=== PATIENT | male | born 1955 | race Caucasian/White ===

== ENCOUNTER 2017-06-03 18:29 | Emergency (ER) | payer OTHER ==
[2017-06-03] MEDS: DOXYCYCLINE HYCLATE 100 MG TAB PO (21:48)
== END 2017-06-03 21:48 | disposition home or self-care (01) ==
LOC: M ED 18:29
DX: L03.811 Cellulitis of head [any part, except face] (principal); S00.01XA Abrasion of scalp, initial encounter; X58.XXXA Exposure to other specified factors, initial encounter; Y92.89 Other specified places as the place of occurrence of the external cause; E11.9 Type 2 diabetes mellitus without complications; J44.9 Chronic obstructive pulmonary disease, unspecified; Z79.51 Long term (current) use of inhaled steroids; Z79.899 Other long term (current) drug therapy; F17.210 Nicotine dependence, cigarettes, uncomplicated
CPT/HCPCS: 99283

== ENCOUNTER 2018-01-07 00:37 | Emergency (ER) | payer OTHER ==
[2018-01-07 01:52] LABS: KETONE, URINE AUTO RFX NEGATIVE (NEGATIVE); LEUKOCYTE ESTERASE UR AUTO RFX NEGATIVE (NEGATIVE); MUCUS, URINE RFX SMALL (NEGATIVE); NITRITE, URINE AUTO RFX NEGATIVE (NEGATIVE); RBC, URINE AUTO RFX 1 /HPF (0-3); SPECIFIC GRAVITY UR AUTO RFX 1.017 (1.002-1.035); SQUAM EPITHELIAL CELL UR AURFX 0 /HPF (0-6); WBC, URINE AUTO RFX 0 /HPF (0-3)
[2018-01-07] MEDS: NORCO, ANEXSIA 5/325MG TABLET (HYDROcodone/ACETAMINOPHEN) PO (02:08)
[2018-01-07] MEDS: NORCO 5/325MG TABLET (BULK FOR ED) PO (02:15)
== END 2018-01-07 02:19 | disposition home or self-care (01) ==
LOC: M ED 00:37
DX: K40.90 Unilateral inguinal hernia, without obstruction or gangrene, not specified as recurrent (principal); E11.9 Type 2 diabetes mellitus without complications; I10 Essential (primary) hypertension
CPT/HCPCS: 81001

== ENCOUNTER 2018-01-13 23:19 | Emergency (ER) | payer OTHER ==
[2018-01-14] MEDS: ONDANSETRON 4MG/2ML VIAL (J2405) IV (01:04)
[2018-01-14] MEDS: MORPHINE 4 MG/ML 1ML VIAL/SYRINGE (J2270) IV (01:04)
[2018-01-14 01:05] LABS: BASO # 0.1 10^3/uL (0.0-0.2); BASO % 0.8 % (0.0-1.0); EOS # 0.3 10^3/uL (0.0-0.50); EOS % 2.7 % (0.0-3.0); HEMATOCRIT 42.7 % (42.0-52.0); HEMOGLOBIN 14.2 g/dl (13.5-17.5); IMMATURE GRANULOCYTE % 0.4 % (0-3.0); LYMPH # 3.2 10^3/uL (1.5-4.5); LYMPH % 29.6 % (24.0-44.0); MEAN CORPUSCULAR HEMOGLOBIN 29.6 pg (27.0-33.0); MEAN CORPUSCULAR HGB CONC 33.3 g/dl (32.0-36.5); MONO # 0.7 10^3/uL (0.0-0.8); MONO % 6.9 % (0.0-5.0); NEUTROPHILS # 6.4 10^3/uL (1.8-7.7); NEUTROPHILS % 59.6 % (36.0-66.0); PLATELET COUNT, AUTOMATED 327 10^3/uL (150-450); WHITE BLOOD COUNT 10.7 10^3/uL (4.0-10.0)
[2018-01-14 01:27] LABS: ANION GAP 9 MEQ/L (8-16); BLOOD UREA NITROGEN 14 MG/DL (7-18); CALCIUM LEVEL 8.6 MG/DL (8.8-10.2); CARBON DIOXIDE LEVEL 28 MEQ/L (21-32); CHLORIDE LEVEL 105 MEQ/L (98-107); CREATININE FOR GFR 0.77 MG/DL (0.70-1.30); GLOMERULAR FILTRATION RATE > 60.0 (>49); GLUCOSE, FASTING 184 MG/DL (70-100); POTASSIUM SERUM 4.1 MEQ/L (3.5-5.1); SODIUM LEVEL 142 MEQ/L (136-145)
[2018-01-14 01:30] LABS: LACTIC ACID SEPSIS PROTOCOL 0.9 MMOL/L (0.4-2.0)
== END 2018-01-14 02:05 | disposition home or self-care (01) ==
LOC: M ED 23:19
DX: K40.90 Unilateral inguinal hernia, without obstruction or gangrene, not specified as recurrent (principal); R11.0 Nausea; I10 Essential (primary) hypertension; E11.9 Type 2 diabetes mellitus without complications; J44.9 Chronic obstructive pulmonary disease, unspecified; F17.210 Nicotine dependence, cigarettes, uncomplicated
CPT/HCPCS: J2270

== ENCOUNTER 2018-01-15 22:30 | Emergency (ER) | payer OTHER ==
[2018-01-15] MEDS: NORCO 5/325MG TABLET (BULK FOR ED) PO (23:45)
== END 2018-01-16 00:05 | disposition home or self-care (01) ==
LOC: M ED 01-16 00:05
DX: K40.90 Unilateral inguinal hernia, without obstruction or gangrene, not specified as recurrent (principal); I10 Essential (primary) hypertension; J44.9 Chronic obstructive pulmonary disease, unspecified; E11.9 Type 2 diabetes mellitus without complications; Z79.899 Other long term (current) drug therapy; Z79.4 Long term (current) use of insulin; F17.210 Nicotine dependence, cigarettes, uncomplicated
CPT/HCPCS: 99283

== ENCOUNTER 2018-02-14 23:32 | Emergency (ER) | payer OTHER ==
[2018-02-15 01:16] LABS: BASO # 0.1 10^3/uL (0.0-0.2); BASO % 1.1 % (0.0-1.0); EOS # 0.4 10^3/uL (0.0-0.50); EOS % 3.4 % (0.0-3.0); HEMATOCRIT 42.6 % (42.0-52.0); HEMOGLOBIN 14.4 g/dl (13.5-17.5); IMMATURE GRANULOCYTE % 0.3 % (0-3.0); LYMPH # 3.5 10^3/uL (1.5-4.5); LYMPH % 31.9 % (24.0-44.0); MEAN CORPUSCULAR HEMOGLOBIN 29.4 pg (27.0-33.0); MEAN CORPUSCULAR HGB CONC 33.8 g/dl (32.0-36.5); MEAN CORPUSCULAR VOLUME 87.1 fl (80.0-96.0); MONO # 0.8 10^3/uL (0.0-0.8); NEUTROPHILS # 6.2 10^3/uL (1.8-7.7); NEUTROPHILS % 56.3 % (36.0-66.0); PLATELET COUNT, AUTOMATED 321 10^3/uL (150-450); RED BLOOD COUNT 4.89 10^6/uL (4.30-6.10); RED CELL DISTRIBUTION WIDTH 12.6 % (11.5-14.5)
[2018-02-15 01:33] LABS: ANION GAP 5 MEQ/L (8-16); BLOOD UREA NITROGEN 9 MG/DL (7-18); CARBON DIOXIDE LEVEL 30 MEQ/L (21-32); CHLORIDE LEVEL 104 MEQ/L (98-107); CREATININE FOR GFR 0.73 MG/DL (0.70-1.30); GLOMERULAR FILTRATION RATE > 60.0 (>49); GLUCOSE, FASTING 258 MG/DL (70-100); POTASSIUM SERUM 4.2 MEQ/L (3.5-5.1); SODIUM LEVEL 139 MEQ/L (136-145)
[2018-02-15 02:00] LABS: CALCIUM OXALATE CRYSTALS RFX SMALL; KETONE, URINE AUTO RFX TRACE mg/dL (NEGATIVE); LEUKOCYTE ESTERASE UR AUTO RFX NEGATIVE (NEGATIVE); MUCUS, URINE RFX SMALL (NEGATIVE); NITRITE, URINE AUTO RFX NEGATIVE (NEGATIVE); RBC, URINE AUTO RFX 1 /HPF (0-3); SQUAM EPITHELIAL CELL UR AURFX 0 /HPF (0-6); WBC, URINE AUTO RFX 0 /HPF (0-3)
[2018-02-15] MEDS ORDERED: OXYCODONE/APAP 5MG/325MG(BULK FOR ED) 1 TABLET PO (02:15)
== END 2018-02-15 02:14 | disposition home or self-care (01) ==
LOC: M ED 23:32
DX: K40.90 Unilateral inguinal hernia, without obstruction or gangrene, not specified as recurrent (principal); N43.41 Spermatocele of epididymis, single; R30.0 Dysuria; E11.9 Type 2 diabetes mellitus without complications; I10 Essential (primary) hypertension; J44.9 Chronic obstructive pulmonary disease, unspecified; F17.200 Nicotine dependence, unspecified, uncomplicated
CPT/HCPCS: 76870

== ENCOUNTER 2018-03-13 13:42 | Day surgery (SDC) | payer OTHER ==
[~2018-03-13 13:42] MED LIST: LIDOCAINE 2% INJ 100 MG/5 ML SDV (FOR ANES.) As Ordered; MIDAZOLAM INJ 2 MG/2 ML VIAL (J2250) As Ordered; PROPOFOL 200 MG/20 ML VIAL As Ordered; ROCURONIUM BROMIDE 50 MG/5 ML VIAL As Ordered; fentaNYL 100 MCG/2 ML INJECTION (J3010) As Ordered
[2018-03-13 14:21] LABS: BEDSIDE GLUCOSE 217 MG/DL (80-115)
[2018-03-13] MEDS: LR 1,000 ML IV (14:36)
[2018-03-13] MEDS ORDERED: HumaLOG INSULIN (NovoLOG) PER UNIT As Ordered (14:40)
[2018-03-13] MEDS: HumaLOG INSULIN (NovoLOG) PER UNIT SC (14:54)
[2018-03-13] MEDS ORDERED: fentaNYL 100 MCG/2 ML INJECTION (J3010) As Ordered (15:33)
[2018-03-13] MEDS ORDERED: SUGAMMADEX SODIUM 500 MG/5 ML VIAL (BRIDION) As Ordered (16:44)
[2018-03-13] MEDS ORDERED: ONDANSETRON 4MG/2ML VIAL (J2405) As Ordered (16:44)
[2018-03-13] MEDS: BUPIVACAINE HCL 0.25% 30 ML VIAL As Ordered (16:50)
[2018-03-13] MEDS ORDERED: HYDROmorphone HCL 2 MG/ML 1ML VIAL (J1170) As Ordered (16:50)
[2018-03-13] MEDS: LIDOCAINE 1% SDV INJ 30 ML VIAL As Ordered (16:50)
[2018-03-13] MEDS ORDERED: KETOROLAC 30 MG/ML VIAL (J1885) As Ordered (17:09)
[2018-03-13 17:11] LABS: BEDSIDE GLUCOSE 141 MG/DL (80-115)
[2018-03-13] MEDS ORDERED: NORCO, ANEXSIA 5/325MG TABLET (HYDROcodone/ACETAMINOPHEN) PO ×2 (17:15)
[2018-03-13] MEDS ORDERED: ONDANSETRON 4MG/2ML VIAL (J2405) IV (17:15)
[2018-03-13] MEDS: KETOROLAC 30 MG/ML VIAL (J1885) IV (17:25)
[2018-03-13] MEDS ORDERED: MORPHINE 10 MG/ML 1ML VIAL (J2270) IV (17:45)
[2018-03-13] MEDS ORDERED: LR 1,000 ML IV (17:45)
[2018-03-13] MEDS ORDERED: fentaNYL 100 MCG/2 ML INJECTION (J3010) IV (17:45)
[2018-03-13] MEDS: ONDANSETRON 4MG/2ML VIAL (J2405) IV (18:01)
== END 2018-03-13 18:59 | disposition home or self-care (01) ==
LOC: M SDC 13:42
DX: K40.90 Unilateral inguinal hernia, without obstruction or gangrene, not specified as recurrent (principal); E11.9 Type 2 diabetes mellitus without complications; E78.49 Other hyperlipidemia; J44.9 Chronic obstructive pulmonary disease, unspecified; I73.9 Peripheral vascular disease, unspecified; I25.2 Old myocardial infarction; M75.51 Bursitis of right shoulder; R51 Headache; Z79.899 Other long term (current) drug therapy; Z79.4 Long term (current) use of insulin; Z79.82 Long term (current) use of aspirin; Z72.0 Tobacco use
CPT/HCPCS: 49650

== ENCOUNTER 2018-03-13 23:24 | Emergency (ER) | payer OTHER ==
[2018-03-14 00:06] LABS: AMORPHOUS SEDIMENT RFX SMALL (NEGATIVE); KETONE, URINE AUTO RFX TRACE mg/dL (NEGATIVE); MUCUS, URINE RFX LARGE (NEGATIVE); NITRITE, URINE AUTO RFX NEGATIVE (NEGATIVE); RBC, URINE AUTO RFX TNTC /HPF (0-3); SPECIFIC GRAVITY UR AUTO RFX 1.034 (1.002-1.035); SQUAM EPITHELIAL CELL UR AURFX 1 /HPF (0-6)
[2018-03-14 00:16] LABS: LEUKOCYTE ESTERASE UR AUTO RFX TRACE (NEGATIVE); WBC, URINE AUTO RFX 56 /HPF (0-3)
[2018-03-14] MEDS: NORCO 5/325MG TABLET (BULK FOR ED) PO (00:41)
[2018-03-14] MEDS: NORCO, ANEXSIA 5/325MG TABLET (HYDROcodone/ACETAMINOPHEN) PO (00:41)
[2018-03-14 11:55] LABS: BEDSIDE GLUCOSE 203 MG/DL (80-115)
== END 2018-03-14 00:43 | disposition home or self-care (01) ==
LOC: M ED 23:24
DX: G89.18 Other acute postprocedural pain (principal); R31.9 Hematuria, unspecified; E11.9 Type 2 diabetes mellitus without complications; J44.9 Chronic obstructive pulmonary disease, unspecified; I25.2 Old myocardial infarction; Z79.899 Other long term (current) drug therapy; Z79.4 Long term (current) use of insulin; Z79.82 Long term (current) use of aspirin; F17.210 Nicotine dependence, cigarettes, uncomplicated
CPT/HCPCS: 81001

== ENCOUNTER 2018-06-13 20:14 | Emergency (ER) | payer OTHER ==
[~2018-06-13] VITALS: Ht 175.3 cm; Wt 69.0 kg
[~2018-06-13 20:14] MED LIST changes: +BASA100I; +BASA100I SQ; +DOXY100C37 PO; +INCR1INH; +INCR1INH INH; -LIDOCAINE 2% INJ 100 MG/5 ML SDV (FOR ANES.) As Ordered; +LISI10TA4 PO; +METF10004 PO; -MIDAZOLAM INJ 2 MG/2 ML VIAL (J2250) As Ordered; +NORCOTAB PO; +NOVO1INJ4; +NOVO1INJ4 SQ; +PERC5TAB12 PO; +PRED10TA2; -PROPOFOL 200 MG/20 ML VIAL As Ordered; -ROCURONIUM BROMIDE 50 MG/5 ML VIAL As Ordered; +SM A1TAB PO; -fentaNYL 100 MCG/2 ML INJECTION (J3010) As Ordered
[2018-06-13] MEDS ORDERED: IPRATROPIUM 0.5MG/ALBUTEROL 2.5MG INH SOL UD 3ML (DUONEB)(J7620) NEB ONE (22:00)
[2018-06-13 22:35] LABS: INFLUENZA A AMPLIFICATION NEGATIVE (NEGATIVE); INFLUENZA B AMPLIFICATION NEGATIVE (NEGATIVE)
--- NOTE | 2018-06-13 23:47 | REPVR ---
EXAM: CT Cervical Spine Without Contrast EXAM DATE/TIME: 06/13/2018 10:45 PM CLINICAL HISTORY: 63 years old, male; Pain; Neck pain; Additional info: Fell in march, still has pain TECHNIQUE: Imaging protocol: Axial computed tomography images of the cervical spine without intravenous contrast. Coronal and sagittal reformatted images were created and reviewed. Radiation optimization: All CT scans at this facility use at least one of these dose optimization techniques: automated exposure control; mA and/or kV adjustment per patient size (includes targeted exams where dose is matched to clinical indication); or iterative reconstruction. COMPARISON: No relevant prior studies available. FINDINGS: Vertebrae: The cervical vertebra appear in alignment. The facet joints also appear in alignment. There is no evidence of fracture. Discs/Spinal canal/Neural foramina: There is mild posterior osteophyte formation. Soft tissues: There is no evidence of soft tissue swelling. IMPRESSION: Mild posterior osteophyte formation. Electronically signed by: Nakul Do On 06/13/2018 23:46:53 PM
[2018-06-13] MEDS ORDERED: VENTAER INH (23:52)
[2018-06-13] MEDS ORDERED: NAPR-50 PO (23:52)
[2018-06-13 23:58] VITALS: BP 143/80
--- NOTE | 2018-06-14 02:25 | REP ---
Clinical: Shortness of breath . Comparison: None . Technique: PA and lateral. Findings: The mediastinum and cardiac silhouette are normal. The lung castro demonstrate chronic interstitial changes. Lateral view cannot exclude a 1 cm nodular density overlying the mid-thoracic spine. The skeletal structures are intact and normal. Impression: 1. Chronic-appearing interstitial changes. 2. Cannot exclude nodular density in the posterior lung zone identified on the lateral radiograph. Consider chest CT follow-up. Electronically Signed by Jarett Middleton MD 06/14/2018 02:17 A
--- NOTE | 2018-06-14 10:51 | ED PDOC ---
Post-Departure Follow-Up davion caruso faxed formal report of cxr for fu mykeg Anthony Singh MD Jun 14, 2018 10:50
--- NOTE | 2018-06-14 21:20 | ECGEPIP ---
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
== END 2018-06-13 23:59 | disposition home or self-care (01) ==
LOC: M ED 20:14
DX: J44.9 Chronic obstructive pulmonary disease, unspecified (principal); M54.2 Cervicalgia; Z91.81 History of falling; R91.8 Other nonspecific abnormal finding of lung field; M25.78 Osteophyte, vertebrae; E11.9 Type 2 diabetes mellitus without complications; I25.2 Old myocardial infarction; I10 Essential (primary) hypertension; R51 Headache; F17.210 Nicotine dependence, cigarettes, uncomplicated; Z79.82 Long term (current) use of aspirin; Z79.899 Other long term (current) drug therapy; Z79.4 Long term (current) use of insulin

== ENCOUNTER 2019-01-04 18:07 | Emergency (ER) | payer OTHER ==
[~2019-01-04] VITALS: Ht 175.3 cm; Wt 66.4 kg
[~2019-01-04 18:07] MED LIST changes: +ASPI-164 PO; +HYDR-3715 PO; +NAPR-837 PO; -NORCOTAB PO; -SM A1TAB PO; +VENTAER INH
[2019-01-04 19:35] LABS: HEMATOCRIT 45.6 % (42.0-52.0); HEMOGLOBIN 14.9 g/dl (13.5-17.5); MEAN CORPUSCULAR HEMOGLOBIN 29.6 pg (27.0-33.0); MEAN CORPUSCULAR HGB CONC 32.7 g/dl (32.0-36.5); MEAN CORPUSCULAR VOLUME 90.5 fl (80.0-96.0); PLATELET COUNT, AUTOMATED 334 10^3/uL (150-450); RED BLOOD COUNT 5.04 10^6/uL (4.30-6.10); WHITE BLOOD COUNT 8.2 10^3/uL (4.0-10.0)
[2019-01-04 19:40] LABS: AMPHETAMINES LEVEL URINE NEGATIVE (NEGATIVE); BARBITURATES URINE NEGATIVE (NEGATIVE); BENZODIAZEPINES URINE NEGATIVE (NEGATIVE); CANNABINOIDS URINE POSITIVE (NEGATIVE); COCAINE METABOLITE URINE NEGATIVE (NEGATIVE); METHADONE URINE NEGATIVE (NEGATIVE); OPIATES URINE NEGATIVE (NEGATIVE); PHENCYCLIDINE URINE NEGATIVE (NEGATIVE)
[2019-01-04 20:20] LABS: ACETAMINOPHEN LEVEL < 2.0 UG/ML (10.0-30.0); ALT/SGPT 21 U/L (12-78); BILIRUBIN,DIRECT 0.1 MG/DL (0.0-0.2); BILIRUBIN,TOTAL 0.6 MG/DL (0.2-1.0); BLOOD UREA NITROGEN 6 MG/DL (7-18); CARBON DIOXIDE LEVEL 28 MEQ/L (21-32); CHLORIDE LEVEL 105 MEQ/L (98-107); CREATININE FOR GFR 0.76 MG/DL (0.70-1.30); ETHYL ALCOHOL (ETHANOL) 0.003 % (0.000-0.010); GLOMERULAR FILTRATION RATE > 60.0 (>49); GLUCOSE, FASTING 238 MG/DL (70-100); POTASSIUM SERUM 4.5 MEQ/L (3.5-5.1); SALICYLATE LEVEL 2.8 MG/DL (5.0-30.0); SODIUM LEVEL 138 MEQ/L (136-145)
[2019-01-04 21:31] VITALS: BP 139/72
== END 2019-01-04 21:43 | disposition home or self-care (01) ==
LOC: M ED 18:07
DX: F32.9 Major depressive disorder, single episode, unspecified (principal); I25.2 Old myocardial infarction; E11.9 Type 2 diabetes mellitus without complications; I10 Essential (primary) hypertension; J44.9 Chronic obstructive pulmonary disease, unspecified; Z79.82 Long term (current) use of aspirin; Z79.4 Long term (current) use of insulin; Z79.899 Other long term (current) drug therapy
CPT/HCPCS: 80048; 80076; 80307; 84443; 85027; 99284; G0480

== ENCOUNTER 2019-01-11 20:45 | Emergency (ER) | payer OTHER ==
[~2019-01-11] VITALS: Ht 175.3 cm; Wt 66.4 kg
[2019-01-11 21:24] LABS: BASO # 0.1 10^3/uL (0.0-0.2); BASO % 1.1 % (0.0-1.0); EOS # 0.2 10^3/uL (0.0-0.5); EOS % 2.6 % (0.0-3.0); HEMATOCRIT 42.4 % (42.0-52.0); HEMOGLOBIN 13.8 g/dl (13.5-17.5); LYMPH # 2.5 10^3/uL (1.5-5.0); LYMPH % 29.9 % (24.0-44.0); MEAN CORPUSCULAR HEMOGLOBIN 29.4 pg (27.0-33.0); MEAN CORPUSCULAR HGB CONC 32.5 g/dl (32.0-36.5); MEAN CORPUSCULAR VOLUME 90.4 fl (80.0-96.0); MONO # 0.7 10^3/uL (0.0-0.8); MONO % 8.1 % (0.0-5.0); NEUTROPHILS # 4.9 10^3/uL (1.5-8.5); NEUTROPHILS % 58.1 % (36.0-66.0); PLATELET COUNT, AUTOMATED 278 10^3/uL (150-450); RED BLOOD COUNT 4.69 10^6/uL (4.30-6.10); WHITE BLOOD COUNT 8.4 10^3/uL (4.0-10.0)
[2019-01-11 22:00] LABS: ALBUMIN 3.6 GM/DL (3.2-5.2); ALT/SGPT 18 U/L (12-78); BILIRUBIN,DIRECT < 0.1 MG/DL (0.0-0.2); BILIRUBIN,TOTAL 0.4 MG/DL (0.2-1.0); BLOOD UREA NITROGEN 8 MG/DL (7-18); CALCIUM LEVEL 9.1 MG/DL (8.8-10.2); CARBON DIOXIDE LEVEL 30 MEQ/L (21-32); CHLORIDE LEVEL 106 MEQ/L (98-107); CK-MB VALUE MASS < 1.0 NG/ML (<3.6); CPK CREATINE PHOSPHOKINASE 84 U/L (39-308); CREATININE FOR GFR 0.79 MG/DL (0.70-1.30); GLOMERULAR FILTRATION RATE > 60.0 (>49); GLUCOSE, FASTING 179 MG/DL (70-100); LIPASE 112 U/L (73-393); MB/CK RELATIVE INDEX 1.19 (< OR =4); POTASSIUM SERUM 4.4 MEQ/L (3.5-5.1); SODIUM LEVEL 140 MEQ/L (136-145); TOTAL PROTEIN 6.6 GM/DL (6.4-8.2); TROPONIN I < 0.02 NG/ML (< 0.10)
[2019-01-11] MEDS ORDERED: BISACODYL 5 MG TAB PO ONE (23:45)
[2019-01-11] MEDS ORDERED: MIRA3350 PO (23:48)
[2019-01-12 00:04] VITALS: BP 143/72
--- NOTE | 2019-01-12 03:03 | REP ---
Clinical: Acute abdominal pain. Technique: Upright view of the chest with supine and upright views of the abdomen and pelvis. Findings: Frontal upright view of the chest demonstrates no acute cardiopulmonary process or free air below the diaphragm to suspect pneumoperitoneum. Supine and upright views of the abdomen and pelvis demonstrate nonspecific bowel gas pattern without obstruction or perforation. No organomegaly. No abnormal calcifications. Skeletal structures normal for age. Impression: Nonspecific bowel gas pattern. Electronically Signed by Jarett Middleton MD 01/12/2019 02:54 A
--- NOTE | 2019-01-12 19:48 | ECGEPIP ---
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
== END 2019-01-12 00:05 | disposition home or self-care (01) ==
LOC: M ED 20:45
DX: K59.00 Constipation, unspecified (principal); R07.9 Chest pain, unspecified; F17.200 Nicotine dependence, unspecified, uncomplicated; E11.9 Type 2 diabetes mellitus without complications; Z79.4 Long term (current) use of insulin; Z79.82 Long term (current) use of aspirin; Z79.899 Other long term (current) drug therapy; I25.2 Old myocardial infarction; J44.9 Chronic obstructive pulmonary disease, unspecified; I10 Essential (primary) hypertension

== ENCOUNTER 2019-01-16 18:05 | Emergency (ER) | payer OTHER ==
[~2019-01-16] VITALS: Ht 175.3 cm; Wt 66.3 kg
[~2019-01-16 18:05] MED LIST changes: +MIRA3350 PO
[2019-01-16] MEDS ORDERED: NS 1,000 ML IV ONE (19:00)
[2019-01-16] MEDS ORDERED: ISOVUE-370 76% 100ML VIAL (Q9967) As Ordered ONE (19:04)
[2019-01-16 19:29] LABS: BASO # 0.1 10^3/uL (0.0-0.2); BASO % 1.2 % (0.0-1.0); EOS # 0.2 10^3/uL (0.0-0.5); EOS % 2.7 % (0.0-3.0); HEMATOCRIT 42.5 % (42.0-52.0); HEMOGLOBIN 13.8 g/dl (13.5-17.5); LYMPH # 2.6 10^3/uL (1.5-5.0); LYMPH % 29.7 % (24.0-44.0); MEAN CORPUSCULAR HEMOGLOBIN 28.9 pg (27.0-33.0); MEAN CORPUSCULAR HGB CONC 32.5 g/dl (32.0-36.5); MEAN CORPUSCULAR VOLUME 88.9 fl (80.0-96.0); MONO # 0.7 10^3/uL (0.0-0.8); MONO % 8.1 % (0.0-5.0); NEUTROPHILS % 58.1 % (36.0-66.0); PLATELET COUNT, AUTOMATED 306 10^3/uL (150-450); RED BLOOD COUNT 4.78 10^6/uL (4.30-6.10); WHITE BLOOD COUNT 8.7 10^3/uL (4.0-10.0)
[2019-01-16 19:51] LABS: ALBUMIN 3.8 GM/DL (3.2-5.2); ALT/SGPT 26 U/L (12-78); BILIRUBIN,DIRECT < 0.1 MG/DL (0.0-0.2); BILIRUBIN,TOTAL 0.4 MG/DL (0.2-1.0); CK-MB VALUE MASS < 1.0 NG/ML (<3.6); CPK CREATINE PHOSPHOKINASE 119 U/L (39-308); LIPASE 65 U/L (73-393); MB/CK RELATIVE INDEX 0.84 (< OR =4); TOTAL PROTEIN 6.7 GM/DL (6.4-8.2); TROPONIN I < 0.02 NG/ML (< 0.10)
[2019-01-16] MEDS ORDERED: ONDANSETRON 4MG/2ML VIAL (J2405) IV ONE (20:15)
[2019-01-16] MEDS ORDERED: MORPHINE 2 MG/ML 1ML VIAL (J2270) IV ONE (20:15)
--- NOTE | 2019-01-16 20:41 | REPVR ---
PROCEDURE INFORMATION: Exam: CT Angiography Abdomen and Pelvis With Contrast Exam date and time: 01/16/2019 7:14 PM Clinical history: 63 years old, male; Abdominal pain; Flank; Lower; Additional info: Severe pain into back TECHNIQUE: Imaging protocol: Computed tomographic angiography of the abdomen and pelvis with intravenous contrast material. 3D rendering: MIP reconstructed images were created and reviewed. Radiation optimization: All CT scans at this facility use at least one of these dose optimization techniques: automated exposure control; mA and/or kV adjustment per patient size (includes targeted exams where dose is matched to clinical indication); or iterative reconstruction. Contrast material: ISOVUE 370; Contrast volume: 100 ml; Contrast route: IV; COMPARISON: Pelvis, limited US 02/15/2018 12:24 AM FINDINGS: Lungs: Within the right lower lobe, there is a 3 mm hyperdense calcified nodule. An additional 2 mm hyperdense nodule is visualized in the right lung base. VASCULATURE: Aorta: There is atherosclerotic calcification of the abdominal aorta. There is no aneurysm or dissection of the aorta. Celiac trunk and mesenteric arteries: There is a small linear focus of hypointensity within the superior mesenteric artery proximally, and a dissection flap is considered. Mild luminal narrowing/stenosis of the celiac artery proximally. Renal arteries: There is bifurcation of the right renal artery. No significant stenosis or occlusion of the renal arteries bilaterally. Right iliac arteries: Atherosclerosis of the right common iliac artery. No significant stenosis or occlusion of the right iliac arteries. Left iliac arteries: Atherosclerosis of the left common and internal iliac arteries. No significant stenosis or occlusion of the left iliac arteries. ABDOMEN and PELVIS: Liver: There is hypodense fatty infiltration of the liver. The liver measures 18.3 cm in the craniocaudad dimension, borderline for hepatomegaly. No hepatic mass visualized. Gallbladder and bile ducts: The gallbladder is contracted, without discrete gallstones. Pancreas: No mass. No ductal dilation. Spleen: There is heterogeneous density of the spleen. This is likely contributed by the phase of injection. Small splenic lesions cannot be excluded. Adrenals: No mass. Kidneys and ureters: No solid mass. No hydronephrosis. Stomach and bowel: Wall thickening of jejunal loops, suggestive of incomplete distention or enteritis. Evaluation of bowel is limited by the absence of oral contrast. Moderate fecal material is identified within the colon. No visualized bowel obstruction. Appendix: The appendix is not visualized. Intraperitoneal space: No free air. No significant fluid collection. Lymph nodes: The small retroperitoneal lymph nodes, without significant lymphadenopathy. Bladder: See Reproductive Finding. Reproductive: The prostate is enlarged. This causes elevation of the bladder floor. The calcifications are visualized within the prostate. The Bones/joints: Bilateral sacroiliac arthropathy. Hypertrophic degenerative changes are noted within the spine. Soft tissues: No significant soft tissue swelling visualized. IMPRESSION: 1. There is no aneurysm or dissection of the aorta. 2. There is a small linear focus of hypointensity within the superior mesenteric artery proximally, and a dissection flap is considered. 3. Mild luminal narrowing/stenosis of the celiac artery proximally. 4. Wall thickening of jejunal loops, suggestive of incomplete distention or enteritis. 5. There is hypodense fatty infiltration of the liver. Borderline hepatomegaly. 6. The prostate is enlarged. This causes elevation of the bladder floor. 7. Additional findings described above. Electronically signed by: Antony Panda On 01/16/2019 20:40:37 PM
--- NOTE | 2019-01-16 20:51 | REPVR ---
PROCEDURE INFORMATION: Exam: CT Angiography Chest With Contrast Exam date and time: 01/16/2019 7:14 PM Clinical history: 63 years old, male; Pain; Other: Back; Additional info: Tearing pain into back, RO dissection TECHNIQUE: Imaging protocol: Computed tomographic angiography of the chest with intravenous contrast. 3D rendering: MIP reconstructed images were created and reviewed. Radiation optimization: All CT scans at this facility use at least one of these dose optimization techniques: automated exposure control; mA and/or kV adjustment per patient size (includes targeted exams where dose is matched to clinical indication); or iterative reconstruction. Contrast material: ISOVUE 370; Contrast volume: 100 ml; Contrast route: IV; COMPARISON: CR Abdomen,Flat Upright,PA CHEST 01/11/2019 9:55 PM FINDINGS: Pulmonary arteries: The main pulmonary trunk, right/left main pulmonary arteries, and the proximal lobar branches demonstrate no definite intraluminal filling defect to suggest pulmonary embolism. Aorta: The descending thoracic aorta is mildly ectatic measuring 2.7 cm in diameter. There is mild mural thrombus and atherosclerosis involving the thoracic aorta. Artifact limits evaluation of the ascending aorta. Lungs: Several small hyperdense calcified lung nodules are identified within the right lung. Within the right lower lobe, a 3 mm hyperdense calcified nodule is visualized. Mild centrilobular emphysematous changes identified bilaterally. No lung mass or consolidation. Pleural space: No pneumothorax. No pleural effusion. Heart: No cardiomegaly. No pericardial effusion. Lymph nodes: A mildly enlarged periaortic lymph node is identified within the mediastinum measuring 1.8 x 0.5 cm. A precarinal mediastinal lymph node measures 1.8 x 0.8 cm. Nonspecific small axillary lymph nodes are identified bilaterally. Bones/joints: Hypertrophic degenerative changes are noted within the spine. Soft tissues: Unremarkable. IMPRESSION: 1. The descending thoracic aorta is mildly ectatic measuring 2.7 cm in diameter. There is mild mural thrombus and atherosclerosis involving the thoracic aorta. 2. Mild centrilobular emphysematous changes identified bilaterally. 3. No acute pulmonary embolism. 4. A mildly enlarged periaortic lymph node is identified within the mediastinum measuring 1.8 x 0.5 cm. 5. Additional findings described above. Electronically signed by: Antony Panda On 01/16/2019 20:51:30 PM
--- NOTE | 2019-01-16 21:16 | REPVR ---
PROCEDURE INFORMATION: Exam: US Scrotum Exam date and time: 01/16/2019 8:54 PM Clinical history: 63 years old, male; Scrotum pain; Additional info: Norm testicular pain TECHNIQUE: Imaging protocol: Real-time ultrasound of the scrotum and contents with color Doppler and image documentation. COMPARISON: Scrotal, US 02/15/2018 12:08 AM FINDINGS: Right Testicle: The right testis measures 4.9 x 2.5 x 3.3 cm. There is preservation of blood flow within the right testis. No intratesticular mass. Left Testicle: The left testis measures 4.7 x 2.7 x 3.2 cm. Within the left testis, there is a small hypoechoic lesion measuring 0.4 x 0.3 x 0.4 cm. This is stable compared to the prior study. A smaller hypoechoic lesion is noted within the left testis measuring 0.2 cm not visualized on the prior images. These findings may represent complex intratesticular cyst or epidermoid cyst, although additional etiologies cannot be excluded. There is preservation of blood flow within the left testis. Epididymides: Multiple extratesticular cysts are identified on the right side in the region of the epididymis. The largest measures 2.2 x 1.8 x 2.4 cm. The left epididymal head measures 7-8 mm in diameter, without a well-defined cyst or mass. Scrotum: Unremarkable. No significant hydroceles visualized. IMPRESSION: 1. Multiple extratesticular cysts are identified on the right side in the region of the epididymis. The largest measures 2.2 x 1.8 x 2.4 cm, which has increased in size. 2. Within the left testis, there is a small hypoechoic lesion measuring 0.4 x 0.3 x 0.4 cm. This is stable compared to the prior study. A smaller hypoechoic lesion is noted within the left testis measuring 0.2 cm, not visualized on the prior images. These findings are suggestive of complex intratesticular cysts or epidermoid cysts, although additional etiologies cannot be excluded. Continued follow-up with ultrasound recommended. Electronically signed by: Antony Panda On 01/16/2019 21:16:15 PM
[2019-01-16 22:32] VITALS: BP 133/70
--- NOTE | 2019-01-17 00:58 | ECGEPIP ---
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
--- NOTE | 2019-01-17 13:43 | ED PDOC ---
Post-Departure Follow-Up dr pride and davion stahl faxed formal report of scrotal us for fu Anthony Clancy MD Jan 17, 2019 13:43
--- NOTE | 2019-01-17 13:44 | ED PDOC ---
Post-Departure Follow-Up dr porter and davion stahl faxed formal report of cta abd for fu Anthony Clancy MD Jan 17, 2019 13:44
== END 2019-01-16 22:42 | disposition home or self-care (01) ==
LOC: M ED 18:05
DX: K59.00 Constipation, unspecified (principal); I77.4 Celiac artery compression syndrome; N44.2 Benign cyst of testis; R91.1 Solitary pulmonary nodule; E11.9 Type 2 diabetes mellitus without complications; I10 Essential (primary) hypertension; J44.9 Chronic obstructive pulmonary disease, unspecified; K50.90 Crohn's disease, unspecified, without complications; I25.2 Old myocardial infarction; Z79.899 Other long term (current) drug therapy; Z79.82 Long term (current) use of aspirin; Z79.4 Long term (current) use of insulin; F17.210 Nicotine dependence, cigarettes, uncomplicated
CPT/HCPCS: 71275; 74174; 76870; 80047; 80076; 81001; 82550; 82553; 83605; 83690; 85025; 93005; 93976; 96361; 96374; 96375; 99284; J2270; J2405; Q9967

== ENCOUNTER → 2019-01-22 | Outpatient (REF) | payer OTHER ==
[2019-01-22 17:49] LABS: APPEARANCE, URINE CLEAR (CLEAR); BACTERIA, URINE AUTO NEGATIVE (NEGATIVE); BILIRUBIN, URINE AUTO NEGATIVE (NEGATIVE); BLOOD, URINE BLOOD NEGATIVE (NEGATIVE); CALCIUM OXALATE CRYSTALS MODERATE; COLOR, URINE YELLOW (YELLOW); GLUCOSE, URINE (UA) AUTO 1+ mg/dL (NEGATIVE); KETONE, URINE AUTO TRACE mg/dL (NEGATIVE); LEUKOCYTE ESTERASE, URINE AUTO NEGATIVE (NEGATIVE); MUCUS, URINE SMALL (NEGATIVE); NITRITE, URINE AUTO NEGATIVE (NEGATIVE); PROTEIN, URINE AUTO NEGATIVE (NEGATIVE); RBC, URINE AUTO 2 /HPF (0-3); SPECIFIC GRAVITY URINE AUTO 1.025 (1.002-1.035); SQUAMOUS EPITHELIAL CELL UR AU 0 /HPF (0-6); UROBILINOGEN, URINE AUTO 0.2 mg/dL (0.0-2.0); WBC, URINE AUTO 3 /HPF (0-3)
[2019-01-22 19:13] LABS: CHLAMYDIA DNA AMPLIFICATION NEGATIVE (NEGATIVE); GC DNA AMPLIFICATION NEGATIVE (NEGATIVE)
== END ==
LOC: M SMT 16:56
PROVIDERS: ATTEND Nurse Practitioner Family
DX: N50.819 Testicular pain, unspecified (principal)

== ENCOUNTER 2019-03-17 17:56 | Emergency (ER) | payer OTHER ==
[~2019-03-17] VITALS: Ht 170.2 cm; Wt 66.3 kg
[2019-03-17 17:56] VITALS: BP 142/69
[2019-03-17] MEDS ORDERED: ULTR50TA8 PO (18:31)
== END 2019-03-17 18:51 | disposition home or self-care (01) ==
LOC: M ED 17:56
DX: G89.29 Other chronic pain (principal); M54.9 Dorsalgia, unspecified; J44.9 Chronic obstructive pulmonary disease, unspecified; Z87.891 Personal history of nicotine dependence; Z79.82 Long term (current) use of aspirin; Z79.4 Long term (current) use of insulin; Z79.899 Other long term (current) drug therapy

== ENCOUNTER 2019-04-06 16:22 | Emergency (ER) | payer OTHER ==
[~2019-04-06] VITALS: Ht 175.3 cm; Wt 67.5 kg
[~2019-04-06 16:22] MED LIST changes: +ULTR50TA8 PO
[2019-04-06] MEDS ORDERED: PRED20TA PO (18:17)
[2019-04-06] MEDS ORDERED: ROBA750T4 PO (18:17)
[2019-04-06 18:30] VITALS: BP 124/77
== END 2019-04-06 18:31 | disposition home or self-care (01) ==
LOC: M ED 16:22
DX: G89.29 Other chronic pain (principal); M54.2 Cervicalgia; I50.9 Heart failure, unspecified; I25.2 Old myocardial infarction; I10 Essential (primary) hypertension; E11.9 Type 2 diabetes mellitus without complications; R51 Headache; J44.9 Chronic obstructive pulmonary disease, unspecified; K52.9 Noninfective gastroenteritis and colitis, unspecified; Z79.82 Long term (current) use of aspirin; Z79.4 Long term (current) use of insulin; Z79.899 Other long term (current) drug therapy

== ENCOUNTER 2019-04-18 22:36 | Emergency (ER) | payer OTHER ==
[~2019-04-18] VITALS: Ht 172.7 cm; Wt 66.4 kg
[~2019-04-18 22:36] MED LIST changes: +PRED20TA PO; +ROBA750T4 PO
[2019-04-18 22:38] VITALS: BP 129/64
[2019-04-18] MEDS ORDERED: BREO1INH3 (22:49)
[2019-04-18] MEDS ORDERED: LISI10TA4 (22:49)
[2019-04-18] MEDS ORDERED: SERT50TA29 (22:49)
[2019-04-18] MEDS ORDERED: NICO1DIS10 (22:49)
[2019-04-18] MEDS ORDERED: VITA2000 (22:49)
== END 2019-04-19 00:59 | disposition left against medical advice (07) ==
LOC: M ED 22:36
DX: Z53.21 Procedure and treatment not carried out due to patient leaving prior to being seen by health care provider (principal)

== ENCOUNTER 2019-05-02 19:12 | Emergency (ER) | payer OTHER ==
[~2019-05-02] VITALS: Ht 175.3 cm; Wt 67.1 kg
[~2019-05-02 19:12] MED LIST changes: +BREO1INH3 INH; +NICO1DIS10 TD; +SERT50TA29 PO; +VITA2000
[2019-05-02 21:56] LABS: INFLUENZA A AMPLIFICATION POSITIVE (NEGATIVE); INFLUENZA B AMPLIFICATION NEGATIVE (NEGATIVE)
[2019-05-02] MEDS ORDERED: OSEL75CA PO (22:22)
[2019-05-02] MEDS ORDERED: ONDA4TAB6 PO (22:22)
[2019-05-02] MEDS ORDERED: ONDANSETRON 4 MG ORAL DISINTEGRATING TAB (Q0162 PER 1MG) PO ONE (22:30)
[2019-05-02] MEDS ORDERED: IPRATROPIUM 0.5MG/ALBUTEROL 2.5MG INH SOL UD 3ML (DUONEB)(J7620) NEB ONE (22:30)
[2019-05-02 22:39] VITALS: BP 134/76
--- NOTE | 2019-05-03 12:13 | REP ---
Clinical: Shortness of breath and cough . Comparison: 06/13/2018 . Technique: PA and lateral. Findings: The mediastinum and cardiac silhouette are normal. The lung castro the straight diffuse chronic interstitial changes. No consolidation. No effusion. No pneumothorax. The skeletal structures are intact and normal. Impression: 1. No acute cardiopulmonary process. Electronically Signed by Jarett Middleton MD 05/03/2019 12:05 P
[2019-05-03] MEDS ORDERED: PATIENT COMMENT (15:25)
[2019-05-03] MEDS ORDERED: OSEL75CA PO (15:25)
[2019-05-03] MEDS ORDERED: ALBU83IN INH (15:25)
[2019-05-03] MEDS ORDERED: BISA1TAB PO (15:25)
[2019-05-03] MEDS ORDERED: PANT-23 PO (15:25)
[2019-05-03] MEDS ORDERED: ATOR40TA75 PO (15:25)
[2019-05-03] MEDS ORDERED: D-20TAB PO (15:25)
[2019-05-03] MEDS ORDERED: ACET-683 PO (15:25)
[2019-05-03] MEDS ORDERED: VENTAER INH (15:25)
[2019-05-03] MEDS ORDERED: ONDA4TAB6 PO (15:25)
[2019-05-03] MEDS ORDERED: TRAM50TA2 PO (15:25)
[2019-05-03] MEDS ORDERED: METH1TAB40 PO (15:25)
== END 2019-05-02 22:41 | disposition home or self-care (01) ==
LOC: M ED 19:12
DX: J09.X2 Influenza due to identified novel influenza A virus with other respiratory manifestations (principal); I50.9 Heart failure, unspecified; E11.9 Type 2 diabetes mellitus without complications; Z79.82 Long term (current) use of aspirin; Z79.4 Long term (current) use of insulin; Z79.899 Other long term (current) drug therapy
CPT/HCPCS: 71046; 87502; 99283; Q0162

== ENCOUNTER 2019-05-03 11:14 | Inpatient (IN) | payer OTHER ==
[~2019-05-03 11:14] MED LIST changes: +ONDA4TAB6 PO; +OSEL75CA PO
[2019-05-03 11:49] LABS: VENOUS BASE EXCESS -3.5 (-2.0-2.0); VENOUS HCO3 25.2 MEQ/L (23.0-27.0); VENOUS O2 SATURATION 76.1 % (60.0-80.0); VENOUS PARTIAL PRESSURE CO2 60.5 mmHg (38.0-50.0); VENOUS PARTIAL PRESSURE O2 45.3 mmHg (30.0-50.0); VENOUS PH 7.237 UNITS (7.330-7.430); VENOUS STANDARD HCO3 21.1 MEQ/L
[2019-05-03 11:54] LABS: BASO % 0.4 % (0.0-1.0); HEMATOCRIT 46.1 % (42.0-52.0); HEMOGLOBIN 14.6 g/dl (13.5-17.5); LYMPH # 0.4 10^3/uL (1.5-5.0); MEAN CORPUSCULAR HEMOGLOBIN 28.6 pg (27.0-33.0); MEAN CORPUSCULAR HGB CONC 31.7 g/dl (32.0-36.5); MEAN CORPUSCULAR VOLUME 90.4 fl (80.0-96.0); MONO # 0.8 10^3/uL (0.0-0.8); MONO % 8.1 % (0.0-5.0); NEUTROPHILS # 8.9 10^3/uL (1.5-8.5); NEUTROPHILS % 87.2 % (36.0-66.0); PLATELET COUNT, AUTOMATED 264 10^3/uL (150-450); WHITE BLOOD COUNT 10.2 10^3/uL (4.0-10.0)
[2019-05-03 12:03] LABS: INR 1.13; PROTHROMBIN TIME 14.2 SECONDS (11.8-14.0)
--- NOTE | 2019-05-03 12:11 | REP ---
Portable chest, two AP views with the patient upright, 11:43 a.m.: Comparisons are 06/13/2018 and 09:33 p.m., 05/02/2019. The lung castro are hyperinflated, as previously. There are no focal infiltrates or pleural effusions. The interstitium is mildly coarsened, unchanged from 06/13/2018, compatible with chronic lung disease. Cardiac size is normal. The sophia, mediastinum, skeletal structures are unchanged. Impression: Chronic interstitial coarsening compatible with chronic lung disease. Hyperinflation. No focal infiltrate or effusion. No masses or nodules. Electronically Signed by Lázaro Sparks MD 05/03/2019 12:03 P
[2019-05-03 12:30] LABS: BLOOD UREA NITROGEN 15 MG/DL (7-18); CALCIUM LEVEL 8.9 MG/DL (8.8-10.2); CARBON DIOXIDE LEVEL 30 MEQ/L (21-32); CHLORIDE LEVEL 102 MEQ/L (98-107); CREATININE FOR GFR 1.04 MG/DL (0.70-1.30); GLOMERULAR FILTRATION RATE > 60.0 (>49); GLUCOSE, FASTING 295 MG/DL (70-100); POTASSIUM SERUM 4.1 MEQ/L (3.5-5.1); SODIUM LEVEL 138 MEQ/L (136-145)
[2019-05-03] MEDS: NS 1,000 ML IV SCH ×4 (12:30→16:58)
[2019-05-03] MEDS: IPRATROPIUM 0.5MG/ALBUTEROL 2.5MG INH SOL UD 3ML (DUONEB)(J7620) NEB SCH ×3 (12:36→13:39)
[2019-05-03] MEDS ORDERED: methylPREDNISolone INJ 125 MG/2 ML VIAL (J2930) IV ONE (13:15)
[2019-05-03 13:20] LABS: ALBUMIN 4.4 GM/DL (3.2-5.2); ALT/SGPT 22 U/L (12-78); BILIRUBIN,DIRECT 0.3 MG/DL (0.0-0.2); BILIRUBIN,TOTAL 1.2 MG/DL (0.2-1.0); CK-MB VALUE MASS < 1.0 NG/ML (<3.6); CPK CREATINE PHOSPHOKINASE 126 U/L (39-308); MB/CK RELATIVE INDEX 0.79 (< OR =4); NT-PRO BNP 411 PG/ML (<125); THYROID STIMULATING HORMONE 0.504 uIU/ML (0.358-3.740); TOTAL PROTEIN 7.4 GM/DL (6.4-8.2); TROPONIN I 0.04 NG/ML (< 0.10)
[2019-05-03] MEDS ORDERED: ALBU83IN INH (15:25)
[2019-05-03] MEDS ORDERED: METH1TAB40 PO (15:25)
[2019-05-03] MEDS ORDERED: ATOR40TA75 PO (15:25)
[2019-05-03] MEDS ORDERED: ACET-683 PO (15:25)
[2019-05-03] MEDS ORDERED: BISA1TAB PO (15:25)
[2019-05-03] MEDS ORDERED: PANT-23 PO (15:25)
[2019-05-03] MEDS ORDERED: ONDA4TAB6 PO (15:25)
[2019-05-03] MEDS ORDERED: PATIENT COMMENT (15:25)
[2019-05-03] MEDS ORDERED: D-20TAB PO (15:25)
[2019-05-03] MEDS ORDERED: TRAM50TA2 PO (15:25)
[2019-05-03] MEDS ORDERED: OSEL75CA PO (15:25)
[2019-05-03] MEDS ORDERED: VENTAER INH (15:25)
--- NOTE | 2019-05-03 15:26 | ECGEPIP ---
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
[2019-05-03] MEDS ORDERED: IPRATROPIUM 0.5MG/ALBUTEROL 2.5MG INH SOL UD 3ML (DUONEB)(J7620) NEB PRN (15:30)
--- NOTE | 2019-05-03 15:34 | HPEPDOC ---
[facility] Medical History & Physical Date of Admission May 03, 2019 Date of Service: May 03, 2019 Attending Physician: KISHORE DUBOIS MD History and Physical CHIEF COMPLAINT: Worsening shortness of breath and cough HISTORY OF PRESENT ILLNESS: 64-year-old male with past medical history of CHF, COPD, diabetes mellitus and hypertension, presents to the emergency department with worsening shortness of breath and cough. Patient was here yesterday with similar symptoms, was diagnosed with influenza and sent home on Tamiflu. Patient reports continued worsening of symptoms, now requiring supplemental oxygen to maintain adequate saturation, also reports generalized arthralgia. He denies any fever, chills or other associated symptoms at this time. In the ED, patient is significantly tachycardic and dyspneic, no other complaints at this time. He denies any nausea, vomiting, abdominal pain or diarrhea. ABG in the ED is consistent with acute hypercapnic and hypoxemic respiratory failure 10 point review of system is negative except for above PAST MEDICAL HISTORY: 1. COPD. 2. CHF. 3. Diabetes mellitus. 4. Hypertension PAST SURGICAL HISTORY: 1. None. SOCIAL HISTORY: Previous heavy smoker. Denies alcohol use. Denies drug use FAMILY HISTORY: Positive for heart disease ALLERGIES: Please see below. HOME MEDICATIONS: Please see below. PHYSICAL EXAMINATION: VITAL SIGNS: Please see below. GENERAL: Mild distress HEENT: Normocephalic, atraumatic, moist mucous membranes NECK: Supple CARDIOVASCULAR EXAMINATION: S1, S2, tachycardic RESPIRATORY EXAMINATION: Diminished, scattered rhonchi, no wheezing ABDOMINAL EXAMINATION: Soft, nontender, nondistended, positive bowel sounds EXTREMITIES: Range of motion intact SKIN: No rash NEUROLOGICAL EXAMINATION: Alert and oriented 3, no focal deficits PSYCHIATRIC EXAMINATION: Calm and cooperative LABORATORY DATA: See below. IMAGING: Chest x-ray without acute pathology MICROBIOLOGY: Please see below. ASSESSMENT: 64-year-old male with past medical history of CHF, COPD, diabetes mellitus, hypertension, recently diagnosed with influenza, now being admitted for acute hypercapnic and hypoxemic respiratory failure. PLAN: 1. Acute hypercapnic and hypoxemic respiratory failure. Secondary to influenza, will repeat ABG as patient has reportedly improved after treatments in the ED, if ABG continues to show acute respiratory acidosis, will place patient on BiPAP. Solu-Medrol 40 mg IV every 8 hours, DuoNeb as needed, supplemental oxygen as needed to maintain O2 sats between 88-92%. 2. Influenza Continue Tamiflu and supportive care 3. COPD exacerbation. Secondary to above, treatment as above. 4. Diabetes mellitus. Continue Levemir 25 units at bedtime, sliding scale insulin before meals and at bedtime. 5. Coronary artery disease/CHF. Continue optimal medical management with aspirin, statin and lisinopril. 6. GERD. Continue Protonix DVT prophylaxis: Heparin subcutaneous GI prophylaxis: Protonix Vital Signs Vital Signs Date Time Temp Pulse Resp B/P (MAP) Pulse Ox O2 Delivery O2 Flow Rate FiO2 05/03/19 14:15 132 134/63 (86) 96 Nasal Cannula 2.0 05/03/19 13:00 28 05/03/19 11:15 99.0 Laboratory Data Labs 24H Laboratory Tests 2 05/03/19 11:38: Immature Granulocyte % (Auto) 0.3, Neutrophils (%) (Auto) 87.2H, Lymphocytes (%) (Auto) 4.0L, Monocytes (%) (Auto) 8.1H, Eosinophils (%) (Auto) 0.0, Basophils (%) (Auto) 0.4, Neutrophils # (Auto) 8.9H, Lymphocytes # (Auto) 0.4L, Monocytes # (Auto) 0.8, Eosinophils # (Auto) 0.0, Basophils # (Auto) 0.0, Nucleated Red Blood Cells % (auto) 0.0, Prothrombin Time 14.2H, Prothromb Time International Ratio 1.13, Blood Gas Bicarbonate Standard 21.1, Venous Blood pH 7.237L, Venous Blood Partial Pressure CO2 60.5H, Venous Blood Partial Pressure O2 45.3, Venous Blood Total Carbon Dioxide 27.0, Venous Blood HCO3 25.2, Venous Blood Oxygen Saturation 76.1, Venous Blood Base Excess -3.5L, Anion Gap 6L, Glomerular Filtration Rate > 60.0, Lactic Acid Level 2.6*H, Calcium Level 8.9, Total Bilirubin 1.2H, Direct Bilirubin 0.3H, Aspartate Amino Transf (AST/SGOT) 13, Alanine Aminotransferase (ALT/SGPT) 22, Alkaline Phosphatase 135H, Total Creatine Kinase 126, Creatine Kinase MB < 1.0, Creatine Kinase MB Relative Index 0.79, Troponin I 0.04, ZQ-Gwv-L-Type Natriuretic Peptide 411H, Total Protein 7.4, Albumin 4.4, Albumin/Globulin Ratio 1.47, Thyroid Stimulating Hormone (TSH) 0.504 05/03/19 12:45: POC pH (Misc Panel) 7.314L, POC Base Excess (Misc Panel) 2.0, POC Saturated Percent O2 (Misc) 94L, POC pO2 (Misc Panel) 81.0, POC pCO2 (Misc Panel) 55.8H, POC HCO3 (Misc Panel) 28.3H, POC Total CO2 (Misc Panel) 30.0H CBC/BMP Laboratory Tests 05/03/19 11:38 Microbiology Microbiology 05/03/19 Blood Culture, Received Pending 05/03/19 Respiratory Virus Panel (PCR) (ARLENE) - Final, Complete Influenza A H1-2009 05/03/19 Blood Culture, Received Pending Home Medications Scheduled Aspirin (Aspirin EC) 81 Mg Tab, 81 MG PO DAILY Insulin Glargine,Hum.rec.anlog (Basaglar Kwikpen U-100) 100 Unit/Ml Inj, Unknown Dose SQ DAILY SLIDING SCALE Metformin HCl (Metformin HCl) 1,000 Mg Tab, 1,000 MG PO BID Methocarbamol (Robaxin-750) 750 Mg Tablet, 750 MG PO TID Oseltamivir Phosphate (Tamiflu) 75 Mg Capsule, 1 CAP PO BID Scheduled PRN Albuterol Sulfate (Ventolin Hfa) 108 Mcg/Act Aer, 2 PUFF INH Q4-6HP PRN for whee zing Insulin NPH Hum/Reg Insulin Hm (Novolin 70-30 100 Unit/ml Vial) 1 Inj Inj, Unknown Dose SQ QID PRN for ELEVATED BLOOD SUGAR SLIDING SCALE Ondansetron (Ondansetron Odt) 4 Mg Tab.rapdis, 4 MG PO Q6-8HP PRN for nausea/vomiting Polyethylene Glycol 3350 (Miralax) 119 Gm Powder, 17 GM PO DAILY PRN for CONSTIPATION dilute in 8 ounces of water or juice Tramadol HCl (Ultram) 50 Mg Tablet, 50 MG PO Q6H PRN for PAIN Umeclidinium [place] (Incruse Ellipta) 62.5 Mcg/Inh Inh, 1 PUFF INH DAILY PRN for SOB/WHEEZING Miscellaneous Medications Cholecalciferol (Vitamin D3) (Vitamin D3) 50 Mcg Capsule Fluticasone/Vilanterol (Breo Ellipta 200-25 Mcg INH) 1 Each Blst.w.dev Lisinopril (Lisinopril) 10 Mg Tablet Nicotine (Nicotine Patch) 14 Mg/24 Hr Patch.td24 Sertraline HCl (Sertraline HCl) 50 Mg Tablet Allergies Coded Allergies: No Known Allergies (Unverified , 01/11/19) A-FIB/CHADSVASC A-FIB History Current/History of A-Fib/PAF?: No KISHORE DUBOIS MD May 03, 2019 15:34
[2019-05-03] MEDS ORDERED: traMADol 50 MG TAB PO PRN (15:45)
[2019-05-03] MEDS ORDERED: BISACODYL 5 MG TAB PO PRN (15:45)
[2019-05-03] MEDS ORDERED: ONDANSETRON 4 MG ORAL DISINTEGRATING TAB (Q0162 PER 1MG) PO PRN (15:45)
[2019-05-03 16:16] LABS: ABG BASE EXCESS 0.6 (-2.0-2.0); ABG HCO3 26.4 MEQ/L (22.0-26.0); ABG O2 SATURATION 95.7 % (95.0-99.0); ABG PARTIAL PRESSURE CO2 47.1 mmHg (35.0-45.0); ABG PARTIAL PRESSURE O2 78.4 mmHg (75.0-100.0); ABG TOTAL CO2 27.9 MEQ/L (23.0-31.0); ABG pH (ARTERIAL) 7.367 UNITS (7.350-7.450)
[2019-05-03 16:52] VITALS: BP 140/75
[2019-05-03] MEDS ORDERED: DEXTROSE 50% 50 ML SYRINGE IV PRN (17:15)
[2019-05-03] MEDS ORDERED: GLUCAGON FOR INJ 1 MG VIAL (J1610) SC PRN (17:15)
[2019-05-03] MEDS ORDERED: GLUCOSE 4 GM CHEW TABLET PO PRN (17:15)
[2019-05-03] MEDS: HumaLOG INSULIN (NovoLOG) PER UNIT SC SCH ×2 (17:39→20:44)
[2019-05-03] MEDS: metFORMIN (GLUCOPHAGE) 1000 MG TABLET PO SCH (17:39)
[2019-05-03 20:00] VITALS: BP 121/52
[2019-05-03] MEDS: OSELTAMIVIR PHOSPHATE 75 MG CAP (TAMIFLU) PO SCH (20:42)
[2019-05-03] MEDS: methylPREDNISolone INJ 40 MG/1 ML VIAL (J2920) IV SCH (20:43)
[2019-05-03] MEDS: HEPARIN SOD (PORCINE) 5000 UNITS/ML VIAL (J1644 PER 1000UNITS) SC SCH (20:43)
[2019-05-03] MEDS: ACETAMINOPHEN 500 MG TAB PO PRN (20:49)
[2019-05-03] MEDS ORDERED: LEVEMIR (INSULIN DETEMIR) 1 UNITS/0.01ML SC SCH (21:00)
[2019-05-04] VITALS (8 sets, daily range): BP systolic 102–151; BP diastolic 51–84
[2019-05-04] MEDS: NS 1,000 ML IV SCH ×2 (00:17→08:13)
[2019-05-04] MEDS: methylPREDNISolone INJ 40 MG/1 ML VIAL (J2920) IV SCH ×4 (01:57→21:00)
[2019-05-04] MEDS: HEPARIN SOD (PORCINE) 5000 UNITS/ML VIAL (J1644 PER 1000UNITS) SC SCH ×3 (05:26→20:56)
[2019-05-04 06:04] LABS: HEMATOCRIT 41.9 % (42.0-52.0); HEMOGLOBIN 13.1 g/dl (13.5-17.5); MEAN CORPUSCULAR HEMOGLOBIN 28.5 pg (27.0-33.0); MEAN CORPUSCULAR HGB CONC 31.3 g/dl (32.0-36.5); MEAN CORPUSCULAR VOLUME 91.3 fl (80.0-96.0); PLATELET COUNT, AUTOMATED 231 10^3/uL (150-450); RED BLOOD COUNT 4.59 10^6/uL (4.30-6.10); WHITE BLOOD COUNT 9.5 10^3/uL (4.0-10.0)
[2019-05-04 06:31] LABS: ALBUMIN 3.6 GM/DL (3.2-5.2); ALT/SGPT 25 U/L (12-78); BILIRUBIN,TOTAL 0.5 MG/DL (0.2-1.0); BLOOD UREA NITROGEN 16 MG/DL (7-18); CALCIUM LEVEL 8.5 MG/DL (8.8-10.2); CARBON DIOXIDE LEVEL 28 MEQ/L (21-32); CHLORIDE LEVEL 109 MEQ/L (98-107); CREATININE FOR GFR 0.73 MG/DL (0.70-1.30); GLOMERULAR FILTRATION RATE > 60.0 (>49); GLUCOSE, FASTING 216 MG/DL (70-100); MAGNESIUM LEVEL 1.9 MG/DL (1.8-2.4); POTASSIUM SERUM 4.2 MEQ/L (3.5-5.1); SODIUM LEVEL 142 MEQ/L (136-145); TOTAL PROTEIN 7.1 GM/DL (6.4-8.2)
[2019-05-04] MEDS: HumaLOG INSULIN (NovoLOG) PER UNIT SC SCH ×4 (08:13→20:55)
[2019-05-04] MEDS: ASPIRIN 81 MG ENTERIC TAB PO SCH (08:13)
[2019-05-04] MEDS: VITAMIN D 1,000 INTERNATIONAL UNITS TABLET PO SCH (08:14)
[2019-05-04] MEDS: metFORMIN (GLUCOPHAGE) 1000 MG TABLET PO SCH ×2 (08:14→17:06)
[2019-05-04] MEDS: ACETAMINOPHEN 500 MG TAB PO PRN (08:14)
[2019-05-04] MEDS: SERTRALINE HCL 50 MG TAB PO SCH (08:14)
[2019-05-04] MEDS: PANTOPRAZOLE 40MG TAB (PROTONIX) PO SCH (08:14)
[2019-05-04] MEDS: lisinopriL 10 MG TAB PO SCH (08:14)
[2019-05-04] MEDS: OSELTAMIVIR PHOSPHATE 75 MG CAP (TAMIFLU) PO SCH ×2 (08:14→20:54)
[2019-05-04] MEDS: ATORVASTATIN 20 MG TAB PO SCH (08:14)
[2019-05-04] MEDS: NICOTINE 14 MG/24 HR TRANSDERMAL TD SCH (08:15)
[2019-05-04] MEDS: guaiFENesin ER 600 MG TAB PO SCH ×2 (08:50→20:54)
[2019-05-04] MEDS ORDERED: SLF 3 ML SYR IV PRN (15:00)
--- NOTE | 2019-05-04 19:24 | IPNPDOC ---
Date Seen The patient was seen on 05/04/19. Progress Note HISTORY OF PRESENT ILLNESS: 64-year-old male with past medical history of CHF, COPD, diabetes mellitus and hypertension, presents to the emergency department with worsening shortness of breath and cough. Patient was here yesterday with similar symptoms, was diagnosed with influenza and sent home on Tamiflu. Patient reports continued worsening of symptoms, now requiring supplemental oxygen to ma intain adequate saturation, also reports generalized arthralgia. He denies any fever, chills or other associated symptoms at this time. In the ED, patient is significantly tachycardic and dyspneic, no other complaints at this time. He denies any nausea, vomiting, abdominal pain or diarrhea. 05/04/19 Patient seen in the morning, dyspnea and cough improved, continues to have sputum production, requiring supplemental oxygen to maintain adequate oxygenation, no other complaints. 10 point review of system is negative except for above PHYSICAL EXAMINATION: VITAL SIGNS: Please see below. GENERAL: Mild distress HEENT: Normocephalic, atraumatic, moist mucous membranes NECK: Supple CARDIOVASCULAR EXAMINATION: S1, S2 RESPIRATORY EXAMINATION: scattered rhonchi, no wheezing ABDOMINAL EXAMINATION: Soft, nontender, nondistended, positive bowel sounds EXTREMITIES: Range of motion intact SKIN: No rash NEUROLOGICAL EXAMINATION: Alert and oriented 3, no focal deficits PSYCHIATRIC EXAMINATION: Calm and cooperative LABORATORY DATA: See below. IMAGING: Chest x-ray without acute pathology MICROBIOLOGY: Please see below. ASSESSMENT: 64-year-old male with past medical history of CHF, COPD, diabetes mellitus, hypertension, recently diagnosed with influenza, now being admitted for acute hypercapnic and hypoxemic respiratory failure. PLAN: 1. Acute hypoxemic respiratory failure Secondary to influenza, improving, decrease Solu-Medrol to 40 mg every 12 hours, DuoNeb as needed, supplemental oxygen as needed to maintain O2 sats between 88-92%. Physical therapy evaluation ordered 2. Influenza Continue Tamiflu and supportive care 3. COPD exacerbation. Secondary to above, treatment as above. 4. Diabetes mellitus. Increased Levemir to 40 units at bedtime, sliding scale insulin before meals and at bedtime. 5. Coronary artery disease/CHF. Continue optimal medical management with aspirin, statin and lisinopril. 6. GERD. Continue Protonix DVT prophylaxis: Heparin subcutaneous GI prophylaxis: Protonix VS, I&O, 24H, Fishbone Vital Signs/I&O Vital Signs Date Time Temp Pulse Resp B/P (MAP) Pulse Ox O2 Delivery O2 Flow Rate FiO2 05/04/19 16:20 98.2 85 22 110/53 (72) 94 Nasal Cannula 1.0 I&O- Last 24 Hours up to 6 AM 05/04/19 06:00 Intake Total 1985 ml Output Total 775 ml Balance 1210 ml Laboratory Data 24H LABS Laboratory Tests 2 05/03/19 20:24: Bedside Glucose (Misc Panel) 322H 05/04/19 05:26: Nucleated Red Blood Cells % (auto) 0.0, Anion Gap 5L, Glomerular Filtration Rate > 60.0, Calcium Level 8.5L, Magnesium Level 1.9, Total Bilirubin 0.5#, Aspartate Amino Transf (AST/SGOT) 24, Alanine Aminotransferase (ALT/SGPT) 25, Alkaline Phosphatase 107, Total Protein 7.1, Albumin 3.6, Albumin/Globulin Ratio 1.03 05/04/19 11:30: Bedside Glucose (Misc Panel) 327H 05/04/19 16:54: Bedside Glucose (Misc Panel) 304H CBC/BMP Laboratory Tests 05/04/19 05:26 Microbiology Microbiology 05/03/19 Blood Culture - Preliminary, Resulted No growth after 24 hours . All specim... 05/03/19 Respiratory Virus Panel (PCR) ([facility]) - Final, Complete Influenza A H1-2009 05/03/19 Blood Culture - Preliminary, Resulted No growth after 24 hours . All specim... KISHORE DUBOIS MD May 04, 2019 19:23
[2019-05-04] MEDS: LEVEMIR (INSULIN DETEMIR) 1 UNITS/0.01ML SC SCH (20:55)
[2019-05-04] MEDS: SLF 3 ML SYR IV SCH (21:00)
[2019-05-05 04:00] VITALS: BP 113/56
[2019-05-05] MEDS: HEPARIN SOD (PORCINE) 5000 UNITS/ML VIAL (J1644 PER 1000UNITS) SC SCH ×3 (05:05→21:02)
[2019-05-05] MEDS: methylPREDNISolone INJ 40 MG/1 ML VIAL (J2920) IV SCH (05:05)
[2019-05-05] MEDS: SLF 3 ML SYR IV SCH ×3 (05:05→21:03)
[2019-05-05 05:55] LABS: HEMATOCRIT 36.6 % (42.0-52.0); HEMOGLOBIN 12.1 g/dl (13.5-17.5); MEAN CORPUSCULAR HEMOGLOBIN 29.5 pg (27.0-33.0); MEAN CORPUSCULAR HGB CONC 33.1 g/dl (32.0-36.5); MEAN CORPUSCULAR VOLUME 89.3 fl (80.0-96.0); PLATELET COUNT, AUTOMATED 233 10^3/uL (150-450); WHITE BLOOD COUNT 21.4 10^3/uL (4.0-10.0)
[2019-05-05 06:19] LABS: BLOOD UREA NITROGEN 16 MG/DL (7-18); CALCIUM LEVEL 8.4 MG/DL (8.8-10.2); CARBON DIOXIDE LEVEL 32 MEQ/L (21-32); CHLORIDE LEVEL 110 MEQ/L (98-107); CREATININE FOR GFR 0.56 MG/DL (0.70-1.30); GLOMERULAR FILTRATION RATE > 60.0 (>49); GLUCOSE, FASTING 95 MG/DL (70-100); PHOSPHORUS LEVEL 2.3 MG/DL (2.5-4.9); POTASSIUM SERUM 3.8 MEQ/L (3.5-5.1); SODIUM LEVEL 144 MEQ/L (136-145)
[2019-05-05] MEDS: HumaLOG INSULIN (NovoLOG) PER UNIT SC SCH ×4 (07:18→21:00)
[2019-05-05 07:47] VITALS: BP 126/67
[2019-05-05] MEDS: VITAMIN D 1,000 INTERNATIONAL UNITS TABLET PO SCH (08:00)
[2019-05-05] MEDS: lisinopriL 10 MG TAB PO SCH (08:00)
[2019-05-05] MEDS: ASPIRIN 81 MG ENTERIC TAB PO SCH (08:00)
[2019-05-05] MEDS: OSELTAMIVIR PHOSPHATE 75 MG CAP (TAMIFLU) PO SCH ×2 (08:00→21:02)
[2019-05-05] MEDS: SERTRALINE HCL 50 MG TAB PO SCH (08:00)
[2019-05-05] MEDS: guaiFENesin ER 600 MG TAB PO SCH ×2 (08:00→21:02)
[2019-05-05] MEDS: PANTOPRAZOLE 40MG TAB (PROTONIX) PO SCH (08:00)
[2019-05-05] MEDS: metFORMIN (GLUCOPHAGE) 1000 MG TABLET PO SCH ×2 (08:00→17:23)
[2019-05-05] MEDS: ATORVASTATIN 20 MG TAB PO SCH (08:00)
[2019-05-05] MEDS: NICOTINE 14 MG/24 HR TRANSDERMAL TD SCH (08:01)
--- NOTE | 2019-05-05 09:33 | REP ---
Clinical: Flu-like symptoms. Technique: PA and lateral. Comparison: 05/02/2019. Findings: Mediastinum and cardiac silhouette are normal. Lung castro demonstrate chronic stable changes. No focal consolidation, effusion, or pneumothorax. Skeletal structures are intact. Impression: Chronic stable changes. No obvious acute process. Electronically Signed by Jarett Middleton MD 05/05/2019 09:24 A
[2019-05-05] MEDS: K-PHOS NEUTRAL 250MG TABLET (SOD.PHOSPHATE/POT.PHOSPHATE) PO SCH ×2 (09:57→12:10)
--- NOTE | 2019-05-05 11:40 | IPNPDOC ---
Date Seen The patient was seen on 05/05/19. Progress Note HISTORY OF PRESENT ILLNESS: 64-year-old male with past medical history of CHF, COPD, diabetes mellitus and hypertension, presents to the emergency department with worsening shortness of breath and cough. Patient was here yesterday with similar symptoms, was diagnosed with influenza and sent home on Tamiflu. Patient reports continued worsening of symptoms, now requiring supplemental oxygen to ma intain adequate saturation, also reports generalized arthralgia. He denies any fever, chills or other associated symptoms at this time. In the ED, patient is significantly tachycardic and dyspneic, no other complaints at this time. He denies any nausea, vomiting, abdominal pain or diarrhea. 05/04/19 Patient seen in the morning, dyspnea and cough improved, continues to have sputum production, requiring supplemental oxygen to maintain adequate oxygenation, no other complaints. 05/05/19 Patient seen in the morning, doing well, off supplemental oxygen at rest, continues to have dyspnea and fatigue with exertion, evaluated by physical therapy and not safe for discharge at this time. 10 point review of system is negative except for above PHYSICAL EXAMINATION: VITAL SIGNS: Please see below. GENERAL: No distress HEENT: Normocephalic, atraumatic, moist mucous membranes NECK: Supple CARDIOVASCULAR EXAMINATION: S1, S2 RESPIRATORY EXAMINATION: scattered rhonchi, no wheezing ABDOMINAL EXAMINATION: Soft, nontender, nondistended, positive bowel sounds EXTREMITIES: Range of motion intact SKIN: No rash NEUROLOGICAL EXAMINATION: Alert and oriented 3, no focal deficits PSYCHIATRIC EXAMINATION: Calm and cooperative LABORATORY DATA: See below. IMAGING: Chest x-ray without acute pathology MICROBIOLOGY: Please see below. ASSESSMENT: 64-year-old male with past medical history of CHF, COPD, diabetes mellitus, hypertension, recently diagnosed with influenza, now being admitted for acute hypercapnic and hypoxemic respiratory failure. PLAN: 1. Acute hypoxemic respiratory failure Secondary to influenza, resolved, off supplemental oxygen at rest, switched to oral steroids, DuoNeb as needed, tentatively plan for discharge tomorrow if ambulating without difficulty. 2. Influenza Continue Tamiflu and supportive care 3. COPD exacerbation. Secondary to above, treatment as above. 4. Diabetes mellitus. Continue Levemir 40 units at bedtime, sliding scale insulin before meals and at bedtime. 5. Coronary artery disease/CHF. Continue optimal medical management with aspirin, statin and lisinopril. 6. GERD. Continue Protonix DVT prophylaxis: Heparin subcutaneous GI prophylaxis: Protonix VS, I&O, 24H, Fishbone Vital Signs/I&O Vital Signs Date Time Temp Pulse Resp B/P (MAP) Pulse Ox O2 Delivery O2 Flow Rate FiO2 05/05/19 08:00 126/67 05/05/19 07:47 97.9 83 20 94 Room Air 05/05/19 04:00 1.0 I&O- Last 24 Hours up to 6 AM 05/05/19 06:00 Intake Total 1660 ml Output Total 1000 ml Balance 660 ml Laboratory Data 24H LABS Laboratory Tests 2 05/04/19 16:54: Bedside Glucose (Misc Panel) 304H 05/04/19 20:44: Bedside Glucose (Misc Panel) 295H 05/05/19 05:44: Nucleated Red Blood Cells % (auto) 0.0, Anion Gap 2L, Glomerular Filtration Rate > 60.0, Calcium Level 8.4L, Phosphorus Level 2.3L 05/05/19 11:27: Bedside Glucose (Misc Panel) 238H CBC/BMP Laboratory Tests 05/05/19 05:44 Microbiology Microbiology 05/03/19 Blood Culture - Preliminary, Resulted No growth after 24 hours . All specim... 05/03/19 Respiratory Virus Panel (PCR) ([facility]) - Final, Complete Influenza A H1-2009 05/03/19 Blood Culture - Preliminary, Resulted No growth after 24 hours . All specim... KISHORE DUBOIS MD May 05, 2019 11:40
[2019-05-05] MEDS: predniSONE 50 MG TAB PO SCH (13:19)
[2019-05-05 16:00] VITALS: BP 113/57
[2019-05-05 20:00] VITALS: BP 137/72
[2019-05-05] MEDS: LEVEMIR (INSULIN DETEMIR) 1 UNITS/0.01ML SC SCH (21:03)
[2019-05-05 23:59] VITALS: BP 136/77
[2019-05-06 04:00] VITALS: BP 133/61
[2019-05-06] MEDS: HEPARIN SOD (PORCINE) 5000 UNITS/ML VIAL (J1644 PER 1000UNITS) SC SCH ×3 (06:05→21:13)
[2019-05-06] MEDS: SLF 3 ML SYR IV SCH ×3 (06:05→21:15)
[2019-05-06] MEDS: HumaLOG INSULIN (NovoLOG) PER UNIT SC SCH ×4 (07:30→21:00)
[2019-05-06 07:41] VITALS: BP 125/59
[2019-05-06] MEDS: VITAMIN D 1,000 INTERNATIONAL UNITS TABLET PO SCH (08:07)
[2019-05-06] MEDS: ATORVASTATIN 20 MG TAB PO SCH (08:07)
[2019-05-06] MEDS: lisinopriL 10 MG TAB PO SCH (08:07)
[2019-05-06] MEDS: PANTOPRAZOLE 40MG TAB (PROTONIX) PO SCH (08:08)
[2019-05-06] MEDS: guaiFENesin ER 600 MG TAB PO SCH ×2 (08:08→21:12)
[2019-05-06] MEDS: OSELTAMIVIR PHOSPHATE 75 MG CAP (TAMIFLU) PO SCH ×2 (08:08→21:12)
[2019-05-06] MEDS: metFORMIN (GLUCOPHAGE) 1000 MG TABLET PO SCH ×2 (08:08→17:52)
[2019-05-06] MEDS: SERTRALINE HCL 50 MG TAB PO SCH (08:08)
[2019-05-06] MEDS: ASPIRIN 81 MG ENTERIC TAB PO SCH (08:08)
[2019-05-06] MEDS: NICOTINE 14 MG/24 HR TRANSDERMAL TD SCH (08:10)
[2019-05-06] MEDS: predniSONE 50 MG TAB PO SCH (11:39)
[2019-05-06 12:00] VITALS: BP 137/78
[2019-05-06 14:00] VITALS: BP 137/78
--- NOTE | 2019-05-06 20:13 | IPNPDOC ---
Date Seen The patient was seen on 05/06/19. Progress Note HISTORY OF PRESENT ILLNESS: 64-year-old male with past medical history of CHF, COPD, diabetes mellitus and hypertension, presents to the emergency department with worsening shortness of breath and cough. Patient was here yesterday with similar symptoms, was diagnosed with influenza and sent home on Tamiflu. Patient reports continued worsening of symptoms, now requiring supplemental oxygen to maintain adequate saturation, also reports generalized arthralgia. He denies any fever, chills or other associated symptoms at this time. In the ED, patient is significantly tachycardic and dyspneic, no other complaints at this time. He denies any nausea, vomiting, abdominal pain or diarrhea. 05/04/19 Patient seen in the morning, dyspnea and cough improved, continues to have sputum production, requiring supplemental oxygen to maintain adequate oxygenation, no other complaints. 05/05/19 Patient seen in the morning, doing well, off supplemental oxygen at rest, continues to have dyspnea and fatigue with exertion, evaluated by physical therapy and not safe for discharge at this time. 05/06/19 Patient seen in the morning, comfortable in bed, off of supplemental oxygen at this time, minimally symptomatic at rest but becomes significantly dyspneic and fatigued with exertion, feels unsafe to go home today. 10 point review of system is negative except for above PHYSICAL EXAMINATION: VITAL SIGNS: Please see below. GENERAL: No distress HEENT: Normocephalic, atraumatic, moist mucous membranes NECK: Supple CARDIOVASCULAR EXAMINATION: S1, S2 RESPIRATORY EXAMINATION: scattered rhonchi, no wheezing ABDOMINAL EXAMINATION: Soft, nontender, nondistended, positive bowel sounds EXTREMITIES: Range of motion intact SKIN: No rash NEUROLOGICAL EXAMINATION: Alert and oriented 3, no focal deficits PSYCHIATRIC EXAMINATION: Calm and cooperative LABORATORY DATA: See below. IMAGING: Repeat chest x-ray without acute pathology MICROBIOLOGY: Please see below. ASSESSMENT: 64-year-old male with past medical history of CHF, COPD, diabetes mellitus, hypertension, recently diagnosed with influenza, now being admitted for acute hypercapnic and hypoxemic respiratory failure. PLAN: 1. Acute hypoxemic respiratory failure Secondary to influenza, resolved, off supplemental oxygen at rest, continue steroid taper, DuoNeb as needed, tentatively plan for discharge tomorrow if ambulating without difficulty. 2. Influenza Continue Tamiflu and supportive care 3. COPD exacerbation. Secondary to above, treatment as above. 4. Diabetes mellitus. Decrease Levemir to 20 units at bedtime, sliding scale insulin before meals and at bedtime. 5. Coronary artery disease/CHF. Continue optimal medical management with aspirin, statin and lisinopril. 6. GERD. Continue Protonix DVT prophylaxis: Heparin subcutaneous GI prophylaxis: Protonix VS, I&O, 24H, Fishbone Vital Signs/I&O Vital Signs Date Time Temp Pulse Resp B/P (MAP) Pulse Ox O2 Delivery O2 Flow Rate FiO2 05/06/19 14:00 98.2 70 20 137/78 (97) 94 Room Air 05/05/19 04:00 1.0 I&O- Last 24 Hours up to 6 AM 05/06/19 06:00 Intake Total 600 ml Output Total 875 ml Balance -275 ml Laboratory Data 24H LABS Laboratory Tests 2 05/05/19 21:01: Bedside Glucose (Misc Panel) 238H 05/06/19 07:36: Bedside Glucose (Misc Panel) 62L 05/06/19 08:06: Bedside Glucose (Misc Panel) 105 05/06/19 11:54: Bedside Glucose (Misc Panel) 99 05/06/19 16:47: Bedside Glucose (Misc Panel) 187H Microbiology Microbiology 05/03/19 Blood Culture - Preliminary, Resulted No Growth after 72 hours. All specime... 05/03/19 Respiratory Virus Panel (PCR) ([facility]) - Final, Complete Influenza A H1-2009 05/03/19 Blood Culture - Preliminary, Resulted No Growth after 72 hours. All specime... KISHORE DUBOIS MD May 06, 2019 20:13
[2019-05-06] MEDS: LEVEMIR (INSULIN DETEMIR) 1 UNITS/0.01ML SC SCH (21:12)
[2019-05-06] MEDS: ACETAMINOPHEN 500 MG TAB PO PRN (21:13)
[2019-05-06 23:20] VITALS: BP 136/79
[2019-05-07] MEDS: SLF 3 ML SYR IV SCH ×3 (05:34→21:11)
[2019-05-07] MEDS: HEPARIN SOD (PORCINE) 5000 UNITS/ML VIAL (J1644 PER 1000UNITS) SC SCH ×3 (05:34→21:11)
[2019-05-07 06:26] LABS: HEMATOCRIT 40.9 % (42.0-52.0); HEMOGLOBIN 13.6 g/dl (13.5-17.5); MEAN CORPUSCULAR HEMOGLOBIN 29.1 pg (27.0-33.0); MEAN CORPUSCULAR HGB CONC 33.3 g/dl (32.0-36.5); MEAN CORPUSCULAR VOLUME 87.6 fl (80.0-96.0); PLATELET COUNT, AUTOMATED 254 10^3/uL (150-450); RED BLOOD COUNT 4.67 10^6/uL (4.30-6.10); WHITE BLOOD COUNT 9.6 10^3/uL (4.0-10.0)
[2019-05-07 06:46] LABS: BLOOD UREA NITROGEN 11 MG/DL (7-18); CARBON DIOXIDE LEVEL 34 MEQ/L (21-32); CHLORIDE LEVEL 104 MEQ/L (98-107); CREATININE FOR GFR 0.65 MG/DL (0.70-1.30); GLOMERULAR FILTRATION RATE > 60.0 (>49); GLUCOSE, FASTING 66 MG/DL (70-100); POTASSIUM SERUM 3.7 MEQ/L (3.5-5.1); SODIUM LEVEL 143 MEQ/L (136-145)
[2019-05-07 06:56] VITALS: BP 138/82
[2019-05-07] MEDS: HumaLOG INSULIN (NovoLOG) PER UNIT SC SCH ×4 (07:30→21:10)
[2019-05-07] MEDS ORDERED: predniSONE 20 MG TAB PO SCH (09:00)
[2019-05-07] MEDS: NICOTINE 14 MG/24 HR TRANSDERMAL TD SCH (09:00)
[2019-05-07] MEDS: VITAMIN D 1,000 INTERNATIONAL UNITS TABLET PO SCH (09:06)
[2019-05-07] MEDS: guaiFENesin ER 600 MG TAB PO SCH ×2 (09:06→21:11)
[2019-05-07] MEDS: ASPIRIN 81 MG ENTERIC TAB PO SCH (09:06)
[2019-05-07] MEDS: SERTRALINE HCL 50 MG TAB PO SCH (09:07)
[2019-05-07] MEDS: metFORMIN (GLUCOPHAGE) 1000 MG TABLET PO SCH ×2 (09:07→18:37)
[2019-05-07] MEDS: PANTOPRAZOLE 40MG TAB (PROTONIX) PO SCH (09:07)
[2019-05-07] MEDS: lisinopriL 10 MG TAB PO SCH (09:07)
[2019-05-07] MEDS: OSELTAMIVIR PHOSPHATE 75 MG CAP (TAMIFLU) PO SCH ×2 (09:07→21:11)
[2019-05-07] MEDS: ATORVASTATIN 20 MG TAB PO SCH (09:08)
[2019-05-07 14:00] VITALS: BP 127/60
--- NOTE | 2019-05-07 16:56 | DSES ---
DATE OF ADMISSION: 05/03/2019 DATE OF DISCHARGE: 05/07/2019 PRINCIPAL DIAGNOSIS: Acute onset of hypoxemic respiratory failure secondary to influenza. SECONDARY DIAGNOSES: 1. COPD exacerbation. 2. Influenza. 3. Type 2 diabetes, [facility] use of insulin. 4. Coronary artery disease. 5. Congestive heart failure. 6. GERD. HISTORY: Jamshid Paul was admitted with shortness of breath who was found to have influenza A and because of the hypoxemia and hypercapnia on admission he was admitted to the hospital. HOSPITAL COURSE: He was treated with Tamiflu 75 mg twice a day, cefuroxime systemic steroids, nebulized bronchodilators. He was prescribed therapy. On the day of discharge he was resting comfortable and would like to go home. His oxygen saturation is 98% on room air. He passed his physical therapy home safety evaluation. His vital signs are stable. Lungs were clear and no wheezes. Heart regular rhythm. Abdomen soft, nontender and no peripheral edema. LABS: White count 9.6, hemoglobin 13, platelets 254, sodium 143, potassium 3.7, BUN 11, creatinine 0.6, glucose 66. ABG on admission had a PCo2 of 55, followup had a PCo2 down to 47, pH 7.36. DISPOSITION: Discharge to home improved and stable condition. Followup with his primary care provider in a week. Activity as tolerated. No added salt diet. Medications are unchanged from before admission. He will continue his 5 day course of Tamiflu 75 mg twice a day, otherwise he is on Albuterol by nebulizer inhaler four times a day as needed, aspirin 81 mg by mouth, atorvastatin 40 mg daily, vitamin B 2,000 units daily, Breo Ellipta 200-25 1 inhalation daily, glargine insulin 25 units daily 70/30 insulin 25 units twice a day, lisinopril 10 mg daily, metformin 1000 mg twice a day, methocarbamol 1000 mg four times a day as needed for muscle spasms, Nicotine 14 mg per hour patch, Zofran ODT 4 mg every 6 hours as needed for nausea, Protonix 40 mg daily, Sertraline 50 mg daily, tramadol 50 mg every 6 hours as needed, Incruse Ellipta 62.5 mcg 1 inhalation daily. At the time of this dictation no pending labs. He passed his home safety evaluation and he agreed for discharge. He stated to the nurse that he felt unwell and he needed another day in the hospital. Nursing staff thinks that he looks unwell. He will be kept until discharge tomorrow.
[2019-05-07] MEDS: LEVEMIR (INSULIN DETEMIR) 1 UNITS/0.01ML SC SCH (21:11)
[2019-05-07] MEDS: ACETAMINOPHEN 500 MG TAB PO PRN (21:12)
[2019-05-07 22:00] VITALS: BP 146/82
[2019-05-08] MEDS: SLF 3 ML SYR IV SCH (05:10)
[2019-05-08] MEDS: HEPARIN SOD (PORCINE) 5000 UNITS/ML VIAL (J1644 PER 1000UNITS) SC SCH (05:10)
[2019-05-08 06:00] VITALS: BP 144/83
[2019-05-08] MEDS: HumaLOG INSULIN (NovoLOG) PER UNIT SC SCH (07:30)
[2019-05-08] MEDS ORDERED: predniSONE 20 MG TAB PO ONE (08:00)
[2019-05-08 08:42] VITALS: BP 144/83
[2019-05-08] MEDS: VITAMIN D 1,000 INTERNATIONAL UNITS TABLET PO SCH (08:42)
[2019-05-08] MEDS: ATORVASTATIN 20 MG TAB PO SCH (08:42)
[2019-05-08] MEDS: lisinopriL 10 MG TAB PO SCH (08:42)
[2019-05-08] MEDS: SERTRALINE HCL 50 MG TAB PO SCH (08:43)
[2019-05-08] MEDS: metFORMIN (GLUCOPHAGE) 1000 MG TABLET PO SCH (08:43)
[2019-05-08] MEDS: PANTOPRAZOLE 40MG TAB (PROTONIX) PO SCH (08:43)
[2019-05-08] MEDS: guaiFENesin ER 600 MG TAB PO SCH (08:43)
[2019-05-08] MEDS: OSELTAMIVIR PHOSPHATE 75 MG CAP (TAMIFLU) PO SCH (08:43)
[2019-05-08] MEDS: ASPIRIN 81 MG ENTERIC TAB PO SCH (08:43)
[2019-05-08] MEDS: NICOTINE 14 MG/24 HR TRANSDERMAL TD SCH (08:45)
[2019-05-08] MEDS ORDERED: BASA100I SC (09:53)
--- NOTE | 2019-05-08 16:50 | IPNPDOC ---
Text Note Date of Service The patient was seen on 05/08/19. NOTE S: Pt examined at bedside. No acute changes from yesterday. Pt was scheduled for discharge yesterday, but did not feel ready to leave, so discharge was delayed. He feels much better today and ready to go home. Otherwise doing well. PE: Vitals: see below General: NAD, A&Ox3, resting comfortably HEENT: NCAT, EOMI, anicteric sclera, MMM CV: RRR, no murmurs or clicks or rub. No edema RESP: CTAB, no w/r/r/ ABD: soft, NT, ND. Benign EXTREMITIES: 2+ radial pulses b/l, able to move all extremities NEURO: no focal deficits or acute changes A/P: 1. please see discharge note from yesterday, 05/07. No changes since then, except that pt feels better. Will be dc'd home where he lives with his children with good support. VS,Fishbone, I+O VS, Fishbone, I+O Vital Signs Date Time Temp Pulse Resp B/P (MAP) Pulse Ox O2 Delivery O2 Flow Rate FiO2 05/08/19 08:42 144/83 05/08/19 06:00 97.9 75 19 97 Room Air 05/05/19 04:00 1.0 I&O- Last 24 Hours up to 6 AM 05/08/19 05:59 Intake Total 1780 ml Balance 1780 ml GME ATTESTATION GME ATTESTATION My faculty preceptor for this patient encounter was physically present during the encounter and was fully available. All aspects of the patient interview, examination, medical decision making process, and medical care plan development were reviewed and approved by the faculty preceptor. The faculty preceptor is aware and concurs with the plan as stated in the body of this note and will attest to such by his/her cosignature. ATTENDING NOTE I, Elvie Garcia, have independently examined this patient and performed my own physical exam, as well as reviewed the documentation and edited where necessary. I have discussed in detail with the resident / student the findings and plan of treatment as documented by the resident / student and edited their note. I agree with their findings and treatment plan and have edited their documentation. I will continue to follow the patient during this hospital stay. FAUSTO WALTER DO May 08, 2019 16:50 ELVIE GARCIA MD May 08, 2019 16:52
== END 2019-05-08 12:01 | disposition home or self-care (01) | DRG 140 ==
LOC: M ED 11:14 → M ED INP 15:24 → ENRESERV 15:32 → M PCU 16:34 → M MS5PR 05-06 11:40
PROVIDERS: ADMIT Internal Medicine; ATTEND Internal Medicine
DX: J44.1 Chronic obstructive pulmonary disease with (acute) exacerbation (principal); J96.01 Acute respiratory failure with hypoxia; J96.02 Acute respiratory failure with hypercapnia; I11.0 Hypertensive heart disease with heart failure; I50.9 Heart failure, unspecified; E11.65 Type 2 diabetes mellitus with hyperglycemia; M25.50 Pain in unspecified joint; Z87.891 Personal history of nicotine dependence; J10.1 Influenza due to other identified influenza virus with other respiratory manifestations; Z79.4 Long term (current) use of insulin; I25.10 Atherosclerotic heart disease of native coronary artery without angina pectoris; K21.9 Gastro-esophageal reflux disease without esophagitis; Z79.82 Long term (current) use of aspirin; Z79.899 Other long term (current) drug therapy

== ENCOUNTER 2020-01-15 12:42 | Emergency (ER) | payer OTHER ==
[~2020-01-15] VITALS: Ht 175.3 cm; Wt 64.6 kg
[~2020-01-15 12:42] MED LIST changes: +ACET-683 PO; +ALBU83IN INH; +ATOR40TA75 PO; +BASA100I SC; +BISA1TAB PO; +D-20TAB PO; +METH1TAB40 PO; +PANT-23 PO; +PATIENT COMMENT; +TRAM50TA2 PO; -VITA2000; +VITA200031
[2020-01-15] MEDS ORDERED: KETOROLAC 60MG 2ML VIAL IM ONE (16:00)
[2020-01-15] MEDS ORDERED: LIDOCAINE 5% (LIDODERM) PATCH TD ONE (16:00)
[2020-01-15] MEDS ORDERED: CYCL-707 PO (16:07)
[2020-01-15 16:16] VITALS: BP 149/82
[2020-01-15] MEDS ORDERED: **NOTE PATIENT COMMENT** MISC XX SCH (21:00)
== END 2020-01-15 16:27 | disposition home or self-care (01) ==
LOC: M ED 12:42
DX: M54.2 Cervicalgia (principal); I50.9 Heart failure, unspecified; I25.2 Old myocardial infarction; I10 Essential (primary) hypertension; J44.9 Chronic obstructive pulmonary disease, unspecified; K50.919 Crohn's disease, unspecified, with unspecified complications; K52.9 Noninfective gastroenteritis and colitis, unspecified; M51.35 Other intervertebral disc degeneration, thoracolumbar region; F17.200 Nicotine dependence, unspecified, uncomplicated; Z79.82 Long term (current) use of aspirin; Z79.4 Long term (current) use of insulin; Z79.899 Other long term (current) drug therapy
CPT/HCPCS: 96372; 99283; J1885

== ENCOUNTER → 2020-02-04 | Outpatient (REF) | payer OTHER ==
[~2020-02-04] MED LIST changes: +CYCL-707 PO
[2020-02-04 16:27] LABS: HEMATOCRIT 46.4 % (42.0-52.0); HEMOGLOBIN 15.2 g/dl (13.5-17.5); MEAN CORPUSCULAR HEMOGLOBIN 29.1 pg (27.0-33.0); MEAN CORPUSCULAR HGB CONC 32.8 g/dl (32.0-36.5); MEAN CORPUSCULAR VOLUME 88.9 fl (80.0-96.0); PLATELET COUNT, AUTOMATED 321 10^3/uL (150-450); RED BLOOD COUNT 5.22 10^6/uL (4.30-6.10); WHITE BLOOD COUNT 7.6 10^3/uL (4.0-10.0)
[2020-02-04 16:52] LABS: ALBUMIN 3.9 GM/DL (3.2-5.2); ALT/SGPT 18 U/L (12-78); BILIRUBIN,TOTAL 0.8 MG/DL (0.2-1.0); BLOOD UREA NITROGEN 9 MG/DL (7-18); CALCIUM LEVEL 9.5 MG/DL (8.8-10.2); CARBON DIOXIDE LEVEL 28 MEQ/L (21-32); CHLORIDE LEVEL 103 MEQ/L (98-107); CHOLESTEROL LEVEL 154 MG/DL (<200); CREATININE FOR GFR 0.95 MG/DL (0.70-1.30); GLOMERULAR FILTRATION RATE > 60.0 (>49); GLUCOSE, FASTING 371 MG/DL (70-100); HDL CHOLESTEROL 35 MG/DL (>40); LDL CHOLESTEROL 94 MG/DL (<100); NON-HDL-C 119 MG/DL; POTASSIUM SERUM 4.5 MEQ/L (3.5-5.1); SODIUM LEVEL 137 MEQ/L (136-145); TOTAL PROTEIN 6.9 GM/DL (6.4-8.2); TRIGLYCERIDES LEVEL 123 MG/DL (<150)
[2020-02-04 16:54] LABS: CREATININE, URINE 71.1 MG/DL; MALB URINE SIEMENS 10.7 MG/L
[2020-02-04 16:56] LABS: HEMOGLOBIN A1c 11.2 %
== END ==
LOC: M SFHCPLAZ 14:19
PROVIDERS: ATTEND Physician Assistant
DX: J44.9 Chronic obstructive pulmonary disease, unspecified (principal); E11.65 Type 2 diabetes mellitus with hyperglycemia; Z13.29 Encounter for screening for other suspected endocrine disorder; E78.2 Mixed hyperlipidemia; Z12.5 Encounter for screening for malignant neoplasm of prostate

== ENCOUNTER 2020-02-21 17:47 | Emergency (ER) | payer OTHER ==
[~2020-02-21] VITALS: Ht 175.3 cm; Wt 66.0 kg
[2020-02-21] MEDS ORDERED: NS 1,000 ML IV ONE (18:15)
[2020-02-21] MEDS ORDERED: KETOROLAC 30 MG/ML 1ML VIAL IV ONE (19:00)
[2020-02-21 19:06] LABS: BASO # 0.1 10^3/uL (0.0-0.2); EOS # 0.2 10^3/uL (0.0-0.5); EOS % 2.4 % (0.0-3.0); HEMOGLOBIN 13.4 g/dl (13.5-17.5); LYMPH # 2.2 10^3/uL (1.5-5.0); LYMPH % 26.3 % (24.0-44.0); MEAN CORPUSCULAR HEMOGLOBIN 28.3 pg (27.0-33.0); MEAN CORPUSCULAR HGB CONC 31.9 g/dl (32.0-36.5); MEAN CORPUSCULAR VOLUME 88.6 fl (80.0-96.0); MONO # 0.7 10^3/uL (0.0-0.8); MONO % 8.8 % (0.0-5.0); NEUTROPHILS # 5.1 10^3/uL (1.5-8.5); NEUTROPHILS % 61.3 % (36.0-66.0); PLATELET COUNT, AUTOMATED 280 10^3/uL (150-450); RED BLOOD COUNT 4.74 10^6/uL (4.30-6.10); WHITE BLOOD COUNT 8.3 10^3/uL (4.0-10.0)
--- NOTE | 2020-02-21 19:23 | REPVR ---
PROCEDURE INFORMATION: Exam: US Abdomen, Limited; Right Upper Quadrant Exam date and time: 02/21/2020 6:40 PM Age: 64 years old Clinical indication: Abdominal pain; Acute; Additional info: Ruq pain TECHNIQUE: Imaging protocol: US abdomen. Real time ultrasound with image documentation. Limited exam focused on the right upper quadrant. COMPARISON: CT ANGIO ABD/PEL 01/16/2019 7:12 PM FINDINGS: Liver: Liver is homogeneous and echogenic in echotexture, with no focal lesion. Gallbladder: Gallbladder is anechoic. No stone, mural edema or pericholecystic fluid. Common bile duct: Common bile duct measures 4-5 mm in diameter. No intrahepatic bile duct dilatation Pancreas: Pancreas is not visualized secondary to acoustic shadowing from bowel. Right kidney: Right kidney measures 11.3 cm in long axis. Right kidney appears normal. Intraperitoneal space: No free fluid. IMPRESSION: 1. No evidence of gallstones, biliary obstruction or gallbladder wall thickening. 2. Mild hepatic steatosis suspected 3. Subjective tenderness to palpation over the entire abdomen Electronically signed by: Sammy Ramirez On 02/21/2020 19:23:03 PM
[2020-02-21 19:30] LABS: ALBUMIN 3.6 GM/DL (3.2-5.2); ALT/SGPT 23 U/L (12-78); BILIRUBIN,DIRECT < 0.1 MG/DL (0.0-0.2); BILIRUBIN,TOTAL 0.5 MG/DL (0.2-1.0); BLOOD UREA NITROGEN 15 MG/DL (7-18); CALCIUM LEVEL 9.2 MG/DL (8.8-10.2); CARBON DIOXIDE LEVEL 31 MEQ/L (21-32); CHLORIDE LEVEL 104 MEQ/L (98-107); CREATININE FOR GFR 0.81 MG/DL (0.70-1.30); GLOMERULAR FILTRATION RATE > 60.0 (>49); GLUCOSE, FASTING 150 MG/DL (70-100); LIPASE 428 U/L (73-393); POTASSIUM SERUM 3.8 MEQ/L (3.5-5.1); SODIUM LEVEL 139 MEQ/L (136-145); TOTAL PROTEIN 6.7 GM/DL (6.4-8.2)
[2020-02-21] MEDS ORDERED: METH1TAB40 PO (19:55)
[2020-02-21 19:59] VITALS: BP 143/68
== END 2020-02-21 20:06 | disposition home or self-care (01) ==
LOC: M ED 17:47
DX: R74.8 Abnormal levels of other serum enzymes (principal); I25.2 Old myocardial infarction; J44.9 Chronic obstructive pulmonary disease, unspecified; K50.90 Crohn's disease, unspecified, without complications; E11.9 Type 2 diabetes mellitus without complications; F17.200 Nicotine dependence, unspecified, uncomplicated; Z79.4 Long term (current) use of insulin; Z79.899 Other long term (current) drug therapy; Z79.51 Long term (current) use of inhaled steroids
CPT/HCPCS: 76705; 80048; 80076; 81001; 83690; 85025; 96374; 99284; J1885

== ENCOUNTER 2020-02-23 15:19 | Emergency (ER) | payer OTHER ==
[~2020-02-23] VITALS: Ht 175.3 cm; Wt 65.7 kg
[2020-02-23] MEDS ORDERED: KETOROLAC 30 MG/ML 1ML VIAL IV ONE (15:45)
[2020-02-23] MEDS ORDERED: PANTOPRAZOLE 40MG VIAL (C9113 PER 1) IV ONE (15:45)
[2020-02-23] MEDS ORDERED: NS 1,000 ML IV ONE (15:45)
[2020-02-23] MEDS ORDERED: METOCLOPRAMIDE INJ 10MG/2ML VIAL (J2765 PER 1) IV ONE (15:45)
[2020-02-23 15:53] LABS: BASO # 0.1 10^3/uL (0.0-0.2); BASO % 0.7 % (0.0-1.0); EOS # 0.1 10^3/uL (0.0-0.5); EOS % 0.6 % (0.0-3.0); HEMATOCRIT 43.6 % (42.0-52.0); HEMOGLOBIN 13.9 g/dl (13.5-17.5); LYMPH # 1.1 10^3/uL (1.5-5.0); LYMPH % 12.1 % (24.0-44.0); MEAN CORPUSCULAR HGB CONC 31.9 g/dl (32.0-36.5); MEAN CORPUSCULAR VOLUME 87.9 fl (80.0-96.0); MONO # 0.8 10^3/uL (0.0-0.8); MONO % 8.8 % (0.0-5.0); NEUTROPHILS # 6.9 10^3/uL (1.5-8.5); NEUTROPHILS % 77.4 % (36.0-66.0); PLATELET COUNT, AUTOMATED 253 10^3/uL (150-450); RED BLOOD COUNT 4.96 10^6/uL (4.30-6.10); WHITE BLOOD COUNT 8.9 10^3/uL (4.0-10.0)
--- NOTE | 2020-02-23 16:01 | REP ---
INDICATION: right flank p COMPARISON: 01/16/2019 TECHNIQUE: Axial noncontrast images from the lung bases to the pubic symphysis with coronal and sagittal reformations. This CT examination was performed using the following dose reduction techniques: Automated exposure control, adjustment of mA and/or kv according to the patient's size, and use of iterative reconstruction technique. FINDINGS: Lung bases are clear with evidence for mild emphysematous disease. Visualized heart and pericardium normal. Liver, spleen, pancreas, gallbladder, bilateral adrenal glands and kidneys are normal. No perinephric stranding, hydroureteronephrosis, intrarenal or obstructing ureteral calculi. The enteric system is unremarkable and without obstruction or acute inflammatory process. Normal terminal ileum and appendix identified in the right lower quadrant. Few scattered diverticula noted without acute diverticulitis. Pelvis demonstrates normal bladder and mild prostatomegaly. No ascites. No free air. No adenopathy. No focal inflammatory stranding. Abdominal aorta without aneurysm. Musculoskeletal structures are intact and without acute osseous abnormality. IMPRESSION: No acute abdominopelvic pathology appreciated. <Electronically signed by Jarett Middletno > 02/23/20 [id number]
[2020-02-23 16:04] LABS: INR 0.92; PROTHROMBIN TIME 12.6 SECONDS (12.5-14.3)
[2020-02-23 16:35] LABS: ALBUMIN 3.7 GM/DL (3.2-5.2); ALT/SGPT 20 U/L (12-78); AMYLASE 54 U/L (25-115); BILIRUBIN,DIRECT 0.2 MG/DL (0.0-0.2); BLOOD UREA NITROGEN 8 MG/DL (7-18); CALCIUM LEVEL 8.8 MG/DL (8.8-10.2); CARBON DIOXIDE LEVEL 30 MEQ/L (21-32); CHLORIDE LEVEL 102 MEQ/L (98-107); CK-MB VALUE MASS < 1.0 NG/ML (<3.6); CPK CREATINE PHOSPHOKINASE 53 U/L (39-308); GLOMERULAR FILTRATION RATE > 60.0 (>49); GLUCOSE, FASTING 194 MG/DL (70-100); LIPASE 108 U/L (73-393); MB/CK RELATIVE INDEX 1.89 (< OR =4); POTASSIUM SERUM 4.3 MEQ/L (3.5-5.1); SODIUM LEVEL 138 MEQ/L (136-145); TOTAL PROTEIN 6.5 GM/DL (6.4-8.2); TROPONIN I < 0.02 NG/ML (< 0.10)
[2020-02-23] MEDS ORDERED: GABAPENTIN 300 MG CAP PO ONE (16:45)
[2020-02-23] MEDS ORDERED: NEUR300C PO (17:56)
[2020-02-23 18:07] VITALS: BP 122/58
--- NOTE | 2020-02-23 18:35 | ECGEPIP ---
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
== END 2020-02-23 18:12 | disposition home or self-care (01) ==
LOC: M ED 15:19
DX: M79.2 Neuralgia and neuritis, unspecified (principal); R10.9 Unspecified abdominal pain; R00.0 Tachycardia, unspecified; R94.31 Abnormal electrocardiogram [ECG] [EKG]; I51.9 Heart disease, unspecified; E11.9 Type 2 diabetes mellitus without complications; I10 Essential (primary) hypertension; J44.9 Chronic obstructive pulmonary disease, unspecified; F17.200 Nicotine dependence, unspecified, uncomplicated; Z79.82 Long term (current) use of aspirin; Z79.4 Long term (current) use of insulin; Z79.899 Other long term (current) drug therapy
CPT/HCPCS: 74176; 80048; 80076; 81001; 82150; 82550; 82553; 83690; 85025; 85610; 93005; 93041; 96361; 96374; 96375; 99285; C9113; J1885; J2765

== ENCOUNTER 2020-02-25 03:31 | Emergency (ER) | payer OTHER ==
[~2020-02-25] VITALS: Ht 175.3 cm; Wt 65.2 kg
[~2020-02-25 03:31] MED LIST changes: +NEUR300C PO
[2020-02-25 03:32] VITALS: BP 164/78
[2020-02-25] MEDS ORDERED: NS 1,000 ML IV ONE (04:15)
[2020-02-25] MEDS ORDERED: methylPREDNISolone 125MG 2ML VIAL IV ONE (04:15)
[2020-02-25] MEDS ORDERED: KETOROLAC 30 MG/ML 1ML VIAL IV ONE (04:15)
[2020-02-25 04:46] LABS: BASO # 0.1 10^3/uL (0.0-0.2); BASO % 0.7 % (0.0-1.0); EOS # 0.1 10^3/uL (0.0-0.5); EOS % 1.7 % (0.0-3.0); HEMATOCRIT 44.8 % (42.0-52.0); HEMOGLOBIN 14.4 g/dl (13.5-17.5); LYMPH # 1.7 10^3/uL (1.5-5.0); LYMPH % 19.8 % (24.0-44.0); MEAN CORPUSCULAR HGB CONC 32.1 g/dl (32.0-36.5); MONO % 11.6 % (0.0-5.0); NEUTROPHILS # 5.6 10^3/uL (1.5-8.5); NEUTROPHILS % 65.8 % (36.0-66.0); PLATELET COUNT, AUTOMATED 242 10^3/uL (150-450); RED BLOOD COUNT 5.15 10^6/uL (4.30-6.10); WHITE BLOOD COUNT 8.5 10^3/uL (4.0-10.0)
[2020-02-25 05:08] LABS: ERYTHROCYTE SEDIMENTATION RATE 13 mm/hr (0-20)
[2020-02-25 05:28] LABS: INR 0.92; PROTHROMBIN TIME 12.5 SECONDS (12.5-14.3)
[2020-02-25] MEDS ORDERED: CLINDAMYCIN 900 MG in IV 1 EA IV ONE (05:30)
[2020-02-25] MEDS ORDERED: PRED20TA PO (06:35)
[2020-02-25] MEDS ORDERED: IBUP-1022 PO (06:35)
[2020-02-25] MEDS ORDERED: CLIN150C14 PO (06:35)
== END 2020-02-25 07:53 | disposition home or self-care (01) ==
LOC: M ED 03:31
DX: L03.811 Cellulitis of head [any part, except face] (principal); E11.9 Type 2 diabetes mellitus without complications; I10 Essential (primary) hypertension; J45.909 Unspecified asthma, uncomplicated; Z79.4 Long term (current) use of insulin; Z79.899 Other long term (current) drug therapy
CPT/HCPCS: 80307; 83605; 85025; 85610; 85652; 96361; 96365; 96375; 99283; J1885; J2930

== ENCOUNTER → 2020-02-28 | Outpatient (REF) | payer OTHER ==
[~2020-02-28] MED LIST changes: +CLIN150C14 PO; +IBUP-1022 PO
[2020-02-28 17:52] LABS: APPEARANCE, URINE CLEAR (CLEAR); BACTERIA, URINE AUTO NEGATIVE (NEGATIVE); BILIRUBIN, URINE AUTO NEGATIVE (NEGATIVE); BLOOD, URINE BLOOD NEGATIVE (NEGATIVE); COLOR, URINE YELLOW (YELLOW); GLUCOSE, URINE (UA) AUTO 3+ mg/dL (NEGATIVE); KETONE, URINE AUTO TRACE mg/dL (NEGATIVE); LEUKOCYTE ESTERASE, URINE AUTO NEGATIVE (NEGATIVE); MUCUS, URINE SMALL (NEGATIVE); NITRITE, URINE AUTO NEGATIVE (NEGATIVE); PROTEIN, URINE AUTO NEGATIVE (NEGATIVE); RBC, URINE AUTO 0 /HPF (0-3); SQUAMOUS EPITHELIAL CELL UR AU 0 /HPF (0-6); UROBILINOGEN, URINE AUTO 0.2 mg/dL (0.0-2.0); WBC, URINE AUTO 1 /HPF (0-3)
== END ==
LOC: M SFHCPLAZ 16:45
PROVIDERS: ATTEND Physician Assistant Medical
DX: R10.11 Right upper quadrant pain (principal)

== ENCOUNTER 2020-04-20 21:30 | Emergency (ER) | payer OTHER ==
[~2020-04-20] VITALS: Ht 175.3 cm; Wt 64.0 kg
[~2020-04-20 21:30] MED LIST changes: -CLIN150C14 PO; +CLIN150C15 PO; +GLYB5TAB6 PO; +KETO10TAB PO; +LISI10TA22 PO; -LISI10TA4 PO; +METH-1164 PO; -METH1TAB40 PO; +NORT10CA2 PO
[2020-04-20] MEDS ORDERED: KETOROLAC 30 MG/ML 1ML VIAL IM ONE (23:00)
[2020-04-20 23:30] VITALS: BP 156/80
== END 2020-04-20 23:31 | disposition home or self-care (01) ==
LOC: M ED 21:30
DX: S39.012A Strain of muscle, fascia and tendon of lower back, initial encounter (principal); X58.XXXA Exposure to other specified factors, initial encounter; Y92.89 Other specified places as the place of occurrence of the external cause; Y93.89 Activity, other specified; Y99.8 Other external cause status; F17.200 Nicotine dependence, unspecified, uncomplicated; Z79.84 Long term (current) use of oral hypoglycemic drugs; Z79.899 Other long term (current) drug therapy; Z79.82 Long term (current) use of aspirin
CPT/HCPCS: 96372; 99283; J1885

== ENCOUNTER 2020-06-26 22:56 | Emergency (ER) | payer OTHER ==
[~2020-06-26] VITALS: Ht 175.3 cm; Wt 64.5 kg
[2020-06-27] MEDS ORDERED: KETOROLAC 60MG 2ML VIAL IM ONE
[2020-06-27] MEDS ORDERED: NORCO 5/325MG TABLET (BULK FOR ED) PO ONE (00:45)
[2020-06-27 00:57] VITALS: BP 121/69
== END 2020-06-27 00:55 | disposition home or self-care (01) ==
LOC: M ED 22:56
DX: G89.4 Chronic pain syndrome (principal); E11.9 Type 2 diabetes mellitus without complications; J44.9 Chronic obstructive pulmonary disease, unspecified; I10 Essential (primary) hypertension; E78.5 Hyperlipidemia, unspecified; I25.10 Atherosclerotic heart disease of native coronary artery without angina pectoris; I50.9 Heart failure, unspecified; F17.200 Nicotine dependence, unspecified, uncomplicated; Z79.82 Long term (current) use of aspirin; Z79.4 Long term (current) use of insulin; Z79.899 Other long term (current) drug therapy
CPT/HCPCS: 96372; 99283; J1885

== ENCOUNTER 2020-08-11 09:20 | Emergency (ER) | payer OTHER ==
[~2020-08-11] VITALS: Ht 172.7 cm; Wt 63.1 kg
[2020-08-11 09:21] VITALS: BP 141/71
[2020-08-11] MEDS ORDERED: FLUORESCEIN OPHTH 1 MG STRIP OD ONE (10:55)
[2020-08-11] MEDS ORDERED: TETRACAINE 0.5% OPHTH SOLN 4ML OD ONE (10:55)
[2020-08-11] MEDS ORDERED: CIPR0.3S6 OD (12:25)
== END 2020-08-11 12:35 | disposition home or self-care (01) ==
LOC: M ED 09:20
DX: H57.11 Ocular pain, right eye (principal); T15.01XA Foreign body in cornea, right eye, initial encounter; Y92.9 Unspecified place or not applicable; Y93.9 Activity, unspecified; I50.9 Heart failure, unspecified; I52 Other heart disorders in diseases classified elsewhere; E11.9 Type 2 diabetes mellitus without complications; E78.5 Hyperlipidemia, unspecified; I10 Essential (primary) hypertension; J44.9 Chronic obstructive pulmonary disease, unspecified; K21.9 Gastro-esophageal reflux disease without esophagitis; M51.9 Unspecified thoracic, thoracolumbar and lumbosacral intervertebral disc disorder; Z79.4 Long term (current) use of insulin; Z79.82 Long term (current) use of aspirin; Z79.899 Other long term (current) drug therapy

== ENCOUNTER → 2021-04-08 | Outpatient (CLI) | payer OTHER ==
[~2021-04-08] MED LIST changes: +CIPR0.3S6 OD; -CLIN150C15 PO; +CLIN150C17 PO; +DOXY-443 PO; -DOXY100C37 PO
== END ==
LOC: M PLAIMG 14:38
PROVIDERS: ATTEND Nurse Practitioner Family
DX: R06.02 Shortness of breath (principal); J43.9 Emphysema, unspecified

== ENCOUNTER → 2021-04-09 | Outpatient (CLI) | payer OTHER ==
[2021-04-09 13:38] LABS: BASO # 0.1 10^3/uL (0.0-0.2); BASO % 1.1 % (0.0-1.0); EOS # 0.2 10^3/uL (0.0-0.5); EOS % 2.1 % (0.0-3.0); HEMATOCRIT 46.4 % (42.0-52.0); HEMOGLOBIN 14.7 g/dl (13.5-17.5); LYMPH # 2.2 10^3/uL (1.5-5.0); LYMPH % 25.6 % (24.0-44.0); MEAN CORPUSCULAR HEMOGLOBIN 28.6 pg (27.0-33.0); MEAN CORPUSCULAR HGB CONC 31.7 g/dl (32.0-36.5); MEAN CORPUSCULAR VOLUME 90.3 fl (80.0-96.0); MONO # 0.7 10^3/uL (0.0-0.8); NEUTROPHILS # 5.4 10^3/uL (1.5-8.5); PLATELET COUNT, AUTOMATED 283 10^3/uL (150-450); RED BLOOD COUNT 5.14 10^6/uL (4.30-6.10); WHITE BLOOD COUNT 8.6 10^3/uL (4.0-10.0)
[2021-04-09 14:10] LABS: ALT/SGPT 22 U/L (12-78); BILIRUBIN,TOTAL 0.8 MG/DL (0.2-1.0); BLOOD UREA NITROGEN 11 MG/DL (7-18); CALCIUM LEVEL 9.8 MG/DL (8.8-10.2); CARBON DIOXIDE LEVEL 32 MEQ/L (21-32); CHLORIDE LEVEL 104 MEQ/L (98-107); CHOLESTEROL LEVEL 163 MG/DL (<200); CHOLESTEROL RISK RATIO 4.527 (<5); CREATININE FOR GFR 0.81 MG/DL (0.70-1.30); GLOMERULAR FILTRATION RATE > 60.0 (>49); GLUCOSE, FASTING 337 MG/DL (70-100); HDL CHOLESTEROL 36 MG/DL (>40); HEMOGLOBIN A1c 11.7 %; LDL CHOLESTEROL 114 MG/DL (<100); NON-HDL-C 127 MG/DL; POTASSIUM SERUM 4.5 MEQ/L (3.5-5.1); SODIUM LEVEL 141 MEQ/L (136-145); TOTAL PROTEIN 6.9 GM/DL (6.4-8.2); TRIGLYCERIDES LEVEL 65 MG/DL (<150)
== END ==
LOC: M PLALAB 10:14
PROVIDERS: ATTEND Nurse Practitioner Family
DX: R06.02 Shortness of breath (principal); E78.2 Mixed hyperlipidemia; E11.65 Type 2 diabetes mellitus with hyperglycemia; Z12.5 Encounter for screening for malignant neoplasm of prostate; I11.9 Hypertensive heart disease without heart failure

== ENCOUNTER 2021-07-04 01:17 | Inpatient (IN) | payer OTHER ==
[~2021-07-04] VITALS: Ht 175.3 cm; Wt 62.4 kg
[2021-07-04] MEDS ORDERED: methylPREDNISolone 125MG 2ML VIAL IV ONE (01:30)
[2021-07-04 01:51] LABS: BASO # 0.1 10^3/uL (0.0-0.2); BASO % 0.8 % (0.0-1.0); EOS # 0.1 10^3/uL (0.0-0.5); EOS % 0.6 % (0.0-3.0); HEMATOCRIT 44.8 % (42.0-52.0); HEMOGLOBIN 14.7 g/dl (13.5-17.5); LYMPH # 1.1 10^3/uL (1.5-5.0); LYMPH % 12.1 % (24.0-44.0); MEAN CORPUSCULAR HEMOGLOBIN 29.8 pg (27.0-33.0); MEAN CORPUSCULAR HGB CONC 32.8 g/dl (32.0-36.5); MEAN CORPUSCULAR VOLUME 90.7 fl (80.0-96.0); NEUTROPHILS # 6.5 10^3/uL (1.5-8.5); NEUTROPHILS % 75.3 % (36.0-66.0); PLATELET COUNT, AUTOMATED 223 10^3/uL (150-450); RED BLOOD COUNT 4.94 10^6/uL (4.30-6.10); WHITE BLOOD COUNT 8.7 10^3/uL (4.0-10.0)
[2021-07-04 02:00] LABS: ABG O2 SATURATION 95.9 % (95.0-99.0); ABG PARTIAL PRESSURE O2 81.4 mmHg (75.0-100.0); ABG STANDARD HCO3 24.4 MEQ/L (22.0-26.0); ABG TOTAL CO2 27.4 MEQ/L (23.0-31.0)
[2021-07-04 02:18] LABS: ALBUMIN 4.1 GM/DL (3.2-5.2); ALT/SGPT 24 U/L (12-78); BILIRUBIN,DIRECT 0.2 MG/DL (0.0-0.2); BILIRUBIN,TOTAL 0.8 MG/DL (0.2-1.0); BLOOD UREA NITROGEN 10 MG/DL (7-18); CALCIUM LEVEL 9.3 MG/DL (8.8-10.2); CARBON DIOXIDE LEVEL 32 MEQ/L (21-32); CHLORIDE LEVEL 106 MEQ/L (98-107); CREATININE FOR GFR 0.79 MG/DL (0.70-1.30); GLOMERULAR FILTRATION RATE > 60.0 (>49); GLUCOSE, FASTING 257 MG/DL (70-100); NT-PRO BNP 50 PG/ML (<125); POTASSIUM SERUM 4.5 MEQ/L (3.5-5.1); SODIUM LEVEL 141 MEQ/L (136-145); TOTAL PROTEIN 7.3 GM/DL (6.4-8.2)
[2021-07-04] MEDS: COMBIVENT RESPIMAT 100-20MCG INHALER 4GM INH SCH (02:18)
[2021-07-04 02:19] LABS: CK-MB VALUE MASS < 1.0 NG/ML (<3.6); CPK CREATINE PHOSPHOKINASE 80 U/L (39-308); MB/CK RELATIVE INDEX 1.25 (< OR =4)
[2021-07-04 03:26] LABS: CK-MB VALUE MASS 1.3 NG/ML (<3.6); MB/CK RELATIVE INDEX 2.17 (< OR =4)
[2021-07-04] MEDS ORDERED: ADME100I2 SUBQ (04:34)
[2021-07-04] MEDS ORDERED: BUDE10.2 PO (04:34)
[2021-07-04] MEDS ORDERED: D32000CA PO (04:34)
[2021-07-04] MEDS ORDERED: DULO1CAP5 PO (04:34)
[2021-07-04] MEDS ORDERED: AMIT10TA7 PO (04:34)
[2021-07-04] MEDS ORDERED: HOME MED LIST COMPLETE! XX SCH (04:35)
[2021-07-04] MEDS ORDERED: MOM 30ML SUSPENSION UDC PO PRN (05:25)
[2021-07-04] MEDS ORDERED: NS 1,000 ML IV SCH (05:25)
[2021-07-04] MEDS: ENOXAPARIN 40MG/0.4ML SYRINGE (J1650 PER 10MG) SC SCH (08:26)
[2021-07-04] MEDS: ATORVASTATIN 20 MG TAB PO SCH (08:26)
[2021-07-04] MEDS: DULoxetine 30MG CAPSULE (CYMBALTA) PO SCH (08:26)
[2021-07-04] MEDS: ASPIRIN 81MG ENTERIC TABLET PO SCH (08:26)
[2021-07-04] MEDS: SYMBICORT 160/4.5MCG INHALER 6GM INH SCH ×2 (08:40→19:42)
[2021-07-04] MEDS: AMITRIPTYLINE 10MG TABLET PO SCH (09:00)
[2021-07-04] MEDS ORDERED: GLUCAGON INJ 1MG VIAL SC PRN (10:15)
[2021-07-04] MEDS ORDERED: GLUCOSE 4GM CHEW TABLET PO PRN (10:15)
[2021-07-04] MEDS ORDERED: DEXTROSE 50% 50 ML SYRINGE IV PRN (10:15)
[2021-07-04 13:15] VITALS: BP 135/72
[2021-07-04] MEDS: HumaLOG INSULIN (NovoLOG) PER UNIT SC SCH ×3 (14:55→22:58)
[2021-07-04] MEDS: methylPREDNISolone 40MG 1ML VIAL IV SCH (14:55)
[2021-07-04] MEDS: ALBUTEROL 90 MCG/ACT 8GM HFA INHALER INH PRN ×2 (17:37→23:35)
[2021-07-04 19:31] VITALS: BP 94/47
[2021-07-04 20:31] VITALS: BP 138/70
[2021-07-04 22:44] VITALS: BP 136/70
[2021-07-04] MEDS: ACETAMINOPHEN TAB 650MG DOSE (2X325MG) PO PRN (22:59)
[2021-07-05] MEDS: guaiFENesin ER 600 MG TAB PO SCH ×3 (01:05→21:18)
[2021-07-05] MEDS: methylPREDNISolone 40MG 1ML VIAL IV SCH (01:05)
[2021-07-05 06:00] VITALS: BP 123/69
[2021-07-05 06:49] LABS: HEMATOCRIT 40.7 % (42.0-52.0); HEMOGLOBIN 13.5 g/dl (13.5-17.5); MEAN CORPUSCULAR HEMOGLOBIN 29.7 pg (27.0-33.0); MEAN CORPUSCULAR HGB CONC 33.2 g/dl (32.0-36.5); MEAN CORPUSCULAR VOLUME 89.5 fl (80.0-96.0); PLATELET COUNT, AUTOMATED 209 10^3/uL (150-450); RED BLOOD COUNT 4.55 10^6/uL (4.30-6.10); WHITE BLOOD COUNT 9.5 10^3/uL (4.0-10.0)
[2021-07-05 07:23] LABS: BLOOD UREA NITROGEN 19 MG/DL (7-18); CALCIUM LEVEL 9.3 MG/DL (8.8-10.2); CARBON DIOXIDE LEVEL 30 MEQ/L (21-32); CHLORIDE LEVEL 103 MEQ/L (98-107); CREATININE FOR GFR 0.62 MG/DL (0.70-1.30); GLOMERULAR FILTRATION RATE > 60.0 (>49); GLUCOSE, FASTING 293 MG/DL (70-100); POTASSIUM SERUM 4.8 MEQ/L (3.5-5.1); SODIUM LEVEL 139 MEQ/L (136-145)
[2021-07-05] MEDS: SYMBICORT 160/4.5MCG INHALER 6GM INH SCH ×2 (07:51→19:42)
[2021-07-05] MEDS: ASPIRIN 81MG ENTERIC TABLET PO SCH (08:29)
[2021-07-05] MEDS: HumaLOG INSULIN (NovoLOG) PER UNIT SC SCH ×4 (08:29→20:50)
[2021-07-05] MEDS: ATORVASTATIN 20 MG TAB PO SCH (08:29)
[2021-07-05] MEDS: DULoxetine 30MG CAPSULE (CYMBALTA) PO SCH (08:29)
[2021-07-05] MEDS: AMITRIPTYLINE 10MG TABLET PO SCH (08:29)
[2021-07-05] MEDS: ENOXAPARIN 40MG/0.4ML SYRINGE (J1650 PER 10MG) SC SCH (08:30)
[2021-07-05] MEDS: LEVEMIR (INSULIN DETEMIR) 1 UNITS/0.01ML SC SCH ×2 (09:06→21:19)
[2021-07-05 14:00] VITALS: BP 103/52
[2021-07-05] MEDS: ALBUTEROL 90 MCG/ACT 8GM HFA INHALER INH PRN (15:30)
[2021-07-05 17:46] VITALS: BP 118/70
[2021-07-05 18:00] VITALS: BP 123/74
[2021-07-05 21:18] VITALS: BP 125/73
[2021-07-05] MEDS: ACETAMINOPHEN TAB 650MG DOSE (2X325MG) PO PRN (21:19)
[2021-07-06] MEDS: ALBUTEROL 90 MCG/ACT 8GM HFA INHALER INH PRN (01:53)
[2021-07-06 05:58] LABS: HEMATOCRIT 39.3 % (42.0-52.0); HEMOGLOBIN 12.9 g/dl (13.5-17.5); MEAN CORPUSCULAR HEMOGLOBIN 29.1 pg (27.0-33.0); MEAN CORPUSCULAR HGB CONC 32.8 g/dl (32.0-36.5); MEAN CORPUSCULAR VOLUME 88.5 fl (80.0-96.0); PLATELET COUNT, AUTOMATED 188 10^3/uL (150-450); RED BLOOD COUNT 4.44 10^6/uL (4.30-6.10); WHITE BLOOD COUNT 8.1 10^3/uL (4.0-10.0)
[2021-07-06 06:12] VITALS: BP 90/50
[2021-07-06 06:23] LABS: BLOOD UREA NITROGEN 17 MG/DL (7-18); CARBON DIOXIDE LEVEL 34 MEQ/L (21-32); CHLORIDE LEVEL 104 MEQ/L (98-107); CREATININE FOR GFR 0.54 MG/DL (0.70-1.30); GLOMERULAR FILTRATION RATE > 60.0 (>49); GLUCOSE, FASTING 143 MG/DL (70-100); SODIUM LEVEL 140 MEQ/L (136-145)
[2021-07-06 06:24] LABS: CALCIUM LEVEL 9.1 MG/DL (8.8-10.2)
[2021-07-06] MEDS: SYMBICORT 160/4.5MCG INHALER 6GM INH SCH ×2 (07:48→19:18)
[2021-07-06] MEDS: LEVEMIR (INSULIN DETEMIR) 1 UNITS/0.01ML SC SCH ×2 (08:38→20:14)
[2021-07-06] MEDS: ASPIRIN 81MG ENTERIC TABLET PO SCH (08:38)
[2021-07-06] MEDS: HumaLOG INSULIN (NovoLOG) PER UNIT SC SCH ×4 (08:38→19:49)
[2021-07-06] MEDS: ATORVASTATIN 20 MG TAB PO SCH (08:38)
[2021-07-06] MEDS: DULoxetine 30MG CAPSULE (CYMBALTA) PO SCH (08:38)
[2021-07-06] MEDS: ENOXAPARIN 40MG/0.4ML SYRINGE (J1650 PER 10MG) SC SCH (08:38)
[2021-07-06 08:39] VITALS: BP 103/58
[2021-07-06] MEDS: guaiFENesin ER 600 MG TAB PO SCH ×2 (08:39→20:14)
[2021-07-06] MEDS: AMITRIPTYLINE 10MG TABLET PO SCH (08:42)
[2021-07-06] MEDS ORDERED: methylPREDNISolone 40MG 1ML VIAL IV SCH (09:00)
[2021-07-06 09:26] VITALS: BP 103/58
[2021-07-06 14:00] VITALS: BP 147/73
[2021-07-06 18:00] VITALS: BP 115/62
[2021-07-06] MEDS: predniSONE 20 MG TAB PO SCH (20:14)
[2021-07-06 22:00] VITALS: BP 144/84
[2021-07-07] MEDS: ALBUTEROL 90 MCG/ACT 8GM HFA INHALER INH PRN (03:03)
[2021-07-07 06:00] VITALS: BP 143/78
[2021-07-07 06:51] LABS: HEMATOCRIT 45.3 % (42.0-52.0); HEMOGLOBIN 14.7 g/dl (13.5-17.5); MEAN CORPUSCULAR HEMOGLOBIN 29.1 pg (27.0-33.0); MEAN CORPUSCULAR HGB CONC 32.5 g/dl (32.0-36.5); MEAN CORPUSCULAR VOLUME 89.7 fl (80.0-96.0); PLATELET COUNT, AUTOMATED 238 10^3/uL (150-450); RED BLOOD COUNT 5.05 10^6/uL (4.30-6.10)
[2021-07-07 07:07] LABS: BLOOD UREA NITROGEN 13 MG/DL (7-18); CALCIUM LEVEL 9.5 MG/DL (8.8-10.2); CARBON DIOXIDE LEVEL 35 MEQ/L (21-32); CHLORIDE LEVEL 99 MEQ/L (98-107); CREATININE FOR GFR 0.56 MG/DL (0.70-1.30); GLOMERULAR FILTRATION RATE > 60.0 (>49); GLUCOSE, FASTING 199 MG/DL (70-100); POTASSIUM SERUM 4.4 MEQ/L (3.5-5.1); SODIUM LEVEL 139 MEQ/L (136-145)
[2021-07-07] MEDS: SYMBICORT 160/4.5MCG INHALER 6GM INH SCH ×2 (07:54→20:11)
[2021-07-07] MEDS: DULoxetine 30MG CAPSULE (CYMBALTA) PO SCH (08:12)
[2021-07-07] MEDS: predniSONE 20 MG TAB PO SCH (08:12)
[2021-07-07] MEDS: ATORVASTATIN 20 MG TAB PO SCH (08:12)
[2021-07-07] MEDS: AMITRIPTYLINE 10MG TABLET PO SCH (08:12)
[2021-07-07] MEDS: ENOXAPARIN 40MG/0.4ML SYRINGE (J1650 PER 10MG) SC SCH (08:12)
[2021-07-07] MEDS: ASPIRIN 81MG ENTERIC TABLET PO SCH (08:12)
[2021-07-07] MEDS: guaiFENesin ER 600 MG TAB PO SCH ×2 (08:12→20:42)
[2021-07-07] MEDS: HumaLOG INSULIN (NovoLOG) PER UNIT SC SCH ×4 (08:13→20:43)
[2021-07-07] MEDS: LEVEMIR (INSULIN DETEMIR) 1 UNITS/0.01ML SC SCH ×2 (08:13→20:43)
[2021-07-07] MEDS: ACETAMINOPHEN TAB 650MG DOSE (2X325MG) PO PRN (08:14)
[2021-07-07 14:00] VITALS: BP 123/63
[2021-07-07] MEDS: methylPREDNISolone 40MG 1ML VIAL IV SCH ×2 (16:34→23:58)
[2021-07-07] MEDS: IPRATROPIUM 0.5MG/ALBUTEROL 2.5MG INH SOL UD 3ML (DUONEB) NEB SCH ×2 (16:38→20:00)
[2021-07-07 19:02] VITALS: BP 116/61
[2021-07-07] MEDS: AZITHROMYCIN 250MG TABLET PO SCH (23:58)
[2021-07-08] MEDS: IPRATROPIUM 0.5MG/ALBUTEROL 2.5MG INH SOL UD 3ML (DUONEB) NEB SCH ×6 (00:53→19:57)
[2021-07-08 06:00] VITALS: BP 126/64
[2021-07-08 06:41] LABS: HEMATOCRIT 44.3 % (42.0-52.0); HEMOGLOBIN 14.7 g/dl (13.5-17.5); MEAN CORPUSCULAR HEMOGLOBIN 29.6 pg (27.0-33.0); MEAN CORPUSCULAR HGB CONC 33.2 g/dl (32.0-36.5); MEAN CORPUSCULAR VOLUME 89.1 fl (80.0-96.0); PLATELET COUNT, AUTOMATED 234 10^3/uL (150-450); RED BLOOD COUNT 4.97 10^6/uL (4.30-6.10); WHITE BLOOD COUNT 9.9 10^3/uL (4.0-10.0)
[2021-07-08 06:58] LABS: BLOOD UREA NITROGEN 15 MG/DL (7-18); CARBON DIOXIDE LEVEL 35 MEQ/L (21-32); CHLORIDE LEVEL 98 MEQ/L (98-107); CREATININE FOR GFR 0.52 MG/DL (0.70-1.30); GLOMERULAR FILTRATION RATE > 60.0 (>49); GLUCOSE, FASTING 260 MG/DL (70-100); MAGNESIUM LEVEL 2.1 MG/DL (1.8-2.4); PHOSPHORUS LEVEL 4.1 MG/DL (2.5-4.9); POTASSIUM SERUM 4.7 MEQ/L (3.5-5.1); SODIUM LEVEL 137 MEQ/L (136-145)
[2021-07-08] MEDS: methylPREDNISolone 40MG 1ML VIAL IV SCH ×3 (07:00→20:23)
[2021-07-08] MEDS: SYMBICORT 160/4.5MCG INHALER 6GM INH SCH ×2 (07:26→19:57)
[2021-07-08] MEDS: ASPIRIN 81MG ENTERIC TABLET PO SCH (07:55)
[2021-07-08] MEDS: DULoxetine 30MG CAPSULE (CYMBALTA) PO SCH (07:55)
[2021-07-08] MEDS: ATORVASTATIN 20 MG TAB PO SCH (07:55)
[2021-07-08] MEDS: guaiFENesin ER 600 MG TAB PO SCH ×2 (07:55→20:23)
[2021-07-08] MEDS: AMITRIPTYLINE 10MG TABLET PO SCH (07:55)
[2021-07-08] MEDS: LEVEMIR (INSULIN DETEMIR) 1 UNITS/0.01ML SC SCH ×2 (07:56→20:24)
[2021-07-08] MEDS: HumaLOG INSULIN (NovoLOG) PER UNIT SC SCH ×4 (07:56→20:24)
[2021-07-08] MEDS: ENOXAPARIN 40MG/0.4ML SYRINGE (J1650 PER 10MG) SC SCH (07:57)
[2021-07-08 14:00] VITALS: BP 141/77
[2021-07-08 15:02] LABS: APPEARANCE, URINE CLEAR (CLEAR); BACTERIA, URINE AUTO NEGATIVE (NEGATIVE); BILIRUBIN, URINE AUTO NEGATIVE (NEGATIVE); BLOOD, URINE BLOOD NEGATIVE (NEGATIVE); COLOR, URINE YELLOW (YELLOW); GLUCOSE, URINE (UA) AUTO 3+ mg/dL (NEGATIVE); KETONE, URINE AUTO NEGATIVE (NEGATIVE); LEUKOCYTE ESTERASE, URINE AUTO NEGATIVE (NEGATIVE); NITRITE, URINE AUTO NEGATIVE (NEGATIVE); PROTEIN, URINE AUTO NEGATIVE (NEGATIVE); RBC, URINE AUTO 1 /HPF (0-3); SPECIFIC GRAVITY URINE AUTO 1.035 (1.002-1.035); SQUAMOUS EPITHELIAL CELL UR AU 0 /HPF (0-6); UROBILINOGEN, URINE AUTO 0.2 mg/dL (0.0-2.0); WBC, URINE AUTO 0 /HPF (0-3)
[2021-07-08] MEDS: AZITHROMYCIN 250MG TABLET PO SCH (17:44)
[2021-07-08] MEDS ORDERED: LEVEMIR (INSULIN DETEMIR) 1 UNITS/0.01ML SC SCH (21:00)
[2021-07-08 22:00] VITALS: BP 138/76
[2021-07-09] MEDS: IPRATROPIUM 0.5MG/ALBUTEROL 2.5MG INH SOL UD 3ML (DUONEB) NEB SCH ×6 (00:29→19:55)
[2021-07-09] MEDS: methylPREDNISolone 40MG 1ML VIAL IV SCH ×4 (03:17→20:25)
[2021-07-09 05:37] VITALS: BP 104/57
[2021-07-09 06:07] LABS: HEMATOCRIT 41.1 % (42.0-52.0); HEMOGLOBIN 13.6 g/dl (13.5-17.5); MEAN CORPUSCULAR HEMOGLOBIN 29.1 pg (27.0-33.0); MEAN CORPUSCULAR HGB CONC 33.1 g/dl (32.0-36.5); PLATELET COUNT, AUTOMATED 247 10^3/uL (150-450); RED BLOOD COUNT 4.67 10^6/uL (4.30-6.10); WHITE BLOOD COUNT 15.8 10^3/uL (4.0-10.0)
[2021-07-09 06:30] LABS: BLOOD UREA NITROGEN 18 MG/DL (7-18); CALCIUM LEVEL 9.7 MG/DL (8.8-10.2); CARBON DIOXIDE LEVEL 35 MEQ/L (21-32); CHLORIDE LEVEL 98 MEQ/L (98-107); CREATININE FOR GFR 0.66 MG/DL (0.70-1.30); GLOMERULAR FILTRATION RATE > 60.0 (>49); GLUCOSE, FASTING 283 MG/DL (70-100); PHOSPHORUS LEVEL 3.8 MG/DL (2.5-4.9); POTASSIUM SERUM 4.4 MEQ/L (3.5-5.1); SODIUM LEVEL 136 MEQ/L (136-145)
[2021-07-09] MEDS: SYMBICORT 160/4.5MCG INHALER 6GM INH SCH ×2 (07:53→19:55)
[2021-07-09] MEDS: ENOXAPARIN 40MG/0.4ML SYRINGE (J1650 PER 10MG) SC SCH (08:18)
[2021-07-09] MEDS: HumaLOG INSULIN (NovoLOG) PER UNIT SC SCH ×4 (08:19→20:24)
[2021-07-09] MEDS: ASPIRIN 81MG ENTERIC TABLET PO SCH (08:19)
[2021-07-09] MEDS: guaiFENesin ER 600 MG TAB PO SCH ×2 (08:19→20:23)
[2021-07-09] MEDS: AMITRIPTYLINE 10MG TABLET PO SCH (08:19)
[2021-07-09] MEDS: DULoxetine 30MG CAPSULE (CYMBALTA) PO SCH (08:19)
[2021-07-09] MEDS: LEVEMIR (INSULIN DETEMIR) 1 UNITS/0.01ML SC SCH ×2 (08:19→20:25)
[2021-07-09] MEDS: ATORVASTATIN 20 MG TAB PO SCH (08:20)
[2021-07-09 14:00] VITALS: BP 134/70
[2021-07-09 17:00] VITALS: O2SAT 89
[2021-07-09] MEDS: AZITHROMYCIN 250MG TABLET PO SCH (17:21)
[2021-07-09 19:15] VITALS: BP 136/71
[2021-07-09 21:54] VITALS: O2SAT 92
[2021-07-10] MEDS: IPRATROPIUM 0.5MG/ALBUTEROL 2.5MG INH SOL UD 3ML (DUONEB) NEB SCH ×5 (00:28→15:22)
[2021-07-10] MEDS: methylPREDNISolone 40MG 1ML VIAL IV SCH ×2 (02:21→08:01)
[2021-07-10 05:20] VITALS: BP 138/72
[2021-07-10 07:08] LABS: HEMATOCRIT 42.7 % (42.0-52.0); HEMOGLOBIN 13.8 g/dl (13.5-17.5); MEAN CORPUSCULAR HEMOGLOBIN 28.5 pg (27.0-33.0); MEAN CORPUSCULAR HGB CONC 32.3 g/dl (32.0-36.5); MEAN CORPUSCULAR VOLUME 88.2 fl (80.0-96.0); PLATELET COUNT, AUTOMATED 299 10^3/uL (150-450); RED BLOOD COUNT 4.84 10^6/uL (4.30-6.10); WHITE BLOOD COUNT 13.8 10^3/uL (4.0-10.0)
[2021-07-10 07:41] LABS: BLOOD UREA NITROGEN 19 MG/DL (7-18); CALCIUM LEVEL 9.5 MG/DL (8.8-10.2); CARBON DIOXIDE LEVEL 37 MEQ/L (21-32); CHLORIDE LEVEL 97 MEQ/L (98-107); CREATININE FOR GFR 0.63 MG/DL (0.70-1.30); GLOMERULAR FILTRATION RATE > 60.0 (>49); GLUCOSE, FASTING 245 MG/DL (70-100); MAGNESIUM LEVEL 1.9 MG/DL (1.8-2.4); PHOSPHORUS LEVEL 3.6 MG/DL (2.5-4.9); POTASSIUM SERUM 4.3 MEQ/L (3.5-5.1); SODIUM LEVEL 137 MEQ/L (136-145)
[2021-07-10] MEDS: SYMBICORT 160/4.5MCG INHALER 6GM INH SCH (07:48)
[2021-07-10] MEDS: HumaLOG INSULIN (NovoLOG) PER UNIT SC SCH ×2 (07:59→12:03)
[2021-07-10] MEDS: LEVEMIR (INSULIN DETEMIR) 1 UNITS/0.01ML SC SCH (08:00)
[2021-07-10] MEDS: ENOXAPARIN 40MG/0.4ML SYRINGE (J1650 PER 10MG) SC SCH (08:01)
[2021-07-10] MEDS: DULoxetine 30MG CAPSULE (CYMBALTA) PO SCH (08:02)
[2021-07-10] MEDS: guaiFENesin ER 600 MG TAB PO SCH (08:02)
[2021-07-10] MEDS: ASPIRIN 81MG ENTERIC TABLET PO SCH (08:02)
[2021-07-10] MEDS: ATORVASTATIN 20 MG TAB PO SCH (08:03)
[2021-07-10] MEDS: AMITRIPTYLINE 10MG TABLET PO SCH (08:05)
[2021-07-10] MEDS ORDERED: AZIT-12 PO (10:04)
[2021-07-10] MEDS ORDERED: PRED10TA2 PO (10:04)
[2021-07-10] MEDS ORDERED: BLOOKIT21 XX (13:30)
== END 2021-07-10 15:38 | disposition home or self-care (01) | DRG 140 ==
LOC: M ED 01:17 → EDBD 01:17 → M ED INP 05:24 → ENRESERV 11:53 → M MSPAV 13:34
PROVIDERS: ADMIT Family Medicine; ATTEND Internal Medicine
DX: J44.1 Chronic obstructive pulmonary disease with (acute) exacerbation (principal); J96.01 Acute respiratory failure with hypoxia; I11.0 Hypertensive heart disease with heart failure; I50.9 Heart failure, unspecified; B34.8 Other viral infections of unspecified site; E11.9 Type 2 diabetes mellitus without complications; E78.5 Hyperlipidemia, unspecified; I25.10 Atherosclerotic heart disease of native coronary artery without angina pectoris; F17.210 Nicotine dependence, cigarettes, uncomplicated; R91.1 Solitary pulmonary nodule; Z79.82 Long term (current) use of aspirin; Z79.899 Other long term (current) drug therapy; Z79.4 Long term (current) use of insulin; M54.59 Other low back pain

== ENCOUNTER 2021-07-25 12:49 | Inpatient (IN) | payer OTHER ==
[~2021-07-25] VITALS: Ht 165.1 cm; Wt 61.3 kg
[~2021-07-25 12:49] MED LIST changes: +ADME100I2 SUBQ; +AMIT10TA7 PO; +AZIT-12 PO; +BLOOKIT21 XX; +BUDE10.2 PO; +D32000CA PO; +DULO1CAP5 PO; +PRED10TA2 PO
[2021-07-25] MEDS ORDERED: ACETAMINOPHEN TAB 650MG DOSE (2X325MG) PO ONE (13:55)
[2021-07-25 14:23] LABS: BASO # 0.1 10^3/uL (0.0-0.2); BASO % 0.8 % (0.0-1.0); EOS % 0.3 % (0.0-3.0); HEMATOCRIT 41.9 % (42.0-52.0); HEMOGLOBIN 13.5 g/dl (13.5-17.5); LYMPH # 0.4 10^3/uL (1.5-5.0); LYMPH % 6.9 % (24.0-44.0); MEAN CORPUSCULAR HGB CONC 32.2 g/dl (32.0-36.5); MEAN CORPUSCULAR VOLUME 90.1 fl (80.0-96.0); MONO # 1.1 10^3/uL (0.0-0.8); MONO % 17.8 % (2.0-8.0); NEUTROPHILS # 4.7 10^3/uL (1.5-8.5); NEUTROPHILS % 73.7 % (36.0-66.0); PLATELET COUNT, AUTOMATED 295 10^3/uL (150-450); RED BLOOD COUNT 4.65 10^6/uL (4.30-6.10); WHITE BLOOD COUNT 6.3 10^3/uL (4.0-10.0)
[2021-07-25 14:52] LABS: ERYTHROCYTE SEDIMENTATION RATE 14 mm/hr (0-20)
[2021-07-25 14:59] LABS: ALBUMIN 3.5 GM/DL (3.2-5.2); ALT/SGPT 25 U/L (12-78); BILIRUBIN,DIRECT 0.2 MG/DL (0.0-0.2); BILIRUBIN,TOTAL 0.7 MG/DL (0.2-1.0); BLOOD UREA NITROGEN 11 MG/DL (7-18); CALCIUM LEVEL 9.1 MG/DL (8.8-10.2); CARBON DIOXIDE LEVEL 30 MEQ/L (21-32); CHLORIDE LEVEL 100 MEQ/L (98-107); CREATININE FOR GFR 0.82 MG/DL (0.70-1.30); GLOMERULAR FILTRATION RATE > 60.0 (>49); GLUCOSE, FASTING 529 MG/DL (70-100); NT-PRO BNP 228 PG/ML (<125); POTASSIUM SERUM 4.5 MEQ/L (3.5-5.1); SODIUM LEVEL 135 MEQ/L (136-145); TOTAL PROTEIN 6.7 GM/DL (6.4-8.2)
[2021-07-25] MEDS ORDERED: PROHANCE 279.3MG/ML 15ML VIAL As Ordered ONE (18:01)
[2021-07-25] MEDS ORDERED: NS 1,000 ML IV ONE (19:35)
[2021-07-25] MEDS ORDERED: levETIRAcetam 250MG TABLET (KEPPRA) PO ONE (20:40)
[2021-07-25] MEDS ORDERED: HOME MED LIST COMPLETE! XX SCH (20:45)
[2021-07-25] MEDS ORDERED: NS 1,000 ML IV SCH (22:10)
[2021-07-25] MEDS ORDERED: ALBUTEROL SULFATE 2.5 MG/0.5 ML INH NEB SOLN INH PRN (22:15)
[2021-07-25] MEDS ORDERED: DEXTROSE 50% 50 ML SYRINGE IV PRN (22:25)
[2021-07-25] MEDS ORDERED: GLUCAGON INJ 1MG VIAL SC PRN (22:25)
[2021-07-25] MEDS ORDERED: GLUCOSE 4GM CHEW TABLET PO PRN (22:25)
[2021-07-25] MEDS: HumaLOG INSULIN (NovoLOG) PER UNIT SC SCH (23:04)
[2021-07-25] MEDS: LEVEMIR (INSULIN DETEMIR) 1 UNITS/0.01ML SC SCH (23:05)
[2021-07-26] MEDS ORDERED: ALBUTEROL 90 MCG/ACT 8GM HFA INHALER INH PRN (00:45)
[2021-07-26] MEDS ORDERED: BISACODYL 5 MG TAB PO PRN (00:45)
[2021-07-26] MEDS ORDERED: ACETAMINOPHEN 500 MG TAB PO PRN (00:45)
[2021-07-26 06:15] LABS: BASO % 0.2 % (0.0-1.0); EOS % 0.2 % (0.0-3.0); HEMATOCRIT 38.5 % (42.0-52.0); HEMOGLOBIN 12.5 g/dl (13.5-17.5); LYMPH % 20.7 % (24.0-44.0); MEAN CORPUSCULAR HEMOGLOBIN 28.7 pg (27.0-33.0); MEAN CORPUSCULAR HGB CONC 32.5 g/dl (32.0-36.5); MEAN CORPUSCULAR VOLUME 88.3 fl (80.0-96.0); MONO # 0.9 10^3/uL (0.0-0.8); MONO % 18.5 % (2.0-8.0); NEUTROPHILS # 2.9 10^3/uL (1.5-8.5); NEUTROPHILS % 60.2 % (36.0-66.0); PLATELET COUNT, AUTOMATED 255 10^3/uL (150-450); RED BLOOD COUNT 4.36 10^6/uL (4.30-6.10); WHITE BLOOD COUNT 4.9 10^3/uL (4.0-10.0)
[2021-07-26 06:44] LABS: ALBUMIN 2.9 GM/DL (3.2-5.2); ALT/SGPT 25 U/L (12-78); BILIRUBIN,TOTAL 0.4 MG/DL (0.2-1.0); BLOOD UREA NITROGEN 18 MG/DL (7-18); CALCIUM LEVEL 8.7 MG/DL (8.8-10.2); CARBON DIOXIDE LEVEL 30 MEQ/L (21-32); CHLORIDE LEVEL 105 MEQ/L (98-107); GLOMERULAR FILTRATION RATE > 60.0 (>49); GLUCOSE, FASTING 371 MG/DL (70-100); POTASSIUM SERUM 4.7 MEQ/L (3.5-5.1); SODIUM LEVEL 139 MEQ/L (136-145); TOTAL PROTEIN 5.8 GM/DL (6.4-8.2)
[2021-07-26] MEDS ORDERED: SYMBICORT 80/4.5MCG INHALER 6GM INH SCH (08:00)
[2021-07-26] MEDS ORDERED: levETIRAcetam 250MG TABLET (KEPPRA) PO SCH (08:00)
[2021-07-26] MEDS: ATORVASTATIN 20 MG TAB PO SCH (08:27)
[2021-07-26] MEDS: HumaLOG INSULIN (NovoLOG) PER UNIT SC SCH ×4 (08:27→21:44)
[2021-07-26] MEDS: ASPIRIN 81MG ENTERIC TABLET PO SCH (08:27)
[2021-07-26] MEDS: DULoxetine 30MG CAPSULE (CYMBALTA) PO SCH (08:28)
[2021-07-26] MEDS: predniSONE 20 MG TAB PO SCH (08:29)
[2021-07-26] MEDS: TIOTROPIUM INHALER/CAPSULE (SPIRIVA) INH SCH (08:30)
[2021-07-26] MEDS: SYMBICORT 160/4.5MCG INHALER 6GM INH SCH ×2 (08:30→20:00)
[2021-07-26] MEDS: ENOXAPARIN 40MG/0.4ML SYRINGE (J1650 PER 10MG) SC SCH (08:33)
[2021-07-26] MEDS: LEVEMIR (INSULIN DETEMIR) 1 UNITS/0.01ML SC SCH ×2 (08:34→21:44)
[2021-07-26] MEDS ORDERED: REMDESIVIR 200 MG in NS 250 ML IV ONE (10:00)
[2021-07-26] MEDS: AMITRIPTYLINE 10MG TABLET PO SCH (10:00)
[2021-07-26] MEDS ORDERED: SODIUM CHLORIDE 0.9% INJ 10 ML SYR IV ONE (12:00)
[2021-07-26] MEDS: TAMSULOSIN 0.4 MG CAP PO SCH (21:44)
[2021-07-27] MEDS ORDERED: NS 1,000 ML IV ONE (05:35)
[2021-07-27] MEDS ORDERED: NS 500 ML IV ONE (05:35)
[2021-07-27] MEDS: HumaLOG INSULIN (NovoLOG) PER UNIT SC SCH ×4 (07:30→21:07)
[2021-07-27 08:38] LABS: BASO % 0.4 % (0.0-1.0); EOS # 0.1 10^3/uL (0.0-0.5); EOS % 1.1 % (0.0-3.0); HEMATOCRIT 34.8 % (42.0-52.0); LYMPH # 1.7 10^3/uL (1.5-5.0); LYMPH % 30.4 % (24.0-44.0); MEAN CORPUSCULAR HEMOGLOBIN 28.6 pg (27.0-33.0); MEAN CORPUSCULAR HGB CONC 31.6 g/dl (32.0-36.5); MEAN CORPUSCULAR VOLUME 90.6 fl (80.0-96.0); MONO # 0.7 10^3/uL (0.0-0.8); NEUTROPHILS # 3.2 10^3/uL (1.5-8.5); NEUTROPHILS % 55.7 % (36.0-66.0); PLATELET COUNT, AUTOMATED 223 10^3/uL (150-450); RED BLOOD COUNT 3.84 10^6/uL (4.30-6.10); WHITE BLOOD COUNT 5.7 10^3/uL (4.0-10.0)
[2021-07-27] MEDS: LEVEMIR (INSULIN DETEMIR) 1 UNITS/0.01ML SC SCH ×2 (09:00→21:07)
[2021-07-27 09:28] LABS: ALBUMIN 2.6 GM/DL (3.2-5.2); ALT/SGPT 23 U/L (12-78); BILIRUBIN,DIRECT < 0.1 MG/DL (0.0-0.2); BILIRUBIN,TOTAL 0.3 MG/DL (0.2-1.0); BLOOD UREA NITROGEN 12 MG/DL (7-18); CALCIUM LEVEL 8.7 MG/DL (8.8-10.2); CARBON DIOXIDE LEVEL 32 MEQ/L (21-32); CHLORIDE LEVEL 105 MEQ/L (98-107); CREATININE FOR GFR 0.38 MG/DL (0.70-1.30); GLOMERULAR FILTRATION RATE > 60.0 (>49); GLUCOSE, FASTING 55 MG/DL (70-100); POTASSIUM SERUM 3.7 MEQ/L (3.5-5.1); SODIUM LEVEL 141 MEQ/L (136-145); TOTAL PROTEIN 5.3 GM/DL (6.4-8.2)
[2021-07-27] MEDS: DULoxetine 30MG CAPSULE (CYMBALTA) PO SCH (09:57)
[2021-07-27] MEDS: predniSONE 20 MG TAB PO SCH (09:58)
[2021-07-27] MEDS: ENOXAPARIN 40MG/0.4ML SYRINGE (J1650 PER 10MG) SC SCH (09:58)
[2021-07-27] MEDS: ASPIRIN 81MG ENTERIC TABLET PO SCH (09:58)
[2021-07-27] MEDS: ATORVASTATIN 20 MG TAB PO SCH (09:58)
[2021-07-27] MEDS: AMITRIPTYLINE 10MG TABLET PO SCH (10:38)
[2021-07-27] MEDS: REMDESIVIR 100 MG in NS 250 ML IV SCH (10:38)
[2021-07-27] MEDS: SODIUM CHLORIDE 0.9% INJ 10 ML SYR IV SCH (10:38)
[2021-07-27] MEDS ORDERED: SODIUM CHLORIDE 0.9% 1000ML IV ONE (10:45)
[2021-07-27] MEDS: SYMBICORT 160/4.5MCG INHALER 6GM INH SCH ×2 (16:29→20:12)
[2021-07-27] MEDS: TIOTROPIUM INHALER/CAPSULE (SPIRIVA) INH SCH (16:30)
[2021-07-27 17:48] VITALS: BP 125/64
[2021-07-27 20:00] VITALS: BP 158/74
[2021-07-27] MEDS: TAMSULOSIN 0.4 MG CAP PO SCH (21:06)
[2021-07-28] VITALS: BP 139/63
[2021-07-28 05:00] VITALS: BP 130/68
[2021-07-28 06:53] LABS: BASO % 0.3 % (0.0-1.0); EOS # 0.1 10^3/uL (0.0-0.5); EOS % 0.9 % (0.0-3.0); HEMATOCRIT 36.3 % (42.0-52.0); HEMOGLOBIN 11.8 g/dl (13.5-17.5); LYMPH # 1.8 10^3/uL (1.5-5.0); LYMPH % 26.5 % (24.0-44.0); MEAN CORPUSCULAR HEMOGLOBIN 28.6 pg (27.0-33.0); MEAN CORPUSCULAR HGB CONC 32.5 g/dl (32.0-36.5); MEAN CORPUSCULAR VOLUME 87.9 fl (80.0-96.0); MONO # 0.6 10^3/uL (0.0-0.8); MONO % 8.7 % (2.0-8.0); NEUTROPHILS # 4.3 10^3/uL (1.5-8.5); NEUTROPHILS % 63.2 % (36.0-66.0); PLATELET COUNT, AUTOMATED 245 10^3/uL (150-450); RED BLOOD COUNT 4.13 10^6/uL (4.30-6.10); WHITE BLOOD COUNT 6.8 10^3/uL (4.0-10.0)
[2021-07-28 07:16] LABS: ALBUMIN 2.6 GM/DL (3.2-5.2); ALT/SGPT 30 U/L (12-78); BILIRUBIN,TOTAL 0.2 MG/DL (0.2-1.0); BLOOD UREA NITROGEN 9 MG/DL (7-18); CALCIUM LEVEL 8.9 MG/DL (8.8-10.2); CARBON DIOXIDE LEVEL 31 MEQ/L (21-32); CHLORIDE LEVEL 102 MEQ/L (98-107); CREATININE FOR GFR 0.43 MG/DL (0.70-1.30); GLOMERULAR FILTRATION RATE > 60.0 (>49); GLUCOSE, FASTING 238 MG/DL (70-100); POTASSIUM SERUM 3.6 MEQ/L (3.5-5.1); SODIUM LEVEL 139 MEQ/L (136-145); TOTAL PROTEIN 5.6 GM/DL (6.4-8.2)
[2021-07-28] MEDS: SYMBICORT 160/4.5MCG INHALER 6GM INH SCH (07:29)
[2021-07-28] MEDS: TIOTROPIUM INHALER/CAPSULE (SPIRIVA) INH SCH (07:29)
[2021-07-28] MEDS: HumaLOG INSULIN (NovoLOG) PER UNIT SC SCH ×2 (07:58→12:21)
[2021-07-28 08:00] VITALS: BP 106/57
[2021-07-28] MEDS: predniSONE 20 MG TAB PO SCH (08:00)
[2021-07-28] MEDS: DULoxetine 30MG CAPSULE (CYMBALTA) PO SCH (08:00)
[2021-07-28] MEDS: AMITRIPTYLINE 10MG TABLET PO SCH (08:00)
[2021-07-28] MEDS: ASPIRIN 81MG ENTERIC TABLET PO SCH (08:00)
[2021-07-28 08:01] VITALS: BP 130/68
[2021-07-28] MEDS: ATORVASTATIN 20 MG TAB PO SCH (08:01)
[2021-07-28] MEDS: LEVEMIR (INSULIN DETEMIR) 1 UNITS/0.01ML SC SCH (08:02)
[2021-07-28] MEDS: ENOXAPARIN 40MG/0.4ML SYRINGE (J1650 PER 10MG) SC SCH (08:02)
[2021-07-28] MEDS: REMDESIVIR 100 MG in NS 250 ML IV SCH (10:03)
[2021-07-28] MEDS: SODIUM CHLORIDE 0.9% INJ 10 ML SYR IV SCH (11:36)
[2021-07-28] MEDS ORDERED: FLOM0.4C39 PO (11:59)
[2021-07-28] MEDS ORDERED: PRED20TA PO (11:59)
[2021-07-28 12:00] VITALS: BP 120/62
== END 2021-07-28 14:56 | disposition home health service (06) | DRG 137 ==
LOC: M ED 12:49 → EDBD 12:49 → M ED INP 23:03 → ENRESERV 07-27 17:17 → M 4MAIN 07-27 17:40
PROVIDERS: ADMIT Family Medicine; ATTEND Internal Medicine
PROC: XW033E5 Introduction of Remdesivir Anti-infective into Peripheral Vein, Percutaneous Approach, New Technology Group 5 (ICD-10-PCS; principal; 2021-07-26)
PROC: 3E0333Z Introduction of Anti-inflammatory into Peripheral Vein, Percutaneous Approach (ICD-10-PCS; 2021-07-26)
DX: U07.1 COVID-19 (principal); I11.0 Hypertensive heart disease with heart failure; I95.9 Hypotension, unspecified; I50.9 Heart failure, unspecified; J44.1 Chronic obstructive pulmonary disease with (acute) exacerbation; J44.0 Chronic obstructive pulmonary disease with (acute) lower respiratory infection; E11.9 Type 2 diabetes mellitus without complications; F32.A Depression, unspecified; F41.9 Anxiety disorder, unspecified; I25.10 Atherosclerotic heart disease of native coronary artery without angina pectoris; F17.210 Nicotine dependence, cigarettes, uncomplicated; Z79.4 Long term (current) use of insulin; Z79.82 Long term (current) use of aspirin; Z79.899 Other long term (current) drug therapy; N40.1 Benign prostatic hyperplasia with lower urinary tract symptoms

== ENCOUNTER → 2021-08-07 | Outpatient (CLI) | payer MEDICARE, OTHER ==
[~2021-08-07] MED LIST changes: +FLOM0.4C39 PO
== END ==
LOC: M RAD 11:51
PROVIDERS: ATTEND Urology
DX: R33.9 Retention of urine, unspecified (principal)

== ENCOUNTER → 2021-08-12 | Outpatient (CLI) | payer MEDICARE, OTHER ==
[~2021-08-12] MED LIST changes: +SULF1TAB23 PO
== END ==
LOC: M RAD 16:58
PROVIDERS: ATTEND Nurse Practitioner Family
DX: Z12.2 Encounter for screening for malignant neoplasm of respiratory organs (principal); R91.8 Other nonspecific abnormal finding of lung field

== ENCOUNTER 2021-08-14 17:30 | Emergency (ER) | payer MEDICARE, OTHER ==
[~2021-08-14] VITALS: Ht 175.3 cm; Wt 50.0 kg
[~2021-08-14 17:30] MED LIST changes: -SULF1TAB23 PO
[2021-08-14] MEDS ORDERED: methylPREDNISolone 125MG 2ML VIAL IV ONE (21:10)
[2021-08-14 21:20] VITALS: BP 116/62
[2021-08-14 21:21] LABS: BASO # 0.1 10^3/uL (0.0-0.2); BASO % 0.4 % (0.0-1.0); EOS # 0.1 10^3/uL (0.0-0.5); EOS % 0.3 % (0.0-3.0); HEMATOCRIT 36.2 % (42.0-52.0); HEMOGLOBIN 11.9 g/dl (13.5-17.5); LYMPH # 1.5 10^3/uL (1.5-5.0); LYMPH % 8.9 % (24.0-44.0); MEAN CORPUSCULAR HGB CONC 32.9 g/dl (32.0-36.5); MEAN CORPUSCULAR VOLUME 88.3 fl (80.0-96.0); MONO # 1.3 10^3/uL (0.0-0.8); MONO % 7.5 % (2.0-8.0); NEUTROPHILS # 14.1 10^3/uL (1.5-8.5); NEUTROPHILS % 82.4 % (36.0-66.0); PLATELET COUNT, AUTOMATED 291 10^3/uL (150-450); WHITE BLOOD COUNT 17.1 10^3/uL (4.0-10.0)
[2021-08-14 21:25] LABS: ALBUMIN 3.3 GM/DL (3.2-5.2); ALT/SGPT 19 U/L (12-78); BILIRUBIN,DIRECT 0.2 MG/DL (0.0-0.2); BILIRUBIN,TOTAL 0.9 MG/DL (0.2-1.0); BLOOD UREA NITROGEN 7 MG/DL (7-18); CALCIUM LEVEL 9.3 MG/DL (8.8-10.2); CARBON DIOXIDE LEVEL 27 MEQ/L (21-32); CHLORIDE LEVEL 104 MEQ/L (98-107); GLOMERULAR FILTRATION RATE > 60.0 (>49); GLUCOSE, FASTING 346 MG/DL (70-100); NT-PRO BNP 58 PG/ML (<125); POTASSIUM SERUM 4.1 MEQ/L (3.5-5.1); SODIUM LEVEL 139 MEQ/L (136-145); THYROID STIMULATING HORMONE 0.618 uIU/ML (0.358-3.740); THYROXINE (T4) 7.5 UG/DL (4.5-12.0); TOTAL PROTEIN 6.3 GM/DL (6.4-8.2)
[2021-08-14] MEDS ORDERED: BACTRIM 160MG/800MG DS TAB PO ONE (22:30)
[2021-08-14] MEDS ORDERED: PRED10TA2 PO (22:33)
[2021-08-14] MEDS ORDERED: SULF1TAB23 PO (22:33)
== END 2021-08-14 22:45 | disposition home or self-care (01) ==
LOC: EDBD 17:30 → M ED 17:30
DX: J44.1 Chronic obstructive pulmonary disease with (acute) exacerbation (principal); N39.0 Urinary tract infection, site not specified; I50.9 Heart failure, unspecified; I25.2 Old myocardial infarction; I10 Essential (primary) hypertension; K21.9 Gastro-esophageal reflux disease without esophagitis; N40.0 Benign prostatic hyperplasia without lower urinary tract symptoms; F17.200 Nicotine dependence, unspecified, uncomplicated; R30.0 Dysuria; Z79.4 Long term (current) use of insulin; Z79.82 Long term (current) use of aspirin; Z79.899 Other long term (current) drug therapy
CPT/HCPCS: 71045; 80048; 80076; 81001; 83605; 83880; 84436; 84443; 85025; 87040; 87088; 87186; 87486; 87581; 87633; 87798; 93005; 93041; 94760; 96374; 99284; J2930

== ENCOUNTER → 2021-08-14 | Outpatient (REF) | payer MEDICARE, OTHER ==
[2021-08-14 17:50] LABS: APPEARANCE, URINE CLOUDY (CLEAR); BACTERIA, URINE AUTO NEGATIVE (NEGATIVE); BILIRUBIN, URINE AUTO NEGATIVE (NEGATIVE); BLOOD, URINE BLOOD NEGATIVE (NEGATIVE); COLOR, URINE YELLOW (YELLOW); GLUCOSE, URINE (UA) AUTO 3+ mg/dL (NEGATIVE); KETONE, URINE AUTO NEGATIVE (NEGATIVE); LEUKOCYTE ESTERASE, URINE AUTO 3+ (NEGATIVE); MUCUS, URINE SMALL (NEGATIVE); NITRITE, URINE AUTO POSITIVE (NEGATIVE); PROTEIN, URINE AUTO 1+ mg/dL (NEGATIVE); RBC, URINE AUTO 21 /HPF (0-3); SPECIFIC GRAVITY URINE AUTO 1.029 (1.002-1.035); SQUAMOUS EPITHELIAL CELL UR AU 0 /HPF (0-6); UROBILINOGEN, URINE AUTO 0.2 mg/dL (0.0-2.0); WBC, URINE AUTO TNTC /HPF (0-3)
== END ==
LOC: M SMT 17:16
PROVIDERS: ATTEND Urology
DX: R30.0 Dysuria (principal)

== ENCOUNTER → 2021-08-25 | Outpatient (REF) | payer MEDICARE, OTHER ==
[~2021-08-25] MED LIST changes: +ALBU2.5V10 INH; -ALBU83IN INH; +SULF1TAB23 PO
[2021-08-25 14:17] LABS: APPEARANCE, URINE CLEAR (CLEAR); BACTERIA, URINE AUTO NEGATIVE (NEGATIVE); BILIRUBIN, URINE AUTO NEGATIVE (NEGATIVE); BLOOD, URINE BLOOD NEGATIVE (NEGATIVE); COLOR, URINE YELLOW (YELLOW); GLUCOSE, URINE (UA) AUTO 3+ mg/dL (NEGATIVE); KETONE, URINE AUTO NEGATIVE (NEGATIVE); LEUKOCYTE ESTERASE, URINE AUTO NEGATIVE (NEGATIVE); NITRITE, URINE AUTO NEGATIVE (NEGATIVE); PROTEIN, URINE AUTO NEGATIVE (NEGATIVE); RBC, URINE AUTO 0 /HPF (0-3); SPECIFIC GRAVITY URINE AUTO 1.029 (1.002-1.035); SQUAMOUS EPITHELIAL CELL UR AU 0 /HPF (0-6); UROBILINOGEN, URINE AUTO 0.2 mg/dL (0.0-2.0); WBC, URINE AUTO 2 /HPF (0-3)
== END ==
LOC: M SMT 12:48
PROVIDERS: ATTEND Urology
DX: Z87.440 Personal history of urinary (tract) infections (principal); Z79.899 Other long term (current) drug therapy

== ENCOUNTER → 2021-10-12 | Outpatient (CLI) | payer MEDICARE, OTHER ==
[2021-10-12 17:12] LABS: BASO # 0.1 10^3/uL (0.0-0.2); BASO % 0.9 % (0.0-1.0); EOS # 0.2 10^3/uL (0.0-0.5); EOS % 1.9 % (0.0-3.0); HEMOGLOBIN 14.5 g/dl (13.5-17.5); LYMPH # 1.9 10^3/uL (1.5-5.0); LYMPH % 21.1 % (24.0-44.0); MEAN CORPUSCULAR HGB CONC 32.2 g/dl (32.0-36.5); MONO # 0.6 10^3/uL (0.0-0.8); NEUTROPHILS # 6.2 10^3/uL (1.5-8.5); NEUTROPHILS % 68.8 % (36.0-66.0); PLATELET COUNT, AUTOMATED 293 10^3/uL (150-450); WHITE BLOOD COUNT 9.1 10^3/uL (4.0-10.0)
[2021-10-12 17:29] LABS: ALBUMIN 3.9 GM/DL (3.2-5.2); ALT/SGPT 15 U/L (12-78); BILIRUBIN,TOTAL 0.9 MG/DL (0.2-1.0); BLOOD UREA NITROGEN 10 MG/DL (7-18); CALCIUM LEVEL 9.9 MG/DL (8.8-10.2); CARBON DIOXIDE LEVEL 31 MEQ/L (21-32); CHLORIDE LEVEL 103 MEQ/L (98-107); CREATININE FOR GFR 0.78 MG/DL (0.70-1.30); GLOMERULAR FILTRATION RATE > 60.0 (>49); GLUCOSE, FASTING 359 MG/DL (70-100); NT-PRO BNP 25 PG/ML (<125); POTASSIUM SERUM 5.4 MEQ/L (3.5-5.1); SODIUM LEVEL 138 MEQ/L (136-145); TOTAL PROTEIN 7.3 GM/DL (6.4-8.2)
== END ==
LOC: M PLALAB 13:45
PROVIDERS: ATTEND Family Medicine
DX: R06.09 Other forms of dyspnea (principal)

== ENCOUNTER 2021-10-17 00:01 | Emergency (ER) | payer MEDICARE, OTHER ==
[~2021-10-17] VITALS: Ht 175.3 cm; Wt 56.0 kg
[2021-10-17 01:09] LABS: BASO # 0.1 10^3/uL (0.0-0.2); BASO % 0.9 % (0.0-1.0); EOS # 0.3 10^3/uL (0.0-0.5); EOS % 2.6 % (0.0-3.0); HEMATOCRIT 39.1 % (42.0-52.0); HEMOGLOBIN 13.2 g/dl (13.5-17.5); LYMPH # 2.7 10^3/uL (1.5-5.0); LYMPH % 24.8 % (24.0-44.0); MEAN CORPUSCULAR HEMOGLOBIN 29.5 pg (27.0-33.0); MEAN CORPUSCULAR HGB CONC 33.8 g/dl (32.0-36.5); MEAN CORPUSCULAR VOLUME 87.5 fl (80.0-96.0); MONO # 0.8 10^3/uL (0.0-0.8); MONO % 7.2 % (2.0-8.0); NEUTROPHILS # 7.1 10^3/uL (1.5-8.5); NEUTROPHILS % 64.1 % (36.0-66.0); PLATELET COUNT, AUTOMATED 296 10^3/uL (150-450); RED BLOOD COUNT 4.47 10^6/uL (4.30-6.10)
[2021-10-17 01:13] LABS: INR 0.96; PROTHROMBIN TIME 13.2 SECONDS (12.7-14.5)
[2021-10-17 01:23] LABS: CK-MB VALUE MASS 1.3 NG/ML (<3.6); MB/CK RELATIVE INDEX 1.55 (< OR =4)
[2021-10-17 01:34] LABS: ACETONE/KETONE 1.49 MG/DL (<2.81); ALBUMIN 3.7 GM/DL (3.2-5.2); ALT/SGPT 21 U/L (12-78); BILIRUBIN,DIRECT 0.2 MG/DL (0.0-0.2); BILIRUBIN,TOTAL 0.7 MG/DL (0.2-1.0); BLOOD UREA NITROGEN 10 MG/DL (7-18); CALCIUM LEVEL 9.2 MG/DL (8.8-10.2); CARBON DIOXIDE LEVEL 31 MEQ/L (21-32); CHLORIDE LEVEL 98 MEQ/L (98-107); CREATININE FOR GFR 0.87 MG/DL (0.70-1.30); GLOMERULAR FILTRATION RATE > 60.0 (>49); GLUCOSE, FASTING 472 MG/DL (70-100); NT-PRO BNP 33 PG/ML (<125); POTASSIUM SERUM 4.2 MEQ/L (3.5-5.1); SODIUM LEVEL 135 MEQ/L (136-145); TOTAL PROTEIN 6.7 GM/DL (6.4-8.2)
[2021-10-17 01:38] LABS: VENOUS BASE EXCESS 3.1 (-2.0-2.0); VENOUS HCO3 29.8 MEQ/L (23.0-27.0); VENOUS O2 SATURATION 88.3 % (60.0-80.0); VENOUS PARTIAL PRESSURE CO2 54.5 mmHg (38.0-50.0); VENOUS PARTIAL PRESSURE O2 52.2 mmHg (30.0-50.0); VENOUS PH 7.356 UNITS (7.330-7.430); VENOUS TOTAL CO2 31.5 MEQ/L (24.0-28.0)
[2021-10-17] MEDS ORDERED: HumuLIN R (REGULAR) INSULIN (NovoLIN R) **100U/ML** PER UNIT IV ONE (03:25)
[2021-10-17] MEDS ORDERED: diazePAM 10MG/2ML SYRINGE (J3360 PER 5MG) IV ONE (04:30)
[2021-10-17] MEDS ORDERED: NS 1,000 ML IV ONE (04:30)
[2021-10-17] MEDS ORDERED: AZIT500T5 PO (06:32)
[2021-10-17] MEDS ORDERED: PRED20TA PO (06:32)
[2021-10-17] MEDS ORDERED: AZITHROMYCIN 250MG TABLET PO ONE (06:35)
[2021-10-17] MEDS ORDERED: predniSONE 20 MG TAB PO ONE (06:35)
[2021-10-17 06:46] VITALS: BP 143/72
[2021-10-19 13:56] LABS: HIV 1&2 SCREEN CENTAUR NEGATIVE (NEGATIVE)
== END 2021-10-17 06:50 | disposition home or self-care (01) ==
LOC: M ED 00:01 → EDSEX 00:01 → EDBD 00:01 → EDUNIT# 00:01 → M ED 06:50
DX: J44.1 Chronic obstructive pulmonary disease with (acute) exacerbation (principal); E11.65 Type 2 diabetes mellitus with hyperglycemia; I10 Essential (primary) hypertension; N40.0 Benign prostatic hyperplasia without lower urinary tract symptoms; F17.200 Nicotine dependence, unspecified, uncomplicated; Z79.82 Long term (current) use of aspirin; Z79.4 Long term (current) use of insulin; Z79.899 Other long term (current) drug therapy
CPT/HCPCS: 71046; 80048; 80076; 82010; 82550; 82553; 82803; 83605; 83880; 84443; 84484; 85025; 85610; 87040; 87389; 87486; 87581; 87633; 87798; 93005; 93041; 94760; 96374; 96375; 99285; J1815; J3360; J7512

== ENCOUNTER → 2021-11-09 | Outpatient (CLI) | payer MEDICARE, MEDICAID ==
[~2021-11-09] MED LIST changes: +AZIT500T5 PO
== END ==
LOC: M PLARAD 08:26
PROVIDERS: ATTEND Family Medicine
DX: R91.8 Other nonspecific abnormal finding of lung field (principal)
CPT/HCPCS: 78815; A9552

== ENCOUNTER 2021-11-11 01:25 | Emergency (ER) | payer MEDICARE, MEDICAID ==
[2021-11-10 23:59] VITALS: BP 142/68
[~2021-11-11] VITALS: Ht 175.3 cm; Wt 54.5 kg
[2021-11-11 00:41] LABS: BASO # 0.1 10^3/uL (0.0-0.2); EOS # 0.3 10^3/uL (0.0-0.5); EOS % 3.1 % (0.0-3.0); HEMOGLOBIN 12.8 g/dl (13.5-17.5); LYMPH # 2.3 10^3/uL (1.5-5.0); LYMPH % 26.8 % (24.0-44.0); MEAN CORPUSCULAR HEMOGLOBIN 28.9 pg (27.0-33.0); MEAN CORPUSCULAR VOLUME 90.3 fl (80.0-96.0); MONO # 0.6 10^3/uL (0.0-0.8); MONO % 7.4 % (2.0-8.0); NEUTROPHILS # 5.3 10^3/uL (1.5-8.5); NEUTROPHILS % 61.5 % (36.0-66.0); PLATELET COUNT, AUTOMATED 288 10^3/uL (150-450); RED BLOOD COUNT 4.43 10^6/uL (4.30-6.10); WHITE BLOOD COUNT 8.7 10^3/uL (4.0-10.0)
[2021-11-11 01:07] LABS: CK-MB VALUE MASS 1.5 NG/ML (<3.6); MB/CK RELATIVE INDEX 1.81 (< OR =4)
[2021-11-11 01:09] LABS: ALBUMIN 3.5 GM/DL (3.2-5.2); ALT/SGPT 19 U/L (12-78); BILIRUBIN,DIRECT 0.2 MG/DL (0.0-0.2); BILIRUBIN,TOTAL 0.5 MG/DL (0.2-1.0); BLOOD UREA NITROGEN 15 MG/DL (7-18); CALCIUM LEVEL 9.4 MG/DL (8.8-10.2); CARBON DIOXIDE LEVEL 33 MEQ/L (21-32); CHLORIDE LEVEL 104 MEQ/L (98-107); CREATININE FOR GFR 0.72 MG/DL (0.70-1.30); GLOMERULAR FILTRATION RATE > 60.0 (>49); GLUCOSE, FASTING 382 MG/DL (70-100); LIPASE 330 U/L (73-393); NT-PRO BNP 41 PG/ML (<125); POTASSIUM SERUM 4.3 MEQ/L (3.5-5.1); SODIUM LEVEL 140 MEQ/L (136-145); TOTAL PROTEIN 6.5 GM/DL (6.4-8.2)
== END 2021-11-11 01:32 | disposition home or self-care (01) ==
LOC: M ED 01:25
DX: J44.9 Chronic obstructive pulmonary disease, unspecified (principal); R64 Cachexia; R07.89 Other chest pain; I25.10 Atherosclerotic heart disease of native coronary artery without angina pectoris; E11.9 Type 2 diabetes mellitus without complications; I10 Essential (primary) hypertension; N40.0 Benign prostatic hyperplasia without lower urinary tract symptoms; Z87.442 Personal history of urinary calculi; F17.200 Nicotine dependence, unspecified, uncomplicated; Z79.82 Long term (current) use of aspirin; Z79.4 Long term (current) use of insulin; Z79.899 Other long term (current) drug therapy

== ENCOUNTER 2022-02-01 21:14 | Emergency (ER) | payer MEDICARE, MEDICAID ==
[~2022-02-01] VITALS: Ht 175.3 cm; Wt 54.5 kg
[2022-02-01] MEDS ORDERED: NITROGLYCERIN 0.4 MG SUBL TABLET SL PRN (21:30)
[2022-02-01 21:35] VITALS: BP 147/82
[2022-02-01 21:57] LABS: BASO # 0.1 10^3/uL (0.0-0.2); BASO % 0.9 % (0.0-1.0); EOS # 0.3 10^3/uL (0.0-0.5); EOS % 3.1 % (0.0-3.0); HEMATOCRIT 40.3 % (42.0-52.0); HEMOGLOBIN 13.1 g/dl (13.5-17.5); LYMPH # 2.2 10^3/uL (1.5-5.0); MEAN CORPUSCULAR HEMOGLOBIN 29.1 pg (27.0-33.0); MEAN CORPUSCULAR HGB CONC 32.5 g/dl (32.0-36.5); MEAN CORPUSCULAR VOLUME 89.6 fl (80.0-96.0); MONO # 0.6 10^3/uL (0.0-0.8); MONO % 7.4 % (2.0-8.0); NEUTROPHILS # 5.2 10^3/uL (1.5-8.5); NEUTROPHILS % 62.1 % (36.0-66.0); PLATELET COUNT, AUTOMATED 287 10^3/uL (150-450); WHITE BLOOD COUNT 8.4 10^3/uL (4.0-10.0)
[2022-02-01 22:40] LABS: CK-MB VALUE MASS 1.3 NG/ML (<3.6); MB/CK RELATIVE INDEX 2.36 (< OR =4)
[2022-02-01] MEDS ORDERED: HumuLIN R (REGULAR) INSULIN (NovoLIN R) **100U/ML** PER UNIT IV ONE (22:50)
[2022-02-01 22:52] LABS: ALBUMIN 3.6 GM/DL (3.2-5.2); ALT/SGPT 19 U/L (12-78); BILIRUBIN,DIRECT 0.1 MG/DL (0.0-0.2); BILIRUBIN,TOTAL 0.5 MG/DL (0.2-1.0); BLOOD UREA NITROGEN 8 MG/DL (7-18); CALCIUM LEVEL 8.7 MG/DL (8.8-10.2); CARBON DIOXIDE LEVEL 31 MEQ/L (21-32); CHLORIDE LEVEL 103 MEQ/L (98-107); CREATININE FOR GFR 0.76 MG/DL (0.70-1.30); FREE T4 1.03 NG/DL (0.76-1.46); GLOMERULAR FILTRATION RATE > 60.0 (>49); GLUCOSE, FASTING 431 MG/DL (70-100); LIPASE 96 U/L (73-393); SODIUM LEVEL 138 MEQ/L (136-145); TOTAL PROTEIN 6.5 GM/DL (6.4-8.2)
[2022-02-01 23:36] LABS: CK-MB VALUE MASS < 1.0 NG/ML (<3.6); CPK CREATINE PHOSPHOKINASE 35 U/L (39-308); MB/CK RELATIVE INDEX 2.86 (< OR =4)
[2022-02-02 00:15] VITALS: BP 118/66
== END 2022-02-02 00:31 | disposition home or self-care (01) ==
LOC: M ED 21:14 → EDBD 21:14 → M ED 02-02 00:31
DX: R07.9 Chest pain, unspecified (principal); R06.02 Shortness of breath; E11.65 Type 2 diabetes mellitus with hyperglycemia; I25.10 Atherosclerotic heart disease of native coronary artery without angina pectoris; I11.0 Hypertensive heart disease with heart failure; I50.9 Heart failure, unspecified; I25.2 Old myocardial infarction; J44.9 Chronic obstructive pulmonary disease, unspecified; F17.200 Nicotine dependence, unspecified, uncomplicated; Z79.51 Long term (current) use of inhaled steroids; Z79.4 Long term (current) use of insulin; Z79.899 Other long term (current) drug therapy; Z79.82 Long term (current) use of aspirin
CPT/HCPCS: 36415; 71046; 80048; 80076; 82550; 82553; 83690; 84439; 84443; 84484; 85025; 85379; 93005; 93041; 94760; 99285; J1815

== ENCOUNTER → 2022-02-02 | Outpatient (REF) | payer MEDICARE ==
[2022-02-02 15:07] LABS: BASO # 0.1 10^3/uL (0.0-0.2); BASO % 0.8 % (0.0-1.0); EOS # 0.3 10^3/uL (0.0-0.5); EOS % 2.4 % (0.0-3.0); HEMATOCRIT 44.6 % (42.0-52.0); HEMOGLOBIN 13.7 g/dl (13.5-17.5); LYMPH # 1.9 10^3/uL (1.5-5.0); LYMPH % 18.1 % (24.0-44.0); MEAN CORPUSCULAR HEMOGLOBIN 28.5 pg (27.0-33.0); MEAN CORPUSCULAR HGB CONC 30.7 g/dl (32.0-36.5); MEAN CORPUSCULAR VOLUME 92.7 fl (80.0-96.0); MONO # 0.8 10^3/uL (0.0-0.8); MONO % 7.9 % (2.0-8.0); NEUTROPHILS # 7.3 10^3/uL (1.5-8.5); NEUTROPHILS % 70.4 % (36.0-66.0); PLATELET COUNT, AUTOMATED 290 10^3/uL (150-450); RED BLOOD COUNT 4.81 10^6/uL (4.30-6.10); WHITE BLOOD COUNT 10.4 10^3/uL (4.0-10.0)
[2022-02-02 16:27] LABS: ALBUMIN 3.7 GM/DL (3.2-5.2); ALT/SGPT 19 U/L (12-78); BILIRUBIN,TOTAL 0.4 MG/DL (0.2-1.0); BLOOD UREA NITROGEN 9 MG/DL (7-18); CALCIUM LEVEL 9.9 MG/DL (8.8-10.2); CARBON DIOXIDE LEVEL 29 MEQ/L (21-32); CHLORIDE LEVEL 101 MEQ/L (98-107); CHOLESTEROL LEVEL 162 MG/DL (<200); CHOLESTEROL RISK RATIO 3.951 (<5); FREE T4 0.97 NG/DL (0.76-1.46); GLOMERULAR FILTRATION RATE > 60.0 (>49); GLUCOSE, FASTING 491 MG/DL (70-100); HDL CHOLESTEROL 41 MG/DL (>40); LDL CHOLESTEROL 95 MG/DL (<100); NON-HDL-C 121 MG/DL; POTASSIUM SERUM 4.6 MEQ/L (3.5-5.1); SODIUM LEVEL 135 MEQ/L (136-145); TOTAL PROTEIN 6.7 GM/DL (6.4-8.2); TRIGLYCERIDES LEVEL 132 MG/DL (<150)
[2022-02-02 17:12] LABS: FOLATE 6.8 NG/ML (>5.4); VITAMIN B12 LEVEL 393 PG/ML (247-911)
[2022-02-02 20:27] LABS: HEMOGLOBIN A1c 13.2 %
== END ==
LOC: M PLALAB 14:27
PROVIDERS: ATTEND Nurse Practitioner Family
DX: R26.81 Unsteadiness on feet (principal); R42 Dizziness and giddiness; E11.65 Type 2 diabetes mellitus with hyperglycemia; E78.2 Mixed hyperlipidemia

== ENCOUNTER → 2022-03-02 | Outpatient (CLI) | payer MEDICARE | LOC: M PLAIMG 11:38 | PROVIDERS: ATTEND Internal Medicine Pulmonary Disease | DX: R91.1 Solitary pulmonary nodule (principal); J84.10 Pulmonary fibrosis, unspecified ==

== ENCOUNTER → 2022-05-04 | Outpatient (CLI) | payer MEDICARE | LOC: M CARPUL 02-02 13:09 | PROVIDERS: ATTEND Internal Medicine Pulmonary Disease | DX: J44.9 Chronic obstructive pulmonary disease, unspecified (principal) ==

== ENCOUNTER → 2022-09-17 | Outpatient (REF) | payer MEDICARE, MEDICAID ==
[~2022-09-17] MED LIST changes: +CIPR0.3S37 OD; -CIPR0.3S6 OD
== END ==
LOC: M SFHCDERM 12:40
PROVIDERS: ATTEND Nurse Practitioner Family
DX: D49.2 Neoplasm of unspecified behavior of bone, soft tissue, and skin (principal)

== ENCOUNTER → 2022-10-11 | Outpatient (CLI) | payer MEDICARE, MEDICAID | LOC: M RAD 15:11 | PROVIDERS: ATTEND Internal Medicine Pulmonary Disease | DX: R91.8 Other nonspecific abnormal finding of lung field (principal); I70.0 Atherosclerosis of aorta; I25.10 Atherosclerotic heart disease of native coronary artery without angina pectoris; J43.9 Emphysema, unspecified ==

== ENCOUNTER 2022-11-19 23:35 | Emergency (ER) | payer MEDICARE, MEDICAID ==
[~2022-11-19] VITALS: Ht 176.5 cm; Wt 57.0 kg
[2022-11-20 00:35] LABS: BASO # 0.1 10^3/uL (0.0-0.2); BASO % 0.6 % (0.0-1.0); EOS # 0.1 10^3/uL (0.0-0.5); HEMATOCRIT 37.9 % (42.0-52.0); HEMOGLOBIN 12.4 g/dl (13.5-17.5); LYMPH # 1.3 10^3/uL (1.5-5.0); LYMPH % 15.9 % (24.0-44.0); MEAN CORPUSCULAR HEMOGLOBIN 29.1 pg (27.0-33.0); MEAN CORPUSCULAR HGB CONC 32.7 g/dl (32.0-36.5); MONO # 0.8 10^3/uL (0.0-0.8); MONO % 10.7 % (2.0-8.0); NEUTROPHILS # 5.7 10^3/uL (1.5-8.5); NEUTROPHILS % 71.7 % (36.0-66.0); PLATELET COUNT, AUTOMATED 254 10^3/uL (150-450); RED BLOOD COUNT 4.26 10^6/uL (4.30-6.10); WHITE BLOOD COUNT 7.9 10^3/uL (4.0-10.0)
[2022-11-20 00:39] LABS: CK-MB VALUE MASS < 1.0 NG/ML (<3.6)
[2022-11-20 00:41] LABS: ALBUMIN 3.3 G/DL (3.2-5.2); ALKALINE PHOSPHATASE 155 U/L (46-116); ALT/SGPT 11 U/L (7.0-40); AST/SGOT < 8 U/L (<34); BILIRUBIN,DIRECT 0.3 MG/DL (<0.4); BILIRUBIN,TOTAL 0.9 MG/DL (0.3-1.2); BLOOD UREA NITROGEN 13 MG/DL (9-23); CALCIUM LEVEL 9.1 MG/DL (8.3-10.6); CARBON DIOXIDE LEVEL 28 MMOL/L (20-31); CHLORIDE LEVEL 104 MMOL/L (98-107); CREATININE FOR GFR 0.55 MG/DL (0.70-1.30); GLOMERULAR FILTRATION RATE > 60.0 (>49); GLUCOSE, FASTING 308 MG/DL (74-106); SODIUM LEVEL 141 MMOL/L (136-145); TOTAL PROTEIN 5.9 G/DL (5.7-8.2)
[2022-11-20 00:43] LABS: THYROID STIMULATING HORMONE 1.044 uIU/ML (0.55-4.78); THYROXINE (T4) 8.2 UG/DL (4.5-10.9)
[2022-11-20 00:44] LABS: CPK CREATINE PHOSPHOKINASE 60 U/L (46-171); MB/CK RELATIVE INDEX 1.66 (< OR =4)
[2022-11-20] MEDS ORDERED: ACETAMINOPHEN TAB 650MG DOSE (2X325MG) PO ONE (01:00)
[2022-11-20 01:01] LABS: RSV AMPLIFICATION NEGATIVE (NEGATIVE)
[2022-11-20] MEDS ORDERED: diazePAM 10MG/2ML SYRINGE IV ONE (02:00)
[2022-11-20] MEDS ORDERED: NS 1,000 ML IV ONE (02:00)
[2022-11-20 03:00] VITALS: TEMP 98
[2022-11-20] MEDS ORDERED: KETOROLAC 30 MG/ML 1ML VIAL IV ONE (03:00)
[2022-11-20 06:00] VITALS: BP 127/60
[2022-11-20 06:15] VITALS: O2SAT 97
== END 2022-11-20 06:27 | disposition home or self-care (01) ==
LOC: M ED 23:35
DX: B34.9 Viral infection, unspecified (principal); I25.10 Atherosclerotic heart disease of native coronary artery without angina pectoris; I25.2 Old myocardial infarction; E11.9 Type 2 diabetes mellitus without complications; I10 Essential (primary) hypertension; E78.5 Hyperlipidemia, unspecified; F32.A Depression, unspecified; N40.0 Benign prostatic hyperplasia without lower urinary tract symptoms; K50.90 Crohn's disease, unspecified, without complications; M50.30 Other cervical disc degeneration, unspecified cervical region; Z79.4 Long term (current) use of insulin; Z79.82 Long term (current) use of aspirin; Z79.899 Other long term (current) drug therapy
CPT/HCPCS: 71045; 80048; 80076; 81001; 82550; 82553; 83605; 84436; 84443; 84484; 85025; 87040; 87486; 87581; 87631; 87633; 87798; 93005; 94760; 96361; 96374; 99285; J1885; J3360

== ENCOUNTER 2022-11-22 17:25 | Inpatient (IN) | payer MEDICARE, MEDICAID ==
[~2022-11-22] VITALS: Ht 175.3 cm; Wt 56.9 kg
[2022-11-22] MEDS ORDERED: ACETAMINOPHEN *IV* 1,000 MG in IV 1 EA IV ONE (19:20)
[2022-11-22] MEDS ORDERED: NS 1,000 ML IV ONE (19:20)
[2022-11-22 19:57] LABS: BASO # 0.1 10^3/uL (0.0-0.2); BASO % 0.6 % (0.0-1.0); HEMATOCRIT 41.9 % (42.0-52.0); HEMOGLOBIN 14.1 g/dl (13.5-17.5); LYMPH # 0.8 10^3/uL (1.5-5.0); LYMPH % 10.5 % (24.0-44.0); MEAN CORPUSCULAR HGB CONC 33.7 g/dl (32.0-36.5); MONO # 0.9 10^3/uL (0.0-0.8); MONO % 11.9 % (2.0-8.0); NEUTROPHILS # 6.1 10^3/uL (1.5-8.5); NEUTROPHILS % 76.7 % (36.0-66.0); PLATELET COUNT, AUTOMATED 244 10^3/uL (150-450); RED BLOOD COUNT 4.87 10^6/uL (4.30-6.10); WHITE BLOOD COUNT 7.9 10^3/uL (4.0-10.0)
[2022-11-22 20:25] LABS: LIPASE 19 U/L (12-53)
[2022-11-22 20:26] LABS: CK-MB VALUE MASS < 1.0 NG/ML (<3.6)
[2022-11-22] MEDS ORDERED: ISOVUE-370 76% 100ML VIAL As Ordered ONE (20:37)
[2022-11-22 20:50] LABS: ERYTHROCYTE SEDIMENTATION RATE 62 mm/hr (0-20)
[2022-11-22] MEDS: INSULIN LISPRO (NovoLOG) PER UNIT SC SCH (21:00)
[2022-11-22 21:58] LABS: ALBUMIN 3.2 G/DL (3.2-5.2); ALKALINE PHOSPHATASE 117 U/L (46-116); ALT/SGPT 10 U/L (7.0-40); AST/SGOT 9 U/L (<34); BILIRUBIN,DIRECT 0.2 MG/DL (<0.4); BILIRUBIN,TOTAL 0.8 MG/DL (0.3-1.2); CPK CREATINE PHOSPHOKINASE 66 U/L (46-171); MB/CK RELATIVE INDEX 1.51 (< OR =4); TOTAL PROTEIN 6.4 G/DL (5.7-8.2)
[2022-11-22] MEDS ORDERED: cefTRIAXone SOD 1 GM in D5W MINI-BAG PLUS 50 ML IV ONE (22:25)
[2022-11-22] MEDS ORDERED: AZITHROMYCIN 250MG TABLET PO ONE (22:25)
[2022-11-22] MEDS ORDERED: NORCO, ANEXSIA 5/325MG TABLET (HYDROcodone/ACETAMINOPHEN) PO ONE (22:35)
[2022-11-22] MEDS ORDERED: LR 1,000 ML IV SCH (22:40)
[2022-11-22] MEDS ORDERED: GLUCOSE 4GM CHEW TABLET PO PRN (23:10)
[2022-11-22] MEDS ORDERED: IPRATROPIUM 0.5MG/ALBUTEROL 2.5MG INH SOL UD 3ML (DUONEB) NEB PRN (23:10)
[2022-11-22] MEDS ORDERED: GLUCAGON INJ 1MG VIAL SC PRN (23:10)
[2022-11-22] MEDS ORDERED: NORCO, ANEXSIA 5/325MG TABLET (HYDROcodone/ACETAMINOPHEN) PO PRN (23:10)
[2022-11-22] MEDS ORDERED: DEXTROSE 50% 50ML SYRINGE IV PRN (23:10)
[2022-11-22 23:47] LABS: PROCALCITONIN 0.12 ng/ml
[2022-11-22] MEDS ORDERED: NOVO1INJ4 SC (23:48)
[2022-11-22] MEDS ORDERED: VITA100093 PO (23:48)
[2022-11-22] MEDS ORDERED: HOME MED LIST COMPLETE! XX SCH (23:50)
[2022-11-23] MEDS ORDERED: IPRATROPIUM 0.5MG/ALBUTEROL 2.5MG INH SOL UD 3ML (DUONEB) NEB SCH (02:00)
[2022-11-23 05:40] LABS: HEMATOCRIT 37.3 % (42.0-52.0); HEMOGLOBIN 12.3 g/dl (13.5-17.5); MEAN CORPUSCULAR HEMOGLOBIN 28.7 pg (27.0-33.0); MEAN CORPUSCULAR VOLUME 87.1 fl (80.0-96.0); PLATELET COUNT, AUTOMATED 212 10^3/uL (150-450); RED BLOOD COUNT 4.28 10^6/uL (4.30-6.10); WHITE BLOOD COUNT 8.1 10^3/uL (4.0-10.0)
[2022-11-23] MEDS ORDERED: ONDANSETRON 4MG 2ML VIAL IV PRN (07:05)
[2022-11-23] MEDS ORDERED: NORCO, ANEXSIA 5/325MG TABLET (HYDROcodone/ACETAMINOPHEN) PO PRN (07:05)
[2022-11-23] MEDS ORDERED: ACETAMINOPHEN TAB 650MG DOSE (2X325MG) PO PRN (07:20)
[2022-11-23] MEDS: NS 1,000 ML IV SCH ×3 (07:35→21:32)
[2022-11-23] MEDS: TIOTROPIUM INHALER/CAPSULE (SPIRIVA) INH SCH (08:46)
[2022-11-23] MEDS: ALBUTEROL SULFATE 2.5MG/0.5ML INH NEB SOLN NEB SCH ×5 (08:46→23:03)
[2022-11-23] MEDS: SYMBICORT 160/4.5MCG INHALER 6GM INH SCH ×2 (08:47→19:26)
[2022-11-23] MEDS ORDERED: LEVEMIR (INSULIN DETEMIR) 1 UNITS/0.01ML SC SCH (09:00)
[2022-11-23] MEDS ORDERED: ADVAIR HFA 230/21MCG INHALER INH SCH (09:00)
[2022-11-23] MEDS: ASPIRIN 81MG ENTERIC TABLET PO SCH (09:27)
[2022-11-23] MEDS: ATORVASTATIN 20 MG TAB PO SCH (09:28)
[2022-11-23] MEDS: INSULIN LISPRO (NovoLOG) PER UNIT SC SCH ×4 (09:28→21:32)
[2022-11-23] MEDS: cefTRIAXone SOD 1 GM in D5W MINI-BAG PLUS 50 ML IV SCH (09:28)
[2022-11-23] MEDS: ENOXAPARIN 40MG/0.4ML SYRINGE (J1650 PER 10MG) SC SCH (09:28)
[2022-11-23 10:29] LABS: BLOOD UREA NITROGEN 12 MG/DL (9-23); CALCIUM LEVEL 8.3 MG/DL (8.3-10.6); CARBON DIOXIDE LEVEL 29 MMOL/L (20-31); CHLORIDE LEVEL 100 MMOL/L (98-107); CREATININE FOR GFR 0.59 MG/DL (0.70-1.30); GLOMERULAR FILTRATION RATE > 60.0 (>49); GLUCOSE, FASTING 239 MG/DL (74-106); MAGNESIUM LEVEL 1.5 MG/DL (1.8-2.4); SODIUM LEVEL 134 MMOL/L (136-145)
[2022-11-23] MEDS: metroNIDAZOLE 500 MG in IV 1 EA IV SCH ×2 (10:29→19:30)
[2022-11-23] MEDS: MAG SULF 1GM/100ML (MAG RUN) 1 GM in IV 1 EA IV SCH ×2 (13:16→14:24)
[2022-11-23 17:45] VITALS: BP 116/53; TEMP 98.2; O2SAT 95
[2022-11-23 19:49] VITALS: BP 121/54; TEMP 98.1; O2SAT 89
[2022-11-24] MEDS: metroNIDAZOLE 500 MG in IV 1 EA IV SCH ×2 (02:50→10:48)
[2022-11-24] MEDS: ALBUTEROL SULFATE 2.5MG/0.5ML INH NEB SOLN NEB SCH ×2 (04:00→07:39)
[2022-11-24 05:55] VITALS: BP 103/44; TEMP 98.8; O2SAT 91
[2022-11-24] MEDS: TIOTROPIUM INHALER/CAPSULE (SPIRIVA) INH SCH (07:37)
[2022-11-24] MEDS: SYMBICORT 160/4.5MCG INHALER 6GM INH SCH (07:39)
[2022-11-24] MEDS: ASPIRIN 81MG ENTERIC TABLET PO SCH (08:44)
[2022-11-24] MEDS: cefTRIAXone SOD 1 GM in D5W MINI-BAG PLUS 50 ML IV SCH (08:44)
[2022-11-24] MEDS: ENOXAPARIN 40MG/0.4ML SYRINGE (J1650 PER 10MG) SC SCH (08:45)
[2022-11-24] MEDS: ATORVASTATIN 20 MG TAB PO SCH (08:45)
[2022-11-24] MEDS ORDERED: MAG SULF 1GM/100ML (MAG RUN) 1 GM in IV 1 EA IV ONE ×2 (08:45→11:25)
[2022-11-24] MEDS: INSULIN LISPRO (NovoLOG) PER UNIT SC SCH ×2 (08:46→12:39)
[2022-11-24] MEDS ORDERED: MAGNESIUM OXIDE 400MG TAB (MAG-OX) PO SCH (09:00)
[2022-11-24] MEDS ORDERED: LEVEMIR (INSULIN DETEMIR) 1 UNITS/0.01ML SC SCH (09:00)
[2022-11-24 09:41] LABS: BASO % 0.6 % (0.0-1.0); EOS # 0.2 10^3/uL (0.0-0.5); HEMATOCRIT 33.6 % (42.0-52.0); HEMOGLOBIN 11.1 g/dl (13.5-17.5); LYMPH % 19.6 % (24.0-44.0); MEAN CORPUSCULAR HEMOGLOBIN 29.1 pg (27.0-33.0); MEAN CORPUSCULAR VOLUME 88.2 fl (80.0-96.0); MONO # 0.7 10^3/uL (0.0-0.8); NEUTROPHILS # 3.1 10^3/uL (1.5-8.5); NEUTROPHILS % 62.6 % (36.0-66.0); PLATELET COUNT, AUTOMATED 215 10^3/uL (150-450); RED BLOOD COUNT 3.81 10^6/uL (4.30-6.10)
[2022-11-24 11:20] LABS: BLOOD UREA NITROGEN 8 MG/DL (9-23); CALCIUM LEVEL 8.2 MG/DL (8.3-10.6); CARBON DIOXIDE LEVEL 29 MMOL/L (20-31); CHLORIDE LEVEL 101 MMOL/L (98-107); CREATININE FOR GFR 0.55 MG/DL (0.70-1.30); GLOMERULAR FILTRATION RATE > 60.0 (>49); GLUCOSE, FASTING 221 MG/DL (74-106); MAGNESIUM LEVEL 1.6 MG/DL (1.8-2.4); POTASSIUM SERUM 3.5 MMOL/L (3.5-5.1); SODIUM LEVEL 137 MMOL/L (136-145)
[2022-11-24] MEDS ORDERED: PROBCAP14 PO (11:31)
[2022-11-24] MEDS ORDERED: AMOX875T2 PO (11:31)
[2022-11-24] MEDS ORDERED: MAGN400T2 PO (11:31)
[2022-11-24] MEDS ORDERED: MAGN250T9 PO (11:31)
[2022-11-24 14:00] VITALS: TEMP 97.2; O2SAT 95
[2022-11-25 16:08] LABS: BODY FLUID CULTURE Not indicated. (.); LEGIONELLA ANTIGEN URINE Negative (Negative); ORGANISM ID Not indicated. (.); SPECIMEN SOURCE Urine (.); URINE STREP PNEUMONIAE ANTIGEN Negative (Negative)
== END 2022-11-24 14:40 | disposition home or self-care (01) | DRG 391 ==
LOC: EDUNIT# 17:25 → M ED 17:25 → EDBD 17:25 → M ED INP 22:36 → M MS5PR 11-23 18:01
PROVIDERS: ADMIT Internal Medicine; ATTEND Internal Medicine Nephrology
DX: K52.9 Noninfective gastroenteritis and colitis, unspecified (principal); J15.6 Pneumonia due to other Gram-negative bacteria; E87.1 Hypo-osmolality and hyponatremia; K56.7 Ileus, unspecified; J96.11 Chronic respiratory failure with hypoxia; J43.9 Emphysema, unspecified; F41.9 Anxiety disorder, unspecified; F32.A Depression, unspecified; I11.0 Hypertensive heart disease with heart failure; R33.9 Retention of urine, unspecified; E78.5 Hyperlipidemia, unspecified; G89.29 Other chronic pain; R41.89 Other symptoms and signs involving cognitive functions and awareness; M54.6 Pain in thoracic spine; N40.1 Benign prostatic hyperplasia with lower urinary tract symptoms; I25.10 Atherosclerotic heart disease of native coronary artery without angina pectoris; K76.0 Fatty (change of) liver, not elsewhere classified; I50.9 Heart failure, unspecified; R45.4 Irritability and anger; F17.210 Nicotine dependence, cigarettes, uncomplicated; E11.9 Type 2 diabetes mellitus without complications; Z79.82 Long term (current) use of aspirin; Z79.4 Long term (current) use of insulin; Z91.148 Patient's other noncompliance with medication regimen for other reason; Z79.899 Other long term (current) drug therapy; Z99.81 Dependence on supplemental oxygen

== ENCOUNTER → 2023-03-14 | Outpatient (CLI) | payer MEDICARE, MEDICAID ==
[~2023-03-14] MED LIST changes: +AMOX875T2 PO; +MAGN250T9 PO; +MAGN400T2 PO; +NOVO1INJ4 SC; +PROBCAP14 PO; +VITA100093 PO
== END ==
LOC: M PLAIMG 13:32
PROVIDERS: ATTEND Internal Medicine Pulmonary Disease
DX: J98.4 Other disorders of lung (principal); J43.9 Emphysema, unspecified; I25.10 Atherosclerotic heart disease of native coronary artery without angina pectoris; I70.0 Atherosclerosis of aorta

== ENCOUNTER 2023-03-16 10:18 | Inpatient (IN) | payer MEDICARE, MEDICAID ==
[~2023-03-16] VITALS: Ht 175.3 cm; Wt 60.9 kg
[2023-03-16] MEDS ORDERED: IPRATROPIUM 0.5MG/ALBUTEROL 2.5MG INH SOL UD 3ML (DUONEB) NEB ONE (11:10)
[2023-03-16] MEDS ORDERED: methylPREDNISolone 125MG 2ML VIAL IV ONE (11:10)
[2023-03-16] MEDS ORDERED: NS 500 ML IV ONE (11:10)
[2023-03-16] MEDS ORDERED: ALBUTEROL SULFATE 2.5MG/0.5ML INH NEB SOLN INH ONE (11:10)
[2023-03-16 11:28] LABS: BASO # 0.1 10^3/uL (0.0-0.2); BASO % 0.4 % (0.0-1.0); EOS # 0.1 10^3/uL (0.0-0.5); EOS % 0.5 % (0.0-3.0); HEMATOCRIT 43.7 % (42.0-52.0); HEMOGLOBIN 14.2 g/dl (13.5-17.5); LYMPH # 1.3 10^3/uL (1.5-5.0); LYMPH % 8.5 % (24.0-44.0); MEAN CORPUSCULAR HEMOGLOBIN 29.2 pg (27.0-33.0); MEAN CORPUSCULAR HGB CONC 32.5 g/dl (32.0-36.5); MEAN CORPUSCULAR VOLUME 89.7 fl (80.0-96.0); MONO # 1.4 10^3/uL (0.0-0.8); MONO % 8.7 % (2.0-8.0); NEUTROPHILS # 12.8 10^3/uL (1.5-8.5); NEUTROPHILS % 81.5 % (36.0-66.0); PLATELET COUNT, AUTOMATED 248 10^3/uL (150-450); RED BLOOD COUNT 4.87 10^6/uL (4.30-6.10); WHITE BLOOD COUNT 15.7 10^3/uL (4.0-10.0)
[2023-03-16] MEDS ORDERED: ISOVUE-370 76% 100ML VIAL As Ordered ONE (11:39)
[2023-03-16 11:44] LABS: ERYTHROCYTE SEDIMENTATION RATE 51 mm/hr (0-20)
[2023-03-16 11:46] LABS: INR 1.08; PROTHROMBIN TIME 13.6 SECONDS (12.5-14.5)
[2023-03-16 11:47] LABS: PARTIAL THROMBOPLASTIN TIME 32.4 SECONDS (24.8-34.2)
[2023-03-16 11:50] LABS: LIPASE 18 U/L (12-53)
[2023-03-16 11:52] LABS: ALBUMIN 3.8 G/DL (3.2-5.2); ALKALINE PHOSPHATASE 141 U/L (46-116); ALT/SGPT 12 U/L (7.0-40); AST/SGOT 9 U/L (<34); BILIRUBIN,DIRECT 0.5 MG/DL (<0.4); BILIRUBIN,TOTAL 1.8 MG/DL (0.3-1.2); BLOOD UREA NITROGEN 13 MG/DL (9-23); CALCIUM LEVEL 9.3 MG/DL (8.3-10.6); CARBON DIOXIDE LEVEL 33 MMOL/L (20-31); CHLORIDE LEVEL 98 MMOL/L (98-107); CK-MB VALUE MASS < 1.0 NG/ML (<3.6); CREATININE FOR GFR 0.62 MG/DL (0.70-1.30); GLOMERULAR FILTRATION RATE > 60.0 (>49); GLUCOSE, FASTING 344 MG/DL (74-106); POTASSIUM SERUM 4.3 MMOL/L (3.5-5.1); SODIUM LEVEL 134 MMOL/L (136-145); TOTAL PROTEIN 6.8 G/DL (5.7-8.2)
[2023-03-16 11:54] LABS: THYROID STIMULATING HORMONE 1.631 uIU/ML (0.55-4.78)
[2023-03-16 11:55] LABS: FREE T4 1.06 NG/DL (0.89-1.76)
[2023-03-16 12:05] LABS: PROCALCITONIN <0.04 ng/ml
[2023-03-16 12:06] LABS: CPK CREATINE PHOSPHOKINASE 54 U/L (46-171); MB/CK RELATIVE INDEX 1.85 (< OR =4)
[2023-03-16 13:00] LABS: CK-MB VALUE MASS < 1.0 NG/ML (<3.6)
[2023-03-16 13:02] LABS: CPK CREATINE PHOSPHOKINASE 47 U/L (46-171); MB/CK RELATIVE INDEX 2.12 (< OR =4)
[2023-03-16] MEDS ORDERED: cefTRIAXone SOD 2 GM in D5W MINI-BAG PLUS 50 ML IV ONE (13:10)
[2023-03-16] MEDS ORDERED: AZITHROMYCIN INJ 500 MG, VIAL MATE ADAPTER 1 EACH in D5W 250 ML IV ONE (13:10)
[2023-03-16] MEDS ORDERED: NICOTINE 21MG/24HR 1 EA TRANSDERMAL TD ONE (13:10)
[2023-03-16 14:06] LABS: RSV AMPLIFICATION NEGATIVE (NEGATIVE)
[2023-03-16] MEDS ORDERED: PROBCAP14 PO (14:23)
[2023-03-16] MEDS ORDERED: HOME MED LIST COMPLETE! XX SCH (14:25)
[2023-03-16 15:10] VITALS: BP 123/69; TEMP 98.4; O2SAT 97
[2023-03-16] MEDS: ENOXAPARIN 40MG/0.4ML SYRINGE (J1650 PER 10MG) SC SCH (15:38)
[2023-03-16] MEDS ORDERED: GABAPENTIN 100 MG CAP PO ONE (16:00)
[2023-03-16 16:02] LABS: PROCALCITONIN <0.04 ng/ml
[2023-03-16] MEDS ORDERED: HumuLIN (NovoLIN)70/30 INSULIN INJ PER UNIT SC SCH (17:30)
[2023-03-16] MEDS ORDERED: INSULIN LISPRO (NovoLOG) PER UNIT SC SCH ×2 (17:30→21:00)
[2023-03-16] MEDS ORDERED: GLUCAGON INJ 1MG VIAL SC PRN (18:15)
[2023-03-16] MEDS ORDERED: DEXTROSE 50% 50ML SYRINGE IV PRN (18:15)
[2023-03-16] MEDS ORDERED: GLUCOSE 4GM CHEW TABLET PO PRN (18:15)
[2023-03-16] MEDS ORDERED: NS 1,000 ML IV SCH (18:30)
[2023-03-16] MEDS: INSULIN LISPRO (NovoLOG) PER UNIT SC SCH (18:32)
[2023-03-16] MEDS: SYMBICORT 160/4.5MCG INHALER 6GM INH SCH (19:27)
[2023-03-16] MEDS: ALBUTEROL SULFATE 2.5MG/0.5ML INH NEB SOLN NEB SCH ×3 (19:28→23:42)
[2023-03-16 20:30] VITALS: BP 125/67; TEMP 97.9; O2SAT 94
[2023-03-16] MEDS ORDERED: AMITRIPTYLINE 25MG TABLET PO SCH (21:00)
[2023-03-16] MEDS: DOCUSATE SODIUM 100MG CAPSULE PO SCH (21:56)
[2023-03-16] MEDS: GABAPENTIN 100 MG CAP PO SCH (21:56)
[2023-03-16] MEDS: LEVEMIR (INSULIN DETEMIR) 1 UNITS/0.01ML SC SCH (21:57)
[2023-03-16] MEDS: dexAMETHasone 20MG/5ML VIAL IV SCH (22:07)
[2023-03-17] MEDS: ALBUTEROL SULFATE 2.5MG/0.5ML INH NEB SOLN NEB SCH ×2 (03:36→07:26)
[2023-03-17 06:20] VITALS: BP 121/67; TEMP 97.9; O2SAT 96
[2023-03-17 06:30] LABS: BASO % 0.1 % (0.0-1.0); HEMATOCRIT 39.1 % (42.0-52.0); LYMPH # 0.6 10^3/uL (1.5-5.0); LYMPH % 5.2 % (24.0-44.0); MEAN CORPUSCULAR HEMOGLOBIN 29.9 pg (27.0-33.0); MEAN CORPUSCULAR HGB CONC 33.2 g/dl (32.0-36.5); MEAN CORPUSCULAR VOLUME 89.9 fl (80.0-96.0); MONO # 0.4 10^3/uL (0.0-0.8); MONO % 3.4 % (2.0-8.0); NEUTROPHILS # 10.9 10^3/uL (1.5-8.5); NEUTROPHILS % 90.7 % (36.0-66.0); PLATELET COUNT, AUTOMATED 231 10^3/uL (150-450); RED BLOOD COUNT 4.35 10^6/uL (4.30-6.10); WHITE BLOOD COUNT 12.1 10^3/uL (4.0-10.0)
[2023-03-17 07:04] LABS: BLOOD UREA NITROGEN 16 MG/DL (9-23); CALCIUM LEVEL 9.9 MG/DL (8.3-10.6); CARBON DIOXIDE LEVEL 29 MMOL/L (20-31); CHLORIDE LEVEL 105 MMOL/L (98-107); CREATININE FOR GFR 0.47 MG/DL (0.70-1.30); GLOMERULAR FILTRATION RATE > 60.0 (>49); GLUCOSE, FASTING 343 MG/DL (74-106); POTASSIUM SERUM 4.2 MMOL/L (3.5-5.1); SODIUM LEVEL 142 MMOL/L (136-145)
[2023-03-17 07:07] LABS: HEMOGLOBIN A1c 10.8 % (4.0-6.0)
[2023-03-17] MEDS: SYMBICORT 160/4.5MCG INHALER 6GM INH SCH (07:26)
[2023-03-17] MEDS ORDERED: INSULIN LISPRO (NovoLOG) PER UNIT SC SCH (07:30)
[2023-03-17] MEDS ORDERED: TIOTROPIUM INHALER/CAPSULE (SPIRIVA) INH SCH (08:00)
[2023-03-17] MEDS: LEVEMIR (INSULIN DETEMIR) 1 UNITS/0.01ML SC SCH (08:40)
[2023-03-17] MEDS: GABAPENTIN 100 MG CAP PO SCH (08:40)
[2023-03-17] MEDS: ENOXAPARIN 40MG/0.4ML SYRINGE (J1650 PER 10MG) SC SCH (08:40)
[2023-03-17] MEDS: dexAMETHasone 20MG/5ML VIAL IV SCH (08:41)
[2023-03-17] MEDS: DOCUSATE SODIUM 100MG CAPSULE PO SCH (08:41)
[2023-03-17] MEDS: INSULIN LISPRO (NovoLOG) PER UNIT SC SCH (08:43)
[2023-03-17 08:50] LABS: ERYTHROCYTE SEDIMENTATION RATE 32 mm/hr (0-20)
[2023-03-17] MEDS ORDERED: AZITHROMYCIN 250MG TABLET PO SCH (09:00)
[2023-03-17] MEDS ORDERED: ASPIRIN 81MG ENTERIC TABLET PO SCH (09:00)
[2023-03-17] MEDS ORDERED: cefTRIAXone SOD 2 GM in D5W MINI-BAG PLUS 50 ML IV SCH (09:00)
[2023-03-17] MEDS ORDERED: GABA-1171 PO (09:42)
[2023-03-17] MEDS ORDERED: NOVO1INJ4 SC ×2 (09:42→09:52)
[2023-03-17] MEDS ORDERED: PRED20TA PO (09:42)
[2023-03-17] MEDS ORDERED: AMIT25TA19 PO (09:42)
[2023-03-17] MEDS ORDERED: AMOX875T2 PO (09:43)
== END 2023-03-17 11:36 | disposition home or self-care (01) | DRG 190 ==
LOC: M ED 10:18 → M ED INP 14:03 → ENRESERV 14:19 → M MSPAV 15:17
PROVIDERS: ADMIT Internal Medicine Nephrology; ATTEND Internal Medicine Nephrology
DX: J44.0 Chronic obstructive pulmonary disease with (acute) lower respiratory infection (principal); J18.9 Pneumonia, unspecified organism; E43 Unspecified severe protein-calorie malnutrition; J96.11 Chronic respiratory failure with hypoxia; Z68.1 Body mass index [BMI] 19.9 or less, adult; J44.1 Chronic obstructive pulmonary disease with (acute) exacerbation; K76.0 Fatty (change of) liver, not elsewhere classified; I11.0 Hypertensive heart disease with heart failure; E78.5 Hyperlipidemia, unspecified; E11.65 Type 2 diabetes mellitus with hyperglycemia; I25.10 Atherosclerotic heart disease of native coronary artery without angina pectoris; I50.9 Heart failure, unspecified; R41.89 Other symptoms and signs involving cognitive functions and awareness; G89.29 Other chronic pain; M54.9 Dorsalgia, unspecified; E11.40 Type 2 diabetes mellitus with diabetic neuropathy, unspecified; K52.9 Noninfective gastroenteritis and colitis, unspecified; F41.9 Anxiety disorder, unspecified; R33.9 Retention of urine, unspecified; F32.A Depression, unspecified; N40.1 Benign prostatic hyperplasia with lower urinary tract symptoms; Z99.81 Dependence on supplemental oxygen; Z79.82 Long term (current) use of aspirin; Z79.4 Long term (current) use of insulin; Z79.899 Other long term (current) drug therapy; Z87.891 Personal history of nicotine dependence

== ENCOUNTER 2023-06-11 09:21 | Emergency (ER) | payer MEDICARE, MEDICAID ==
[~2023-06-11 09:21] MED LIST changes: +AMIT25TA19 PO; +GABA-1171 PO
[2023-06-11 09:59] LABS: BASO # 0.1 10^3/uL (0.0-0.2); BASO % 1.2 % (0.0-1.0); EOS # 0.3 10^3/uL (0.0-0.5); EOS % 3.4 % (0.0-3.0); HEMATOCRIT 42.8 % (42.0-52.0); HEMOGLOBIN 13.4 g/dl (13.5-17.5); LYMPH # 1.7 10^3/uL (1.5-5.0); LYMPH % 19.9 % (24.0-44.0); MEAN CORPUSCULAR HGB CONC 31.3 g/dl (32.0-36.5); MEAN CORPUSCULAR VOLUME 92.6 fl (80.0-96.0); MONO # 0.6 10^3/uL (0.0-0.8); MONO % 7.2 % (2.0-8.0); NEUTROPHILS # 5.7 10^3/uL (1.5-8.5); NEUTROPHILS % 68.1 % (36.0-66.0); PLATELET COUNT, AUTOMATED 266 10^3/uL (150-450); RED BLOOD COUNT 4.62 10^6/uL (4.30-6.10); WHITE BLOOD COUNT 8.3 10^3/uL (4.0-10.0)
[2023-06-11 10:08] LABS: INR 1.02; PROTHROMBIN TIME 13.1 SECONDS (12.5-14.5)
[2023-06-11 10:22] LABS: CPK CREATINE PHOSPHOKINASE 73 U/L (46-171)
[2023-06-11 10:23] LABS: ALBUMIN 3.4 G/DL (3.2-5.2); ALKALINE PHOSPHATASE 136 U/L (46-116); ALT/SGPT 16 U/L (7.0-40); AST/SGOT < 8 U/L (<34); BILIRUBIN,DIRECT 0.3 MG/DL (<0.4); BILIRUBIN,TOTAL 0.8 MG/DL (0.3-1.2); BLOOD UREA NITROGEN 11 MG/DL (9-23); CALCIUM LEVEL 8.4 MG/DL (8.3-10.6); CARBON DIOXIDE LEVEL 36 MMOL/L (20-31); CHLORIDE LEVEL 103 MMOL/L (98-107); CREATININE FOR GFR 0.52 MG/DL (0.70-1.30); GLOMERULAR FILTRATION RATE > 60.0 (>49); GLUCOSE, FASTING 355 MG/DL (74-106); MB/CK RELATIVE INDEX 2.73 (< OR =4); POTASSIUM SERUM 4.5 MMOL/L (3.5-5.1); SODIUM LEVEL 140 MMOL/L (136-145); TOTAL PROTEIN 5.7 G/DL (5.7-8.2)
[2023-06-11 10:28] LABS: THYROID STIMULATING HORMONE 1.414 uIU/ML (0.55-4.78)
[2023-06-11 11:49] LABS: CK-MB VALUE MASS 1.8 NG/ML (<3.6)
[2023-06-11] MEDS ORDERED: ISOVUE-370 76% 100ML VIAL As Ordered ONE (11:49)
[2023-06-11 11:50] LABS: MB/CK RELATIVE INDEX 2.76 (< OR =4)
[2023-06-11] MEDS: IPRATROPIUM 0.5MG/ALBUTEROL 2.5MG INH SOL UD 3ML (DUONEB) NEB ONE (12:01)
[2023-06-11] MEDS ORDERED: AMIT25TA19 PO (13:07)
[2023-06-11] MEDS ORDERED: GABA-1171 PO (13:07)
[2023-06-11] MEDS ORDERED: NOVO1INJ4 SC (13:07)
[2023-06-11] MEDS ORDERED: HOME MED LIST COMPLETE! XX SCH (13:15)
[2023-06-11 13:31] LABS: MB/CK RELATIVE INDEX 3.7 (< OR =4)
[2023-06-11] MEDS: HumuLIN R (REGULAR) INSULIN (NovoLIN R) **100U/ML** PER UNIT IV ONE ×2 (14:00→14:55)
[2023-06-11 14:07] VITALS: O2SAT 92
[2023-06-11] MEDS ORDERED: PRED20TA PO (15:59)
[2023-06-11 16:07] VITALS: BP 113/63; TEMP 98.2; O2SAT 95
== END 2023-06-11 16:08 | disposition left against medical advice (07) ==
LOC: M ED 09:21
DX: J44.1 Chronic obstructive pulmonary disease with (acute) exacerbation (principal); E11.65 Type 2 diabetes mellitus with hyperglycemia; Z53.9 Procedure and treatment not carried out, unspecified reason; I50.9 Heart failure, unspecified; I25.2 Old myocardial infarction; I10 Essential (primary) hypertension; N40.0 Benign prostatic hyperplasia without lower urinary tract symptoms; R45.4 Irritability and anger; R41.841 Cognitive communication deficit; Z87.891 Personal history of nicotine dependence
CPT/HCPCS: 71046; 71275; 80048; 80076; 82550; 82553; 83880; 84443; 84484; 85025; 85610; 87486; 87581; 87633; 87798; 93005; 93041; 94640; 94760; 99285; J1815; Q9967

== ENCOUNTER 2023-07-09 18:55 | Emergency (ER) | payer MEDICARE, MEDICAID ==
[~2023-07-09] VITALS: Ht 175.3 cm; Wt 56.8 kg
[2023-07-09 20:45] VITALS: BP 167/72; TEMP 98; O2SAT 98
== END 2023-07-09 20:50 | disposition home or self-care (01) ==
LOC: M ED 18:55
DX: N50.3 Cyst of epididymis (principal); N44.2 Benign cyst of testis; Z99.81 Dependence on supplemental oxygen; E11.9 Type 2 diabetes mellitus without complications; I10 Essential (primary) hypertension; J44.9 Chronic obstructive pulmonary disease, unspecified; K21.9 Gastro-esophageal reflux disease without esophagitis; K50.90 Crohn's disease, unspecified, without complications; Z87.01 Personal history of pneumonia (recurrent); Z79.4 Long term (current) use of insulin; Z79.82 Long term (current) use of aspirin; Z79.899 Other long term (current) drug therapy

== ENCOUNTER 2023-07-17 18:09 | Inpatient (IN) | payer MEDICARE, MEDICAID ==
[~2023-07-17] VITALS: Ht 175.3 cm; Wt 57.9 kg
[2023-07-17 18:46] LABS: BASO # 0.1 10^3/uL (0.0-0.2); BASO % 1.3 % (0.0-1.0); EOS # 0.1 10^3/uL (0.0-0.5); EOS % 1.7 % (0.0-3.0); HEMATOCRIT 42.8 % (42.0-52.0); HEMOGLOBIN 13.2 g/dl (13.5-17.5); LYMPH # 0.8 10^3/uL (1.5-5.0); LYMPH % 11.1 % (24.0-44.0); MEAN CORPUSCULAR HEMOGLOBIN 28.6 pg (27.0-33.0); MEAN CORPUSCULAR HGB CONC 30.8 g/dl (32.0-36.5); MEAN CORPUSCULAR VOLUME 92.8 fl (80.0-96.0); MONO # 0.9 10^3/uL (0.0-0.8); MONO % 12.5 % (2.0-8.0); NEUTROPHILS # 5.2 10^3/uL (1.5-8.5); NEUTROPHILS % 73.1 % (36.0-66.0); PLATELET COUNT, AUTOMATED 237 10^3/uL (150-450); RED BLOOD COUNT 4.61 10^6/uL (4.30-6.10); WHITE BLOOD COUNT 7.1 10^3/uL (4.0-10.0)
[2023-07-17] MEDS: IPRATROPIUM 0.5MG/ALBUTEROL 2.5MG INH SOL UD 3ML (DUONEB) NEB PRN (18:56)
[2023-07-17 18:59] LABS: INR 1.13; PROTHROMBIN TIME 14.2 SECONDS (12.5-14.5)
[2023-07-17 19:05] LABS: ABG BASE EXCESS 6.4 (-2.0-2.0); ABG HCO3 35.2 MMOL/L (22.0-26.0); ABG O2 SATURATION 89.4 % (95.0-99.0); ABG PARTIAL PRESSURE O2 59.2 mmHg (75.0-100.0); ABG STANDARD HCO3 30.1 MMOL/L. (22.0-26.0); ABG TOTAL CO2 37.4 MMOL/L (23.0-31.0); ABG pH (ARTERIAL) 7.311 UNITS (7.350-7.450)
[2023-07-17 19:08] LABS: ABG PARTIAL PRESSURE CO2 71.4 mmHg (35.0-45.0)
[2023-07-17 19:16] LABS: CPK CREATINE PHOSPHOKINASE 68 U/L (46-171)
[2023-07-17 19:17] LABS: ALBUMIN 3.4 G/DL (3.2-5.2); ALKALINE PHOSPHATASE 165 U/L (46-116); ALT/SGPT 22 U/L (7.0-40); AST/SGOT 15 U/L (<34); BILIRUBIN,DIRECT 0.3 MG/DL (<0.4); BILIRUBIN,TOTAL 0.9 MG/DL (0.3-1.2); BLOOD UREA NITROGEN 19 MG/DL (9-23); CARBON DIOXIDE LEVEL > 40.0 MMOL/L (20-31); CHLORIDE LEVEL 97 MMOL/L (98-107); CK-MB VALUE MASS 1.7 NG/ML (<3.6); GLOMERULAR FILTRATION RATE > 60.0 (>49); GLUCOSE, FASTING 298 MG/DL (74-106); POTASSIUM SERUM 4.4 MMOL/L (3.5-5.1); SODIUM LEVEL 139 MMOL/L (136-145); TOTAL PROTEIN 6.5 G/DL (5.7-8.2)
[2023-07-17 20:29] LABS: CK-MB VALUE MASS 1.3 NG/ML (<3.6)
[2023-07-17 20:31] LABS: MB/CK RELATIVE INDEX 1.51 (< OR =4)
[2023-07-17 21:16] LABS: ABG BASE EXCESS 3.5 (-2.0-2.0); ABG HCO3 32.4 MMOL/L (22.0-26.0); ABG O2 SATURATION 93.5 % (95.0-99.0); ABG PARTIAL PRESSURE O2 71.8 mmHg (75.0-100.0); ABG STANDARD HCO3 27.4 MMOL/L. (22.0-26.0); ABG TOTAL CO2 34.5 MMOL/L (23.0-31.0); ABG pH (ARTERIAL) 7.281 UNITS (7.350-7.450)
[2023-07-17 21:17] LABS: ABG PARTIAL PRESSURE CO2 70.3 mmHg (35.0-45.0)
[2023-07-17] MEDS ORDERED: NITROGLYCERIN 0.4MG SUBL TABLET SL PRN (22:40)
[2023-07-17] MEDS ORDERED: GLUCOSE 4GM CHEW TABLET PO PRN (22:40)
[2023-07-17] MEDS ORDERED: DEXTROSE 50% 50ML SYRINGE IV PRN (22:40)
[2023-07-17] MEDS ORDERED: ALBUTEROL SULFATE 2.5MG/0.5ML INH NEB SOLN NEB PRN (22:40)
[2023-07-17] MEDS ORDERED: GLUCAGON INJ 1MG VIAL SC PRN (22:40)
[2023-07-17 23:56] LABS: ABG BASE EXCESS 5.2 (-2.0-2.0); ABG HCO3 33.7 MMOL/L (22.0-26.0); ABG O2 SATURATION 95.5 % (95.0-99.0); ABG PARTIAL PRESSURE O2 83.2 mmHg (75.0-100.0); ABG STANDARD HCO3 29.1 MMOL/L. (22.0-26.0); ABG TOTAL CO2 35.8 MMOL/L (23.0-31.0)
[2023-07-17] MEDS: ATORVASTATIN 20 MG TAB PO SCH (23:56)
[2023-07-17 23:57] LABS: ABG PARTIAL PRESSURE CO2 68.5 mmHg (35.0-45.0)
[2023-07-17] MEDS: methylPREDNISolone 125MG 2ML VIAL IV SCH (23:57)
[2023-07-17] MEDS: LEVEMIR (INSULIN DETEMIR) 1 UNITS/0.01ML SC SCH (23:58)
[2023-07-18] VITALS (11 sets, daily range): BP systolic 110–160; BP diastolic 57–75; TEMP 97.9–99.2; O2SAT 92–99
[2023-07-18] MEDS: ASPIRIN 81MG CHEW TABLET PO SCH (00:33)
[2023-07-18] MEDS: NS 1,000 ML IV SCH (00:38)
[2023-07-18] MEDS: INSULIN LISPRO (NovoLOG) PER UNIT SC SCH ×3 (00:42→20:53)
[2023-07-18] MEDS: METOPROLOL TART 25 MG TABLET PO SCH (00:42)
[2023-07-18] MEDS: DOXYCYCLINE HYCLATE 100 MG in D5W MINI-BAG PLUS 100 ML IV ONE (00:43)
[2023-07-18] MEDS: IPRATROPIUM 0.5MG/ALBUTEROL 2.5MG INH SOL UD 3ML (DUONEB) NEB SCH (01:16)
[2023-07-18] MEDS ORDERED: LISI5TAB11 PO (01:58)
[2023-07-18] MEDS ORDERED: PRED20TA PO (01:58)
[2023-07-18] MEDS ORDERED: HOME MED LIST COMPLETE! XX SCH (02:00)
[2023-07-18 05:34] LABS: BLOOD UREA NITROGEN 20 MG/DL (9-23); CARBON DIOXIDE LEVEL 39 MMOL/L (20-31); CHLORIDE LEVEL 99 MMOL/L (98-107); CHOLESTEROL LEVEL 111 MG/DL (<200); CHOLESTEROL RISK RATIO 3.73 (<5); CREATININE FOR GFR 0.69 MG/DL (0.70-1.30); GLOMERULAR FILTRATION RATE > 60.0 (>49); GLUCOSE, FASTING 283 MG/DL (74-106); HDL CHOLESTEROL 29.7 MG/DL (>40); LDL CHOLESTEROL 70.9 MG/DL (<100); NON-HDL-C 81.3 MG/DL; POTASSIUM SERUM 4.3 MMOL/L (3.5-5.1); SODIUM LEVEL 141 MMOL/L (136-145); TRIGLYCERIDES LEVEL 52 MG/DL (<150)
[2023-07-18] MEDS: HEPARIN SOD (PORCINE) 5000UNITS/ML 1ML VIAL/SYRINGE SC SCH (05:49)
[2023-07-18] MEDS: TIOTROPIUM INHALER/CAPSULE (SPIRIVA) INH SCH (08:00)
[2023-07-18] MEDS: SYMBICORT 160/4.5MCG INHALER 6GM INH SCH (08:00)
[2023-07-18] MEDS: VITAMIN D 1,000 INTERNATIONAL UNITS TABLET PO SCH (09:53)
[2023-07-18] MEDS: GABAPENTIN 100 MG CAP PO SCH (09:54)
[2023-07-18] MEDS: DOXYCYCLINE HYCLATE 100MG TABLET PO SCH (09:54)
[2023-07-18] MEDS: lisinopriL 5 MG TAB PO SCH (09:54)
[2023-07-18] MEDS: PANTOPRAZOLE 40MG TAB (PROTONIX) PO SCH (09:54)
[2023-07-18] MEDS: CIPROFLOXACIN 500MG TABLET PO SCH (11:58)
[2023-07-18] MEDS: methylPREDNISolone 40MG 1ML VIAL IV SCH (14:29)
[2023-07-18] MEDS: AMITRIPTYLINE 25MG TABLET PO SCH (20:53)
[2023-07-19] VITALS (13 sets, daily range): BP systolic 120–172; BP diastolic 54–79; TEMP 97.6–98.5; O2SAT 85–96
[2023-07-19 06:18] LABS: BASO % 0.1 % (0.0-1.0); HEMATOCRIT 42.4 % (42.0-52.0); HEMOGLOBIN 13.1 g/dl (13.5-17.5); LYMPH # 0.8 10^3/uL (1.5-5.0); LYMPH % 6.6 % (24.0-44.0); MEAN CORPUSCULAR HGB CONC 30.9 g/dl (32.0-36.5); MEAN CORPUSCULAR VOLUME 93.8 fl (80.0-96.0); MONO % 8.4 % (2.0-8.0); NEUTROPHILS % 84.6 % (36.0-66.0); PLATELET COUNT, AUTOMATED 218 10^3/uL (150-450); RED BLOOD COUNT 4.52 10^6/uL (4.30-6.10); WHITE BLOOD COUNT 11.8 10^3/uL (4.0-10.0)
[2023-07-19 06:37] LABS: BLOOD UREA NITROGEN 19 MG/DL (9-23); CALCIUM LEVEL 9.5 MG/DL (8.3-10.6); CARBON DIOXIDE LEVEL 38 MMOL/L (20-31); CHLORIDE LEVEL 98 MMOL/L (98-107); CREATININE FOR GFR 0.64 MG/DL (0.70-1.30); GLOMERULAR FILTRATION RATE > 60.0 (>49); GLUCOSE, FASTING 375 MG/DL (74-106); MAGNESIUM LEVEL 1.8 MG/DL (1.8-2.4); POTASSIUM SERUM 4.6 MMOL/L (3.5-5.1); SODIUM LEVEL 140 MMOL/L (136-145)
[2023-07-19] MEDS ORDERED: PRED10TA2 PO (08:30)
[2023-07-19] MEDS ORDERED: ATOR40TA75 PO (08:30)
[2023-07-19] MEDS ORDERED: PANT40TA29 PO (08:30)
[2023-07-19] MEDS: LEVEMIR (INSULIN DETEMIR) 1 UNITS/0.01ML SC SCH ×2 (08:56→21:04)
[2023-07-19] MEDS: lisinopriL 5 MG TAB PO SCH (08:57)
[2023-07-19 09:30] LABS: ABG BASE EXCESS 9.3 (-2.0-2.0); ABG HCO3 37.7 MMOL/L (22.0-26.0); ABG O2 SATURATION 93.8 % (95.0-99.0); ABG PARTIAL PRESSURE CO2 70.4 mmHg (35.0-45.0); ABG PARTIAL PRESSURE O2 68.4 mmHg (75.0-100.0); ABG TOTAL CO2 39.9 MMOL/L (23.0-31.0); ABG pH (ARTERIAL) 7.347 UNITS (7.350-7.450)
[2023-07-19] MEDS: methylPREDNISolone 125MG 2ML VIAL IV SCH (13:35)
[2023-07-19] MEDS ORDERED: predniSONE 20 MG TAB PO SCH (14:00)
[2023-07-20] VITALS (7 sets, daily range): BP systolic 126–152; BP diastolic 58–81; TEMP 97.9–98.7; O2SAT 94–97
[2023-07-20 05:15] LABS: BASO % 0.2 % (0.0-1.0); HEMATOCRIT 41.7 % (42.0-52.0); HEMOGLOBIN 12.9 g/dl (13.5-17.5); LYMPH # 1.2 10^3/uL (1.5-5.0); LYMPH % 9.6 % (24.0-44.0); MEAN CORPUSCULAR HEMOGLOBIN 28.7 pg (27.0-33.0); MEAN CORPUSCULAR HGB CONC 30.9 g/dl (32.0-36.5); MEAN CORPUSCULAR VOLUME 92.7 fl (80.0-96.0); MONO # 1.1 10^3/uL (0.0-0.8); MONO % 8.3 % (2.0-8.0); NEUTROPHILS # 10.4 10^3/uL (1.5-8.5); NEUTROPHILS % 81.5 % (36.0-66.0); PLATELET COUNT, AUTOMATED 216 10^3/uL (150-450); WHITE BLOOD COUNT 12.8 10^3/uL (4.0-10.0)
[2023-07-20 05:40] LABS: BLOOD UREA NITROGEN 22 MG/DL (9-23); CALCIUM LEVEL 9.7 MG/DL (8.3-10.6); CARBON DIOXIDE LEVEL 39 MMOL/L (20-31); CHLORIDE LEVEL 100 MMOL/L (98-107); CREATININE FOR GFR 0.66 MG/DL (0.70-1.30); GLOMERULAR FILTRATION RATE > 60.0 (>49); GLUCOSE, FASTING 304 MG/DL (74-106); MAGNESIUM LEVEL 1.8 MG/DL (1.8-2.4); POTASSIUM SERUM 4.1 MMOL/L (3.5-5.1); SODIUM LEVEL 142 MMOL/L (136-145)
[2023-07-20 10:41] LABS: CK-MB VALUE MASS 1.6 NG/ML (<3.6)
[2023-07-20 11:00] LABS: MB/CK RELATIVE INDEX 2.1 (< OR =4)
[2023-07-20 12:24] LABS: CK-MB VALUE MASS 1.6 NG/ML (<3.6); MB/CK RELATIVE INDEX 2.8 (< OR =4)
[2023-07-20] MEDS: ACETAMINOPHEN TAB 650MG DOSE (2X325MG) PO PRN (14:27)
[2023-07-20] MEDS: CEPACOL LOZENGE PO PRN (14:28)
[2023-07-20] MEDS: LEVEMIR (INSULIN DETEMIR) 1 UNITS/0.01ML SC SCH (20:12)
[2023-07-21] VITALS (12 sets, daily range): BP systolic 124–148; BP diastolic 60–69; TEMP 98–98.7; O2SAT 84–93
[2023-07-21 05:11] LABS: BASO % 0.1 % (0.0-1.0); HEMATOCRIT 42.6 % (42.0-52.0); HEMOGLOBIN 13.2 g/dl (13.5-17.5); LYMPH # 0.4 10^3/uL (1.5-5.0); LYMPH % 3.9 % (24.0-44.0); MEAN CORPUSCULAR VOLUME 93.6 fl (80.0-96.0); MONO # 0.2 10^3/uL (0.0-0.8); MONO % 1.5 % (2.0-8.0); NEUTROPHILS # 9.5 10^3/uL (1.5-8.5); NEUTROPHILS % 94.2 % (36.0-66.0); PLATELET COUNT, AUTOMATED 217 10^3/uL (150-450); RED BLOOD COUNT 4.55 10^6/uL (4.30-6.10); WHITE BLOOD COUNT 10.1 10^3/uL (4.0-10.0)
[2023-07-21 05:26] LABS: BLOOD UREA NITROGEN 19 MG/DL (9-23); CALCIUM LEVEL 9.3 MG/DL (8.3-10.6); CARBON DIOXIDE LEVEL > 40.0 MMOL/L (20-31); CHLORIDE LEVEL 96 MMOL/L (98-107); CREATININE FOR GFR 0.67 MG/DL (0.70-1.30); GLOMERULAR FILTRATION RATE > 60.0 (>49); GLUCOSE, FASTING 392 MG/DL (74-106); MAGNESIUM LEVEL 1.7 MG/DL (1.8-2.4); POTASSIUM SERUM 4.3 MMOL/L (3.5-5.1); SODIUM LEVEL 140 MMOL/L (136-145)
[2023-07-21] MEDS: MAGNESIUM OXIDE 400MG TAB (MAG-OX) PO ONE (05:54)
[2023-07-21] MEDS: predniSONE 20 MG TAB PO SCH (12:23)
== END 2023-07-21 13:52 | disposition home or self-care (01) | DRG 189 ==
LOC: M ED 18:09 → EDBD 18:09 → M ED INP 22:38 → ENRESERV 23:25 → M ICU 23:38
PROVIDERS: ADMIT Internal Medicine; ATTEND Internal Medicine
DX: J96.22 Acute and chronic respiratory failure with hypercapnia (principal); I21.A1 Myocardial infarction type 2; J44.1 Chronic obstructive pulmonary disease with (acute) exacerbation; J96.11 Chronic respiratory failure with hypoxia; E11.40 Type 2 diabetes mellitus with diabetic neuropathy, unspecified; I10 Essential (primary) hypertension; Z99.81 Dependence on supplemental oxygen; B97.4 Respiratory syncytial virus as the cause of diseases classified elsewhere; N45.3 Epididymo-orchitis; E55.9 Vitamin D deficiency, unspecified; F32.A Depression, unspecified; E11.65 Type 2 diabetes mellitus with hyperglycemia; Z79.899 Other long term (current) drug therapy; Z79.82 Long term (current) use of aspirin

== ENCOUNTER 2023-07-23 18:23 | Inpatient (IN) | payer MEDICARE, MEDICAID ==
[~2023-07-23] VITALS: Ht 175.3 cm; Wt 61.1 kg
[~2023-07-23 18:23] MED LIST changes: +LISI5TAB11 PO; +PANT40TA29 PO
[2023-07-23 19:03] LABS: BASO % 0.1 % (0.0-1.0); EOS # 0.2 10^3/uL (0.0-0.5); EOS % 1.8 % (0.0-3.0); HEMATOCRIT 43.7 % (42.0-52.0); HEMOGLOBIN 13.7 g/dl (13.5-17.5); LYMPH # 1.2 10^3/uL (1.5-5.0); LYMPH % 9.8 % (24.0-44.0); MEAN CORPUSCULAR HEMOGLOBIN 28.7 pg (27.0-33.0); MEAN CORPUSCULAR HGB CONC 31.4 g/dl (32.0-36.5); MEAN CORPUSCULAR VOLUME 91.6 fl (80.0-96.0); MONO # 1.3 10^3/uL (0.0-0.8); MONO % 10.7 % (2.0-8.0); NEUTROPHILS # 9.5 10^3/uL (1.5-8.5); NEUTROPHILS % 77.1 % (36.0-66.0); PLATELET COUNT, AUTOMATED 210 10^3/uL (150-450); RED BLOOD COUNT 4.77 10^6/uL (4.30-6.10); WHITE BLOOD COUNT 12.3 10^3/uL (4.0-10.0)
[2023-07-23] MEDS: methylPREDNISolone 125MG 2ML VIAL IV ONE (19:05)
[2023-07-23 19:12] LABS: VENOUS BASE EXCESS 11.3 (-2.0-2.0); VENOUS HCO3 40.5 MMOL/L (23.0-27.0); VENOUS O2 SATURATION 74.8 % (60.0-80.0); VENOUS PARTIAL PRESSURE O2 41.3 mmHg (30.0-50.0); VENOUS PH 7.345 UNITS (7.330-7.430); VENOUS STANDARD HCO3 34.4 MMOL/L; VENOUS TOTAL CO2 42.9 MMOL/L (24.0-28.0)
[2023-07-23 19:17] LABS: INR 1.01
[2023-07-23] MEDS: ALBUTEROL SULFATE 2.5MG/0.5ML INH NEB SOLN INH ONE (19:17)
[2023-07-23] MEDS: IPRATROPIUM 0.5MG/ALBUTEROL 2.5MG INH SOL UD 3ML (DUONEB) NEB ONE (19:17)
[2023-07-23 19:32] LABS: CPK CREATINE PHOSPHOKINASE 56 U/L (46-171)
[2023-07-23 19:44] LABS: PROCALCITONIN 0.08 ng/ml
[2023-07-23 19:45] LABS: ALBUMIN 3.1 G/DL (3.2-5.2); ALKALINE PHOSPHATASE 123 U/L (46-116); ALT/SGPT 18 U/L (7.0-40); AST/SGOT 9 U/L (<34); BILIRUBIN,DIRECT 0.5 MG/DL (<0.4); BILIRUBIN,TOTAL 1.3 MG/DL (0.3-1.2); BLOOD UREA NITROGEN 15 MG/DL (9-23); CALCIUM LEVEL 9.4 MG/DL (8.3-10.6); CARBON DIOXIDE LEVEL > 40.0 MMOL/L (20-31); CHLORIDE LEVEL 93 MMOL/L (98-107); CK-MB VALUE MASS 1.2 NG/ML (<3.6); CREATININE FOR GFR 0.73 MG/DL (0.70-1.30); GLOMERULAR FILTRATION RATE > 60.0 (>49); GLUCOSE, FASTING 425 MG/DL (74-106); MB/CK RELATIVE INDEX 2.14 (< OR =4); POTASSIUM SERUM 4.1 MMOL/L (3.5-5.1); SODIUM LEVEL 138 MMOL/L (136-145); THYROID STIMULATING HORMONE 1.404 uIU/ML (0.55-4.78)
[2023-07-23 20:41] LABS: CK-MB VALUE MASS 1.1 NG/ML (<3.6)
[2023-07-23 20:42] LABS: MB/CK RELATIVE INDEX 2.75 (< OR =4)
[2023-07-23] MEDS ORDERED: ISOVUE-370 76% 100ML VIAL As Ordered ONE (20:43)
[2023-07-23] MEDS: PIPERACILLIN/TAZOBACTAM SOD 4.5 GM in D5W MINI-BAG PLUS 50 ML IV ONE (21:44)
[2023-07-23] MEDS ORDERED: HEPARIN SOD (PORCINE) 5000UNITS/ML 1ML VIAL/SYRINGE IV PRN (21:55)
[2023-07-23] MEDS ORDERED: HOME MED LIST COMPLETE! XX SCH (22:15)
[2023-07-23 22:20] LABS: ABG BASE EXCESS 11.9 (-2.0-2.0); ABG HCO3 39.7 MMOL/L (22.0-26.0); ABG O2 SATURATION 97.8 % (95.0-99.0); ABG PARTIAL PRESSURE O2 102.9 mmHg (75.0-100.0); ABG STANDARD HCO3 35.7 MMOL/L. (22.0-26.0); ABG TOTAL CO2 41.8 MMOL/L (23.0-31.0); ABG pH (ARTERIAL) 7.393 UNITS (7.350-7.450)
[2023-07-23 22:21] LABS: ABG PARTIAL PRESSURE CO2 66.7 mmHg (35.0-45.0)
[2023-07-23] MEDS: HEPARIN SOD (PORCINE) 5000UNITS/ML 1ML VIAL/SYRINGE IV ONE (22:26)
[2023-07-23] MEDS: HEPARIN DRIP 25,000 UNITS in IV 1 EA IV SCH (22:30)
[2023-07-23] MEDS ORDERED: GLUCAGON INJ 1MG VIAL SC PRN (23:50)
[2023-07-23] MEDS ORDERED: ACETAMINOPHEN TAB 650MG DOSE (2X325MG) PO PRN (23:50)
[2023-07-23] MEDS ORDERED: ALBUTEROL SULFATE 2.5MG/0.5ML INH NEB SOLN NEB PRN (23:50)
[2023-07-23] MEDS ORDERED: GLUCOSE 4 GM CHEW PO PRN (23:50)
[2023-07-23] MEDS ORDERED: DEXTROSE 50% 50ML SYRINGE IV PRN (23:50)
[2023-07-23] MEDS ORDERED: HYDROMORPHONE HCL 0.5 MG/ 0.5 ML SYRINGE IV PRN (23:50)
[2023-07-24] VITALS (8 sets, daily range): BP systolic 98–162; BP diastolic 57–71; TEMP 97.6–99.5; O2SAT 92–98
[2023-07-24] MEDS: HumuLIN R (REGULAR) INSULIN (NovoLIN R) **100U/ML** PER UNIT IV STA (00:10)
[2023-07-24] MEDS: INSULIN LISPRO (NovoLOG) PER UNIT SC SCH ×3 (00:51→12:07)
[2023-07-24] MEDS: LEVEMIR (INSULIN DETEMIR) 1 UNITS/0.01ML SC SCH ×2 (00:52→08:50)
[2023-07-24] MEDS: SODIUM CHLORIDE 0.9% 1000ML IV STA (01:23)
[2023-07-24] MEDS: cefTRIAXone SOD 1 GM in D5W MINI-BAG PLUS 50 ML IV SCH (01:23)
[2023-07-24] MEDS: methylPREDNISolone 40MG 1ML VIAL IV SCH (01:24)
[2023-07-24] MEDS: APIXABAN 5 MG TAB (ELIQUIS) PO ONE (01:24)
[2023-07-24] MEDS: AZITHROMYCIN INJ 500 MG, VIAL MATE ADAPTER 1 EACH in D5W 250 ML IV SCH (02:11)
[2023-07-24] MEDS: IPRATROPIUM 0.5MG/ALBUTEROL 2.5MG INH SOL UD 3ML (DUONEB) NEB SCH (02:29)
[2023-07-24 07:26] LABS: BLOOD UREA NITROGEN 18 MG/DL (9-23); CALCIUM LEVEL 8.4 MG/DL (8.3-10.6); CARBON DIOXIDE LEVEL 36 MMOL/L (20-31); CHLORIDE LEVEL 98 MMOL/L (98-107); CREATININE FOR GFR 0.63 MG/DL (0.70-1.30); GLOMERULAR FILTRATION RATE > 60.0 (>49); GLUCOSE, FASTING 411 MG/DL (74-106); POTASSIUM SERUM 4.6 MMOL/L (3.5-5.1); SODIUM LEVEL 142 MMOL/L (136-145)
[2023-07-24] MEDS: APIXABAN 5 MG TAB (ELIQUIS) PO SCH (08:51)
[2023-07-24] MEDS ORDERED: methylPREDNISolone 40MG 1ML VIAL IV SCH (21:00)
[2023-07-25 03:28] VITALS: BP 139/67; TEMP 97.2; O2SAT 97
[2023-07-25 06:04] LABS: BASO % 0.1 % (0.0-1.0); EOS # 0.1 10^3/uL (0.0-0.5); EOS % 0.3 % (0.0-3.0); HEMATOCRIT 40.7 % (42.0-52.0); HEMOGLOBIN 12.8 g/dl (13.5-17.5); LYMPH # 1.6 10^3/uL (1.5-5.0); LYMPH % 7.3 % (24.0-44.0); MEAN CORPUSCULAR HEMOGLOBIN 28.4 pg (27.0-33.0); MEAN CORPUSCULAR HGB CONC 31.4 g/dl (32.0-36.5); MEAN CORPUSCULAR VOLUME 90.4 fl (80.0-96.0); MONO # 1.7 10^3/uL (0.0-0.8); MONO % 7.6 % (2.0-8.0); NEUTROPHILS # 18.4 10^3/uL (1.5-8.5); NEUTROPHILS % 83.8 % (36.0-66.0); PLATELET COUNT, AUTOMATED 259 10^3/uL (150-450)
[2023-07-25 06:36] LABS: BLOOD UREA NITROGEN 18 MG/DL (9-23); CALCIUM LEVEL 8.7 MG/DL (8.3-10.6); CARBON DIOXIDE LEVEL > 40.0 MMOL/L (20-31); CHLORIDE LEVEL 100 MMOL/L (98-107); CREATININE FOR GFR 0.55 MG/DL (0.70-1.30); GLOMERULAR FILTRATION RATE > 60.0 (>49); GLUCOSE, FASTING 229 MG/DL (74-106); POTASSIUM SERUM 4.1 MMOL/L (3.5-5.1); SODIUM LEVEL 145 MMOL/L (136-145)
[2023-07-25 07:41] VITALS: BP 128/64; TEMP 97.6; O2SAT 97
[2023-07-25] MEDS: predniSONE 20 MG TAB PO SCH (08:12)
[2023-07-25] MEDS: TIOTROPIUM INHALER/CAPSULE (SPIRIVA) INH SCH (09:34)
[2023-07-25] MEDS: SYMBICORT 160/4.5MCG INHALER 6GM INH SCH (09:35)
[2023-07-25 11:34] LABS: HEMOGLOBIN A1c 11.8 % (4.0-6.0)
[2023-07-25] MEDS: BENZONATATE 100MG CAPSULE PO PRN (11:44)
[2023-07-25] MEDS: guaiFENesin 200 MG TAB PO SCH (11:44)
[2023-07-25 11:54] VITALS: BP 115/60; TEMP 98; O2SAT 96
[2023-07-25] MEDS: cefTRIAXone SOD 2 GM in D5W MINI-BAG PLUS 50 ML IV SCH (15:07)
[2023-07-25 16:10] VITALS: BP 130/74; TEMP 97.6; O2SAT 97
[2023-07-25 19:53] VITALS: BP 151/68; TEMP 97.6; O2SAT 96
[2023-07-25] MEDS: LEVEMIR (INSULIN DETEMIR) 1 UNITS/0.01ML SC SCH (20:34)
[2023-07-26 01:37] VITALS: BP 142/76; TEMP 97; O2SAT 94
[2023-07-26 04:29] VITALS: BP 131/63; TEMP 97; O2SAT 94
[2023-07-26 06:12] LABS: BASO % 0.2 % (0.0-1.0); EOS # 0.2 10^3/uL (0.0-0.5); EOS % 1.1 % (0.0-3.0); HEMATOCRIT 40.7 % (42.0-52.0); HEMOGLOBIN 12.5 g/dl (13.5-17.5); LYMPH # 1.7 10^3/uL (1.5-5.0); LYMPH % 10.3 % (24.0-44.0); MEAN CORPUSCULAR HEMOGLOBIN 27.9 pg (27.0-33.0); MEAN CORPUSCULAR HGB CONC 30.7 g/dl (32.0-36.5); MEAN CORPUSCULAR VOLUME 90.8 fl (80.0-96.0); MONO # 1.3 10^3/uL (0.0-0.8); MONO % 7.5 % (2.0-8.0); NEUTROPHILS # 13.4 10^3/uL (1.5-8.5); PLATELET COUNT, AUTOMATED 283 10^3/uL (150-450); RED BLOOD COUNT 4.48 10^6/uL (4.30-6.10); WHITE BLOOD COUNT 16.8 10^3/uL (4.0-10.0)
[2023-07-26 06:38] LABS: BLOOD UREA NITROGEN 16 MG/DL (9-23); CALCIUM LEVEL 8.7 MG/DL (8.3-10.6); CARBON DIOXIDE LEVEL > 40.0 MMOL/L (20-31); CHLORIDE LEVEL 99 MMOL/L (98-107); CREATININE FOR GFR 0.63 MG/DL (0.70-1.30); GLOMERULAR FILTRATION RATE > 60.0 (>49); GLUCOSE, FASTING 148 MG/DL (74-106); POTASSIUM SERUM 3.9 MMOL/L (3.5-5.1); SODIUM LEVEL 142 MMOL/L (136-145)
[2023-07-26] MEDS: INSULIN LISPRO (NovoLOG) PER UNIT SC SCH ×2 (07:30→07:39)
[2023-07-26 08:00] VITALS: BP 161/69; TEMP 96.4; O2SAT 100
[2023-07-26] MEDS: AZITHROMYCIN 250MG TABLET PO SCH (09:01)
[2023-07-26] MEDS: predniSONE 20 MG TAB PO SCH (09:01)
[2023-07-26] MEDS ORDERED: PRED10TA2 PO (09:56)
[2023-07-26] MEDS ORDERED: ELIQ5TAB PO (10:06)
[2023-07-26 11:50] VITALS: BP 143/67; TEMP 97; O2SAT 94
[2023-07-26] MEDS ORDERED: INSU100I48 SQ (13:53)
[2023-07-26] MEDS ORDERED: HUMA100I5 SC (14:11)
[2023-07-26 16:11] LABS: PROCALCITONIN 0.04 ng/ml
[2023-07-26 16:30] VITALS: BP 125/60; TEMP 98.1; O2SAT 95
[2023-07-26 16:46] LABS: HIV 1&2 SCREEN NEGATIVE (NEGATIVE)
[2023-07-26 17:06] LABS: HEPATITIS C VIRUS ABY INDEX < 0.02 INDEX (<0.8)
[2023-07-26] MEDS ORDERED: LANTINJ4 SC (18:06)
[2023-07-26] MEDS ORDERED: INSU100I16 SQ (18:06)
[2023-07-31] MEDS ORDERED: APIXABAN 5 MG TAB (ELIQUIS) PO SCH (09:00)
== END 2023-07-26 19:20 | disposition home or self-care (01) | DRG 177 ==
LOC: M ED 18:23 → M ED INP 23:15 → M PCU 07-24 00:27
PROVIDERS: ADMIT Internal Medicine; ATTEND Internal Medicine
DX: J15.69 Pneumonia due to other Gram-negative bacteria (principal); I26.99 Other pulmonary embolism without acute cor pulmonale; J96.22 Acute and chronic respiratory failure with hypercapnia; J96.21 Acute and chronic respiratory failure with hypoxia; E43 Unspecified severe protein-calorie malnutrition; J44.0 Chronic obstructive pulmonary disease with (acute) lower respiratory infection; J44.1 Chronic obstructive pulmonary disease with (acute) exacerbation; I50.32 Chronic diastolic (congestive) heart failure; Z68.1 Body mass index [BMI] 19.9 or less, adult; I25.10 Atherosclerotic heart disease of native coronary artery without angina pectoris; N40.0 Benign prostatic hyperplasia without lower urinary tract symptoms; E11.65 Type 2 diabetes mellitus with hyperglycemia; M54.9 Dorsalgia, unspecified; G89.29 Other chronic pain; K76.0 Fatty (change of) liver, not elsewhere classified; F32.A Depression, unspecified; F41.9 Anxiety disorder, unspecified; E11.42 Type 2 diabetes mellitus with diabetic polyneuropathy; I11.0 Hypertensive heart disease with heart failure; K21.9 Gastro-esophageal reflux disease without esophagitis; E78.00 Pure hypercholesterolemia, unspecified; J12.1 Respiratory syncytial virus pneumonia; Z87.891 Personal history of nicotine dependence; Z79.82 Long term (current) use of aspirin; Z79.52 Long term (current) use of systemic steroids; Z79.4 Long term (current) use of insulin; Z79.899 Other long term (current) drug therapy; Z11.52 Encounter for screening for COVID-19

== ENCOUNTER 2023-08-04 20:02 | Inpatient (IN) | payer MEDICARE, MEDICAID ==
[~2023-08-04] VITALS: Ht 175.3 cm; Wt 60.0 kg
[~2023-08-04 20:02] MED LIST changes: -FIAS100I2 SC
[2023-08-04] MEDS: NS 500 ML IV ONE (20:20)
[2023-08-04] MEDS: INSULIN LISPRO (NovoLOG) PER UNIT SC ONE (20:20)
[2023-08-04] MEDS: IPRATROPIUM 0.5MG/ALBUTEROL 2.5MG INH SOL UD 3ML (DUONEB) NEB PRN (20:25)
[2023-08-04 20:29] LABS: ABG BASE EXCESS 8.4 (-2.0-2.0); ABG HCO3 36.7 MMOL/L (22.0-26.0); ABG O2 SATURATION 97.7 % (95.0-99.0); ABG STANDARD HCO3 32.2 MMOL/L. (22.0-26.0); ABG TOTAL CO2 38.8 MMOL/L (23.0-31.0); ABG pH (ARTERIAL) 7.342 UNITS (7.350-7.450)
[2023-08-04 20:33] LABS: ABG PARTIAL PRESSURE CO2 69.2 mmHg (35.0-45.0)
[2023-08-04 20:35] LABS: BASO # 0.1 10^3/uL (0.0-0.2); BASO % 0.6 % (0.0-1.0); EOS # 0.3 10^3/uL (0.0-0.5); EOS % 2.4 % (0.0-3.0); HEMATOCRIT 41.1 % (42.0-52.0); HEMOGLOBIN 12.7 g/dl (13.5-17.5); LYMPH # 1.1 10^3/uL (1.5-5.0); LYMPH % 8.9 % (24.0-44.0); MEAN CORPUSCULAR HEMOGLOBIN 28.5 pg (27.0-33.0); MEAN CORPUSCULAR HGB CONC 30.9 g/dl (32.0-36.5); MEAN CORPUSCULAR VOLUME 92.4 fl (80.0-96.0); MONO # 0.9 10^3/uL (0.0-0.8); MONO % 7.8 % (2.0-8.0); NEUTROPHILS # 9.6 10^3/uL (1.5-8.5); PLATELET COUNT, AUTOMATED 306 10^3/uL (150-450); RED BLOOD COUNT 4.45 10^6/uL (4.30-6.10); WHITE BLOOD COUNT 11.9 10^3/uL (4.0-10.0)
[2023-08-04] MEDS: INSULIN LISPRO (NovoLOG) PER UNIT SC SCH (21:00)
[2023-08-04 21:09] LABS: HEMOGLOBIN A1c 11.4 % (4.0-6.0)
[2023-08-04 21:57] LABS: INR 0.96; PROTHROMBIN TIME 12.5 SECONDS (12.5-14.5)
[2023-08-04 22:13] LABS: ALBUMIN 2.6 G/DL (3.2-5.2); ALKALINE PHOSPHATASE 144 U/L (46-116); ALT/SGPT 18 U/L (7.0-40); AST/SGOT 15 U/L (<34); BILIRUBIN,DIRECT 0.2 MG/DL (<0.4); BILIRUBIN,TOTAL 0.6 MG/DL (0.3-1.2); BLOOD UREA NITROGEN 10 MG/DL (9-23); CALCIUM LEVEL 8.3 MG/DL (8.3-10.6); CARBON DIOXIDE LEVEL 38 MMOL/L (20-31); CHLORIDE LEVEL 97 MMOL/L (98-107); CK-MB VALUE MASS < 1.0 NG/ML (<3.6); GLOMERULAR FILTRATION RATE > 60.0 (>49); GLUCOSE, FASTING 297 MG/DL (74-106); POTASSIUM SERUM 4.7 MMOL/L (3.5-5.1); SODIUM LEVEL 137 MMOL/L (136-145); TOTAL PROTEIN 5.9 G/DL (5.7-8.2)
[2023-08-04 22:16] LABS: FREE T4 0.85 NG/DL (0.89-1.76); THYROID STIMULATING HORMONE 0.851 uIU/ML (0.55-4.78)
[2023-08-04 22:25] LABS: PROCALCITONIN <0.04 ng/ml
[2023-08-04 22:27] LABS: CPK CREATINE PHOSPHOKINASE 36 U/L (46-171); MB/CK RELATIVE INDEX 2.77 (< OR =4)
[2023-08-04 23:11] LABS: ABG BASE EXCESS 7.3 (-2.0-2.0); ABG HCO3 34.4 MMOL/L (22.0-26.0); ABG O2 SATURATION 98.2 % (95.0-99.0); ABG PARTIAL PRESSURE O2 112.7 mmHg (75.0-100.0); ABG STANDARD HCO3 31.2 MMOL/L. (22.0-26.0); ABG TOTAL CO2 36.2 MMOL/L (23.0-31.0); ABG pH (ARTERIAL) 7.374 UNITS (7.350-7.450)
[2023-08-04 23:16] LABS: ABG PARTIAL PRESSURE CO2 60.3 mmHg (35.0-45.0)
[2023-08-04] MEDS ORDERED: DEXTROSE 50% 50ML SYRINGE IV PRN (23:35)
[2023-08-04] MEDS ORDERED: GLUCOSE 4 GM CHEW PO PRN (23:35)
[2023-08-04] MEDS ORDERED: GLUCAGON INJ 1MG VIAL SC PRN (23:35)
[2023-08-05] MEDS ORDERED: DOXYCYCLINE HYCLATE 100MG TABLET PO SCH (00:25)
[2023-08-05] MEDS ORDERED: ALBUTEROL SULFATE 2.5MG/0.5ML INH NEB SOLN NEB PRN (00:25)
[2023-08-05 01:00] LABS: CK-MB VALUE MASS < 1.0 NG/ML (<3.6); MAGNESIUM LEVEL 1.5 MG/DL (1.8-2.4)
[2023-08-05 01:01] LABS: CPK CREATINE PHOSPHOKINASE 26 U/L (46-171); MB/CK RELATIVE INDEX 3.84 (< OR =4)
[2023-08-05 01:13] LABS: PROCALCITONIN <0.04 ng/ml
[2023-08-05] MEDS: IPRATROPIUM 0.5MG/ALBUTEROL 2.5MG INH SOL UD 3ML (DUONEB) NEB SCH (01:22)
[2023-08-05] MEDS: DOXYCYCLINE HYCLATE 100 MG in D5W MINI-BAG PLUS 100 ML IV ONE (01:59)
[2023-08-05] MEDS: DOXYCYCLINE HYCLATE 100MG TABLET PO SCH (02:00)
[2023-08-05] MEDS: CEFEPIME HCL 1 GM in D5W MINI-BAG PLUS 50 ML IV ONE (02:39)
[2023-08-05] MEDS ORDERED: FIAS100I2 SC ×2 (05:48)
[2023-08-05] MEDS ORDERED: BASA100I SC (05:48)
[2023-08-05] MEDS ORDERED: ELIQ5TAB PO (05:48)
[2023-08-05] MEDS ORDERED: HOME MED LIST COMPLETE! XX SCH (05:55)
[2023-08-05] MEDS: PANTOPRAZOLE 40MG TAB (PROTONIX) PO SCH (07:54)
[2023-08-05] MEDS: predniSONE 20 MG TAB PO SCH (07:54)
[2023-08-05] MEDS: INSULIN LISPRO (NovoLOG) PER UNIT SC SCH ×5 (08:09→21:00)
[2023-08-05 08:14] LABS: VENOUS BASE EXCESS 5.1 (-2.0-2.0); VENOUS HCO3 34.9 MMOL/L (23.0-27.0); VENOUS O2 SATURATION 92.8 % (60.0-80.0); VENOUS PARTIAL PRESSURE CO2 79.7 mmHg (38.0-50.0); VENOUS PARTIAL PRESSURE O2 73.3 mmHg (30.0-50.0); VENOUS PH 7.259 UNITS (7.330-7.430); VENOUS TOTAL CO2 37.3 MMOL/L (24.0-28.0)
[2023-08-05] MEDS: HumuLIN R (REGULAR) INSULIN (NovoLIN R) **100U/ML** PER UNIT IV STA ×2 (08:14→10:41)
[2023-08-05] MEDS: LEVEMIR (INSULIN DETEMIR) 1 UNITS/0.01ML SC SCH ×2 (08:15→18:33)
[2023-08-05 08:20] LABS: HEMATOCRIT 38.7 % (42.0-52.0); HEMOGLOBIN 12.3 g/dl (13.5-17.5); MEAN CORPUSCULAR HEMOGLOBIN 28.3 pg (27.0-33.0); MEAN CORPUSCULAR HGB CONC 31.8 g/dl (32.0-36.5); MEAN CORPUSCULAR VOLUME 89.2 fl (80.0-96.0); PLATELET COUNT, AUTOMATED 286 10^3/uL (150-450); RED BLOOD COUNT 4.34 10^6/uL (4.30-6.10); WHITE BLOOD COUNT 8.5 10^3/uL (4.0-10.0)
[2023-08-05] MEDS: SYMBICORT 160/4.5MCG INHALER 6GM INH SCH (08:47)
[2023-08-05 08:53] LABS: ALBUMIN 2.4 G/DL (3.2-5.2); ALKALINE PHOSPHATASE 136 U/L (46-116); ALT/SGPT 11 U/L (7.0-40); AST/SGOT < 8 U/L (<34); BILIRUBIN,TOTAL 0.7 MG/DL (0.3-1.2); BLOOD UREA NITROGEN 14 MG/DL (9-23); CALCIUM LEVEL 9.3 MG/DL (8.3-10.6); CARBON DIOXIDE LEVEL 36 MMOL/L (20-31); CHLORIDE LEVEL 95 MMOL/L (98-107); CREATININE FOR GFR 0.59 MG/DL (0.70-1.30); GLOMERULAR FILTRATION RATE > 60.0 (>49); GLUCOSE, FASTING 527 MG/DL (74-106); MAGNESIUM LEVEL 1.6 MG/DL (1.8-2.4); POTASSIUM SERUM 4.9 MMOL/L (3.5-5.1); SODIUM LEVEL 138 MMOL/L (136-145)
[2023-08-05 08:57] LABS: BASO % 0.2 % (0.0-1.0); LYMPH # 0.5 10^3/uL (1.5-5.0); LYMPH % 6.2 % (24.0-44.0); MONO # 0.2 10^3/uL (0.0-0.8); NEUTROPHILS # 7.8 10^3/uL (1.5-8.5); NEUTROPHILS % 91.4 % (36.0-66.0)
[2023-08-05] MEDS: CEFEPIME HCL 2 GM in D5W MINI-BAG PLUS 50 ML IV SCH (09:13)
[2023-08-05] MEDS: INSULIN REGULAR IN 0.9 % NACL 100 UNIT in IV 1 EA IV SCH (12:05)
[2023-08-05 13:30] VITALS: BP 137/65; TEMP 97; O2SAT 99
[2023-08-05] MEDS: ATORVASTATIN 20 MG TAB PO SCH (14:24)
[2023-08-05] MEDS: AZITHROMYCIN 250MG TABLET PO SCH (14:24)
[2023-08-05] MEDS: APIXABAN 5 MG TAB (ELIQUIS) PO SCH (14:24)
[2023-08-05] MEDS: ASPIRIN 81MG ENTERIC TABLET PO SCH (14:26)
[2023-08-05] MEDS: MAG SULF 1GM/100ML (MAG RUN) 1 GM in IV 1 EA IV SCH (14:26)
[2023-08-05] MEDS: TIOTROPIUM INHALER/CAPSULE (SPIRIVA) INH SCH (14:41)
[2023-08-05 16:00] VITALS: BP 127/62; TEMP 98.5; O2SAT 96
[2023-08-05] MEDS: INSULIN IV RATE CHANGE DOCUMENTATION ML/HR XX SCH (16:16)
[2023-08-05 16:42] LABS: BLOOD UREA NITROGEN 16 MG/DL (9-23); CALCIUM LEVEL 9.7 MG/DL (8.3-10.6); CARBON DIOXIDE LEVEL 34 MMOL/L (20-31); CHLORIDE LEVEL 97 MMOL/L (98-107); CREATININE FOR GFR 0.54 MG/DL (0.70-1.30); GLOMERULAR FILTRATION RATE > 60.0 (>49); GLUCOSE, FASTING 271 MG/DL (74-106); PHOSPHORUS LEVEL 2.2 MG/DL (2.4-5.1); POTASSIUM SERUM 4.1 MMOL/L (3.5-5.1); SODIUM LEVEL 138 MMOL/L (136-145)
[2023-08-05] MEDS ORDERED: GLUCAGON INJ 1MG VIAL SC PRN (18:00)
[2023-08-05] MEDS ORDERED: DEXTROSE 50% 50ML SYRINGE IV PRN (18:00)
[2023-08-05] MEDS ORDERED: GLUCOSE 4 GM CHEW PO PRN (18:00)
[2023-08-05 20:00] VITALS: BP 130/64; TEMP 98.4; O2SAT 97
[2023-08-05 21:00] VITALS: O2SAT 95
[2023-08-05] MEDS: AMITRIPTYLINE 25MG TABLET PO SCH (21:22)
[2023-08-05] MEDS: POTASSIUM PHOSPHATE INJ 15 MMOL in D5W 250 ML IV ONE (21:23)
[2023-08-05 22:00] VITALS: O2SAT 96
[2023-08-05 23:00] VITALS: O2SAT 96
[2023-08-06] VITALS (19 sets, daily range): BP systolic 107–157; BP diastolic 55–73; TEMP 97.9–98.5; O2SAT 93–100
[2023-08-06 05:53] LABS: ALBUMIN 2.3 G/DL (3.2-5.2); ALKALINE PHOSPHATASE 110 U/L (46-116); ALT/SGPT < 9 U/L (7.0-40); AST/SGOT < 8 U/L (<34); BILIRUBIN,TOTAL 0.5 MG/DL (0.3-1.2); BLOOD UREA NITROGEN 14 MG/DL (9-23); CALCIUM LEVEL 9.2 MG/DL (8.3-10.6); CARBON DIOXIDE LEVEL 38 MMOL/L (20-31); CHLORIDE LEVEL 97 MMOL/L (98-107); CREATININE FOR GFR 0.57 MG/DL (0.70-1.30); GLOMERULAR FILTRATION RATE > 60.0 (>49); GLUCOSE, FASTING 275 MG/DL (74-106); MAGNESIUM LEVEL 1.7 MG/DL (1.8-2.4); PHOSPHORUS LEVEL 3.5 MG/DL (2.4-5.1); POTASSIUM SERUM 4.5 MMOL/L (3.5-5.1); SODIUM LEVEL 137 MMOL/L (136-145); TOTAL PROTEIN 5.5 G/DL (5.7-8.2)
[2023-08-06] MEDS: MAG SULF 1GM/100ML (MAG RUN) 1 GM in IV 1 EA IV ONE ×2 (06:21→17:35)
[2023-08-06] MEDS: LEVEMIR (INSULIN DETEMIR) 1 UNITS/0.01ML SC SCH ×2 (08:28→21:08)
[2023-08-06] MEDS: INSULIN LISPRO (NovoLOG) PER UNIT SC SCH (12:40)
[2023-08-06] MEDS: LEVEMIR (INSULIN DETEMIR) 1 UNITS/0.01ML SC ONE (13:12)
[2023-08-06] MEDS ORDERED: LEVEMIR (INSULIN DETEMIR) 1 UNITS/0.01ML SC SCH (21:00)
[2023-08-06] MEDS: FIORICET TAB PO ONE (23:32)
[2023-08-07] VITALS (8 sets, daily range): BP systolic 121–157; BP diastolic 61–73; TEMP 98.3–98.8; O2SAT 94–98
[2023-08-07 05:47] LABS: ALBUMIN 2.4 G/DL (3.2-5.2); ALKALINE PHOSPHATASE 126 U/L (46-116); ALT/SGPT 10 U/L (7.0-40); AST/SGOT < 8 U/L (<34); BILIRUBIN,TOTAL 0.3 MG/DL (0.3-1.2); BLOOD UREA NITROGEN 19 MG/DL (9-23); CALCIUM LEVEL 9.3 MG/DL (8.3-10.6); CARBON DIOXIDE LEVEL 38 MMOL/L (20-31); CHLORIDE LEVEL 99 MMOL/L (98-107); CREATININE FOR GFR 0.56 MG/DL (0.70-1.30); GLOMERULAR FILTRATION RATE > 60.0 (>49); GLUCOSE, FASTING 265 MG/DL (74-106); PHOSPHORUS LEVEL 2.7 MG/DL (2.4-5.1); POTASSIUM SERUM 4.4 MMOL/L (3.5-5.1); SODIUM LEVEL 141 MMOL/L (136-145); TOTAL PROTEIN 5.4 G/DL (5.7-8.2)
[2023-08-07] MEDS: lisinopriL 5 MG TAB PO SCH (08:36)
[2023-08-07 09:15] LABS: MAGNESIUM LEVEL 1.8 MG/DL (1.8-2.4)
[2023-08-07] MEDS ORDERED: FLAS1KIT MC (09:56)
[2023-08-07] MEDS ORDERED: METF10004 PO (09:56)
[2023-08-07] MEDS ORDERED: PRED20TA PO (09:56)
[2023-08-07] MEDS ORDERED: BASA100I SC (09:56)
[2023-08-07] MEDS ORDERED: IPRA0.00 INH (09:56)
[2023-08-07] MEDS ORDERED: FIAS100I2 SC (09:56)
[2023-08-07] MEDS ORDERED: PEN-308 SC (09:57)
== END 2023-08-07 12:55 | disposition home health service (06) | DRG 191 ==
LOC: M ED 20:02 → M ED INP 23:34 → M ICU 08-05 13:23
PROVIDERS: ADMIT Family Medicine; ATTEND Internal Medicine
DX: J44.1 Chronic obstructive pulmonary disease with (acute) exacerbation (principal); J96.12 Chronic respiratory failure with hypercapnia; J96.11 Chronic respiratory failure with hypoxia; E87.4 Mixed disorder of acid-base balance; J43.9 Emphysema, unspecified; E11.65 Type 2 diabetes mellitus with hyperglycemia; I10 Essential (primary) hypertension; K21.9 Gastro-esophageal reflux disease without esophagitis; E78.00 Pure hypercholesterolemia, unspecified; I25.10 Atherosclerotic heart disease of native coronary artery without angina pectoris; I25.2 Old myocardial infarction; E11.42 Type 2 diabetes mellitus with diabetic polyneuropathy; N40.1 Benign prostatic hyperplasia with lower urinary tract symptoms; R33.9 Retention of urine, unspecified; R32 Unspecified urinary incontinence; E83.42 Hypomagnesemia; R91.8 Other nonspecific abnormal finding of lung field; Z99.81 Dependence on supplemental oxygen; Z86.711 Personal history of pulmonary embolism; Z79.01 Long term (current) use of anticoagulants; Z79.4 Long term (current) use of insulin; Z79.899 Other long term (current) drug therapy; Z87.891 Personal history of nicotine dependence

== ENCOUNTER → 2023-08-04 | Outpatient (REF) | payer MEDICARE, MEDICAID ==
[~2023-08-04] MED LIST changes: +BUDE10.2 INH; -BUDE10.2 PO; +DOXY-323 PO; -DOXY-443 PO; +ELIQ5TAB PO; +FIAS100I2 SC; +HUMA100I5 SC; +INSU100I16 SQ; +INSU100I48 SQ; +LANTINJ4 SC
[2023-08-04 17:36] LABS: HEMATOCRIT 43.6 % (42.0-52.0); HEMOGLOBIN 13.4 g/dl (13.5-17.5); MEAN CORPUSCULAR HEMOGLOBIN 28.3 pg (27.0-33.0); MEAN CORPUSCULAR HGB CONC 30.7 g/dl (32.0-36.5); MEAN CORPUSCULAR VOLUME 92.2 fl (80.0-96.0); PLATELET COUNT, AUTOMATED 325 10^3/uL (150-450); RED BLOOD COUNT 4.73 10^6/uL (4.30-6.10)
[2023-08-04 17:58] LABS: HEMOGLOBIN A1c 11.4 % (4.0-6.0)
[2023-08-04 18:51] LABS: ALBUMIN 2.8 G/DL (3.2-5.2); ALKALINE PHOSPHATASE 154 U/L (46-116); ALT/SGPT 16 U/L (7.0-40); AST/SGOT 11 U/L (<34); BILIRUBIN,TOTAL 0.9 MG/DL (0.3-1.2); BLOOD UREA NITROGEN 11 MG/DL (9-23); CALCIUM LEVEL 8.9 MG/DL (8.3-10.6); CARBON DIOXIDE LEVEL 39 MMOL/L (20-31); CHLORIDE LEVEL 94 MMOL/L (98-107); CHOLESTEROL LEVEL 137 MG/DL (<200); CHOLESTEROL RISK RATIO 3.83 (<5); CREATININE FOR GFR 0.62 MG/DL (0.70-1.30); GLOMERULAR FILTRATION RATE > 60.0 (>49); GLUCOSE, FASTING 327 MG/DL (74-106); HDL CHOLESTEROL 35.7 MG/DL (>40); LDL CHOLESTEROL 74.5 MG/DL (<100); NON-HDL-C 101.3 MG/DL; POTASSIUM SERUM 4.9 MMOL/L (3.5-5.1); SODIUM LEVEL 134 MMOL/L (136-145); THYROID STIMULATING HORMONE 1.153 uIU/ML (0.55-4.78); TOTAL PROTEIN 6.2 G/DL (5.7-8.2); TRIGLYCERIDES LEVEL 134 MG/DL (<150)
== END ==
LOC: M LAB REF 16:50
PROVIDERS: ATTEND Nurse Practitioner Family
DX: E11.8 Type 2 diabetes mellitus with unspecified complications (principal); Z11.9 Encounter for screening for infectious and parasitic diseases, unspecified

== ENCOUNTER 2023-08-12 21:49 | Emergency (ER) | payer MEDICARE, MEDICAID ==
[~2023-08-12] VITALS: Ht 175.3 cm; Wt 56.8 kg
[~2023-08-12 21:49] MED LIST changes: +FIAS100I2 SC; +FLAS1KIT MC; +IPRA0.00 INH; +PEN-308 SC
[2023-08-12 22:00] VITALS: TEMP 97.8
[2023-08-12 22:29] LABS: BASO # 0.1 10^3/uL (0.0-0.2); BASO % 0.5 % (0.0-1.0); EOS # 0.4 10^3/uL (0.0-0.5); EOS % 3.5 % (0.0-3.0); HEMATOCRIT 35.6 % (42.0-52.0); HEMOGLOBIN 11.3 g/dl (13.5-17.5); LYMPH # 1.1 10^3/uL (1.5-5.0); LYMPH % 10.8 % (24.0-44.0); MEAN CORPUSCULAR HEMOGLOBIN 28.4 pg (27.0-33.0); MEAN CORPUSCULAR HGB CONC 31.7 g/dl (32.0-36.5); MEAN CORPUSCULAR VOLUME 89.4 fl (80.0-96.0); MONO # 0.9 10^3/uL (0.0-0.8); MONO % 8.6 % (2.0-8.0); NEUTROPHILS # 7.9 10^3/uL (1.5-8.5); NEUTROPHILS % 75.7 % (36.0-66.0); PLATELET COUNT, AUTOMATED 309 10^3/uL (150-450); RED BLOOD COUNT 3.98 10^6/uL (4.30-6.10); WHITE BLOOD COUNT 10.4 10^3/uL (4.0-10.0)
[2023-08-12] MEDS: NS 500 ML IV ONE (22:29)
[2023-08-12] MEDS: INSULIN LISPRO (NovoLOG) PER UNIT SC ONE (22:39)
[2023-08-12 22:49] LABS: INR 0.99; PARTIAL THROMBOPLASTIN TIME 24.9 SECONDS (24.8-34.2); PROTHROMBIN TIME 12.8 SECONDS (12.5-14.5)
[2023-08-12 23:59] LABS: LIPASE 20 U/L (12-53)
[2023-08-13 00:19] LABS: ALBUMIN 2.6 G/DL (3.2-5.2); ALKALINE PHOSPHATASE 115 U/L (46-116); ALT/SGPT 15 U/L (7.0-40); AST/SGOT 10 U/L (<34); BILIRUBIN,DIRECT 0.1 MG/DL (<0.4); BILIRUBIN,TOTAL 0.3 MG/DL (0.3-1.2); BLOOD UREA NITROGEN 14 MG/DL (9-23); CALCIUM LEVEL 8.6 MG/DL (8.3-10.6); CARBON DIOXIDE LEVEL 36 MMOL/L (20-31); CHLORIDE LEVEL 96 MMOL/L (98-107); CK-MB VALUE MASS < 1.0 NG/ML (<3.6); CPK CREATINE PHOSPHOKINASE 27 U/L (46-171); CREATININE FOR GFR 0.63 MG/DL (0.70-1.30); GLOMERULAR FILTRATION RATE > 60.0 (>49); GLUCOSE, FASTING 341 MG/DL (74-106); POTASSIUM SERUM 4.4 MMOL/L (3.5-5.1); SODIUM LEVEL 135 MMOL/L (136-145); TOTAL PROTEIN 5.5 G/DL (5.7-8.2)
[2023-08-13 01:00] VITALS: BP 148/78
[2023-08-13 01:02] LABS: CK-MB VALUE MASS < 1.0 NG/ML (<3.6)
[2023-08-13 01:03] LABS: CPK CREATINE PHOSPHOKINASE 28 U/L (46-171); MB/CK RELATIVE INDEX 3.57 (< OR =4)
[2023-08-13 01:15] VITALS: O2SAT 100
[2023-08-13] MEDS ORDERED: BASA100I SC (01:29)
[2023-08-13] MEDS ORDERED: FLOM0.4C39 PO (01:29)
[2023-08-13] MEDS ORDERED: FINA-48 PO (01:29)
== END 2023-08-13 01:45 | disposition home or self-care (01) ==
LOC: EDBD 21:49 → M ED 21:49
DX: E11.65 Type 2 diabetes mellitus with hyperglycemia (principal); N40.0 Benign prostatic hyperplasia without lower urinary tract symptoms; I25.10 Atherosclerotic heart disease of native coronary artery without angina pectoris; K21.9 Gastro-esophageal reflux disease without esophagitis; J44.9 Chronic obstructive pulmonary disease, unspecified; Z79.4 Long term (current) use of insulin; Z79.84 Long term (current) use of oral hypoglycemic drugs; Z79.51 Long term (current) use of inhaled steroids; Z79.82 Long term (current) use of aspirin; Z79.01 Long term (current) use of anticoagulants
CPT/HCPCS: 36415; 51702; 74176; 80048; 80076; 81001; 82550; 82553; 83036; 83605; 83690; 84484; 85025; 85610; 85730; 86140; 87040; 87077; 87186; 93005; 93041; 99285; J1815

== ENCOUNTER 2023-08-14 20:53 | Emergency (ER) | payer MEDICARE, MEDICAID ==
[~2023-08-14] VITALS: Ht 175.3 cm; Wt 56.8 kg
[~2023-08-14 20:53] MED LIST changes: +FINA-48 PO
[2023-08-15 01:49] VITALS: BP 117/57; TEMP 98.2; O2SAT 100
== END 2023-08-15 01:51 | disposition home or self-care (01) ==
LOC: M ED 20:53
DX: T83.091A Other mechanical complication of indwelling urethral catheter, initial encounter (principal); I25.10 Atherosclerotic heart disease of native coronary artery without angina pectoris; I25.2 Old myocardial infarction; I11.0 Hypertensive heart disease with heart failure; E11.40 Type 2 diabetes mellitus with diabetic neuropathy, unspecified; J44.9 Chronic obstructive pulmonary disease, unspecified; K50.90 Crohn's disease, unspecified, without complications; N40.1 Benign prostatic hyperplasia with lower urinary tract symptoms; Z87.891 Personal history of nicotine dependence; Z79.4 Long term (current) use of insulin; Z79.01 Long term (current) use of anticoagulants; Z79.82 Long term (current) use of aspirin; Z79.899 Other long term (current) drug therapy

== ENCOUNTER 2023-08-16 19:25 | Emergency (ER) | payer MEDICARE, MEDICAID ==
[~2023-08-16] VITALS: Ht 175.3 cm; Wt 58.6 kg
[2023-08-16 20:15] LABS: BASO # 0.1 10^3/uL (0.0-0.2); BASO % 0.6 % (0.0-1.0); EOS # 0.6 10^3/uL (0.0-0.5); EOS % 4.3 % (0.0-3.0); HEMATOCRIT 36.6 % (42.0-52.0); HEMOGLOBIN 11.3 g/dl (13.5-17.5); LYMPH % 7.1 % (24.0-44.0); MEAN CORPUSCULAR HEMOGLOBIN 27.9 pg (27.0-33.0); MEAN CORPUSCULAR HGB CONC 30.9 g/dl (32.0-36.5); MEAN CORPUSCULAR VOLUME 90.4 fl (80.0-96.0); MONO % 7.3 % (2.0-8.0); NEUTROPHILS # 11.1 10^3/uL (1.5-8.5); NEUTROPHILS % 80.3 % (36.0-66.0); PLATELET COUNT, AUTOMATED 354 10^3/uL (150-450); RED BLOOD COUNT 4.05 10^6/uL (4.30-6.10); WHITE BLOOD COUNT 13.9 10^3/uL (4.0-10.0)
[2023-08-16 20:42] LABS: ABG BASE EXCESS 6.9 (-2.0-2.0); ABG HCO3 33.6 MMOL/L (22.0-26.0); ABG O2 SATURATION 96.3 % (95.0-99.0); ABG PARTIAL PRESSURE O2 85.3 mmHg (75.0-100.0); ABG STANDARD HCO3 30.7 MMOL/L. (22.0-26.0); ABG TOTAL CO2 35.4 MMOL/L (23.0-31.0); ABG pH (ARTERIAL) 7.381 UNITS (7.350-7.450)
[2023-08-16 20:47] LABS: CK-MB VALUE MASS < 1.0 NG/ML (<3.6)
[2023-08-16 20:49] LABS: ALBUMIN 2.6 G/DL (3.2-5.2); ALKALINE PHOSPHATASE 115 U/L (46-116); ALT/SGPT 14 U/L (7.0-40); AST/SGOT 10 U/L (<34); BILIRUBIN,DIRECT < 0.1 MG/DL (<0.4); BILIRUBIN,TOTAL 0.3 MG/DL (0.3-1.2); BLOOD UREA NITROGEN 15 MG/DL (9-23); CALCIUM LEVEL 8.7 MG/DL (8.3-10.6); CARBON DIOXIDE LEVEL 38 MMOL/L (20-31); CHLORIDE LEVEL 99 MMOL/L (98-107); CREATININE FOR GFR 0.49 MG/DL (0.70-1.30); GLOMERULAR FILTRATION RATE > 60.0 (>49); GLUCOSE, FASTING 352 MG/DL (74-106); POTASSIUM SERUM 4.8 MMOL/L (3.5-5.1); SODIUM LEVEL 137 MMOL/L (136-145)
[2023-08-16 20:52] LABS: CPK CREATINE PHOSPHOKINASE 34 U/L (46-171); MB/CK RELATIVE INDEX 2.94 (< OR =4)
[2023-08-16] MEDS ORDERED: ISOVUE-370 76% 100ML VIAL As Ordered ONE (22:59)
[2023-08-16 23:15] LABS: CK-MB VALUE MASS < 1.0 NG/ML (<3.6); CPK CREATINE PHOSPHOKINASE 59 U/L (46-171); MB/CK RELATIVE INDEX 1.69 (< OR =4)
[2023-08-17] MEDS ORDERED: OMEP20TA18 PO (00:22)
[2023-08-17] MEDS ORDERED: MUCI600T31 PO (00:22)
[2023-08-17 00:59] VITALS: BP 108/64; TEMP 97.8; O2SAT 98
[2023-08-18] MEDS ORDERED: FLOM0.4C39 PO (04:52)
[2023-08-18] MEDS ORDERED: BASA100I SC (04:52)
[2023-08-18] MEDS ORDERED: MUCI600T31 PO (04:52)
[2023-08-18] MEDS ORDERED: DULO1CAP4 PO (04:52)
[2023-08-18] MEDS ORDERED: FINA5TAB2 PO (04:52)
== END 2023-08-17 00:58 | disposition home or self-care (01) ==
LOC: EDBD 19:25 → M ED 19:25
DX: J44.9 Chronic obstructive pulmonary disease, unspecified (principal); K20.90 Esophagitis, unspecified without bleeding; Z99.81 Dependence on supplemental oxygen; E11.9 Type 2 diabetes mellitus without complications; I10 Essential (primary) hypertension; E78.5 Hyperlipidemia, unspecified; N40.0 Benign prostatic hyperplasia without lower urinary tract symptoms; Z87.891 Personal history of nicotine dependence; Z79.4 Long term (current) use of insulin; Z79.01 Long term (current) use of anticoagulants; Z79.82 Long term (current) use of aspirin; Z79.899 Other long term (current) drug therapy
CPT/HCPCS: 36600; 70491; 71045; 80048; 80076; 82550; 82553; 82803; 83880; 84484; 85025; 87486; 87581; 87633; 87798; 93005; 93041; 94760; 99284; Q9967

== ENCOUNTER 2023-08-17 21:44 | Inpatient (IN) | payer MEDICARE, MEDICAID ==
[~2023-08-17] VITALS: Ht 175.3 cm; Wt 65.2 kg
[~2023-08-17 21:44] MED LIST changes: +MUCI600T31 PO; +OMEP20TA18 PO
[2023-08-17 22:35] LABS: BASO # 0.1 10^3/uL (0.0-0.2); BASO % 0.4 % (0.0-1.0); EOS # 0.7 10^3/uL (0.0-0.5); HEMATOCRIT 33.2 % (42.0-52.0); HEMOGLOBIN 10.7 g/dl (13.5-17.5); MEAN CORPUSCULAR HEMOGLOBIN 28.2 pg (27.0-33.0); MEAN CORPUSCULAR HGB CONC 32.2 g/dl (32.0-36.5); MEAN CORPUSCULAR VOLUME 87.6 fl (80.0-96.0); MONO # 1.2 10^3/uL (0.0-0.8); MONO % 7.4 % (2.0-8.0); NEUTROPHILS # 12.7 10^3/uL (1.5-8.5); NEUTROPHILS % 75.3 % (36.0-66.0); PLATELET COUNT, AUTOMATED 389 10^3/uL (150-450); RED BLOOD COUNT 3.79 10^6/uL (4.30-6.10); WHITE BLOOD COUNT 16.9 10^3/uL (4.0-10.0)
[2023-08-17 22:48] LABS: INR 0.96; PROTHROMBIN TIME 12.5 SECONDS (12.5-14.5)
[2023-08-17 22:59] LABS: CK-MB VALUE MASS < 1.0 NG/ML (<3.6); LIPASE 20 U/L (12-53)
[2023-08-17 23:01] LABS: ALBUMIN 2.7 G/DL (3.2-5.2); ALKALINE PHOSPHATASE 110 U/L (46-116); ALT/SGPT 14 U/L (7.0-40); AST/SGOT < 8 U/L (<34); BILIRUBIN,DIRECT 0.1 MG/DL (<0.4); BILIRUBIN,TOTAL 0.3 MG/DL (0.3-1.2); BLOOD UREA NITROGEN 22 MG/DL (9-23); CALCIUM LEVEL 9.5 MG/DL (8.3-10.6); CARBON DIOXIDE LEVEL 37 MMOL/L (20-31); CHLORIDE LEVEL 99 MMOL/L (98-107); CPK CREATINE PHOSPHOKINASE 31 U/L (46-171); CREATININE FOR GFR 0.65 MG/DL (0.70-1.30); GLOMERULAR FILTRATION RATE > 60.0 (>49); GLUCOSE, FASTING 126 MG/DL (74-106); MB/CK RELATIVE INDEX 3.22 (< OR =4); POTASSIUM SERUM 4.3 MMOL/L (3.5-5.1); SODIUM LEVEL 140 MMOL/L (136-145); TOTAL PROTEIN 6.1 G/DL (5.7-8.2)
[2023-08-18 00:12] LABS: ABG BASE EXCESS 9.1 (-2.0-2.0); ABG HCO3 35.1 MMOL/L (22.0-26.0); ABG O2 SATURATION 99.1 % (95.0-99.0); ABG PARTIAL PRESSURE CO2 54.9 mmHg (35.0-45.0); ABG PARTIAL PRESSURE O2 149.4 mmHg (75.0-100.0); ABG TOTAL CO2 36.8 MMOL/L (23.0-31.0); ABG pH (ARTERIAL) 7.424 UNITS (7.350-7.450)
[2023-08-18] MEDS ORDERED: ISOVUE-370 76% 100ML VIAL As Ordered ONE (00:18)
[2023-08-18 00:51] LABS: CK-MB VALUE MASS < 1.0 NG/ML (<3.6)
[2023-08-18 01:05] LABS: CPK CREATINE PHOSPHOKINASE 35 U/L (46-171); MB/CK RELATIVE INDEX 2.85 (< OR =4)
[2023-08-18] MEDS: cefTRIAXone SOD 2 GM in D5W MINI-BAG PLUS 50 ML IV ONE (02:59)
[2023-08-18] MEDS ORDERED: DULO1CAP4 PO (04:52)
[2023-08-18] MEDS ORDERED: FLOM0.4C39 PO (04:52)
[2023-08-18] MEDS ORDERED: BASA100I SC (04:52)
[2023-08-18] MEDS ORDERED: MUCI600T31 PO (04:52)
[2023-08-18] MEDS ORDERED: FINA5TAB2 PO (04:52)
[2023-08-18] MEDS ORDERED: HOME MED LIST COMPLETE! XX SCH (04:55)
[2023-08-18] MEDS ORDERED: MAALOX 30 ML SUSP *UDC PO PRN (05:25)
[2023-08-18] MEDS ORDERED: ONDANSETRON 4MG 2ML VIAL IV PRN (05:25)
[2023-08-18] MEDS ORDERED: ALBUTEROL SULFATE 2.5MG/0.5ML INH NEB SOLN INH PRN (05:25)
[2023-08-18] MEDS ORDERED: GLUCOSE 4 GM CHEW PO PRN (05:45)
[2023-08-18] MEDS ORDERED: DEXTROSE 50% 50ML SYRINGE IV PRN (05:45)
[2023-08-18] MEDS ORDERED: GLUCAGON INJ 1MG VIAL SC PRN (05:45)
[2023-08-18] MEDS: BISACODYL 10MG SUPP PR ONE (06:57)
[2023-08-18] MEDS: NICOTINE 21MG/24HR 1 EA TRANSDERMAL TD ONE (06:57)
[2023-08-18] MEDS: LR 1,000 ML IV SCH (06:58)
[2023-08-18] MEDS: MAGNESIUM CITRATE 300ML BTL PO ONE (06:58)
[2023-08-18] MEDS: SYMBICORT 160/4.5MCG INHALER 6GM INH SCH (08:30)
[2023-08-18] MEDS: IPRATROPIUM 0.5MG/ALBUTEROL 2.5MG INH SOL UD 3ML (DUONEB) NEB SCH (08:30)
[2023-08-18 08:45] VITALS: BP 131/70; TEMP 97.7; O2SAT 97
[2023-08-18] MEDS ORDERED: NITROGLYCERIN 0.4MG SUBL TABLET SL PRN (09:40)
[2023-08-18 10:02] LABS: VENOUS BASE EXCESS 9.9 (-2.0-2.0); VENOUS HCO3 38.4 MMOL/L (23.0-27.0); VENOUS O2 SATURATION 76.5 % (60.0-80.0); VENOUS PARTIAL PRESSURE CO2 72.4 mmHg (38.0-50.0); VENOUS PARTIAL PRESSURE O2 42.8 mmHg (30.0-50.0); VENOUS PH 7.342 UNITS (7.330-7.430); VENOUS STANDARD HCO3 33.2 MMOL/L; VENOUS TOTAL CO2 40.6 MMOL/L (24.0-28.0)
[2023-08-18 10:16] LABS: HEMATOCRIT 36.4 % (42.0-52.0); HEMOGLOBIN 11.5 g/dl (13.5-17.5); MEAN CORPUSCULAR HEMOGLOBIN 28.3 pg (27.0-33.0); MEAN CORPUSCULAR HGB CONC 31.6 g/dl (32.0-36.5); MEAN CORPUSCULAR VOLUME 89.7 fl (80.0-96.0); PLATELET COUNT, AUTOMATED 371 10^3/uL (150-450); RED BLOOD COUNT 4.06 10^6/uL (4.30-6.10)
[2023-08-18] MEDS: DOCUSATE SODIUM 100MG CAPSULE PO SCH (10:24)
[2023-08-18] MEDS: INSULIN LISPRO (NovoLOG) PER UNIT SC SCH ×2 (10:24→20:46)
[2023-08-18] MEDS: FINASTERIDE 5MG TAB PO SCH (10:24)
[2023-08-18] MEDS: PANTOPRAZOLE 40MG TAB (PROTONIX) PO SCH (10:25)
[2023-08-18] MEDS: ASPIRIN 81MG ENTERIC TABLET PO SCH (10:25)
[2023-08-18] MEDS: TAMSULOSIN 0.4 MG CAP PO SCH (10:25)
[2023-08-18] MEDS: ATORVASTATIN 20 MG TAB PO SCH (10:25)
[2023-08-18] MEDS: APIXABAN 5 MG TAB (ELIQUIS) PO SCH (10:26)
[2023-08-18] MEDS: lisinopriL 5 MG TAB PO SCH (10:26)
[2023-08-18] MEDS: DULoxetine 20MG CAP (CYMBALTA) PO SCH (10:32)
[2023-08-18 10:47] LABS: ALBUMIN 2.9 G/DL (3.2-5.2); ALKALINE PHOSPHATASE 107 U/L (46-116); ALT/SGPT 14 U/L (7.0-40); AST/SGOT < 8 U/L (<34); BILIRUBIN,TOTAL 0.3 MG/DL (0.3-1.2); BLOOD UREA NITROGEN 15 MG/DL (9-23); CALCIUM LEVEL 9.6 MG/DL (8.3-10.6); CARBON DIOXIDE LEVEL > 40.0 MMOL/L (20-31); CHLORIDE LEVEL 96 MMOL/L (98-107); CREATININE FOR GFR 0.67 MG/DL (0.70-1.30); GLOMERULAR FILTRATION RATE > 60.0 (>49); GLUCOSE, FASTING 170 MG/DL (74-106); MAGNESIUM LEVEL 1.8 MG/DL (1.8-2.4); POTASSIUM SERUM 3.9 MMOL/L (3.5-5.1); PROCALCITONIN <0.04 ng/ml; SODIUM LEVEL 139 MMOL/L (136-145); TOTAL PROTEIN 6.1 G/DL (5.7-8.2)
[2023-08-18 13:50] VITALS: BP 128/69; TEMP 98.1; O2SAT 98
[2023-08-18 20:00] VITALS: BP 119/77; TEMP 99.2; O2SAT 96
[2023-08-18 20:36] VITALS: BP 123/64; TEMP 97.9; O2SAT 97
[2023-08-18] MEDS: ACETAMINOPHEN TAB 650MG DOSE (2X325MG) PO PRN (20:46)
[2023-08-18] MEDS: AMITRIPTYLINE 25MG TABLET PO SCH (20:46)
[2023-08-19] MEDS: cefTRIAXone SOD 1 GM in D5W MINI-BAG PLUS 50 ML IV SCH (00:39)
[2023-08-19 06:05] LABS: HEMATOCRIT 33.9 % (42.0-52.0); HEMOGLOBIN 10.7 g/dl (13.5-17.5); MEAN CORPUSCULAR HEMOGLOBIN 27.9 pg (27.0-33.0); MEAN CORPUSCULAR HGB CONC 31.6 g/dl (32.0-36.5); MEAN CORPUSCULAR VOLUME 88.5 fl (80.0-96.0); PLATELET COUNT, AUTOMATED 342 10^3/uL (150-450); RED BLOOD COUNT 3.83 10^6/uL (4.30-6.10); WHITE BLOOD COUNT 12.8 10^3/uL (4.0-10.0)
[2023-08-19 06:13] VITALS: BP 118/68; TEMP 98.1; O2SAT 99
[2023-08-19 06:44] LABS: PROCALCITONIN <0.04 ng/ml
[2023-08-19 06:45] LABS: ALBUMIN 2.5 G/DL (3.2-5.2); ALKALINE PHOSPHATASE 110 U/L (46-116); ALT/SGPT 12 U/L (7.0-40); AST/SGOT < 8 U/L (<34); BILIRUBIN,TOTAL 0.3 MG/DL (0.3-1.2); BLOOD UREA NITROGEN 16 MG/DL (9-23); CALCIUM LEVEL 9.2 MG/DL (8.3-10.6); CARBON DIOXIDE LEVEL 39 MMOL/L (20-31); CHLORIDE LEVEL 99 MMOL/L (98-107); CREATININE FOR GFR 0.49 MG/DL (0.70-1.30); GLOMERULAR FILTRATION RATE > 60.0 (>49); GLUCOSE, FASTING 262 MG/DL (74-106); MAGNESIUM LEVEL 1.8 MG/DL (1.8-2.4); POTASSIUM SERUM 4.6 MMOL/L (3.5-5.1); SODIUM LEVEL 137 MMOL/L (136-145); TOTAL PROTEIN 5.7 G/DL (5.7-8.2)
[2023-08-19 09:00] VITALS: BP 112/59; TEMP 97.5
[2023-08-19 11:50] VITALS: O2SAT 97
[2023-08-19 11:55] VITALS: O2SAT 94
[2023-08-19 14:00] VITALS: BP 108/60; TEMP 97.9; O2SAT 98
[2023-08-19 18:15] LABS: HEMOGLOBIN A1c 12.2 % (4.0-6.0)
[2023-08-19] MEDS: LEVEMIR (INSULIN DETEMIR) 1 UNITS/0.01ML SC SCH (20:40)
[2023-08-19 22:00] VITALS: BP 110/61; TEMP 98.1; O2SAT 98
[2023-08-20 06:00] VITALS: BP 129/72; TEMP 98.2; O2SAT 96
[2023-08-20 08:23] VITALS: BP 129/67
[2023-08-20 10:00] VITALS: O2SAT 98
[2023-08-20] MEDS: MIRALAX *UNIT DOSE* 17GM PACKET PO SCH (11:50)
[2023-08-20 13:45] VITALS: BP 128/67; TEMP 98.1; O2SAT 99
[2023-08-20 14:28] LABS: ABG BASE EXCESS 5.7 (-2.0-2.0); ABG HCO3 30.9 MMOL/L (22.0-26.0); ABG O2 SATURATION 98.7 % (95.0-99.0); ABG PARTIAL PRESSURE CO2 48.2 mmHg (35.0-45.0); ABG PARTIAL PRESSURE O2 132.5 mmHg (75.0-100.0); ABG STANDARD HCO3 29.6 MMOL/L. (22.0-26.0); ABG TOTAL CO2 32.4 MMOL/L (23.0-31.0); ABG pH (ARTERIAL) 7.425 UNITS (7.350-7.450)
[2023-08-20] MEDS: LevoFLOXacin IV 750 MG in IV 1 EA IV SCH (15:41)
[2023-08-20] MEDS: MOM 30ML SUSPENSION UDC PO PRN (16:02)
[2023-08-20] MEDS: LEVEMIR (INSULIN DETEMIR) 1 UNITS/0.01ML SC SCH (20:45)
[2023-08-20] MEDS ORDERED: LEVEMIR (INSULIN DETEMIR) 1 UNITS/0.01ML SC SCH (21:00)
[2023-08-20 21:30] VITALS: BP 100/60; TEMP 97.9; O2SAT 97
[2023-08-21 05:45] LABS: BASO # 0.1 10^3/uL (0.0-0.2); BASO % 0.4 % (0.0-1.0); EOS # 0.6 10^3/uL (0.0-0.5); EOS % 5.4 % (0.0-3.0); HEMATOCRIT 33.5 % (42.0-52.0); HEMOGLOBIN 10.6 g/dl (13.5-17.5); LYMPH # 1.3 10^3/uL (1.5-5.0); LYMPH % 11.2 % (24.0-44.0); MEAN CORPUSCULAR HEMOGLOBIN 28.2 pg (27.0-33.0); MEAN CORPUSCULAR HGB CONC 31.6 g/dl (32.0-36.5); MEAN CORPUSCULAR VOLUME 89.1 fl (80.0-96.0); MONO # 0.9 10^3/uL (0.0-0.8); NEUTROPHILS # 8.3 10^3/uL (1.5-8.5); NEUTROPHILS % 74.5 % (36.0-66.0); PLATELET COUNT, AUTOMATED 323 10^3/uL (150-450); RED BLOOD COUNT 3.76 10^6/uL (4.30-6.10); WHITE BLOOD COUNT 11.2 10^3/uL (4.0-10.0)
[2023-08-21 06:07] LABS: ALBUMIN 2.5 G/DL (3.2-5.2); ALKALINE PHOSPHATASE 104 U/L (46-116); ALT/SGPT < 9 U/L (7.0-40); AST/SGOT < 8 U/L (<34); BILIRUBIN,TOTAL 0.4 MG/DL (0.3-1.2); BLOOD UREA NITROGEN 13 MG/DL (9-23); CARBON DIOXIDE LEVEL 38 MMOL/L (20-31); CHLORIDE LEVEL 101 MMOL/L (98-107); CREATININE FOR GFR 0.57 MG/DL (0.70-1.30); GLOMERULAR FILTRATION RATE > 60.0 (>49); GLUCOSE, FASTING 122 MG/DL (74-106); MAGNESIUM LEVEL 1.7 MG/DL (1.8-2.4); POTASSIUM SERUM 4.3 MMOL/L (3.5-5.1); SODIUM LEVEL 140 MMOL/L (136-145); TOTAL PROTEIN 5.8 G/DL (5.7-8.2)
[2023-08-21] MEDS: MAG SULF 1GM/100ML (MAG RUN) 1 GM in IV 1 EA IV SCH (09:58)
[2023-08-21] MEDS: MAG SULF 1GM/100ML (MAG RUN) 1 GM in IV 1 EA IV ONE (13:39)
[2023-08-21 14:00] VITALS: BP 97/54; TEMP 97.7; O2SAT 99
[2023-08-21 20:15] VITALS: O2SAT 92
[2023-08-21 20:21] VITALS: BP 98/56; TEMP 97.9; O2SAT 97
[2023-08-21 20:22] VITALS: TEMP 98.8
[2023-08-21] MEDS: SENOKOT S TAB PO PRN (20:42)
[2023-08-21] MEDS: guaiFENesin ER TABLET 600 MG TAB PO PRN (20:43)
[2023-08-21] MEDS: LEVEMIR (INSULIN DETEMIR) 1 UNITS/0.01ML SC SCH (23:28)
[2023-08-21] MEDS: LEVEMIR (INSULIN DETEMIR) 1 UNITS/0.01ML SC ONE (23:33)
[2023-08-22] VITALS (9 sets, daily range): BP systolic 87–139; BP diastolic 45–79; TEMP 97.4–98.1; O2SAT 96–99
[2023-08-22 07:16] LABS: BASO # 0.1 10^3/uL (0.0-0.2); BASO % 0.6 % (0.0-1.0); EOS # 0.6 10^3/uL (0.0-0.5); EOS % 5.2 % (0.0-3.0); HEMATOCRIT 35.4 % (42.0-52.0); HEMOGLOBIN 11.1 g/dl (13.5-17.5); LYMPH # 1.6 10^3/uL (1.5-5.0); LYMPH % 14.3 % (24.0-44.0); MEAN CORPUSCULAR HEMOGLOBIN 28.2 pg (27.0-33.0); MEAN CORPUSCULAR HGB CONC 31.4 g/dl (32.0-36.5); MEAN CORPUSCULAR VOLUME 90.1 fl (80.0-96.0); MONO # 1.1 10^3/uL (0.0-0.8); MONO % 9.8 % (2.0-8.0); NEUTROPHILS # 7.5 10^3/uL (1.5-8.5); NEUTROPHILS % 69.3 % (36.0-66.0); PLATELET COUNT, AUTOMATED 333 10^3/uL (150-450); RED BLOOD COUNT 3.93 10^6/uL (4.30-6.10); WHITE BLOOD COUNT 10.8 10^3/uL (4.0-10.0)
[2023-08-22 07:49] LABS: BLOOD UREA NITROGEN 17 MG/DL (9-23); CALCIUM LEVEL 9.2 MG/DL (8.3-10.6); CARBON DIOXIDE LEVEL 39 MMOL/L (20-31); CHLORIDE LEVEL 100 MMOL/L (98-107); CREATININE FOR GFR 0.67 MG/DL (0.70-1.30); GLOMERULAR FILTRATION RATE > 60.0 (>49); GLUCOSE, FASTING 59 MG/DL (74-106); MAGNESIUM LEVEL 2.1 MG/DL (1.8-2.4); POTASSIUM SERUM 4.5 MMOL/L (3.5-5.1); SODIUM LEVEL 141 MMOL/L (136-145)
[2023-08-22] MEDS: BISACODYL 5MG TAB PO PRN (14:01)
[2023-08-22] MEDS: BISACODYL 10MG SUPP PR SCH (14:01)
[2023-08-22] MEDS: LEVEMIR (INSULIN DETEMIR) 1 UNITS/0.01ML SC SCH (20:54)
[2023-08-22] MEDS: TAMSULOSIN 0.4 MG CAP PO SCH (20:54)
[2023-08-23 03:00] VITALS: O2SAT 92
[2023-08-23 05:37] VITALS: BP 112/58; TEMP 97.5; O2SAT 97
[2023-08-23 06:24] LABS: BASO # 0.1 10^3/uL (0.0-0.2); BASO % 0.7 % (0.0-1.0); EOS # 0.7 10^3/uL (0.0-0.5); HEMATOCRIT 33.5 % (42.0-52.0); HEMOGLOBIN 10.6 g/dl (13.5-17.5); LYMPH # 1.2 10^3/uL (1.5-5.0); LYMPH % 10.6 % (24.0-44.0); MEAN CORPUSCULAR HGB CONC 31.6 g/dl (32.0-36.5); MEAN CORPUSCULAR VOLUME 88.4 fl (80.0-96.0); MONO % 8.7 % (2.0-8.0); NEUTROPHILS # 8.1 10^3/uL (1.5-8.5); NEUTROPHILS % 73.5 % (36.0-66.0); PLATELET COUNT, AUTOMATED 332 10^3/uL (150-450); RED BLOOD COUNT 3.79 10^6/uL (4.30-6.10)
[2023-08-23 06:47] LABS: BLOOD UREA NITROGEN 17 MG/DL (9-23); CALCIUM LEVEL 9.5 MG/DL (8.3-10.6); CARBON DIOXIDE LEVEL 37 MMOL/L (20-31); CHLORIDE LEVEL 99 MMOL/L (98-107); CREATININE FOR GFR 0.63 MG/DL (0.70-1.30); GLOMERULAR FILTRATION RATE > 60.0 (>49); GLUCOSE, FASTING 158 MG/DL (74-106); POTASSIUM SERUM 4.4 MMOL/L (3.5-5.1); SODIUM LEVEL 138 MMOL/L (136-145)
[2023-08-23] MEDS: LevoFLOXacin 750 MG TABLET PO SCH (10:05)
[2023-08-23] MEDS ORDERED: LEVO1TAB39 PO (11:14)
[2023-08-23 14:00] VITALS: BP 130/71; TEMP 98.1; O2SAT 98
== END 2023-08-23 14:50 | disposition home or self-care (01) | DRG 699 ==
LOC: M ED 21:44 → M ED INP 08-18 05:22 → M MSPAV 08-18 08:46
PROVIDERS: ADMIT Internal Medicine; ATTEND Family Medicine
DX: T83.518A Infection and inflammatory reaction due to other urinary catheter, initial encounter (principal); N39.0 Urinary tract infection, site not specified; I50.32 Chronic diastolic (congestive) heart failure; J96.11 Chronic respiratory failure with hypoxia; Z68.1 Body mass index [BMI] 19.9 or less, adult; K59.00 Constipation, unspecified; J44.9 Chronic obstructive pulmonary disease, unspecified; R91.1 Solitary pulmonary nodule; I25.10 Atherosclerotic heart disease of native coronary artery without angina pectoris; R59.0 Localized enlarged lymph nodes; I11.0 Hypertensive heart disease with heart failure; K21.9 Gastro-esophageal reflux disease without esophagitis; I25.2 Old myocardial infarction; N40.1 Benign prostatic hyperplasia with lower urinary tract symptoms; F41.9 Anxiety disorder, unspecified; F32.A Depression, unspecified; E11.649 Type 2 diabetes mellitus with hypoglycemia without coma; E78.5 Hyperlipidemia, unspecified; Z79.01 Long term (current) use of anticoagulants; Z79.82 Long term (current) use of aspirin; Z79.4 Long term (current) use of insulin; Z79.84 Long term (current) use of oral hypoglycemic drugs; Z79.899 Other long term (current) drug therapy; Z99.81 Dependence on supplemental oxygen; Z87.891 Personal history of nicotine dependence; Z86.711 Personal history of pulmonary embolism

== ENCOUNTER 2023-08-31 23:23 | Emergency (ER) | payer MEDICARE, MEDICAID ==
[~2023-08-31] VITALS: Ht 175.3 cm; Wt 57.3 kg
[~2023-08-31 23:23] MED LIST changes: -NYST1POW9 TOP
[2023-09-01 00:18] LABS: BASO # 0.1 10^3/uL (0.0-0.2); BASO % 0.7 % (0.0-1.0); EOS # 0.5 10^3/uL (0.0-0.5); EOS % 3.1 % (0.0-3.0); HEMATOCRIT 33.8 % (42.0-52.0); HEMOGLOBIN 10.7 g/dl (13.5-17.5); LYMPH # 1.5 10^3/uL (1.5-5.0); LYMPH % 9.1 % (24.0-44.0); MEAN CORPUSCULAR HEMOGLOBIN 28.2 pg (27.0-33.0); MEAN CORPUSCULAR HGB CONC 31.7 g/dl (32.0-36.5); MEAN CORPUSCULAR VOLUME 89.2 fl (80.0-96.0); MONO # 1.1 10^3/uL (0.0-0.8); MONO % 6.7 % (2.0-8.0); NEUTROPHILS # 12.9 10^3/uL (1.5-8.5); NEUTROPHILS % 79.4 % (36.0-66.0); PLATELET COUNT, AUTOMATED 424 10^3/uL (150-450); RED BLOOD COUNT 3.79 10^6/uL (4.30-6.10); WHITE BLOOD COUNT 16.2 10^3/uL (4.0-10.0)
[2023-09-01 00:22] LABS: CK-MB VALUE MASS < 1.0 NG/ML (<3.6)
[2023-09-01 00:23] LABS: ALKALINE PHOSPHATASE 154 U/L (46-116); ALT/SGPT 14 U/L (7.0-40); AST/SGOT < 8 U/L (<34); BILIRUBIN,DIRECT 0.1 MG/DL (<0.4); BILIRUBIN,TOTAL 0.3 MG/DL (0.3-1.2); BLOOD UREA NITROGEN 11 MG/DL (9-23); CALCIUM LEVEL 8.8 MG/DL (8.3-10.6); CARBON DIOXIDE LEVEL 33 MMOL/L (20-31); CHLORIDE LEVEL 104 MMOL/L (98-107); CPK CREATINE PHOSPHOKINASE 42 U/L (46-171); CREATININE FOR GFR 0.51 MG/DL (0.70-1.30); GLOMERULAR FILTRATION RATE > 60.0 (>49); GLUCOSE, FASTING 336 MG/DL (74-106); MB/CK RELATIVE INDEX 2.38 (< OR =4); POTASSIUM SERUM 4.4 MMOL/L (3.5-5.1); SODIUM LEVEL 140 MMOL/L (136-145); TOTAL PROTEIN 6.3 G/DL (5.7-8.2)
[2023-09-01 01:43] LABS: CK-MB VALUE MASS < 1.0 NG/ML (<3.6)
[2023-09-01 01:46] LABS: CPK CREATINE PHOSPHOKINASE 47 U/L (46-171); MB/CK RELATIVE INDEX 2.12 (< OR =4)
[2023-09-01] MEDS ORDERED: PRED20TA PO (02:46)
[2023-09-01] MEDS ORDERED: NYST1POW9 TOP (02:46)
[2023-09-01 02:50] VITALS: BP 149/72; TEMP 98.1; O2SAT 97
== END 2023-09-01 03:05 | disposition home or self-care (01) ==
LOC: M ED 23:23
DX: J44.1 Chronic obstructive pulmonary disease with (acute) exacerbation (principal); B37.42 Candidal balanitis; E11.8 Type 2 diabetes mellitus with unspecified complications; I10 Essential (primary) hypertension; K21.9 Gastro-esophageal reflux disease without esophagitis; F32.A Depression, unspecified; M54.50 Low back pain, unspecified; Z79.52 Long term (current) use of systemic steroids; Z79.01 Long term (current) use of anticoagulants; Z79.4 Long term (current) use of insulin; Z79.811 Long term (current) use of aromatase inhibitors; Z79.899 Other long term (current) drug therapy

== ENCOUNTER → 2023-08-31 | Outpatient (REF) | payer MEDICARE, MEDICAID ==
[~2023-08-31] MED LIST changes: +DULO1CAP4 PO; +FINA5TAB2 PO; +LEVO1TAB39 PO; +NYST1POW9 TOP; +ONDA-282 PO; -ONDA4TAB6 PO
[2023-08-31 12:15] LABS: CREATININE, URINE 70.4 MG/DL; MAU/CREAT RATIO 80.9 MCG/MG (0.0-30.0)
== END ==
LOC: M LAB REF 11:35
PROVIDERS: ATTEND Nurse Practitioner Family
DX: E11.8 Type 2 diabetes mellitus with unspecified complications (principal)

== ENCOUNTER → 2023-09-19 | Outpatient (CLI) | payer MEDICARE, MEDICAID ==
[~2023-09-19] MED LIST changes: +NYST1POW9 TOP
== END ==
LOC: M PLARAD 10:38
PROVIDERS: ATTEND Internal Medicine Pulmonary Disease
DX: R91.8 Other nonspecific abnormal finding of lung field (principal)
CPT/HCPCS: 78815; A9552

== ENCOUNTER 2023-09-20 21:24 | Emergency (ER) | payer MEDICARE, MEDICAID ==
[~2023-09-20] VITALS: Ht 175.3 cm; Wt 57.2 kg
[2023-09-21 00:20] VITALS: BP 115/60; TEMP 97; O2SAT 100
[2023-09-21] MEDS ORDERED: BACT800T5 PO (09:31)
[2023-09-23] MEDS ORDERED: CIPR-249 PO (14:41)
== END 2023-09-21 01:15 | disposition left against medical advice (07) ==
LOC: M ED 21:24
DX: Z53.21 Procedure and treatment not carried out due to patient leaving prior to being seen by health care provider (principal)

== ENCOUNTER 2023-09-21 05:58 | Emergency (ER) | payer MEDICARE, MEDICAID ==
[2023-09-21] MEDS ORDERED: LIDOCAINE 2% 5ML JELLY UROJET TOP ONE (09:00)
[2023-09-21] MEDS ORDERED: BACT800T5 PO (09:31)
[2023-09-21 09:45] VITALS: BP 131/59; TEMP 97.3; O2SAT 97
[2023-09-21 09:59] LABS: APPEARANCE, URINE CLOUDY (CLEAR); BACTERIA, URINE AUTO 1+ (NEGATIVE); BILIRUBIN, URINE AUTO NEGATIVE (NEGATIVE); BLOOD, URINE BLOOD 1+ (NEGATIVE); COLOR, URINE YELLOW (YELLOW); GLUCOSE, URINE (UA) AUTO 3+ mg/dL (NEGATIVE); KETONE, URINE AUTO NEGATIVE (NEGATIVE); LEUKOCYTE ESTERASE, URINE AUTO 3+ (NEGATIVE); NITRITE, URINE AUTO NEGATIVE (NEGATIVE); PROTEIN, URINE AUTO 1+ mg/dL (NEGATIVE); RBC, URINE AUTO 19 /HPF (0-3); SPECIFIC GRAVITY URINE AUTO 1.016 (1.002-1.035); SQUAMOUS EPITHELIAL CELL UR AU 0 /HPF (0-6); UROBILINOGEN, URINE AUTO 0.2 mg/dL (0.0-2.0); WBC, URINE AUTO TNTC /HPF (0-3)
[2023-09-23] MEDS ORDERED: CIPR-249 PO (14:41)
== END 2023-09-21 09:50 | disposition home or self-care (01) ==
LOC: M ED 05:58
DX: R36.9 Urethral discharge, unspecified (principal); N41.0 Acute prostatitis; E11.9 Type 2 diabetes mellitus without complications; I10 Essential (primary) hypertension; I50.9 Heart failure, unspecified; I25.2 Old myocardial infarction; E78.5 Hyperlipidemia, unspecified; J44.9 Chronic obstructive pulmonary disease, unspecified; J84.10 Pulmonary fibrosis, unspecified; K21.9 Gastro-esophageal reflux disease without esophagitis; K50.90 Crohn's disease, unspecified, without complications; F41.9 Anxiety disorder, unspecified; F32.A Depression, unspecified; Z87.891 Personal history of nicotine dependence; Z79.82 Long term (current) use of aspirin; Z79.01 Long term (current) use of anticoagulants; Z79.4 Long term (current) use of insulin; Z79.899 Other long term (current) drug therapy

== ENCOUNTER 2023-10-16 09:46 | Inpatient (IN) | payer MEDICARE, MEDICAID ==
[~2023-10-16] VITALS: Ht 175.3 cm; Wt 62.7 kg
[~2023-10-16 09:46] MED LIST changes: +BACT800T5 PO; +CIPR-249 PO
[2023-10-16] MEDS: IPRATROPIUM 0.5MG/ALBUTEROL 2.5MG INH SOL UD 3ML (DUONEB) NEB PRN (10:16)
[2023-10-16 10:21] LABS: VENOUS BASE EXCESS 0.1 (-2.0-2.0); VENOUS HCO3 26.3 MMOL/L (23.0-27.0); VENOUS PARTIAL PRESSURE CO2 48.9 mmHg (38.0-50.0); VENOUS PARTIAL PRESSURE O2 95.4 mmHg (30.0-50.0); VENOUS PH 7.349 UNITS (7.330-7.430); VENOUS STANDARD HCO3 24.6 MMOL/L; VENOUS TOTAL CO2 27.8 MMOL/L (24.0-28.0)
[2023-10-16 10:31] LABS: BASO # 0.1 10^3/uL (0.0-0.2); BASO % 0.5 % (0.0-1.0); EOS # 0.2 10^3/uL (0.0-0.5); EOS % 0.9 % (0.0-3.0); HEMATOCRIT 38.4 % (42.0-52.0); HEMOGLOBIN 12.3 g/dl (13.5-17.5); LYMPH # 1.3 10^3/uL (1.5-5.0); LYMPH % 5.9 % (24.0-44.0); MEAN CORPUSCULAR HEMOGLOBIN 28.8 pg (27.0-33.0); MEAN CORPUSCULAR VOLUME 89.9 fl (80.0-96.0); MONO # 1.3 10^3/uL (0.0-0.8); MONO % 6.1 % (2.0-8.0); NEUTROPHILS # 18.9 10^3/uL (1.5-8.5); NEUTROPHILS % 86.2 % (36.0-66.0); PLATELET COUNT, AUTOMATED 249 10^3/uL (150-450); RED BLOOD COUNT 4.27 10^6/uL (4.30-6.10); WHITE BLOOD COUNT 21.9 10^3/uL (4.0-10.0)
[2023-10-16] MEDS: methylPREDNISolone 125MG 2ML VIAL IV ONE (10:31)
[2023-10-16 10:57] LABS: ALBUMIN 3.9 G/DL (3.2-5.2); ALKALINE PHOSPHATASE 124 U/L (46-116); ALT/SGPT 12 U/L (7.0-40); AST/SGOT < 8 U/L (<34); BILIRUBIN,DIRECT 0.3 MG/DL (<0.4); BILIRUBIN,TOTAL 0.9 MG/DL (0.3-1.2); BLOOD UREA NITROGEN 12 MG/DL (9-23); CALCIUM LEVEL 9.5 MG/DL (8.3-10.6); CARBON DIOXIDE LEVEL 31 MMOL/L (20-31); CHLORIDE LEVEL 104 MMOL/L (98-107); CREATININE FOR GFR 0.55 MG/DL (0.70-1.30); GLOMERULAR FILTRATION RATE > 60.0 (>49); GLUCOSE, FASTING 277 MG/DL (74-106); POTASSIUM SERUM 4.1 MMOL/L (3.5-5.1); SODIUM LEVEL 141 MMOL/L (136-145); TOTAL PROTEIN 6.7 G/DL (5.7-8.2)
[2023-10-16 10:59] LABS: THYROID STIMULATING HORMONE 1.187 uIU/ML (0.55-4.78)
[2023-10-16] MEDS ORDERED: ISOVUE-370 76% 100ML VIAL As Ordered ONE (11:03)
[2023-10-16] MEDS: ACETAMINOPHEN 500 MG TAB PO ONE (12:39)
[2023-10-16] MEDS ORDERED: FARX1TAB5 PO (13:08)
[2023-10-16] MEDS ORDERED: HOME MED LIST COMPLETE! XX SCH (13:10)
[2023-10-16] MEDS ORDERED: GLUCOSE 4 GM CHEW PO PRN (13:25)
[2023-10-16] MEDS ORDERED: DEXTROSE 50% 50ML SYRINGE IV PRN (13:25)
[2023-10-16] MEDS ORDERED: GLUCAGON INJ 1MG VIAL SC PRN (13:25)
[2023-10-16 13:54] LABS: PROCALCITONIN <0.04 ng/ml
[2023-10-16] MEDS: LEVALBUTEROL 1.25MG 0.5ML CONCENTRATE NEB NEB SCH (14:00)
[2023-10-16] MEDS: LevoFLOXacin IV 750 MG in IV 1 EA IV SCH (14:22)
[2023-10-16] MEDS: LR 1,000 ML IV ONE (14:23)
[2023-10-16] MEDS: INSULIN LISPRO (NovoLOG) PER UNIT SC SCH ×2 (18:05→21:00)
[2023-10-16 18:33] VITALS: BP 121/65; TEMP 97.7; O2SAT 96
[2023-10-16 20:00] VITALS: BP 121/50; TEMP 97.9; O2SAT 94
[2023-10-16] MEDS: SYMBICORT 160/4.5MCG INHALER 6GM INH SCH (20:23)
[2023-10-16] MEDS: APIXABAN 5 MG TAB (ELIQUIS) PO SCH (21:31)
[2023-10-16] MEDS: AMITRIPTYLINE 25MG TABLET PO SCH (21:31)
[2023-10-16] MEDS: LEVEMIR (INSULIN DETEMIR) 1 UNITS/0.01ML SC SCH (21:32)
[2023-10-16] MEDS: INSULIN LISPRO (NovoLOG) PER UNIT SC ONE (22:57)
[2023-10-17 04:00] VITALS: BP 124/61; TEMP 98.2; O2SAT 95
[2023-10-17 06:48] LABS: HEMATOCRIT 33.2 % (42.0-52.0); MEAN CORPUSCULAR HEMOGLOBIN 29.1 pg (27.0-33.0); MEAN CORPUSCULAR HGB CONC 33.1 g/dl (32.0-36.5); MEAN CORPUSCULAR VOLUME 87.8 fl (80.0-96.0); PLATELET COUNT, AUTOMATED 247 10^3/uL (150-450); RED BLOOD COUNT 3.78 10^6/uL (4.30-6.10); WHITE BLOOD COUNT 23.6 10^3/uL (4.0-10.0)
[2023-10-17 07:27] LABS: BLOOD UREA NITROGEN 19 MG/DL (9-23); CALCIUM LEVEL 9.5 MG/DL (8.3-10.6); CARBON DIOXIDE LEVEL 34 MMOL/L (20-31); CHLORIDE LEVEL 103 MMOL/L (98-107); CREATININE FOR GFR 0.65 MG/DL (0.70-1.30); GLOMERULAR FILTRATION RATE > 60.0 (>49); GLUCOSE, FASTING 207 MG/DL (74-106); POTASSIUM SERUM 4.2 MMOL/L (3.5-5.1); SODIUM LEVEL 141 MMOL/L (136-145)
[2023-10-17] MEDS: TIOTROPIUM INHALER/CAPSULE (SPIRIVA) INH SCH (07:31)
[2023-10-17] MEDS: SENOKOT S TAB PO SCH (09:00)
[2023-10-17] MEDS: TAMSULOSIN 0.4 MG CAP PO SCH (09:11)
[2023-10-17] MEDS: predniSONE 20 MG TAB PO SCH (09:12)
[2023-10-17] MEDS: FINASTERIDE 5MG TAB PO SCH (09:12)
[2023-10-17] MEDS: ATORVASTATIN 20 MG TAB PO SCH (09:12)
[2023-10-17] MEDS: PANTOPRAZOLE 40MG TAB (PROTONIX) PO SCH (09:12)
[2023-10-17] MEDS: DULoxetine 20MG CAP (CYMBALTA) PO SCH (09:12)
[2023-10-17] MEDS: lisinopriL 5 MG TAB PO SCH (09:13)
[2023-10-17] MEDS: ASPIRIN 81MG ENTERIC TABLET PO SCH (09:14)
[2023-10-17] MEDS: ACETAMINOPHEN TAB 650MG DOSE (2X325MG) PO PRN (09:14)
[2023-10-17] MEDS ORDERED: MORPHINE 2 MG/ML 1ML VIAL IV PRN (09:25)
[2023-10-17 12:00] VITALS: BP 119/65; TEMP 97.9; O2SAT 98
[2023-10-17 13:22] VITALS: O2SAT 98
[2023-10-17] MEDS: INSULIN LISPRO (NovoLOG) PER UNIT SC SCH (13:49)
[2023-10-17 20:00] VITALS: BP 117/61; TEMP 97.9; O2SAT 96
[2023-10-18 04:00] VITALS: BP 118/61; TEMP 97.9; O2SAT 96
[2023-10-18 05:55] LABS: BASO # 0.1 10^3/uL (0.0-0.2); BASO % 0.3 % (0.0-1.0); EOS # 0.1 10^3/uL (0.0-0.5); EOS % 0.5 % (0.0-3.0); HEMATOCRIT 34.1 % (42.0-52.0); HEMOGLOBIN 10.8 g/dl (13.5-17.5); LYMPH # 1.7 10^3/uL (1.5-5.0); LYMPH % 8.9 % (24.0-44.0); MEAN CORPUSCULAR HEMOGLOBIN 28.1 pg (27.0-33.0); MEAN CORPUSCULAR HGB CONC 31.7 g/dl (32.0-36.5); MEAN CORPUSCULAR VOLUME 88.8 fl (80.0-96.0); MONO # 1.1 10^3/uL (0.0-0.8); MONO % 5.4 % (2.0-8.0); NEUTROPHILS # 16.3 10^3/uL (1.5-8.5); NEUTROPHILS % 84.2 % (36.0-66.0); PLATELET COUNT, AUTOMATED 216 10^3/uL (150-450); RED BLOOD COUNT 3.84 10^6/uL (4.30-6.10); WHITE BLOOD COUNT 19.4 10^3/uL (4.0-10.0)
[2023-10-18 06:15] LABS: BLOOD UREA NITROGEN 20 MG/DL (9-23); CALCIUM LEVEL 9.5 MG/DL (8.3-10.6); CARBON DIOXIDE LEVEL 33 MMOL/L (20-31); CHLORIDE LEVEL 103 MMOL/L (98-107); CREATININE FOR GFR 0.55 MG/DL (0.70-1.30); GLOMERULAR FILTRATION RATE > 60.0 (>49); GLUCOSE, FASTING 292 MG/DL (74-106); POTASSIUM SERUM 4.1 MMOL/L (3.5-5.1); SODIUM LEVEL 139 MMOL/L (136-145)
[2023-10-18] MEDS: LEVEMIR (INSULIN DETEMIR) 1 UNITS/0.01ML SC SCH (08:35)
[2023-10-18] MEDS: INSULIN LISPRO (NovoLOG) PER UNIT SC SCH (08:36)
[2023-10-18] MEDS: LevoFLOXacin 750 MG TABLET PO SCH (08:37)
[2023-10-18 12:00] VITALS: BP 105/45; TEMP 97.9; O2SAT 96
[2023-10-18 20:00] VITALS: BP 124/66; TEMP 98.1; O2SAT 97
[2023-10-19 04:00] VITALS: BP 137/78; TEMP 97.9; O2SAT 97
[2023-10-19 06:03] LABS: HEMATOCRIT 36.4 % (42.0-52.0); HEMOGLOBIN 11.5 g/dl (13.5-17.5); MEAN CORPUSCULAR HEMOGLOBIN 27.8 pg (27.0-33.0); MEAN CORPUSCULAR HGB CONC 31.6 g/dl (32.0-36.5); MEAN CORPUSCULAR VOLUME 88.1 fl (80.0-96.0); PLATELET COUNT, AUTOMATED 234 10^3/uL (150-450); RED BLOOD COUNT 4.13 10^6/uL (4.30-6.10); WHITE BLOOD COUNT 12.5 10^3/uL (4.0-10.0)
[2023-10-19 06:35] LABS: ALBUMIN 3.1 G/DL (3.2-5.2); ALKALINE PHOSPHATASE 91 U/L (46-116); ALT/SGPT 11 U/L (7.0-40); AST/SGOT < 8 U/L (<34); BILIRUBIN,TOTAL 0.6 MG/DL (0.3-1.2); BLOOD UREA NITROGEN 19 MG/DL (9-23); CALCIUM LEVEL 9.2 MG/DL (8.3-10.6); CARBON DIOXIDE LEVEL 34 MMOL/L (20-31); CHLORIDE LEVEL 101 MMOL/L (98-107); CREATININE FOR GFR 0.52 MG/DL (0.70-1.30); GLOMERULAR FILTRATION RATE > 60.0 (>49); GLUCOSE, FASTING 196 MG/DL (74-106); SODIUM LEVEL 140 MMOL/L (136-145); TOTAL PROTEIN 5.9 G/DL (5.7-8.2)
[2023-10-19] MEDS ORDERED: PROB250C PO (07:38)
[2023-10-19] MEDS ORDERED: PRED20TA PO (07:38)
[2023-10-19] MEDS ORDERED: LEVO1TAB40 PO (07:38)
[2023-10-19 08:44] VITALS: BP 122/66
== END 2023-10-19 11:55 | disposition home or self-care (01) | DRG 699 ==
LOC: EDBD 09:46 → M ED 09:46 → M ED INP 14:26 → M MSPAV 18:34
PROVIDERS: ADMIT Internal Medicine; ATTEND Internal Medicine
DX: T83.511A Infection and inflammatory reaction due to indwelling urethral catheter, initial encounter (principal); J96.11 Chronic respiratory failure with hypoxia; I50.32 Chronic diastolic (congestive) heart failure; J44.1 Chronic obstructive pulmonary disease with (acute) exacerbation; R65.10 Systemic inflammatory response syndrome (SIRS) of non-infectious origin without acute organ dysfunction; E11.42 Type 2 diabetes mellitus with diabetic polyneuropathy; I11.0 Hypertensive heart disease with heart failure; K21.9 Gastro-esophageal reflux disease without esophagitis; I25.10 Atherosclerotic heart disease of native coronary artery without angina pectoris; N40.1 Benign prostatic hyperplasia with lower urinary tract symptoms; M19.90 Unspecified osteoarthritis, unspecified site; E78.5 Hyperlipidemia, unspecified; Z87.891 Personal history of nicotine dependence; Z79.01 Long term (current) use of anticoagulants; Z79.82 Long term (current) use of aspirin; Z79.4 Long term (current) use of insulin; Z79.84 Long term (current) use of oral hypoglycemic drugs; Z79.899 Other long term (current) drug therapy; Z11.52 Encounter for screening for COVID-19; Z99.81 Dependence on supplemental oxygen; Z86.711 Personal history of pulmonary embolism; N39.0 Urinary tract infection, site not specified; K59.00 Constipation, unspecified

== ENCOUNTER 2023-11-06 22:34 | Emergency (ER) | payer MEDICARE, MEDICAID ==
[~2023-11-06] VITALS: Ht 177.8 cm; Wt 59.0 kg
[~2023-11-06 22:34] MED LIST changes: +FARX1TAB5 PO; +LEVO1TAB40 PO; +PROB250C PO
[2023-11-06 22:43] VITALS: TEMP 97.2
[2023-11-06] MEDS: IPRATROPIUM 0.5MG/ALBUTEROL 2.5MG INH SOL UD 3ML (DUONEB) NEB ONE (23:07)
[2023-11-06] MEDS: ALBUTEROL SULFATE 2.5MG/0.5ML INH NEB SOLN INH ONE (23:07)
[2023-11-06] MEDS: dexAMETHasone 20MG/5ML VIAL IV ONE (23:12)
[2023-11-06 23:21] LABS: BASO # 0.1 10^3/uL (0.0-0.2); BASO % 1.3 % (0.0-1.0); EOS # 0.3 10^3/uL (0.0-0.5); EOS % 4.6 % (0.0-3.0); HEMATOCRIT 37.1 % (42.0-52.0); HEMOGLOBIN 11.7 g/dl (13.5-17.5); LYMPH # 1.5 10^3/uL (1.5-5.0); LYMPH % 23.8 % (24.0-44.0); MEAN CORPUSCULAR HEMOGLOBIN 28.7 pg (27.0-33.0); MEAN CORPUSCULAR HGB CONC 31.5 g/dl (32.0-36.5); MEAN CORPUSCULAR VOLUME 91.2 fl (80.0-96.0); MONO # 0.5 10^3/uL (0.0-0.8); MONO % 7.8 % (2.0-8.0); NEUTROPHILS # 3.9 10^3/uL (1.5-8.5); NEUTROPHILS % 62.2 % (36.0-66.0); PLATELET COUNT, AUTOMATED 206 10^3/uL (150-450); RED BLOOD COUNT 4.07 10^6/uL (4.30-6.10); WHITE BLOOD COUNT 6.3 10^3/uL (4.0-10.0)
[2023-11-06 23:29] LABS: VENOUS BASE EXCESS 8.3 (-2.0-2.0); VENOUS O2 SATURATION 95.6 % (60.0-80.0); VENOUS PARTIAL PRESSURE CO2 65.5 mmHg (38.0-50.0); VENOUS PARTIAL PRESSURE O2 78.1 mmHg (30.0-50.0); VENOUS PH 7.358 UNITS (7.330-7.430); VENOUS STANDARD HCO3 32.1 MMOL/L
[2023-11-06 23:38] LABS: INR 1.02; PROTHROMBIN TIME 13.1 SECONDS (12.5-14.5)
[2023-11-07 00:16] LABS: CK-MB VALUE MASS 1.1 NG/ML (<3.6)
[2023-11-07 00:20] LABS: ALBUMIN 3.7 G/DL (3.2-5.2); ALKALINE PHOSPHATASE 112 U/L (46-116); ALT/SGPT 11 U/L (7.0-40); AST/SGOT < 8 U/L (<34); BILIRUBIN,DIRECT 0.2 MG/DL (<0.4); BILIRUBIN,TOTAL 0.8 MG/DL (0.3-1.2); BLOOD UREA NITROGEN 12 MG/DL (9-23); CALCIUM LEVEL 9.3 MG/DL (8.3-10.6); CARBON DIOXIDE LEVEL 38 MMOL/L (20-31); CHLORIDE LEVEL 102 MMOL/L (98-107); CREATININE FOR GFR 0.57 MG/DL (0.70-1.30); GLOMERULAR FILTRATION RATE > 60.0 (>49); GLUCOSE, FASTING 288 MG/DL (74-106); POTASSIUM SERUM 4.2 MMOL/L (3.5-5.1); SODIUM LEVEL 143 MMOL/L (136-145); TOTAL PROTEIN 6.5 G/DL (5.7-8.2)
[2023-11-07 00:21] LABS: THYROID STIMULATING HORMONE 1.063 uIU/ML (0.55-4.78)
[2023-11-07 00:25] LABS: PROCALCITONIN 0.04 ng/ml
[2023-11-07 00:30] LABS: CPK CREATINE PHOSPHOKINASE 52 U/L (46-171); MB/CK RELATIVE INDEX 2.11 (< OR =4)
[2023-11-07 02:00] LABS: CK-MB VALUE MASS < 1.0 NG/ML (<3.6)
[2023-11-07 02:05] LABS: CPK CREATINE PHOSPHOKINASE 38 U/L (46-171); MB/CK RELATIVE INDEX 2.63 (< OR =4)
[2023-11-07 03:00] VITALS: BP 117/57; O2SAT 99
[2023-11-07] MEDS ORDERED: PRED20TA PO (03:10)
== END 2023-11-07 03:29 | disposition home or self-care (01) ==
LOC: EDBD 22:34 → M ED 22:34
DX: J44.1 Chronic obstructive pulmonary disease with (acute) exacerbation (principal); I11.0 Hypertensive heart disease with heart failure; I25.10 Atherosclerotic heart disease of native coronary artery without angina pectoris; K21.9 Gastro-esophageal reflux disease without esophagitis; N40.0 Benign prostatic hyperplasia without lower urinary tract symptoms; Z87.891 Personal history of nicotine dependence; Z79.01 Long term (current) use of anticoagulants; Z79.4 Long term (current) use of insulin; Z79.82 Long term (current) use of aspirin; Z79.899 Other long term (current) drug therapy
CPT/HCPCS: 71045; 80048; 80076; 82550; 82553; 82803; 83605; 83880; 84145; 84443; 84484; 85025; 85610; 87040; 87486; 87581; 87633; 87798; 93005; 93041; 94640; 94760; 96374; 99285; J1100

== ENCOUNTER 2023-11-14 17:45 | Emergency (ER) | payer MEDICARE, MEDICAID ==
[~2023-11-14] VITALS: Ht 175.3 cm; Wt 59.5 kg
[2023-11-14] MEDS: LIDOCAINE 2% 5ML JELLY UROJET TOP ONE (19:58)
[2023-11-14 20:28] VITALS: BP 130/76; TEMP 97; O2SAT 98
== END 2023-11-14 20:29 | disposition home or self-care (01) ==
LOC: M ED 17:45
DX: T83.091A Other mechanical complication of indwelling urethral catheter, initial encounter (principal); I25.2 Old myocardial infarction; E11.9 Type 2 diabetes mellitus without complications; I11.0 Hypertensive heart disease with heart failure; N40.1 Benign prostatic hyperplasia with lower urinary tract symptoms; Z87.448 Personal history of other diseases of urinary system; E78.5 Hyperlipidemia, unspecified; J44.9 Chronic obstructive pulmonary disease, unspecified; M54.50 Low back pain, unspecified; F41.9 Anxiety disorder, unspecified; F32.9 Major depressive disorder, single episode, unspecified; Z87.891 Personal history of nicotine dependence; Z79.01 Long term (current) use of anticoagulants; Z79.82 Long term (current) use of aspirin; Z79.4 Long term (current) use of insulin; Z79.899 Other long term (current) drug therapy

== ENCOUNTER 2023-11-17 19:45 | Emergency (ER) | payer MEDICARE, MEDICAID ==
[~2023-11-17] VITALS: Ht 175.3 cm; Wt 59.1 kg
[2023-11-17 19:47] VITALS: O2SAT 98
[2023-11-17 21:32] LABS: BASO # 0.1 10^3/uL (0.0-0.2); BASO % 0.8 % (0.0-1.0); EOS # 0.3 10^3/uL (0.0-0.5); EOS % 4.3 % (0.0-3.0); HEMATOCRIT 36.3 % (42.0-52.0); HEMOGLOBIN 11.4 g/dl (13.5-17.5); LYMPH # 1.4 10^3/uL (1.5-5.0); LYMPH % 17.6 % (24.0-44.0); MEAN CORPUSCULAR HEMOGLOBIN 28.9 pg (27.0-33.0); MEAN CORPUSCULAR HGB CONC 31.4 g/dl (32.0-36.5); MEAN CORPUSCULAR VOLUME 91.9 fl (80.0-96.0); MONO # 0.6 10^3/uL (0.0-0.8); MONO % 7.1 % (2.0-8.0); NEUTROPHILS # 5.5 10^3/uL (1.5-8.5); NEUTROPHILS % 69.9 % (36.0-66.0); PLATELET COUNT, AUTOMATED 190 10^3/uL (150-450); RED BLOOD COUNT 3.95 10^6/uL (4.30-6.10); WHITE BLOOD COUNT 7.9 10^3/uL (4.0-10.0)
[2023-11-17 21:55] LABS: BLOOD UREA NITROGEN 11 MG/DL (9-23); CALCIUM LEVEL 9.3 MG/DL (8.3-10.6); CARBON DIOXIDE LEVEL 40 MMOL/L (20-31); CHLORIDE LEVEL 99 MMOL/L (98-107); GLOMERULAR FILTRATION RATE > 60.0 (>49); GLUCOSE, FASTING 395 MG/DL (74-106); POTASSIUM SERUM 4.3 MMOL/L (3.5-5.1); SODIUM LEVEL 137 MMOL/L (136-145)
[2023-11-17] MEDS ORDERED: CIPR500T39 PO (23:56)
[2023-11-18] MEDS: CIPROFLOXACIN 500MG TABLET PO ONE (00:09)
[2023-11-18 00:14] VITALS: BP 124/88; TEMP 98.8
== END 2023-11-18 00:16 | disposition home or self-care (01) ==
LOC: M ED 19:45
DX: N39.0 Urinary tract infection, site not specified (principal); I50.9 Heart failure, unspecified; I25.2 Old myocardial infarction; E11.9 Type 2 diabetes mellitus without complications; I10 Essential (primary) hypertension; J44.9 Chronic obstructive pulmonary disease, unspecified; E78.5 Hyperlipidemia, unspecified; M54.50 Low back pain, unspecified; N40.0 Benign prostatic hyperplasia without lower urinary tract symptoms; Z87.891 Personal history of nicotine dependence; Z79.01 Long term (current) use of anticoagulants; N50.3 Cyst of epididymis; N44.1 Cyst of tunica albuginea testis; Z79.82 Long term (current) use of aspirin; Z79.4 Long term (current) use of insulin; Z79.899 Other long term (current) drug therapy

== ENCOUNTER 2023-11-21 22:38 | Emergency (ER) | payer MEDICARE, MEDICAID ==
[~2023-11-21] VITALS: Ht 175.3 cm; Wt 61.4 kg
[~2023-11-21 22:38] MED LIST changes: +CIPR500T39 PO
[2023-11-21 22:41] VITALS: TEMP 97.2
[2023-11-22 00:35] LABS: BASO # 0.1 10^3/uL (0.0-0.2); EOS # 0.3 10^3/uL (0.0-0.5); EOS % 4.5 % (0.0-3.0); HEMATOCRIT 39.1 % (42.0-52.0); HEMOGLOBIN 12.1 g/dl (13.5-17.5); LYMPH # 1.2 10^3/uL (1.5-5.0); LYMPH % 16.5 % (24.0-44.0); MEAN CORPUSCULAR HEMOGLOBIN 28.7 pg (27.0-33.0); MEAN CORPUSCULAR HGB CONC 30.9 g/dl (32.0-36.5); MEAN CORPUSCULAR VOLUME 92.7 fl (80.0-96.0); MONO # 0.5 10^3/uL (0.0-0.8); NEUTROPHILS # 5.2 10^3/uL (1.5-8.5); NEUTROPHILS % 70.7 % (36.0-66.0); PLATELET COUNT, AUTOMATED 211 10^3/uL (150-450); RED BLOOD COUNT 4.22 10^6/uL (4.30-6.10); WHITE BLOOD COUNT 7.3 10^3/uL (4.0-10.0)
[2023-11-22 00:41] LABS: ALKALINE PHOSPHATASE 141 U/L (46-116); ALT/SGPT 9 U/L (7.0-40); AST/SGOT < 8 U/L (<34); BILIRUBIN,TOTAL 0.7 MG/DL (0.3-1.2); BLOOD UREA NITROGEN 19 MG/DL (9-23); CALCIUM LEVEL 9.6 MG/DL (8.3-10.6); CARBON DIOXIDE LEVEL 38 MMOL/L (20-31); CHLORIDE LEVEL 103 MMOL/L (98-107); CREATININE FOR GFR 0.61 MG/DL (0.70-1.30); GLOMERULAR FILTRATION RATE > 60.0 (>49); GLUCOSE, FASTING 337 MG/DL (74-106); POTASSIUM SERUM 3.9 MMOL/L (3.5-5.1); SODIUM LEVEL 141 MMOL/L (136-145)
[2023-11-22] MEDS ORDERED: OXYB5TAB14 PO (02:05)
[2023-11-22] MEDS: oxyBUTYnin 5 MG TAB PO ONE (02:09)
[2023-11-22 02:18] VITALS: BP 143/89; O2SAT 95
== END 2023-11-22 02:27 | disposition home or self-care (01) ==
LOC: M ED 22:38
DX: R55 Syncope and collapse (principal); N32.89 Other specified disorders of bladder; J44.9 Chronic obstructive pulmonary disease, unspecified; F17.200 Nicotine dependence, unspecified, uncomplicated; Z79.82 Long term (current) use of aspirin; Z79.01 Long term (current) use of anticoagulants; Z79.4 Long term (current) use of insulin; Z79.899 Other long term (current) drug therapy

== ENCOUNTER → 2023-11-22 | Outpatient (REF) | payer MEDICARE, MEDICAID ==
[~2023-11-22] MED LIST changes: -DOXY-323 PO; +DOXY-441 PO; +HYDR-3713 PO; +OXYB5TAB14 PO
[2023-11-22 19:30] LABS: APPEARANCE, URINE TURBID (CLEAR); BACTERIA, URINE AUTO NEGATIVE (NEGATIVE); BILIRUBIN, URINE AUTO NEGATIVE (NEGATIVE); BLOOD, URINE BLOOD 2+ (NEGATIVE); COLOR, URINE YELLOW (YELLOW); GLUCOSE, URINE (UA) AUTO 3+ mg/dL (NEGATIVE); KETONE, URINE AUTO NEGATIVE (NEGATIVE); LEUKOCYTE ESTERASE, URINE AUTO 3+ (NEGATIVE); NITRITE, URINE AUTO NEGATIVE (NEGATIVE); PROTEIN, URINE AUTO 2+ mg/dL (NEGATIVE); RBC, URINE AUTO TNTC /HPF (0-3); SPECIFIC GRAVITY URINE AUTO 1.025 (1.002-1.035); SQUAMOUS EPITHELIAL CELL UR AU 0 /HPF (0-6); UROBILINOGEN, URINE AUTO 0.2 mg/dL (0.0-2.0); WBC, URINE AUTO TNTC /HPF (0-3)
== END ==
LOC: M SMT 17:02
PROVIDERS: ATTEND Urology
DX: R33.9 Retention of urine, unspecified (principal)

== ENCOUNTER 2024-01-02 15:51 | Emergency (ER) | payer MEDICARE, MEDICAID ==
[~2024-01-02 15:51] MED LIST changes: -HYDR-3713 PO
[2024-01-02 17:59] LABS: BASO # 0.1 10^3/uL (0.0-0.2); BASO % 0.9 % (0.0-1.0); EOS # 0.2 10^3/uL (0.0-0.5); EOS % 2.4 % (0.0-3.0); HEMATOCRIT 42.9 % (42.0-52.0); HEMOGLOBIN 13.4 g/dl (13.5-17.5); LYMPH # 1.4 10^3/uL (1.5-5.0); LYMPH % 16.3 % (24.0-44.0); MEAN CORPUSCULAR HEMOGLOBIN 28.1 pg (27.0-33.0); MEAN CORPUSCULAR HGB CONC 31.2 g/dl (32.0-36.5); MEAN CORPUSCULAR VOLUME 89.9 fl (80.0-96.0); MONO # 0.6 10^3/uL (0.0-0.8); MONO % 6.8 % (2.0-8.0); NEUTROPHILS # 6.4 10^3/uL (1.5-8.5); NEUTROPHILS % 73.4 % (36.0-66.0); PLATELET COUNT, AUTOMATED 206 10^3/uL (150-450); RED BLOOD COUNT 4.77 10^6/uL (4.30-6.10); WHITE BLOOD COUNT 8.7 10^3/uL (4.0-10.0)
[2024-01-02 18:09] LABS: PARTIAL THROMBOPLASTIN TIME 28.4 SECONDS (24.8-34.2); PROTHROMBIN TIME 12.9 SECONDS (12.5-14.5)
[2024-01-02 18:11] LABS: LIPASE 31 U/L (12-53)
[2024-01-02 18:13] LABS: AMYLASE 58 U/L (30-118)
[2024-01-02 18:14] LABS: ALKALINE PHOSPHATASE 180 U/L (46-116); ALT/SGPT 13 U/L (7.0-40); AST/SGOT < 8 U/L (<34); BILIRUBIN,DIRECT 0.3 MG/DL (<0.4); TOTAL PROTEIN 7.2 G/DL (5.7-8.2)
[2024-01-02] MEDS ORDERED: ISOVUE-370 76% 100ML VIAL As Ordered ONE (19:58)
[2024-01-02] MEDS: MORPHINE 2 MG/ML 1ML VIAL IV ONE (20:02)
[2024-01-02] MEDS: NS 1,000 ML IV ONE (20:03)
[2024-01-02] MEDS: cefTRIAXone SOD 1 GM in D5W MINI-BAG PLUS 50 ML IV ONE (21:28)
[2024-01-02] MEDS ORDERED: CIPR-249 PO (22:36)
[2024-01-02 22:49] VITALS: BP 173/82; TEMP 96; O2SAT 97
== END 2024-01-02 22:54 | disposition home or self-care (01) ==
LOC: M ED 15:51
DX: N39.0 Urinary tract infection, site not specified (principal); I25.10 Atherosclerotic heart disease of native coronary artery without angina pectoris; I50.9 Heart failure, unspecified; I25.2 Old myocardial infarction; E11.9 Type 2 diabetes mellitus without complications; I10 Essential (primary) hypertension; G62.9 Polyneuropathy, unspecified; K50.90 Crohn's disease, unspecified, without complications; M54.50 Low back pain, unspecified; J44.9 Chronic obstructive pulmonary disease, unspecified; N40.1 Benign prostatic hyperplasia with lower urinary tract symptoms; K20.90 Esophagitis, unspecified without bleeding; J84.10 Pulmonary fibrosis, unspecified; Z87.440 Personal history of urinary (tract) infections; Z87.442 Personal history of urinary calculi; Z79.82 Long term (current) use of aspirin; Z79.01 Long term (current) use of anticoagulants; Z79.4 Long term (current) use of insulin; Z79.899 Other long term (current) drug therapy
CPT/HCPCS: 74177; 80047; 80076; 81001; 82150; 83690; 85025; 85610; 85730; 87088; 87186; 96361; 96365; 96374; 99284; J0696; Q9967

== ENCOUNTER 2024-01-05 00:42 | Emergency (ER) | payer MEDICARE, MEDICAID ==
[~2024-01-05] VITALS: Ht 175.3 cm; Wt 61.6 kg
[2024-01-05 02:07] LABS: VENOUS BASE EXCESS 7.8 (-2.0-2.0); VENOUS HCO3 38.8 MMOL/L (23.0-27.0); VENOUS PARTIAL PRESSURE CO2 90.4 mmHg (38.0-50.0); VENOUS PARTIAL PRESSURE O2 25.5 mmHg (30.0-50.0); VENOUS PH 7.251 UNITS (7.330-7.430); VENOUS STANDARD HCO3 30.1 MMOL/L; VENOUS TOTAL CO2 41.6 MMOL/L (24.0-28.0)
[2024-01-05 02:21] LABS: BASO # 0.1 10^3/uL (0.0-0.2); BASO % 0.9 % (0.0-1.0); EOS # 0.3 10^3/uL (0.0-0.5); EOS % 3.4 % (0.0-3.0); HEMATOCRIT 42.5 % (42.0-52.0); HEMOGLOBIN 13.3 g/dl (13.5-17.5); LYMPH # 1.4 10^3/uL (1.5-5.0); LYMPH % 18.2 % (24.0-44.0); MEAN CORPUSCULAR HEMOGLOBIN 28.4 pg (27.0-33.0); MEAN CORPUSCULAR HGB CONC 31.3 g/dl (32.0-36.5); MEAN CORPUSCULAR VOLUME 90.6 fl (80.0-96.0); MONO # 0.6 10^3/uL (0.0-0.8); MONO % 7.9 % (2.0-8.0); NEUTROPHILS # 5.4 10^3/uL (1.5-8.5); NEUTROPHILS % 69.3 % (36.0-66.0); PLATELET COUNT, AUTOMATED 213 10^3/uL (150-450); RED BLOOD COUNT 4.69 10^6/uL (4.30-6.10); WHITE BLOOD COUNT 7.7 10^3/uL (4.0-10.0)
[2024-01-05 02:38] LABS: ALBUMIN 3.9 G/DL (3.2-5.2); ALKALINE PHOSPHATASE 186 U/L (46-116); ALT/SGPT 12 U/L (7.0-40); AST/SGOT < 8 U/L (<34); BILIRUBIN,DIRECT 0.2 MG/DL (<0.4); BILIRUBIN,TOTAL 0.6 MG/DL (0.3-1.2); BLOOD UREA NITROGEN 18 MG/DL (9-23); CALCIUM LEVEL 9.9 MG/DL (8.3-10.6); CARBON DIOXIDE LEVEL 39 MMOL/L (20-31); CHLORIDE LEVEL 97 MMOL/L (98-107); CK-MB VALUE MASS < 1.0 NG/ML (<3.6); CPK CREATINE PHOSPHOKINASE 35 U/L (46-171); CREATININE FOR GFR 0.54 MG/DL (0.70-1.30); GLOMERULAR FILTRATION RATE > 60.0 (>49); GLUCOSE, FASTING 395 MG/DL (74-106); MB/CK RELATIVE INDEX 2.85 (< OR =4); POTASSIUM SERUM 4.4 MMOL/L (3.5-5.1); SODIUM LEVEL 135 MMOL/L (136-145); TOTAL PROTEIN 7.2 G/DL (5.7-8.2)
[2024-01-05 04:05] LABS: ACETONE/KETONE 0.16 MMOL/L (0.02-0.27)
[2024-01-05 04:07] LABS: PROCALCITONIN <0.04 ng/ml
[2024-01-05 04:08] LABS: CK-MB VALUE MASS < 1.0 NG/ML (<3.6); CPK CREATINE PHOSPHOKINASE 44 U/L (46-171); MB/CK RELATIVE INDEX 2.27 (< OR =4)
[2024-01-05 04:10] LABS: ABG BASE EXCESS 3.4 (-2.0-2.0); ABG HCO3 30.5 MMOL/L (22.0-26.0); ABG PARTIAL PRESSURE CO2 57.4 mmHg (35.0-45.0); ABG PARTIAL PRESSURE O2 148.9 mmHg (75.0-100.0); ABG STANDARD HCO3 27.5 MMOL/L. (22.0-26.0); ABG TOTAL CO2 32.2 MMOL/L (23.0-31.0); ABG pH (ARTERIAL) 7.343 UNITS (7.350-7.450)
[2024-01-05 04:28] LABS: OSMOLALITY SERUM 304 MOSM/KG (280-301)
[2024-01-05] MEDS ORDERED: ISOVUE-370 76% 100ML VIAL As Ordered ONE (04:45)
[2024-01-05] MEDS: fentaNYL 100 MCG/2 ML INJECTION IV ONE (05:40)
[2024-01-05] MEDS: LevoFLOXacin IV 750 MG in IV 1 EA IV ONE (07:28)
[2024-01-05] MEDS ORDERED: CIPR500T39 PO (08:50)
[2024-01-05] MEDS ORDERED: OXYB5TAB14 PO ×2 (08:55→09:44)
[2024-01-05] MEDS ORDERED: HOME MED LIST COMPLETE! XX SCH (09:10)
[2024-01-05] MEDS: oxyBUTYnin 5 MG TAB PO ONE (09:21)
[2024-01-05] MEDS: LIDOCAINE 2% 5ML JELLY UROJET TOP ONE (09:21)
[2024-01-05] MEDS ORDERED: PRED10TA2 PO (09:44)
[2024-01-05] MEDS ORDERED: BACT800T5 PO (09:44)
[2024-01-05] MEDS ORDERED: HYDR-3713 PO (09:53)
[2024-01-05 10:14] VITALS: BP 137/70; TEMP 97.9; O2SAT 98
== END 2024-01-05 10:17 | disposition home or self-care (01) ==
LOC: EEVIPCON 00:42 → M ED 00:42
DX: N39.0 Urinary tract infection, site not specified (principal); J44.9 Chronic obstructive pulmonary disease, unspecified; E11.9 Type 2 diabetes mellitus without complications; I10 Essential (primary) hypertension; K21.9 Gastro-esophageal reflux disease without esophagitis; G62.9 Polyneuropathy, unspecified; N40.1 Benign prostatic hyperplasia with lower urinary tract symptoms; I25.10 Atherosclerotic heart disease of native coronary artery without angina pectoris; Z96.0 Presence of urogenital implants; Z87.440 Personal history of urinary (tract) infections; Z86.711 Personal history of pulmonary embolism; Z87.891 Personal history of nicotine dependence; Z79.01 Long term (current) use of anticoagulants; Z79.4 Long term (current) use of insulin; J43.9 Emphysema, unspecified; Z79.82 Long term (current) use of aspirin; Z79.899 Other long term (current) drug therapy
CPT/HCPCS: 51702; 71045; 71275; 74177; 80048; 80076; 82010; 82550; 82553; 82803; 83605; 83880; 83930; 84145; 84484; 85025; 87040; 87486; 87581; 87633; 87798; 93005; 93041; 94760; 96365; 96366; 96375; 99285; J1956; J3010; Q9967

== ENCOUNTER 2024-01-19 19:37 | Emergency (ER) | payer MEDICARE, MEDICAID ==
[~2024-01-19] VITALS: Ht 175.3 cm; Wt 54.4 kg
[~2024-01-19 19:37] MED LIST changes: +HYDR-3713 PO
[2024-01-19 21:38] VITALS: BP 100/63; TEMP 97.7; O2SAT 97
== END 2024-01-19 21:49 | disposition home or self-care (01) ==
LOC: M ED 19:37
DX: E11.649 Type 2 diabetes mellitus with hypoglycemia without coma (principal); I11.0 Hypertensive heart disease with heart failure; I25.2 Old myocardial infarction; E78.5 Hyperlipidemia, unspecified; E11.40 Type 2 diabetes mellitus with diabetic neuropathy, unspecified; J84.10 Pulmonary fibrosis, unspecified; N41.0 Acute prostatitis; Z79.4 Long term (current) use of insulin; Z79.82 Long term (current) use of aspirin; Z79.01 Long term (current) use of anticoagulants; Z79.899 Other long term (current) drug therapy

== ENCOUNTER → 2024-01-20 | Outpatient (REF) | payer MEDICARE, MEDICAID ==
[~2024-01-20] MED LIST changes: +ASPI81TA26 PO; +D-10TAB3 PO; +METF-877 PO; +NYST1POW3 TOP; -NYST1POW9 TOP; +SYMB16INH INH
[2024-01-20 18:22] LABS: AMORPHOUS SEDIMENT SMALL (NEGATIVE); APPEARANCE, URINE HAZY (CLEAR); BACTERIA, URINE AUTO 2+ (NEGATIVE); BILIRUBIN, URINE AUTO NEGATIVE (NEGATIVE); BLOOD, URINE BLOOD NEGATIVE (NEGATIVE); COLOR, URINE STRAW (YELLOW); GLUCOSE, URINE (UA) AUTO 1+ mg/dL (NEGATIVE); KETONE, URINE AUTO NEGATIVE (NEGATIVE); LEUKOCYTE ESTERASE, URINE AUTO 3+ (NEGATIVE); MUCUS, URINE SMALL (NEGATIVE); NITRITE, URINE AUTO POSITIVE (NEGATIVE); PROTEIN, URINE AUTO NEGATIVE (NEGATIVE); RBC, URINE AUTO 8 /HPF (0-3); SPECIFIC GRAVITY URINE AUTO 1.006 (1.002-1.035); SQUAMOUS EPITHELIAL CELL UR AU 0 /HPF (0-6); UROBILINOGEN, URINE AUTO 0.2 mg/dL (0.0-2.0); WBC, URINE AUTO 109 /HPF (0-3)
== END ==
LOC: M SMT 17:07
PROVIDERS: ATTEND Urology
DX: Z87.440 Personal history of urinary (tract) infections (principal); Z79.899 Other long term (current) drug therapy

== ENCOUNTER 2024-02-02 01:48 | Emergency (ER) | payer MEDICARE, MEDICAID ==
[~2024-02-02 01:48] MED LIST changes: -ASPI81TA26 PO; -D-10TAB3 PO; -METF-877 PO; -SYMB16INH INH
[2024-02-02 01:57] VITALS: TEMP 97.9
[2024-02-02 04:03] LABS: BASO # 0.1 10^3/uL (0.0-0.2); BASO % 0.9 % (0.0-1.0); EOS # 0.2 10^3/uL (0.0-0.5); EOS % 2.7 % (0.0-3.0); HEMATOCRIT 34.5 % (42.0-52.0); HEMOGLOBIN 11.3 g/dl (13.5-17.5); LYMPH # 1.5 10^3/uL (1.5-5.0); LYMPH % 22.9 % (24.0-44.0); MEAN CORPUSCULAR HEMOGLOBIN 28.6 pg (27.0-33.0); MEAN CORPUSCULAR HGB CONC 32.8 g/dl (32.0-36.5); MEAN CORPUSCULAR VOLUME 87.3 fl (80.0-96.0); MONO # 0.6 10^3/uL (0.0-0.8); MONO % 8.6 % (2.0-8.0); NEUTROPHILS # 4.4 10^3/uL (1.5-8.5); NEUTROPHILS % 64.8 % (36.0-66.0); PLATELET COUNT, AUTOMATED 163 10^3/uL (150-450); RED BLOOD COUNT 3.95 10^6/uL (4.30-6.10); WHITE BLOOD COUNT 6.7 10^3/uL (4.0-10.0)
[2024-02-02 04:23] LABS: BLOOD UREA NITROGEN 10 MG/DL (9-23); CALCIUM LEVEL 9.6 MG/DL (8.3-10.6); CARBON DIOXIDE LEVEL 26 MMOL/L (20-31); CHLORIDE LEVEL 104 MMOL/L (98-107); CREATININE FOR GFR 0.49 MG/DL (0.70-1.30); GLOMERULAR FILTRATION RATE > 60.0 (>49); GLUCOSE, FASTING 331 MG/DL (74-106); POTASSIUM SERUM 4.6 MMOL/L (3.5-5.1); SODIUM LEVEL 139 MMOL/L (136-145)
[2024-02-02 07:00] VITALS: BP 144/70; O2SAT 99
[2024-02-02 07:09] LABS: CK-MB VALUE MASS < 1.0 NG/ML (<3.6)
[2024-02-02 07:11] LABS: CPK CREATINE PHOSPHOKINASE 47 U/L (46-171); MB/CK RELATIVE INDEX 2.12 (< OR =4)
== END 2024-02-02 07:15 | disposition left against medical advice (07) ==
LOC: M ED 01:48
DX: R07.9 Chest pain, unspecified (principal); Z53.9 Procedure and treatment not carried out, unspecified reason; Z99.81 Dependence on supplemental oxygen; I25.10 Atherosclerotic heart disease of native coronary artery without angina pectoris; I50.9 Heart failure, unspecified; I25.2 Old myocardial infarction; E11.9 Type 2 diabetes mellitus without complications; I10 Essential (primary) hypertension; J44.9 Chronic obstructive pulmonary disease, unspecified; E78.5 Hyperlipidemia, unspecified; K21.9 Gastro-esophageal reflux disease without esophagitis; Z85.47 Personal history of malignant neoplasm of testis; N40.1 Benign prostatic hyperplasia with lower urinary tract symptoms; Z87.19 Personal history of other diseases of the digestive system; Z79.82 Long term (current) use of aspirin; Z79.01 Long term (current) use of anticoagulants; Z79.4 Long term (current) use of insulin; Z79.899 Other long term (current) drug therapy

== ENCOUNTER 2024-02-05 21:16 | Emergency (ER) | payer MEDICARE, MEDICAID ==
[~2024-02-05] VITALS: Ht 175.3 cm; Wt 61.2 kg
[2024-02-05 21:37] VITALS: TEMP 97.1
[2024-02-05 21:41] LABS: BASO # 0.1 10^3/uL (0.0-0.2); BASO % 0.8 % (0.0-1.0); EOS # 0.3 10^3/uL (0.0-0.5); EOS % 3.1 % (0.0-3.0); HEMATOCRIT 36.8 % (42.0-52.0); HEMOGLOBIN 11.7 g/dl (13.5-17.5); LYMPH % 22.8 % (24.0-44.0); MEAN CORPUSCULAR HEMOGLOBIN 28.5 pg (27.0-33.0); MEAN CORPUSCULAR HGB CONC 31.8 g/dl (32.0-36.5); MEAN CORPUSCULAR VOLUME 89.5 fl (80.0-96.0); MONO # 0.7 10^3/uL (0.0-0.8); MONO % 8.3 % (2.0-8.0); NEUTROPHILS # 5.6 10^3/uL (1.5-8.5); NEUTROPHILS % 64.8 % (36.0-66.0); PLATELET COUNT, AUTOMATED 213 10^3/uL (150-450); RED BLOOD COUNT 4.11 10^6/uL (4.30-6.10); WHITE BLOOD COUNT 8.6 10^3/uL (4.0-10.0)
[2024-02-05] MEDS ORDERED: D-10TAB3 PO (22:10)
[2024-02-05] MEDS ORDERED: ASPI81TA26 PO (22:10)
[2024-02-05] MEDS ORDERED: PANT40TA29 PO (22:10)
[2024-02-05] MEDS ORDERED: HYDR-3713 PO (22:10)
[2024-02-05] MEDS ORDERED: METF-877 PO (22:10)
[2024-02-05] MEDS ORDERED: MUCI600T31 PO (22:10)
[2024-02-05] MEDS ORDERED: ALBU2.5V10 INH (22:10)
[2024-02-05] MEDS ORDERED: FIAS100I2 SC (22:10)
[2024-02-05] MEDS ORDERED: VENTAER INH (22:10)
[2024-02-05] MEDS ORDERED: SYMB16INH INH (22:10)
[2024-02-05 22:11] LABS: LIPASE 34 U/L (12-53)
[2024-02-05 22:13] LABS: ALBUMIN 3.6 G/DL (3.2-5.2); ALKALINE PHOSPHATASE 120 U/L (40-129); ALT/SGPT 16 U/L (7.0-40); AST/SGOT 11 U/L (<34); BILIRUBIN,DIRECT 0.2 MG/DL (<0.4); BILIRUBIN,TOTAL 0.7 MG/DL (0.3-1.2); BLOOD UREA NITROGEN 13 MG/DL (9-23); CALCIUM LEVEL 9.4 MG/DL (8.3-10.6); CARBON DIOXIDE LEVEL 36 MMOL/L (20-31); CHLORIDE LEVEL 105 MMOL/L (98-107); GLOMERULAR FILTRATION RATE > 60.0 (>49); GLUCOSE, FASTING 117 MG/DL (74-106); POTASSIUM SERUM 4.4 MMOL/L (3.5-5.1); SODIUM LEVEL 142 MMOL/L (136-145); TOTAL PROTEIN 6.8 G/DL (5.7-8.2)
[2024-02-05 22:17] LABS: CK-MB VALUE MASS < 1.0 NG/ML (<3.6); CPK CREATINE PHOSPHOKINASE 57 U/L (46-171); MB/CK RELATIVE INDEX 1.75 (< OR =4)
[2024-02-05 22:26] LABS: PROCALCITONIN <0.04 ng/ml
[2024-02-05 22:58] LABS: INR 0.94; PARTIAL THROMBOPLASTIN TIME 25.6 SECONDS (24.8-34.2); PROTHROMBIN TIME 12.9 SECONDS (12.5-14.5)
[2024-02-05] MEDS: IPRATROPIUM 0.5MG/ALBUTEROL 2.5MG INH SOL UD 3ML (DUONEB) NEB SCH (23:06)
[2024-02-05] MEDS ORDERED: ISOVUE-370 76% 100ML VIAL As Ordered ONE (23:42)
[2024-02-06 00:01] VITALS: BP 126/63; O2SAT 100
[2024-02-06 02:24] LABS: CK-MB VALUE MASS < 1.0 NG/ML (<3.6); CPK CREATINE PHOSPHOKINASE 73 U/L (46-171); MB/CK RELATIVE INDEX 1.36 (< OR =4)
== END 2024-02-06 03:32 | disposition home or self-care (01) ==
LOC: M ED 21:16
DX: J44.1 Chronic obstructive pulmonary disease with (acute) exacerbation (principal); K59.00 Constipation, unspecified; I25.10 Atherosclerotic heart disease of native coronary artery without angina pectoris; I50.9 Heart failure, unspecified; E11.9 Type 2 diabetes mellitus without complications; I10 Essential (primary) hypertension; Z86.711 Personal history of pulmonary embolism; Z87.440 Personal history of urinary (tract) infections; N40.0 Benign prostatic hyperplasia without lower urinary tract symptoms; J44.9 Chronic obstructive pulmonary disease, unspecified; Z99.81 Dependence on supplemental oxygen; F17.200 Nicotine dependence, unspecified, uncomplicated
CPT/HCPCS: 70450; 71045; 71275; 74177; 80048; 80076; 81001; 82550; 82553; 83605; 83690; 84145; 84484; 85025; 85610; 85730; 87040; 87077; 87088; 87154; 87186; 87486; 87581; 87633; 87798; 93005; 94640; 99284; Q9967

== ENCOUNTER 2024-03-14 09:10 | Day surgery (SDC) | payer MEDICARE, MEDICAID ==
[~2024-03-14] VITALS: Ht 175.3 cm; Wt 59.3 kg
[~2024-03-14 09:10] MED LIST changes: +ASPI81TA26 PO; +D-10TAB3 PO; +METF-877 PO; +PHENYLEPHRINE 10% OPHTH SOL 5ML OD PRN; +SYMB16INH INH
[2024-03-14] MEDS ORDERED: fentaNYL 100 MCG/2 ML INJECTION As Ordered ONE (09:14)
[2024-03-14] MEDS ORDERED: MIDAZOLAM INJ 2MG/2ML VIAL As Ordered ONE (09:14)
[2024-03-14] MEDS ORDERED: GLUCAGON INJ 1MG VIAL SC PRN (11:20)
[2024-03-14] MEDS ORDERED: GLUCOSE 4 GM CHEW PO PRN (11:20)
[2024-03-14] MEDS ORDERED: DEXTROSE 50% 50ML SYRINGE IV PRN (11:20)
[2024-03-14] MEDS: PHENYLEPHRINE 2.5% OPHTH SOL 2ML OD SCH (11:54)
[2024-03-14] MEDS: OFLOXACIN 0.3 % (OCUFLOX) OPTH SOL 5ML OD ONE (11:54)
[2024-03-14] MEDS: LIDOCAINE 3.5 % 1ML OPHTH TOPICAL GEL OU ONE (11:54)
[2024-03-14] MEDS: CYCLOPENTOLATE 1% OPHTH SOLN 2ML BTL OD SCH (11:54)
[2024-03-14] MEDS: TROPICAMIDE 1% OPHTH SOLN 15ML OD SCH (11:55)
[2024-03-14] MEDS: INSULIN LISPRO (NovoLOG) PER UNIT SC PRN (11:55)
[2024-03-14] MEDS: CEFUROXIME 1MG/0.1ML INTRACAMERAL INJ As Ordered ONE (12:49)
[2024-03-14] MEDS: LIDOCAINE 1% SDV 5ML VIAL As Ordered ONE (12:49)
[2024-03-14] MEDS: BSS IRRIG/VANCO(10MG)/TOBRA(5MG)/EPINEPH(1:1000-0.5CC)500ML BAG-ORONLY As Ordered ONE (12:49)
[2024-03-14 13:25] VITALS: BP 105/58; TEMP 97.8; O2SAT 95
== END 2024-03-14 13:55 | disposition home or self-care (01) ==
LOC: M SDC 09:10
PROVIDERS: ATTEND Ophthalmology
DX: E11.36 Type 2 diabetes mellitus with diabetic cataract (principal); H25.11 Age-related nuclear cataract, right eye; I11.0 Hypertensive heart disease with heart failure; I50.9 Heart failure, unspecified; J44.9 Chronic obstructive pulmonary disease, unspecified; E78.5 Hyperlipidemia, unspecified; I25.2 Old myocardial infarction; F17.210 Nicotine dependence, cigarettes, uncomplicated; Z79.4 Long term (current) use of insulin; Z79.899 Other long term (current) drug therapy; Z79.51 Long term (current) use of inhaled steroids; Z79.01 Long term (current) use of anticoagulants; Z79.84 Long term (current) use of oral hypoglycemic drugs; Z99.81 Dependence on supplemental oxygen
CPT/HCPCS: 66984; J0697; J1815; J2250; J3010; V2632

== ENCOUNTER 2024-04-04 10:47 | Day surgery (SDC) | payer MEDICARE, MEDICAID ==
[~2024-04-04] VITALS: Ht 175.3 cm; Wt 61.1 kg
[~2024-04-04 10:47] MED LIST changes: +LEVO1TAB38 PO; -PHENYLEPHRINE 10% OPHTH SOL 5ML OD PRN; +PHENYLEPHRINE 10% OPHTH SOL 5ML OS PRN; +TAMS1CAP17 PO
[2024-04-04] MEDS ORDERED: MIDAZOLAM INJ 2MG/2ML VIAL As Ordered ONE (13:35)
[2024-04-04] MEDS ORDERED: fentaNYL 100 MCG/2 ML INJECTION As Ordered ONE (13:35)
[2024-04-04] MEDS: OFLOXACIN 0.3 % (OCUFLOX) OPTH SOL 5ML OS ONE (13:49)
[2024-04-04] MEDS: LIDOCAINE 3.5 % 1ML OPHTH TOPICAL GEL OU ONE (13:49)
[2024-04-04] MEDS: CYCLOPENTOLATE 1% OPHTH SOLN 2ML BTL OS SCH (13:50)
[2024-04-04] MEDS: PHENYLEPHRINE 2.5% OPHTH SOL 2ML OS SCH (13:50)
[2024-04-04] MEDS: TROPICAMIDE 1% OPHTH SOLN 15ML OS SCH (13:50)
[2024-04-04] MEDS: CEFUROXIME 1MG/0.1ML INTRACAMERAL INJ As Ordered ONE (13:52)
[2024-04-04] MEDS: BSS IRRIG/VANCO(10MG)/TOBRA(5MG)/EPINEPH(1:1000-0.5CC)500ML BAG-ORONLY As Ordered ONE (13:52)
[2024-04-04] MEDS: LIDOCAINE 1% SDV 5ML VIAL As Ordered ONE (13:52)
[2024-04-04 14:30] VITALS: BP 112/62; TEMP 97.8; O2SAT 99
== END 2024-04-04 15:15 | disposition home or self-care (01) ==
LOC: M SDC 10:47
PROVIDERS: ATTEND Ophthalmology
DX: E11.36 Type 2 diabetes mellitus with diabetic cataract (principal); H25.12 Age-related nuclear cataract, left eye; H57.03 Miosis; H21.81 Floppy iris syndrome; I25.10 Atherosclerotic heart disease of native coronary artery without angina pectoris; J96.12 Chronic respiratory failure with hypercapnia; J44.9 Chronic obstructive pulmonary disease, unspecified; I25.2 Old myocardial infarction; I10 Essential (primary) hypertension; N40.0 Benign prostatic hyperplasia without lower urinary tract symptoms; G47.30 Sleep apnea, unspecified; Z79.899 Other long term (current) drug therapy; Z79.01 Long term (current) use of anticoagulants; Z79.4 Long term (current) use of insulin; Z79.51 Long term (current) use of inhaled steroids; Z79.84 Long term (current) use of oral hypoglycemic drugs; Z79.82 Long term (current) use of aspirin; Z99.81 Dependence on supplemental oxygen; Z87.891 Personal history of nicotine dependence; Z90.89 Acquired absence of other organs
CPT/HCPCS: 66982; J0697; J2250; J3010; V2632

== ENCOUNTER → 2024-04-12 | Outpatient (REF) | payer MEDICARE, MEDICAID ==
[~2024-04-12] MED LIST changes: -PHENYLEPHRINE 10% OPHTH SOL 5ML OS PRN
[2024-04-12 17:34] LABS: APPEARANCE, URINE HAZY (CLEAR); BACTERIA, URINE AUTO NEGATIVE (NEGATIVE); BILIRUBIN, URINE AUTO NEGATIVE (NEGATIVE); BLOOD, URINE BLOOD NEGATIVE (NEGATIVE); COLOR, URINE STRAW (YELLOW); GLUCOSE, URINE (UA) AUTO 3+ mg/dL (NEGATIVE); KETONE, URINE AUTO NEGATIVE (NEGATIVE); LEUKOCYTE ESTERASE, URINE AUTO 3+ (NEGATIVE); MUCUS, URINE SMALL (NEGATIVE); NITRITE, URINE AUTO NEGATIVE (NEGATIVE); PROTEIN, URINE AUTO NEGATIVE (NEGATIVE); RBC, URINE AUTO 7 /HPF (0-3); SQUAMOUS EPITHELIAL CELL UR AU 0 /HPF (0-6); UROBILINOGEN, URINE AUTO 0.2 mg/dL (0.0-2.0); WBC, URINE AUTO 76 /HPF (0-3); YEAST LIKE CELL URINE AUTO SMALL
== END ==
LOC: M SMT 17:09
PROVIDERS: ATTEND Urology
DX: N40.0 Benign prostatic hyperplasia without lower urinary tract symptoms (principal)

== ENCOUNTER 2024-04-20 22:28 | Emergency (ER) | payer MEDICARE, MEDICAID ==
[2024-04-20 22:31] VITALS: BP 178/82; TEMP 97.5; O2SAT 94
[2024-04-20 23:08] LABS: BASO # 0.1 10^3/uL (0.0-0.2); BASO % 0.9 % (0.0-1.0); EOS # 0.2 10^3/uL (0.0-0.5); EOS % 2.1 % (0.0-3.0); HEMATOCRIT 37.7 % (42.0-52.0); HEMOGLOBIN 11.7 g/dl (13.5-17.5); LYMPH # 1.5 10^3/uL (1.5-5.0); LYMPH % 15.4 % (24.0-44.0); MEAN CORPUSCULAR HEMOGLOBIN 28.4 pg (27.0-33.0); MEAN CORPUSCULAR VOLUME 91.5 fl (80.0-96.0); MONO # 0.7 10^3/uL (0.0-0.8); MONO % 7.2 % (2.0-8.0); NEUTROPHILS # 7.2 10^3/uL (1.5-8.5); NEUTROPHILS % 74.1 % (36.0-66.0); PLATELET COUNT, AUTOMATED 222 10^3/uL (150-450); RED BLOOD COUNT 4.12 10^6/uL (4.30-6.10); WHITE BLOOD COUNT 9.7 10^3/uL (4.0-10.0)
[2024-04-20 23:47] LABS: CPK CREATINE PHOSPHOKINASE 48 U/L (46-171)
[2024-04-20 23:48] LABS: BLOOD UREA NITROGEN 11 MG/DL (9-23); CALCIUM LEVEL 9.5 MG/DL (8.3-10.6); CARBON DIOXIDE LEVEL > 40.0 MMOL/L (20-31); CHLORIDE LEVEL 95 MMOL/L (98-107); CK-MB VALUE MASS < 1.0 NG/ML (<3.6); CREATININE FOR GFR 0.57 MG/DL (0.70-1.30); GLOMERULAR FILTRATION RATE > 60.0 (>49); GLUCOSE, FASTING 392 MG/DL (74-106); MB/CK RELATIVE INDEX 2.08 (< OR =4); POTASSIUM SERUM 4.6 MMOL/L (3.5-5.1); SODIUM LEVEL 142 MMOL/L (136-145)
[2024-04-21 00:45] LABS: CK-MB VALUE MASS < 1.0 NG/ML (<3.6)
[2024-04-21 00:49] LABS: CPK CREATINE PHOSPHOKINASE 39 U/L (46-171); MB/CK RELATIVE INDEX 2.56 (< OR =4)
[2024-04-21] MEDS: IPRATROPIUM 0.5MG/ALBUTEROL 2.5MG INH SOL UD 3ML (DUONEB) NEB ONE ×2 (00:58→00:59)
[2024-04-21] MEDS: methylPREDNISolone 125MG 2ML VIAL IV ONE (01:07)
[2024-04-21] MEDS ORDERED: PRED10TA2 PO (02:31)
== END 2024-04-21 03:04 | disposition home or self-care (01) ==
LOC: M ED 22:28
DX: J44.1 Chronic obstructive pulmonary disease with (acute) exacerbation (principal); R06.00 Dyspnea, unspecified; R07.89 Other chest pain; I25.10 Atherosclerotic heart disease of native coronary artery without angina pectoris; I11.0 Hypertensive heart disease with heart failure; E11.9 Type 2 diabetes mellitus without complications; E78.5 Hyperlipidemia, unspecified; K21.9 Gastro-esophageal reflux disease without esophagitis; F32.A Depression, unspecified; Z79.01 Long term (current) use of anticoagulants; Z79.82 Long term (current) use of aspirin; Z79.4 Long term (current) use of insulin; Z79.899 Other long term (current) drug therapy
CPT/HCPCS: 71045; 80048; 82550; 82553; 83880; 84484; 85025; 87486; 87581; 87633; 87798; 93005; 93041; 94640; 94760; 96374; 99284; J2919

== ENCOUNTER 2024-05-03 17:43 | Emergency (ER) | payer MEDICARE, MEDICAID ==
[~2024-05-03] VITALS: Ht 175.3 cm; Wt 56.8 kg
[2024-05-03 18:17] LABS: BASO # 0.1 10^3/uL (0.0-0.2); BASO % 0.8 % (0.0-1.0); EOS # 0.2 10^3/uL (0.0-0.5); EOS % 1.7 % (0.0-3.0); LYMPH # 1.3 10^3/uL (1.5-5.0); LYMPH % 14.1 % (24.0-44.0); MEAN CORPUSCULAR HEMOGLOBIN 28.5 pg (27.0-33.0); MEAN CORPUSCULAR HGB CONC 31.1 g/dl (32.0-36.5); MEAN CORPUSCULAR VOLUME 91.5 fl (80.0-96.0); MONO # 0.6 10^3/uL (0.0-0.8); MONO % 6.5 % (2.0-8.0); NEUTROPHILS # 6.8 10^3/uL (1.5-8.5); NEUTROPHILS % 76.6 % (36.0-66.0); PLATELET COUNT, AUTOMATED 288 10^3/uL (150-450); RED BLOOD COUNT 4.92 10^6/uL (4.30-6.10); WHITE BLOOD COUNT 8.9 10^3/uL (4.0-10.0)
[2024-05-03 18:45] LABS: CK-MB VALUE MASS 2.1 NG/ML (<3.6)
[2024-05-03 18:48] LABS: BLOOD UREA NITROGEN 17 MG/DL (9-23); CALCIUM LEVEL 9.8 MG/DL (8.3-10.6); CARBON DIOXIDE LEVEL > 40.0 MMOL/L (20-31); CHLORIDE LEVEL 100 MMOL/L (98-107); CPK CREATINE PHOSPHOKINASE 47 U/L (46-171); CREATININE FOR GFR 0.53 MG/DL (0.70-1.30); GLOMERULAR FILTRATION RATE > 60.0 (>49); GLUCOSE, FASTING 340 MG/DL (74-106); MB/CK RELATIVE INDEX 4.46 (< OR =4); POTASSIUM SERUM 4.9 MMOL/L (3.5-5.1); SODIUM LEVEL 142 MMOL/L (136-145)
[2024-05-03 19:33] LABS: CK-MB VALUE MASS 1.7 NG/ML (<3.6)
[2024-05-03 19:50] LABS: THYROID STIMULATING HORMONE 1.138 uIU/ML (0.55-4.78)
[2024-05-03] MEDS: methylPREDNISolone 125MG 2ML VIAL IV ONE (22:31)
[2024-05-03] MEDS: LEVALBUTEROL 1.25MG 0.5ML CONCENTRATE NEB NEB ONE ×2 (22:32→22:35)
[2024-05-03] MEDS ORDERED: PRED20TA PO (22:58)
[2024-05-03] MEDS ORDERED: LEVO1TAB40 PO (22:58)
[2024-05-03 23:41] VITALS: BP 128/74; TEMP 97.5; O2SAT 100
== END 2024-05-04 00:32 | disposition home or self-care (01) ==
LOC: M ED 17:43
DX: J44.9 Chronic obstructive pulmonary disease, unspecified (principal); R07.89 Other chest pain; I25.10 Atherosclerotic heart disease of native coronary artery without angina pectoris; I11.0 Hypertensive heart disease with heart failure; E11.9 Type 2 diabetes mellitus without complications; K21.9 Gastro-esophageal reflux disease without esophagitis; N40.0 Benign prostatic hyperplasia without lower urinary tract symptoms; Z79.01 Long term (current) use of anticoagulants
CPT/HCPCS: 71045; 80048; 82550; 82553; 83880; 84443; 84484; 85025; 87486; 87581; 87633; 87798; 93005; 93041; 94640; 94760; 96374; 99285; J2919

== ENCOUNTER → 2024-05-16 | Outpatient (REF) | payer MEDICARE, MEDICAID ==
[2024-05-17 11:08] LABS: APPEARANCE, URINE MANUAL CLOUDY (CLEAR); BILIRUBIN, URINE MANUAL NEGATIVE (NEGATIVE); BLOOD URINE MANUAL TRACE (NEGATIVE); COLOR, URINE MANUAL YELLOW (YELLOW); GLUCOSE, URINE (UA) MANUAL 4+(1000 MG/DL) mg/dL (NEGATIVE); KETONE, URINE MANUAL NEGATIVE (NEGATIVE); LEUKOCYTE ESTERASE, URINE MAN POSITIVE (NEGATIVE); NITRITE, URINE MANUAL NEGATIVE (NEGATIVE); PROTEIN, URINE MANUAL TRACE mg/dL (NEGATIVE); UROBILINOGEN, URINE MANUAL NORMAL (NORMAL)
[2024-05-17 11:35] LABS: BACTERIA, URINE NONE SEEN; HYALINE CAST, URINE NONE SEEN /lpf (0-1); SQUAMOUS EPITHELIAL CELL URINE NONE SEEN /hpf (SMALL AMT); WBC, URINE TNTC /hpf (0-3); YEAST, URINE SMALL AMOUNT
== END ==
LOC: M SMT 09:20
PROVIDERS: ATTEND Urology
DX: R33.9 Retention of urine, unspecified (principal)

== ENCOUNTER 2024-05-30 22:57 | Emergency (ER) | payer MEDICARE, MEDICAID ==
[~2024-05-30] VITALS: Ht 175.3 cm; Wt 55.0 kg
[2024-05-30 23:00] VITALS: BP 132/63; TEMP 98.2; O2SAT 98
== END 2024-05-31 01:15 | disposition left against medical advice (07) ==
LOC: M ED 22:57
DX: Z53.21 Procedure and treatment not carried out due to patient leaving prior to being seen by health care provider (principal)

== ENCOUNTER 2024-06-09 01:07 | Inpatient (IN) | payer MEDICARE, MEDICAID ==
[~2024-06-09] VITALS: Ht 175.3 cm; Wt 96.6 kg
[2024-06-09 02:14] LABS: BASO # 0.1 10^3/uL (0.0-0.2); EOS # 0.2 10^3/uL (0.0-0.5); EOS % 3.2 % (0.0-3.0); HEMOGLOBIN 12.3 g/dl (13.5-17.5); LYMPH # 1.4 10^3/uL (1.5-5.0); LYMPH % 19.2 % (24.0-44.0); MEAN CORPUSCULAR HEMOGLOBIN 28.8 pg (27.0-33.0); MEAN CORPUSCULAR HGB CONC 30.8 g/dl (32.0-36.5); MEAN CORPUSCULAR VOLUME 93.7 fl (80.0-96.0); MONO # 0.7 10^3/uL (0.0-0.8); MONO % 9.2 % (2.0-8.0); NEUTROPHILS # 4.8 10^3/uL (1.5-8.5); NEUTROPHILS % 67.3 % (36.0-66.0); PLATELET COUNT, AUTOMATED 215 10^3/uL (150-450); RED BLOOD COUNT 4.27 10^6/uL (4.30-6.10); WHITE BLOOD COUNT 7.1 10^3/uL (4.0-10.0)
[2024-06-09] MEDS: methylPREDNISolone 125MG 2ML VIAL IV ONE (02:39)
[2024-06-09] MEDS: ALBUTEROL SULFATE 2.5MG/0.5ML INH NEB SOLN NEB ONE (02:59)
[2024-06-09 03:05] LABS: ALKALINE PHOSPHATASE 137 U/L (40-129); ALT/SGPT 12 U/L (7.0-40); AST/SGOT < 8 U/L (<34); BILIRUBIN,DIRECT 0.2 MG/DL (<0.4); BILIRUBIN,TOTAL 0.7 MG/DL (0.3-1.2); BLOOD UREA NITROGEN 16 MG/DL (9-23); CALCIUM LEVEL 9.2 MG/DL (8.3-10.6); CARBON DIOXIDE LEVEL 40 MMOL/L (20-31); CHLORIDE LEVEL 98 MMOL/L (98-107); CPK CREATINE PHOSPHOKINASE 45 U/L (46-171); CREATININE FOR GFR 0.61 MG/DL (0.70-1.30); GLOMERULAR FILTRATION RATE > 60.0 (>49); GLUCOSE, FASTING 306 MG/DL (74-106); MB/CK RELATIVE INDEX 2.22 (< OR =4); POTASSIUM SERUM 4.2 MMOL/L (3.5-5.1); SODIUM LEVEL 140 MMOL/L (136-145); TOTAL PROTEIN 6.8 G/DL (5.7-8.2)
[2024-06-09 03:16] LABS: CK-MB VALUE MASS < 1.0 NG/ML (<3.6)
[2024-06-09 03:17] LABS: CPK CREATINE PHOSPHOKINASE 41 U/L (46-171); MB/CK RELATIVE INDEX 2.43 (< OR =4)
[2024-06-09] MEDS: ACETAMINOPHEN 325 MG TAB PO ONE (03:24)
[2024-06-09] MEDS ORDERED: ISOVUE-370 76% 100ML VIAL As Ordered ONE (03:52)
[2024-06-09] MEDS ORDERED: GLUCOSE 4 GM CHEW PO PRN (06:30)
[2024-06-09] MEDS ORDERED: DEXTROSE 50% 50ML SYRINGE IV PRN (06:30)
[2024-06-09] MEDS ORDERED: ALBUTEROL SULFATE 2.5MG/0.5ML INH NEB SOLN NEB PRN (06:30)
[2024-06-09] MEDS ORDERED: GLUCAGON INJ 1MG VIAL SC PRN (06:30)
[2024-06-09] MEDS ORDERED: MOM 30ML SUSPENSION UDC PO PRN (06:30)
[2024-06-09] MEDS ORDERED: FARX1TAB3 PO (07:46)
[2024-06-09] MEDS ORDERED: PREDOPD OS (07:46)
[2024-06-09] MEDS ORDERED: FAMO40TA3 PO (07:46)
[2024-06-09] MEDS ORDERED: OFLO5DRO OS (07:48)
[2024-06-09] MEDS ORDERED: HOME MED LIST COMPLETE! XX SCH (07:50)
[2024-06-09] MEDS: INSULIN LISPRO (NovoLOG) PER UNIT SC SCH ×2 (07:54→20:21)
[2024-06-09] MEDS: APIXABAN 5 MG TAB (ELIQUIS) PO SCH (07:55)
[2024-06-09] MEDS: methylPREDNISolone 125MG 2ML VIAL IV SCH (07:55)
[2024-06-09] MEDS: IPRATROPIUM 0.5MG/ALBUTEROL 2.5MG INH SOL UD 3ML (DUONEB) NEB SCH (09:18)
[2024-06-09] MEDS: SYMBICORT 160/4.5MCG INHALER 6GM INH SCH (09:19)
[2024-06-09 09:40] VITALS: BP 136/78; TEMP 98.1; O2SAT 95
[2024-06-09] MEDS ORDERED: ALBUTEROL 90 MCG/ACT 8GM HFA INHALER INH PRN (10:35)
[2024-06-09] MEDS: TAMSULOSIN 0.4 MG CAP PO SCH (11:16)
[2024-06-09] MEDS: DULoxetine 20MG CAP (CYMBALTA) PO SCH (11:16)
[2024-06-09] MEDS: DAPAGLIFLOZIN PROPANEDIOL 10MG TABLET (FARXIGA) PO SCH (11:16)
[2024-06-09] MEDS: PANTOPRAZOLE 40MG TAB (PROTONIX) PO SCH (11:17)
[2024-06-09] MEDS: lisinopriL 5 MG TAB PO SCH (11:17)
[2024-06-09] MEDS: oxyBUTYnin 5 MG TAB PO SCH (11:17)
[2024-06-09] MEDS: FINASTERIDE 5MG TAB PO SCH (11:17)
[2024-06-09] MEDS: ATORVASTATIN 20 MG TAB PO SCH (11:17)
[2024-06-09] MEDS: NS (Normal Saline) 0.9% 1,000 ML IV SCH (12:17)
[2024-06-09] MEDS ORDERED: prednisoLONE ACET 1% OPHTH SUSP 5ML OS SCH (13:00)
[2024-06-09] MEDS ORDERED: OFLOXACIN 0.3 % (OCUFLOX) OPTH SOL 5ML OS SCH (13:00)
[2024-06-09 14:00] VITALS: BP 142/62; TEMP 98.1; O2SAT 98
[2024-06-09] MEDS: LanTUS (INSULIN GLARGINE INJ) 1 UNITS/0.01 ML SC SCH (14:26)
[2024-06-09 14:32] LABS: VENOUS BASE EXCESS 3.2 (-2.0-2.0); VENOUS HCO3 30.8 MMOL/L (23.0-27.0); VENOUS O2 SATURATION 96.3 % (60.0-80.0); VENOUS PARTIAL PRESSURE CO2 62.1 mmHg (38.0-50.0); VENOUS PARTIAL PRESSURE O2 87.9 mmHg (30.0-50.0); VENOUS PH 7.313 UNITS (7.330-7.430); VENOUS STANDARD HCO3 27.3 MMOL/L; VENOUS TOTAL CO2 32.7 MMOL/L (24.0-28.0)
[2024-06-09 15:08] LABS: BLOOD UREA NITROGEN 20 MG/DL (9-23); CALCIUM LEVEL 8.8 MG/DL (8.3-10.6); CARBON DIOXIDE LEVEL 34 MMOL/L (20-31); CHLORIDE LEVEL 100 MMOL/L (98-107); CREATININE FOR GFR 0.53 MG/DL (0.70-1.30); GLOMERULAR FILTRATION RATE > 60.0 (>49); GLUCOSE, FASTING 428 MG/DL (74-106); POTASSIUM SERUM 3.8 MMOL/L (3.5-5.1); SODIUM LEVEL 142 MMOL/L (136-145)
[2024-06-09 16:00] VITALS: BP 120/54; TEMP 97.9; O2SAT 96
[2024-06-09 19:33] VITALS: BP 123/55; TEMP 98.8; O2SAT 93
[2024-06-09] MEDS: FAMOTIDINE 20 MG TAB PO SCH (20:26)
[2024-06-09] MEDS: AMITRIPTYLINE 25MG TABLET PO SCH (20:26)
[2024-06-09 23:49] VITALS: BP 134/70; TEMP 98.8; O2SAT 94
[2024-06-10 04:28] VITALS: BP 133/70; TEMP 98.8; O2SAT 96
[2024-06-10 08:00] VITALS: BP 129/60; TEMP 98.1; O2SAT 94
[2024-06-10] MEDS: ASPIRIN 81MG ENTERIC TABLET PO SCH (08:35)
[2024-06-10] MEDS: ACETAMINOPHEN 325 MG TAB PO PRN (08:36)
[2024-06-10 12:00] VITALS: BP 114/61; TEMP 98.1; O2SAT 94
[2024-06-10 18:00] VITALS: BP 149/78; TEMP 97.9; O2SAT 95
[2024-06-10 20:10] VITALS: BP 146/90; TEMP 98.4; O2SAT 93
[2024-06-10 23:30] VITALS: BP 153/83; TEMP 97.7; O2SAT 97
[2024-06-11 05:00] VITALS: BP 150/82; TEMP 97.9; O2SAT 97
[2024-06-11 08:00] VITALS: BP 152/83; TEMP 98.2; O2SAT 96
[2024-06-11 08:15] VITALS: BP 150/82
[2024-06-11] MEDS ORDERED: PRED20TA PO (10:14)
[2024-06-11] MEDS ORDERED: BASA100I SC (10:14)
[2024-06-12] MEDS ORDERED: predniSONE 20 MG TAB PO SCH (09:00)
== END 2024-06-11 11:39 | disposition home or self-care (01) | DRG 191 ==
LOC: M ED 01:07 → EEVIPCON 06:29 → M ED INP 06:29 → M MSPAV 09:37
PROVIDERS: ADMIT Internal Medicine; ATTEND Student in an Organized Health Care Education/Training Program
DX: J44.1 Chronic obstructive pulmonary disease with (acute) exacerbation (principal); J96.11 Chronic respiratory failure with hypoxia; I50.32 Chronic diastolic (congestive) heart failure; E11.42 Type 2 diabetes mellitus with diabetic polyneuropathy; I11.0 Hypertensive heart disease with heart failure; K21.9 Gastro-esophageal reflux disease without esophagitis; I25.10 Atherosclerotic heart disease of native coronary artery without angina pectoris; N40.1 Benign prostatic hyperplasia with lower urinary tract symptoms; Z99.81 Dependence on supplemental oxygen; Z86.711 Personal history of pulmonary embolism; Z79.01 Long term (current) use of anticoagulants; Z79.82 Long term (current) use of aspirin; Z79.4 Long term (current) use of insulin; Z79.84 Long term (current) use of oral hypoglycemic drugs; Z79.52 Long term (current) use of systemic steroids; Z79.899 Other long term (current) drug therapy

== ENCOUNTER 2024-07-10 23:01 | Emergency (ER) | payer MEDICARE, MEDICAID ==
[~2024-07-10] VITALS: Ht 175.3 cm; Wt 54.5 kg
[~2024-07-10 23:01] MED LIST changes: +FAMO40TA3 PO; +FARX1TAB3 PO; +OFLO5DRO OS; +PREDOPD OS
[2024-07-11 01:24] VITALS: TEMP 97.2
[2024-07-11] MEDS: IPRATROPIUM 0.5MG/ALBUTEROL 2.5MG INH SOL UD 3ML NEB PRN (02:45)
[2024-07-11] MEDS: methylPREDNISolone 125MG 2ML VIAL IV ONE (03:06)
[2024-07-11 03:11] LABS: VENOUS BASE EXCESS 4.4 (-2.0-2.0); VENOUS HCO3 32.9 MMOL/L (23.0-27.0); VENOUS PARTIAL PRESSURE CO2 68.1 mmHg (38.0-50.0); VENOUS PH 7.302 UNITS (7.330-7.430); VENOUS STANDARD HCO3 28.2 MMOL/L
[2024-07-11 03:13] LABS: BASO # 0.1 10^3/uL (0.0-0.2); BASO % 1.2 % (0.0-1.0); EOS # 0.3 10^3/uL (0.0-0.5); EOS % 3.9 % (0.0-3.0); HEMATOCRIT 39.5 % (42.0-52.0); HEMOGLOBIN 12.3 g/dl (13.5-17.5); LYMPH # 1.4 10^3/uL (1.5-5.0); LYMPH % 20.6 % (24.0-44.0); MEAN CORPUSCULAR HEMOGLOBIN 28.8 pg (27.0-33.0); MEAN CORPUSCULAR HGB CONC 31.1 g/dl (32.0-36.5); MEAN CORPUSCULAR VOLUME 92.5 fl (80.0-96.0); MONO # 0.5 10^3/uL (0.0-0.8); MONO % 7.7 % (2.0-8.0); NEUTROPHILS # 4.6 10^3/uL (1.5-8.5); NEUTROPHILS % 66.3 % (36.0-66.0); PLATELET COUNT, AUTOMATED 196 10^3/uL (150-450); RED BLOOD COUNT 4.27 10^6/uL (4.30-6.10); WHITE BLOOD COUNT 6.9 10^3/uL (4.0-10.0)
[2024-07-11 04:03] LABS: ALBUMIN 3.8 G/DL (3.2-5.2); ALKALINE PHOSPHATASE 129 U/L (40-129); ALT/SGPT 13 U/L (7.0-40); AST/SGOT < 8 U/L (<34); BILIRUBIN,DIRECT 0.2 MG/DL (<0.4); BILIRUBIN,TOTAL 0.7 MG/DL (0.3-1.2); BLOOD UREA NITROGEN 9 MG/DL (9-23); CALCIUM LEVEL 8.8 MG/DL (8.3-10.6); CARBON DIOXIDE LEVEL 37 MMOL/L (20-31); CHLORIDE LEVEL 99 MMOL/L (98-107); CK-MB VALUE MASS < 1.0 NG/ML (<3.6); CPK CREATINE PHOSPHOKINASE 40 U/L (46-171); CREATININE FOR GFR 0.44 MG/DL (0.70-1.30); GLOMERULAR FILTRATION RATE > 90.0 (>49); GLUCOSE, FASTING 407 MG/DL (74-106); POTASSIUM SERUM 4.7 MMOL/L (3.5-5.1); SODIUM LEVEL 139 MMOL/L (136-145); TOTAL PROTEIN 6.5 G/DL (5.7-8.2)
[2024-07-11 05:30] VITALS: BP 146/72; O2SAT 94
[2024-07-11 05:31] LABS: CK-MB VALUE MASS < 1.0 NG/ML (<3.6); CPK CREATINE PHOSPHOKINASE 55 U/L (46-171); MB/CK RELATIVE INDEX 1.81 (< OR =4)
== END 2024-07-11 05:55 | disposition home or self-care (01) ==
LOC: M ED 23:01
DX: J44.1 Chronic obstructive pulmonary disease with (acute) exacerbation (principal); I10 Essential (primary) hypertension; E11.9 Type 2 diabetes mellitus without complications; F10.10 Alcohol abuse, uncomplicated; Z86.79 Personal history of other diseases of the circulatory system; Z79.52 Long term (current) use of systemic steroids; Z79.82 Long term (current) use of aspirin; Z79.02 Long term (current) use of antithrombotics/antiplatelets; Z79.899 Other long term (current) drug therapy
CPT/HCPCS: 71045; 80048; 80076; 82550; 82553; 82803; 83605; 83880; 84484; 85025; 87040; 87486; 87581; 87633; 87798; 93005; 93041; 94640; 94760; 96374; 99285; J2919

== ENCOUNTER 2024-07-24 20:37 | Emergency (ER) | payer MEDICARE, MEDICAID ==
[~2024-07-24] VITALS: Ht 175.3 cm; Wt 61.9 kg
[~2024-07-24 20:37] MED LIST changes: -FLOM0.4C39 PO; +TAMS-18 PO
[2024-07-25 00:48] LABS: BASO # 0.1 10^3/uL (0.0-0.2); BASO % 0.4 % (0.0-1.0); EOS # 0.1 10^3/uL (0.0-0.5); EOS % 0.3 % (0.0-3.0); HEMATOCRIT 37.4 % (42.0-52.0); HEMOGLOBIN 11.8 g/dl (13.5-17.5); LYMPH # 0.6 10^3/uL (1.5-5.0); LYMPH % 3.3 % (24.0-44.0); MEAN CORPUSCULAR HGB CONC 31.6 g/dl (32.0-36.5); MEAN CORPUSCULAR VOLUME 91.9 fl (80.0-96.0); MONO # 0.2 10^3/uL (0.0-0.8); MONO % 1.1 % (2.0-8.0); NEUTROPHILS # 15.7 10^3/uL (1.5-8.5); NEUTROPHILS % 94.5 % (36.0-66.0); PLATELET COUNT, AUTOMATED 231 10^3/uL (150-450); RED BLOOD COUNT 4.07 10^6/uL (4.30-6.10); WHITE BLOOD COUNT 16.6 10^3/uL (4.0-10.0)
[2024-07-25 01:13] LABS: ALBUMIN 3.6 G/DL (3.2-5.2); ALKALINE PHOSPHATASE 153 U/L (40-129); ALT/SGPT 9 U/L (7.0-40); AST/SGOT < 8 U/L (<34); BILIRUBIN,DIRECT 0.2 MG/DL (<0.4); BILIRUBIN,TOTAL 0.6 MG/DL (0.3-1.2); BLOOD UREA NITROGEN 15 MG/DL (9-23); CALCIUM LEVEL 9.3 MG/DL (8.3-10.6); CARBON DIOXIDE LEVEL 38 MMOL/L (20-31); CHLORIDE LEVEL 96 MMOL/L (98-107); CREATININE FOR GFR 0.48 MG/DL (0.70-1.30); GLOMERULAR FILTRATION RATE > 90.0 (>49); GLUCOSE, FASTING 443 MG/DL (74-106); POTASSIUM SERUM 4.9 MMOL/L (3.5-5.1); SODIUM LEVEL 139 MMOL/L (136-145); TOTAL PROTEIN 6.6 G/DL (5.7-8.2)
[2024-07-25] MEDS ORDERED: INSU100I60 SC (01:47)
[2024-07-25] MEDS ORDERED: HOME MED LIST COMPLETE! XX SCH (01:50)
[2024-07-25 04:00] VITALS: BP 143/70
[2024-07-25 04:07] VITALS: TEMP 97.8; O2SAT 96
[2024-07-25] MEDS: HumuLIN R (REGULAR) INSULIN (NovoLIN R) **100U/ML** PER UNIT IV ONE (04:09)
== END 2024-07-25 04:47 | disposition home or self-care (01) ==
LOC: M ED 20:37 → EDBD 20:37 → M ED 07-25 04:47
DX: J44.1 Chronic obstructive pulmonary disease with (acute) exacerbation (principal); E11.65 Type 2 diabetes mellitus with hyperglycemia; Z99.81 Dependence on supplemental oxygen; Z91.199 Patient's noncompliance with other medical treatment and regimen due to unspecified reason
CPT/HCPCS: 71045; 71250; 80048; 80076; 85025; 93005; 93041; 94760; 96374; 99285; J1815

== ENCOUNTER 2024-07-26 23:51 | Observation (INO) | payer MEDICARE, MEDICAID ==
[~2024-07-26] VITALS: Ht 175.3 cm; Wt 62.6 kg
[~2024-07-26 23:51] MED LIST changes: +INSU100I60 SC
[2024-07-27 00:25] LABS: VENOUS BASE EXCESS 5.1 (-2.0-2.0); VENOUS HCO3 34.1 MMOL/L (23.0-27.0); VENOUS O2 SATURATION 84.6 % (60.0-80.0); VENOUS PARTIAL PRESSURE CO2 75.7 mmHg (38.0-50.0); VENOUS PH 7.272 UNITS (7.330-7.430); VENOUS STANDARD HCO3 28.8 MMOL/L; VENOUS TOTAL CO2 36.5 MMOL/L (24.0-28.0)
[2024-07-27 00:32] LABS: BASO # 0.1 10^3/uL (0.0-0.2); BASO % 0.9 % (0.0-1.0); EOS # 0.2 10^3/uL (0.0-0.5); EOS % 2.3 % (0.0-3.0); HEMATOCRIT 34.6 % (42.0-52.0); HEMOGLOBIN 10.7 g/dl (13.5-17.5); LYMPH # 1.2 10^3/uL (1.5-5.0); LYMPH % 12.8 % (24.0-44.0); MEAN CORPUSCULAR HEMOGLOBIN 28.4 pg (27.0-33.0); MEAN CORPUSCULAR HGB CONC 30.9 g/dl (32.0-36.5); MEAN CORPUSCULAR VOLUME 91.8 fl (80.0-96.0); MONO # 0.7 10^3/uL (0.0-0.8); MONO % 7.5 % (2.0-8.0); NEUTROPHILS # 7.3 10^3/uL (1.5-8.5); PLATELET COUNT, AUTOMATED 238 10^3/uL (150-450); RED BLOOD COUNT 3.77 10^6/uL (4.30-6.10); WHITE BLOOD COUNT 9.6 10^3/uL (4.0-10.0)
[2024-07-27] MEDS: IPRATROPIUM 0.5MG/ALBUTEROL 2.5MG INH SOL UD 3ML NEB ONE (00:40)
[2024-07-27 00:53] LABS: CK-MB VALUE MASS < 1.0 NG/ML (<3.6)
[2024-07-27 00:55] LABS: CPK CREATINE PHOSPHOKINASE 34 U/L (46-171); MB/CK RELATIVE INDEX 2.94 (< OR =4)
[2024-07-27 01:05] LABS: ALBUMIN 3.3 G/DL (3.2-5.2); ALKALINE PHOSPHATASE 139 U/L (40-129); ALT/SGPT 11 U/L (7.0-40); AST/SGOT < 8 U/L (<34); BILIRUBIN,DIRECT 0.1 MG/DL (<0.4); BILIRUBIN,TOTAL 0.4 MG/DL (0.3-1.2); BLOOD UREA NITROGEN 22 MG/DL (9-23); CALCIUM LEVEL 9.2 MG/DL (8.3-10.6); CARBON DIOXIDE LEVEL 34 MMOL/L (20-31); CHLORIDE LEVEL 94 MMOL/L (98-107); CREATININE FOR GFR 0.54 MG/DL (0.70-1.30); GLOMERULAR FILTRATION RATE > 90.0 (>49); GLUCOSE, FASTING 678 MG/DL (74-106); POTASSIUM SERUM 4.2 MMOL/L (3.5-5.1); SODIUM LEVEL 135 MMOL/L (136-145); TOTAL PROTEIN 6.1 G/DL (5.7-8.2)
[2024-07-27] MEDS: NS (Normal Saline) 0.9% 1,700 ML in IV 1 EA IV ONE (01:10)
[2024-07-27] MEDS ORDERED: ISOVUE-370 76% 100ML VIAL As Ordered ONE (01:18)
[2024-07-27 01:38] LABS: KETONE, URINE AUTO RFX NEGATIVE (NEGATIVE); NITRITE, URINE AUTO RFX NEGATIVE (NEGATIVE); RBC, URINE AUTO RFX 3 /HPF (0-3); SQUAM EPITHELIAL CELL UR AURFX 0 /HPF (0-6)
[2024-07-27 01:44] LABS: ACETONE/KETONE 0.14 MMOL/L (0.02-0.27)
[2024-07-27 02:27] LABS: OSMOLALITY SERUM 320 MOSM/KG (280-301)
[2024-07-27 02:59] LABS: LEUKOCYTE ESTERASE UR AUTO RFX 2+ (NEGATIVE)
[2024-07-27] MEDS: HumuLIN R (REGULAR) INSULIN (NovoLIN R) **100U/ML** PER UNIT IV ONE (02:59)
[2024-07-27 03:00] LABS: WBC, URINE AUTO RFX 48 /HPF (0-3)
[2024-07-27] MEDS ORDERED: GLUCOSE 4 GM CHEW PO PRN (05:00)
[2024-07-27] MEDS ORDERED: GLUCAGON INJ 1MG VIAL SC PRN (05:00)
[2024-07-27] MEDS ORDERED: DEXTROSE 50% 50ML SYRINGE IV PRN (05:00)
[2024-07-27 05:43] VITALS: BP 129/73; TEMP 97.9; O2SAT 97
[2024-07-27] MEDS ORDERED: HOME MED LIST COMPLETE! XX SCH (05:50)
[2024-07-27] MEDS: NS (Normal Saline) 0.9% 1,000 ML IV SCH (06:07)
[2024-07-27] MEDS ORDERED: ALBUTEROL SULFATE 2.5MG/0.5ML INH CONCENTRATE NEB SOLN INH PRN (06:20)
[2024-07-27] MEDS ORDERED: ALBUTEROL 90 MCG/ACT 8GM HFA INHALER INH PRN (06:20)
[2024-07-27 06:28] LABS: HEMOGLOBIN 10.7 g/dl (13.5-17.5); MEAN CORPUSCULAR HEMOGLOBIN 28.5 pg (27.0-33.0); MEAN CORPUSCULAR HGB CONC 31.5 g/dl (32.0-36.5); MEAN CORPUSCULAR VOLUME 90.7 fl (80.0-96.0); PLATELET COUNT, AUTOMATED 239 10^3/uL (150-450); RED BLOOD COUNT 3.75 10^6/uL (4.30-6.10)
[2024-07-27 06:52] LABS: BLOOD UREA NITROGEN 17 MG/DL (9-23); CARBON DIOXIDE LEVEL 36 MMOL/L (20-31); CHLORIDE LEVEL 100 MMOL/L (98-107); CREATININE FOR GFR 0.44 MG/DL (0.70-1.30); GLOMERULAR FILTRATION RATE > 90.0 (>49); GLUCOSE, FASTING 210 MG/DL (74-106); MAGNESIUM LEVEL 1.5 MG/DL (1.8-2.4); PHOSPHORUS LEVEL 4.5 MG/DL (2.4-5.1); POTASSIUM SERUM 4.1 MMOL/L (3.5-5.1); SODIUM LEVEL 142 MMOL/L (136-145)
[2024-07-27] MEDS: SYMBICORT 160/4.5MCG INHALER 6GM INH SCH (08:00)
[2024-07-27 08:01] VITALS: BP 137/75; TEMP 97.2; O2SAT 98
[2024-07-27] MEDS: INSULIN LISPRO (NovoLOG) PER UNIT SC SCH ×2 (08:29→21:00)
[2024-07-27] MEDS: VITAMIN D 1,000 INTERNATIONAL UNITS TABLET PO SCH (08:30)
[2024-07-27] MEDS: ASPIRIN 81MG ENTERIC TABLET PO SCH (08:30)
[2024-07-27] MEDS: ATORVASTATIN 20 MG TAB PO SCH (08:30)
[2024-07-27] MEDS: TAMSULOSIN 0.4 MG CAP PO SCH (08:30)
[2024-07-27] MEDS: ENOXAPARIN 40MG/0.4ML SYRINGE (J1650 PER 10MG) SC SCH (08:30)
[2024-07-27 12:00] VITALS: BP 144/71; TEMP 98.6; O2SAT 95
[2024-07-27] MEDS: ALBUTEROL SULFATE 2.5MG/0.5ML INH CONCENTRATE NEB SOLN INH SCH (16:01)
[2024-07-27] MEDS: DAPAGLIFLOZIN PROPANEDIOL 10MG TABLET (FARXIGA) PO SCH (16:25)
[2024-07-27 20:23] VITALS: BP 142/69; TEMP 98.4; O2SAT 98
[2024-07-27] MEDS: FINASTERIDE 5MG TAB PO SCH (21:11)
[2024-07-27] MEDS: FAMOTIDINE 20 MG TAB PO SCH (21:11)
[2024-07-27] MEDS: LanTUS (INSULIN GLARGINE INJ) 1 UNITS/0.01 ML SC SCH (21:12)
[2024-07-27] MEDS: INSULIN LISPRO (NovoLOG) PER UNIT SC STA (23:58)
[2024-07-28 04:00] VITALS: BP 148/76; TEMP 98.2; O2SAT 99
[2024-07-28 04:52] LABS: HEMATOCRIT 34.4 % (42.0-52.0); HEMOGLOBIN 10.8 g/dl (13.5-17.5); MEAN CORPUSCULAR HEMOGLOBIN 28.3 pg (27.0-33.0); MEAN CORPUSCULAR HGB CONC 31.4 g/dl (32.0-36.5); MEAN CORPUSCULAR VOLUME 90.3 fl (80.0-96.0); PLATELET COUNT, AUTOMATED 255 10^3/uL (150-450); RED BLOOD COUNT 3.81 10^6/uL (4.30-6.10); WHITE BLOOD COUNT 8.7 10^3/uL (4.0-10.0)
[2024-07-28 05:13] LABS: BLOOD UREA NITROGEN 14 MG/DL (9-23); CALCIUM LEVEL 8.9 MG/DL (8.3-10.6); CARBON DIOXIDE LEVEL 36 MMOL/L (20-31); CHLORIDE LEVEL 104 MMOL/L (98-107); CREATININE FOR GFR 0.54 MG/DL (0.70-1.30); GLOMERULAR FILTRATION RATE > 90.0 (>49); GLUCOSE, FASTING 145 MG/DL (74-106); MAGNESIUM LEVEL 1.6 MG/DL (1.8-2.4); POTASSIUM SERUM 4.2 MMOL/L (3.5-5.1); SODIUM LEVEL 144 MMOL/L (136-145)
[2024-07-28] MEDS: TIOTROPIUM BROM 2.5MCG/ACTUATION 4GM INH INH SCH (07:56)
[2024-07-28 08:29] VITALS: BP 136/65; TEMP 98.2; O2SAT 98
[2024-07-28] MEDS: ANALGESIC BALM CRM 3OZ TOP SCH (09:00)
[2024-07-28 10:44] LABS: C REACTIVE PROTEIN QUANTITATIV < 0.50 MG/DL (<1.0)
[2024-07-28 10:49] LABS: ERYTHROCYTE SEDIMENTATION RATE 13 mm/hr (0-20)
[2024-07-28] MEDS: MAG SULF 1GM/100ML (MAG RUN) 1 GM in IV 1 EA IV SCH (11:24)
[2024-07-28 12:00] VITALS: BP 137/65; TEMP 98.2; O2SAT 99
[2024-07-28 19:22] VITALS: BP 134/74; TEMP 98.1; O2SAT 98
[2024-07-28] MEDS: PRIMIDONE 50MG TAB PO SCH (21:25)
[2024-07-28] MEDS: ACETAMINOPHEN 325 MG TAB PO PRN (21:25)
[2024-07-28] MEDS: APIXABAN 5 MG TAB (ELIQUIS) PO SCH (21:25)
[2024-07-29 04:16] VITALS: BP 145/79; TEMP 98.1; O2SAT 93
[2024-07-29 06:07] LABS: HEMATOCRIT 34.6 % (42.0-52.0); HEMOGLOBIN 10.9 g/dl (13.5-17.5); MEAN CORPUSCULAR HEMOGLOBIN 28.3 pg (27.0-33.0); MEAN CORPUSCULAR HGB CONC 31.5 g/dl (32.0-36.5); MEAN CORPUSCULAR VOLUME 89.9 fl (80.0-96.0); PLATELET COUNT, AUTOMATED 235 10^3/uL (150-450); RED BLOOD COUNT 3.85 10^6/uL (4.30-6.10); WHITE BLOOD COUNT 7.9 10^3/uL (4.0-10.0)
[2024-07-29 06:29] LABS: BLOOD UREA NITROGEN 14 MG/DL (9-23); CALCIUM LEVEL 8.6 MG/DL (8.3-10.6); CARBON DIOXIDE LEVEL 36 MMOL/L (20-31); CHLORIDE LEVEL 101 MMOL/L (98-107); CREATININE FOR GFR 0.56 MG/DL (0.70-1.30); GLOMERULAR FILTRATION RATE > 90.0 (>49); GLUCOSE, FASTING 151 MG/DL (74-106); MAGNESIUM LEVEL 1.8 MG/DL (1.8-2.4); POTASSIUM SERUM 4.1 MMOL/L (3.5-5.1); SODIUM LEVEL 142 MMOL/L (136-145)
[2024-07-29] MEDS: LevoFLOXacin 750 MG TABLET PO SCH (09:06)
[2024-07-29] MEDS ORDERED: ELIQ5TAB PO (11:07)
[2024-07-29] MEDS ORDERED: MYSO50TA5 PO (11:07)
[2024-07-29] MEDS ORDERED: LEVO75TAB PO (11:07)
[2024-07-29 11:47] LABS: HEMOGLOBIN A1c 12.9 % (4.0-6.0)
[2024-07-29 12:00] VITALS: BP 157/84; TEMP 97.9; O2SAT 99
== END 2024-07-29 16:30 | disposition home or self-care (01) ==
LOC: M ED 23:51 → M ED INP 23:52 → M MSPAV 07-27 05:43
PROVIDERS: ADMIT Student in an Organized Health Care Education/Training Program; ATTEND Student in an Organized Health Care Education/Training Program
DX: E11.00 Type 2 diabetes mellitus with hyperosmolarity without nonketotic hyperglycemic-hyperosmolar coma (NKHHC) (principal); J44.9 Chronic obstructive pulmonary disease, unspecified; J96.90 Respiratory failure, unspecified, unspecified whether with hypoxia or hypercapnia; Z99.81 Dependence on supplemental oxygen; I50.32 Chronic diastolic (congestive) heart failure; I11.0 Hypertensive heart disease with heart failure; K21.9 Gastro-esophageal reflux disease without esophagitis; R07.89 Other chest pain; I25.10 Atherosclerotic heart disease of native coronary artery without angina pectoris; Z79.01 Long term (current) use of anticoagulants; Z79.82 Long term (current) use of aspirin; Z79.4 Long term (current) use of insulin; Z86.711 Personal history of pulmonary embolism
CPT/HCPCS: 36415; 70450; 71045; 71275; 73564; 80048; 80076; 81001; 82010; 82550; 82553; 82803; 83036; 83605; 83735; 83880; 83930; 84100; 84484; 85025; 85027; 85652; 86140; 87040; 87088; 87186; 87486; 87581; 87633; 87798; 93005; 93041; 94640; 94664; 94760; 96361; 96372; 96374; 96375; 97116; 97161; 97530; 99285; G0378; J1650; J1815; J3475; Q9967

== ENCOUNTER → 2024-08-01 | Outpatient (REF) | payer MEDICARE, MEDICAID ==
[~2024-08-01] MED LIST changes: +LEVO75TAB PO; +MYSO50TA5 PO
[2024-08-01 13:08] LABS: BLOOD UREA NITROGEN 12 MG/DL (9-23); CALCIUM LEVEL 9.4 MG/DL (8.3-10.6); CARBON DIOXIDE LEVEL 37 MMOL/L (20-31); CHLORIDE LEVEL 100 MMOL/L (98-107); CREATININE FOR GFR 0.58 MG/DL (0.70-1.30); GLOMERULAR FILTRATION RATE > 90.0 (>49); GLUCOSE, FASTING 187 MG/DL (74-106); MAGNESIUM LEVEL 1.7 MG/DL (1.8-2.4); POTASSIUM SERUM 4.2 MMOL/L (3.5-5.1); SODIUM LEVEL 142 MMOL/L (136-145)
[2024-08-01 13:09] LABS: BASO # 0.1 10^3/uL (0.0-0.2); BASO % 0.9 % (0.0-1.0); EOS # 0.3 10^3/uL (0.0-0.5); EOS % 3.7 % (0.0-3.0); HEMATOCRIT 37.7 % (42.0-52.0); HEMOGLOBIN 11.4 g/dl (13.5-17.5); LYMPH # 1.4 10^3/uL (1.5-5.0); LYMPH % 17.1 % (24.0-44.0); MEAN CORPUSCULAR HEMOGLOBIN 28.2 pg (27.0-33.0); MEAN CORPUSCULAR HGB CONC 30.2 g/dl (32.0-36.5); MEAN CORPUSCULAR VOLUME 93.3 fl (80.0-96.0); MONO # 0.7 10^3/uL (0.0-0.8); NEUTROPHILS # 5.6 10^3/uL (1.5-8.5); NEUTROPHILS % 68.8 % (36.0-66.0); PLATELET COUNT, AUTOMATED 309 10^3/uL (150-450); RED BLOOD COUNT 4.04 10^6/uL (4.30-6.10); WHITE BLOOD COUNT 8.1 10^3/uL (4.0-10.0)
== END ==
LOC: M LAB REF 12:28
PROVIDERS: ATTEND Physician Assistant
DX: Z79.4 Long term (current) use of insulin (principal); R33.9 Retention of urine, unspecified

== ENCOUNTER → 2024-10-10 | Outpatient (REF) | payer MEDICARE, MEDICAID ==
[~2024-10-10] MED LIST changes: +AMIT10TA11 PO; -AMIT10TA7 PO; +BUDE10.2; +MACR100C43 PO; +MAGN400T35 PO; +METF-838 PO; +PYRI1TAB5 PO
[2024-10-11 10:10] LABS: BASO # 0.1 10^3/uL (0.0-0.2); BASO % 1.3 % (0.0-1.0); EOS # 0.3 10^3/uL (0.0-0.5); EOS % 3.4 % (0.0-3.0); LYMPH # 1.6 10^3/uL (1.5-5.0); LYMPH % 20.8 % (24.0-44.0); MONO # 0.7 10^3/uL (0.0-0.8); MONO % 9.3 % (2.0-8.0); NEUTROPHILS # 5.0 10^3/uL (1.5-8.5); NEUTROPHILS % 64.8 % (36.0-66.0); PLATELET COUNT, AUTOMATED 249 10^3/uL (150-450)
[2024-10-11 10:20] LABS: CALCIUM LEVEL 10.2 MG/DL (8.3-10.6); CARBON DIOXIDE LEVEL 40 MMOL/L (20-31); CHLORIDE LEVEL 96 MMOL/L (98-107); CREATININE FOR GFR 0.68 MG/DL (0.70-1.30); GLOMERULAR FILTRATION RATE > 90.0 (>49); POTASSIUM SERUM 4.6 MMOL/L (3.5-5.1); SODIUM LEVEL 141 MMOL/L (136-145)
[2024-10-11 10:49] LABS: ESTIMATED AVERAGE GLUCOSE 292.0 MG/DL (60-110)
== END ==
LOC: M LAB REF 12:35
PROVIDERS: ATTEND Nurse Practitioner Family
DX: Z01.818 Encounter for other preprocedural examination (principal); Z79.899 Other long term (current) drug therapy

== ENCOUNTER → 2024-10-10 | Outpatient (CLI) | payer MEDICARE, MEDICAID ==
[~2024-10-10] MED LIST changes: +PHEN-501 PO; +TOUJ1.2I SC
== END ==
LOC: M RAD 11:43
PROVIDERS: ATTEND Urology
DX: R33.9 Retention of urine, unspecified (principal)

== ENCOUNTER 2024-10-11 03:47 | Emergency (ER) | payer MEDICARE, MEDICAID ==
[~2024-10-11] VITALS: Ht 175.3 cm; Wt 56.8 kg
[~2024-10-11 03:47] MED LIST changes: -MACR100C43 PO; -PHEN-501 PO; -PYRI1TAB5 PO; -TOUJ1.2I SC
[2024-10-11 05:10] LABS: VENOUS BASE EXCESS 8.3 (-2.0-2.0); VENOUS HCO3 37.6 MMOL/L (23.0-27.0); VENOUS O2 SATURATION 77.2 % (60.0-80.0); VENOUS PARTIAL PRESSURE CO2 78.3 mmHg (38.0-50.0); VENOUS PARTIAL PRESSURE O2 44.9 mmHg (30.0-50.0); VENOUS PH 7.299 UNITS (7.330-7.430); VENOUS STANDARD HCO3 31.6 MMOL/L; VENOUS TOTAL CO2 40.0 MMOL/L (24.0-28.0)
[2024-10-11 05:22] LABS: BASO # 0.1 10^3/uL (0.0-0.2); BASO % 1.0 % (0.0-1.0); EOS # 0.3 10^3/uL (0.0-0.5); EOS % 3.5 % (0.0-3.0); LYMPH # 1.6 10^3/uL (1.5-5.0); LYMPH % 21.5 % (24.0-44.0); MONO # 0.7 10^3/uL (0.0-0.8); MONO % 8.8 % (2.0-8.0); NEUTROPHILS # 4.8 10^3/uL (1.5-8.5); NEUTROPHILS % 64.9 % (36.0-66.0); PLATELET COUNT, AUTOMATED 236 10^3/uL (150-450)
[2024-10-11 06:03] LABS: ALT/SGPT 21 U/L (7.0-40); AST/SGOT 33 U/L (<34); CALCIUM LEVEL 9.9 MG/DL (8.3-10.6); CARBON DIOXIDE LEVEL 40 MMOL/L (20-31); CHLORIDE LEVEL 97 MMOL/L (98-107); CK-MB VALUE MASS 1.7 NG/ML (<3.6); CPK CREATINE PHOSPHOKINASE 53 U/L (46-171); CREATININE FOR GFR 0.60 MG/DL (0.70-1.30); GLOMERULAR FILTRATION RATE > 90.0 (>49); MB/CK RELATIVE INDEX 3.20 (< OR =4); POTASSIUM SERUM 5.3 MMOL/L (3.5-5.1); SODIUM LEVEL 144 MMOL/L (136-145)
[2024-10-11 06:17] VITALS: TEMP 98.2
[2024-10-11 06:45] LABS: CK-MB VALUE MASS 2.4 NG/ML (<3.6)
[2024-10-11 07:15] LABS: CPK CREATINE PHOSPHOKINASE 56.0 U/L (46-171); MB/CK RELATIVE INDEX 4.28 (< OR =4)
[2024-10-11 07:58] LABS: ABG HCO3 33.9 MMOL/L (22.0-26.0); ABG O2 SATURATION 97.9 % (95.0-99.0)
[2024-10-11 08:05] LABS: ABG BASE EXCESS 5.9 (-2.0-2.0); ABG PARTIAL PRESSURE O2 134.6 mmHg (75.0-100.0); ABG STANDARD HCO3 29.8 MMOL/L. (22.0-26.0); ABG TOTAL CO2 35.8 MMOL/L (23.0-31.0); ABG pH (ARTERIAL) 7.344 UNITS (7.350-7.450)
[2024-10-11 08:17] LABS: ABG PARTIAL PRESSURE CO2 63.6 mmHg (35.0-45.0)
[2024-10-11] MEDS: ALBUTEROL SULFATE 2.5 MG/0.5 ML INH CONCENTRATE NEB SOLN INH ONE (08:45)
[2024-10-11] MEDS: IPRATROPIUM 0.5 MG/ALBUTEROL 2.5 MG INH SOL UD 3 ML NEB ONE (08:45)
[2024-10-11 10:02] VITALS: O2SAT 94
[2024-10-11] MEDS ORDERED: PRED20TA PO (10:16)
[2024-10-11 10:35] VITALS: O2SAT 95
[2024-10-11 10:38] VITALS: BP 127/61
== END 2024-10-11 10:50 | disposition home or self-care (01) ==
LOC: M ED 03:47
DX: J44.1 Chronic obstructive pulmonary disease with (acute) exacerbation (principal); R07.9 Chest pain, unspecified; E11.9 Type 2 diabetes mellitus without complications; E78.5 Hyperlipidemia, unspecified; Z87.891 Personal history of nicotine dependence; Z79.899 Other long term (current) drug therapy; Z79.4 Long term (current) use of insulin; Z79.84 Long term (current) use of oral hypoglycemic drugs; Z79.51 Long term (current) use of inhaled steroids; Z79.82 Long term (current) use of aspirin; Z79.01 Long term (current) use of anticoagulants
CPT/HCPCS: 36600; 71045; 80048; 80076; 82550; 82553; 82803; 83605; 83880; 84484; 85025; 87486; 87581; 87633; 87798; 93005; 93041; 94640; 94760; 96374; 99285; J2919

== ENCOUNTER 2024-10-15 07:52 | Day surgery (SDC) | payer MEDICARE, MEDICAID ==
[~2024-10-15] VITALS: Ht 175.3 cm; Wt 60.1 kg
[~2024-10-15 07:52] MED LIST changes: +LIDOCAINE 2% 100 MG/5 ML SDV (FOR ANES.) As Ordered ONE; +MIDAZOLAM INJ 2 MG/2 ML VIAL As Ordered ONE; +ONDANSETRON 4MG 2ML VIAL As Ordered ONE; +dexAMETHasone 4 MG/ML 1 ML VIAL As Ordered ONE
[2024-10-15] MEDS: LR 1,000 ML IV SCH (08:30)
[2024-10-15] MEDS ORDERED: GLUCOSE 4 GM CHEW PO PRN (08:55)
[2024-10-15] MEDS ORDERED: GLUCAGON INJ 1 MG VIAL SC PRN (08:55)
[2024-10-15] MEDS ORDERED: DEXTROSE 50% 50 ML SYRINGE IV PRN (08:55)
[2024-10-15] MEDS ORDERED: ALBUTEROL SULFATE 2.5 MG/0.5 ML INH CONCENTRATE NEB SOLN As Ordered ONE (09:00)
[2024-10-15] MEDS: ALBUTEROL SULFATE 2.5 MG/0.5 ML INH CONCENTRATE NEB SOLN NEB ONE (09:00)
[2024-10-15] MEDS: INSULIN LISPRO (NovoLOG) PER UNIT SC PRN (09:08)
[2024-10-15] MEDS: ceFAZolin SOD 2 GM IV ONCE IV ONE (09:25)
[2024-10-15] MEDS ORDERED: ACETAMINOPHEN 1000MG/100ML IV BAG As Ordered ONE (09:37)
[2024-10-15] MEDS ORDERED: ROCURONIUM BROMIDE 50MG/5ML VIAL As Ordered ONE (09:45)
[2024-10-15] MEDS ORDERED: SUGAMMADEX SODIUM 500 MG/5 ML VIAL As Ordered ONE (09:49)
[2024-10-15] MEDS ORDERED: HYDROMORPHONE HCL 0.5 MG/0.5 ML SYRINGE IV PRN (10:25)
[2024-10-15] MEDS ORDERED: ONDANSETRON 4MG 2ML VIAL IV PRN (10:25)
[2024-10-15] MEDS ORDERED: LR 1,000 ML IV SCH (10:25)
[2024-10-15] MEDS ORDERED: MACR100C43 PO (10:27)
[2024-10-15] MEDS ORDERED: PYRI1TAB5 PO (10:27)
[2024-10-15] MEDS ORDERED: OXYB5TAB14 PO (10:27)
[2024-10-15 11:15] VITALS: BP 102/58; TEMP 97.4; O2SAT 95
== END 2024-10-15 11:36 | disposition home or self-care (01) ==
LOC: M SDC 07:52
PROVIDERS: ATTEND Urology
DX: N40.1 Benign prostatic hyperplasia with lower urinary tract symptoms (principal); R33.8 Other retention of urine

== ENCOUNTER 2024-10-17 20:38 | Inpatient (IN) | payer MEDICARE, MEDICAID ==
[~2024-10-17] VITALS: Ht 175.3 cm; Wt 56.8 kg
[~2024-10-17 20:38] MED LIST changes: -LIDOCAINE 2% 100 MG/5 ML SDV (FOR ANES.) As Ordered ONE; +MACR100C43 PO; -MIDAZOLAM INJ 2 MG/2 ML VIAL As Ordered ONE; -ONDANSETRON 4MG 2ML VIAL As Ordered ONE; +PYRI1TAB5 PO; -dexAMETHasone 4 MG/ML 1 ML VIAL As Ordered ONE
[2024-10-17 22:42] LABS: VENOUS BASE EXCESS 6.1 (-2.0-2.0); VENOUS HCO3 35.0 MMOL/L (23.0-27.0); VENOUS O2 SATURATION 49.4 % (60.0-80.0); VENOUS PARTIAL PRESSURE CO2 74.1 mmHg (38.0-50.0); VENOUS PARTIAL PRESSURE O2 26.3 mmHg (30.0-50.0); VENOUS PH 7.292 UNITS (7.330-7.430); VENOUS STANDARD HCO3 28.8 MMOL/L; VENOUS TOTAL CO2 37.3 MMOL/L (24.0-28.0)
[2024-10-17 22:45] LABS: BASO # 0.1 10^3/uL (0.0-0.2); BASO % 0.4 % (0.0-1.0); EOS # 0.3 10^3/uL (0.0-0.5); EOS % 2.0 % (0.0-3.0); LYMPH # 1.1 10^3/uL (1.5-5.0); LYMPH % 7.9 % (24.0-44.0); MONO # 1.1 10^3/uL (0.0-0.8); MONO % 7.8 % (2.0-8.0); NEUTROPHILS # 11.2 10^3/uL (1.5-8.5); NEUTROPHILS % 81.5 % (36.0-66.0); PLATELET COUNT, AUTOMATED 201 10^3/uL (150-450)
[2024-10-17 23:08] LABS: ALT/SGPT 14 U/L (7.0-40); AST/SGOT 10 U/L (<34); CALCIUM LEVEL 9.2 MG/DL (8.3-10.6); CARBON DIOXIDE LEVEL 38 MMOL/L (20-31); CHLORIDE LEVEL 97 MMOL/L (98-107); CK-MB VALUE MASS 1.5 NG/ML (<3.6); CPK CREATINE PHOSPHOKINASE 41 U/L (46-171); CREATININE FOR GFR 0.61 MG/DL (0.70-1.30); GLOMERULAR FILTRATION RATE > 90.0 (>49); MB/CK RELATIVE INDEX 3.65 (< OR =4); POTASSIUM SERUM 4.5 MMOL/L (3.5-5.1); SODIUM LEVEL 141 MMOL/L (136-145)
[2024-10-17] MEDS: ACETAMINOPHEN 325 MG TAB PO ONE (23:27)
[2024-10-17] MEDS: IPRATROPIUM 0.5 MG/ALBUTEROL 2.5 MG INH SOL UD 3 ML NEB ONE ×2 (23:36→23:48)
[2024-10-18 00:05] LABS: CK-MB VALUE MASS 1.2 NG/ML (<3.6)
[2024-10-18 00:06] LABS: CPK CREATINE PHOSPHOKINASE 41.0 U/L (46-171); MB/CK RELATIVE INDEX 2.92 (< OR =4)
[2024-10-18] MEDS ORDERED: ISOVUE-370 76% 100 ML VIAL As Ordered ONE (00:33)
[2024-10-18 01:01] LABS: KETONE, URINE AUTO RFX NEGATIVE (NEGATIVE); NITRITE, URINE AUTO RFX NEGATIVE (NEGATIVE); RBC, URINE AUTO RFX 120 /HPF (0-3); SQUAM EPITHELIAL CELL UR AURFX 0 /HPF (0-6)
[2024-10-18 01:04] LABS: LEUKOCYTE ESTERASE UR AUTO RFX TRACE (NEGATIVE); WBC, URINE AUTO RFX 64 /HPF (0-3)
[2024-10-18] MEDS ORDERED: cefTRIAXone SOD 1 GM in DEXTROSE 5% (D5W) ADV/MINI-BAG 50 ML IV ONE (01:30)
[2024-10-18] MEDS: MEROPENEM 2 GM in SODIUM CHLORIDE 0.9% INJ 100 ML IV SCH (02:34)
[2024-10-18] MEDS ORDERED: ACETAMINOPHEN 325 MG TAB PO PRN (02:50)
[2024-10-18] MEDS ORDERED: MOM 30 ML SUSPENSION UDC PO PRN (02:50)
[2024-10-18] MEDS ORDERED: MAALOX 30 ML SUSP *UDC PO PRN (02:50)
[2024-10-18] MEDS: NS (Normal Saline) 0.9% 1,000 ML IV SCH (03:13)
[2024-10-18 07:41] LABS: PLATELET COUNT, AUTOMATED 171 10^3/uL (150-450)
[2024-10-18] MEDS: IPRATROPIUM 0.5 MG/ALBUTEROL 2.5 MG INH SOL UD 3 ML NEB SCH (07:50)
[2024-10-18 08:20] LABS: ALT/SGPT 12 U/L (7.0-40); AST/SGOT 9 U/L (<34); CALCIUM LEVEL 8.6 MG/DL (8.3-10.6); CARBON DIOXIDE LEVEL 35 MMOL/L (20-31); CHLORIDE LEVEL 97 MMOL/L (98-107); CREATININE FOR GFR 0.59 MG/DL (0.70-1.30); GLOMERULAR FILTRATION RATE > 90.0 (>49); MAGNESIUM LEVEL 1.6 MG/DL (1.8-2.4); POTASSIUM SERUM 4.0 MMOL/L (3.5-5.1); SODIUM LEVEL 140 MMOL/L (136-145)
[2024-10-18] MEDS: CEFEPIME HCL 2 GM in DEXTROSE 5% (D5W) ADV/MINI-BAG 50 ML IV SCH (09:11)
[2024-10-18] MEDS: DOCUSATE SODIUM 100 MG CAPSULE PO SCH (09:11)
[2024-10-18] MEDS ORDERED: PHEN-501 PO (11:33)
[2024-10-18] MEDS ORDERED: MACR100C43 PO (11:33)
[2024-10-18] MEDS ORDERED: TOUJ1.2I SC (11:33)
[2024-10-18] MEDS ORDERED: PRED20TA PO (11:33)
[2024-10-18] MEDS ORDERED: HOME MED LIST COMPLETE! XX SCH ×2 (11:35)
[2024-10-18] MEDS: APIXABAN 5 MG TAB PO SCH (13:19)
[2024-10-18 15:20] VITALS: BP 129/56; TEMP 98.6; O2SAT 98
[2024-10-18 16:00] VITALS: BP 125/60; TEMP 97; O2SAT 98
[2024-10-18 20:16] VITALS: BP 138/70; TEMP 98.8; O2SAT 96
[2024-10-18] MEDS ORDERED: DEXTROSE 50% 50 ML SYRINGE IV PRN (21:50)
[2024-10-18] MEDS ORDERED: GLUCOSE 4 GM CHEW PO PRN (21:50)
[2024-10-18] MEDS ORDERED: GLUCAGON INJ 1 MG VIAL SC PRN (21:50)
[2024-10-18] MEDS: LanTUS (INSULIN GLARGINE INJ) 1 UNITS/0.01 ML SC SCH (22:20)
[2024-10-18] MEDS: INSULIN LISPRO (NovoLOG) PER UNIT SC SCH (22:56)
[2024-10-19] VITALS (7 sets, daily range): BP systolic 96–138; BP diastolic 52–76; TEMP 98.1–98.6; O2SAT 97–98
[2024-10-19 06:03] LABS: PLATELET COUNT, AUTOMATED 176 10^3/uL (150-450)
[2024-10-19 06:29] LABS: CALCIUM LEVEL 8.2 MG/DL (8.3-10.6); CARBON DIOXIDE LEVEL 33 MMOL/L (20-31); CHLORIDE LEVEL 103 MMOL/L (98-107); CREATININE FOR GFR 0.55 MG/DL (0.70-1.30); GLOMERULAR FILTRATION RATE > 90.0 (>49); MAGNESIUM LEVEL 1.7 MG/DL (1.8-2.4); POTASSIUM SERUM 3.9 MMOL/L (3.5-5.1); SODIUM LEVEL 143 MMOL/L (136-145)
[2024-10-19] MEDS: ATORVASTATIN 20 MG TAB PO SCH (08:29)
[2024-10-19] MEDS: MAGNESIUM OXIDE 400 MG TAB PO SCH (08:29)
[2024-10-19] MEDS: TAMSULOSIN 0.4 MG CAP PO SCH (08:29)
[2024-10-19] MEDS: DAPAGLIFLOZIN PROPANEDIOL 10 MG TABLET PO SCH (08:29)
[2024-10-19] MEDS: INSULIN LISPRO (NovoLOG) PER UNIT SC SCH (08:30)
[2024-10-19] MEDS ORDERED: INSULIN LISPRO (NovoLOG) PER UNIT SC SCH (21:00)
[2024-10-19] MEDS: FINASTERIDE 5 MG TAB PO SCH (22:02)
[2024-10-19] MEDS: FAMOTIDINE 20 MG TAB PO SCH (22:02)
[2024-10-20] VITALS: BP 139/75; TEMP 98.1; O2SAT 99
[2024-10-20 03:41] VITALS: BP 118/57; TEMP 98.1; O2SAT 96
[2024-10-20 06:23] LABS: PLATELET COUNT, AUTOMATED 189 10^3/uL (150-450)
[2024-10-20 06:47] LABS: CALCIUM LEVEL 8.5 MG/DL (8.3-10.6); CARBON DIOXIDE LEVEL 33 MMOL/L (20-31); CHLORIDE LEVEL 104 MMOL/L (98-107); CREATININE FOR GFR 0.61 MG/DL (0.70-1.30); GLOMERULAR FILTRATION RATE > 90.0 (>49); MAGNESIUM LEVEL 1.6 MG/DL (1.8-2.4); POTASSIUM SERUM 3.9 MMOL/L (3.5-5.1); SODIUM LEVEL 144 MMOL/L (136-145)
[2024-10-20 08:37] VITALS: BP 131/66; TEMP 98; O2SAT 96
[2024-10-20 08:56] VITALS: BP 119/60; TEMP 97.9; O2SAT 96
[2024-10-20] MEDS ORDERED: MACR100C43 PO (11:21)
[2024-10-20] MEDS: NITROFURANTOIN 100 MG CAP PO SCH (12:51)
== END 2024-10-20 13:56 | disposition home or self-care (01) | DRG 698 ==
LOC: M ED 20:38 → M ED INP 10-18 02:50 → M MSPAV 10-18 14:53
PROVIDERS: ADMIT Student in an Organized Health Care Education/Training Program; ATTEND Family Medicine
DX: T83.511A Infection and inflammatory reaction due to indwelling urethral catheter, initial encounter (principal); A41.9 Sepsis, unspecified organism; N30.00 Acute cystitis without hematuria; J96.10 Chronic respiratory failure, unspecified whether with hypoxia or hypercapnia; I50.32 Chronic diastolic (congestive) heart failure; J44.1 Chronic obstructive pulmonary disease with (acute) exacerbation; E11.9 Type 2 diabetes mellitus without complications; I11.0 Hypertensive heart disease with heart failure; E78.5 Hyperlipidemia, unspecified; K21.9 Gastro-esophageal reflux disease without esophagitis; I25.10 Atherosclerotic heart disease of native coronary artery without angina pectoris; N40.0 Benign prostatic hyperplasia without lower urinary tract symptoms; Z79.51 Long term (current) use of inhaled steroids; Z79.4 Long term (current) use of insulin; Z79.52 Long term (current) use of systemic steroids; Z79.899 Other long term (current) drug therapy; Z86.711 Personal history of pulmonary embolism; Z99.81 Dependence on supplemental oxygen

== ENCOUNTER 2024-10-23 01:12 | Emergency (ER) | payer MEDICARE, MEDICAID ==
[~2024-10-23] VITALS: Ht 175.3 cm; Wt 60.7 kg
[~2024-10-23 01:12] MED LIST changes: +PHEN-501 PO; +TOUJ1.2I SC
[2024-10-23 01:25] VITALS: TEMP 98.5
[2024-10-23 02:26] LABS: VENOUS BASE EXCESS 6.7 (-2.0-2.0); VENOUS HCO3 35.2 MMOL/L (23.0-27.0); VENOUS O2 SATURATION 83.9 % (60.0-80.0); VENOUS PARTIAL PRESSURE CO2 73.8 mmHg (38.0-50.0); VENOUS PARTIAL PRESSURE O2 49.4 mmHg (30.0-50.0); VENOUS PH 7.296 UNITS (7.330-7.430); VENOUS STANDARD HCO3 30.2 MMOL/L; VENOUS TOTAL CO2 37.4 MMOL/L (24.0-28.0)
[2024-10-23 02:31] LABS: BASO # 0.1 10^3/uL (0.0-0.2); BASO % 0.6 % (0.0-1.0); EOS # 0.2 10^3/uL (0.0-0.5); EOS % 2.3 % (0.0-3.0); LYMPH # 1.1 10^3/uL (1.5-5.0); LYMPH % 12.3 % (24.0-44.0); MONO # 0.5 10^3/uL (0.0-0.8); MONO % 6.2 % (2.0-8.0); NEUTROPHILS # 6.8 10^3/uL (1.5-8.5); NEUTROPHILS % 78.3 % (36.0-66.0); PLATELET COUNT, AUTOMATED 299 10^3/uL (150-450)
[2024-10-23 02:56] LABS: ALT/SGPT 9 U/L (7.0-40); AST/SGOT 9 U/L (<34); CALCIUM LEVEL 8.7 MG/DL (8.3-10.6); CARBON DIOXIDE LEVEL 39 MMOL/L (20-31); CHLORIDE LEVEL 98 MMOL/L (98-107); CK-MB VALUE MASS 1.1 NG/ML (<3.6); CPK CREATINE PHOSPHOKINASE 41 U/L (46-171); CREATININE FOR GFR 0.58 MG/DL (0.70-1.30); GLOMERULAR FILTRATION RATE > 90.0 (>49); MB/CK RELATIVE INDEX 2.68 (< OR =4); POTASSIUM SERUM 4.6 MMOL/L (3.5-5.1); SODIUM LEVEL 142 MMOL/L (136-145)
[2024-10-23 04:07] LABS: CK-MB VALUE MASS 1.5 NG/ML (<3.6)
[2024-10-23 04:09] LABS: CPK CREATINE PHOSPHOKINASE 39.0 U/L (46-171); MB/CK RELATIVE INDEX 3.84 (< OR =4)
[2024-10-23 05:30] VITALS: BP 150/70; O2SAT 97
== END 2024-10-23 06:00 | disposition home or self-care (01) ==
LOC: M ED 01:12
DX: J44.1 Chronic obstructive pulmonary disease with (acute) exacerbation (principal); E11.9 Type 2 diabetes mellitus without complications; Z87.440 Personal history of urinary (tract) infections; Z79.4 Long term (current) use of insulin; Z79.01 Long term (current) use of anticoagulants; Z79.899 Other long term (current) drug therapy; Z88.8 Allergy status to other drugs, medicaments and biological substances

== ENCOUNTER 2024-11-11 22:09 | Emergency (ER) | payer MEDICARE, MEDICAID ==
[2024-11-11 22:35] LABS: BASO # 0.1 10^3/uL (0.0-0.2); BASO % 0.8 % (0.0-1.0); EOS # 0.3 10^3/uL (0.0-0.5); EOS % 2.8 % (0.0-3.0); LYMPH # 1.8 10^3/uL (1.5-5.0); LYMPH % 19.6 % (24.0-44.0); MONO # 0.7 10^3/uL (0.0-0.8); MONO % 7.8 % (2.0-8.0); NEUTROPHILS # 6.3 10^3/uL (1.5-8.5); NEUTROPHILS % 68.7 % (36.0-66.0); PLATELET COUNT, AUTOMATED 287 10^3/uL (150-450)
[2024-11-11 22:40] VITALS: BP 120/58; TEMP 98.5; O2SAT 98
[2024-11-11 23:11] LABS: CPK CREATINE PHOSPHOKINASE 36 U/L (46-171)
[2024-11-11 23:12] LABS: CALCIUM LEVEL 9.2 MG/DL (8.3-10.6); CARBON DIOXIDE LEVEL 35 MMOL/L (20-31); CHLORIDE LEVEL 101 MMOL/L (98-107); CK-MB VALUE MASS 1.0 NG/ML (<3.6); CREATININE FOR GFR 0.64 MG/DL (0.70-1.30); GLOMERULAR FILTRATION RATE > 90.0 (>49); MB/CK RELATIVE INDEX 2.77 (< OR =4); POTASSIUM SERUM 4.1 MMOL/L (3.5-5.1); SODIUM LEVEL 145 MMOL/L (136-145)
== END 2024-11-11 23:59 | disposition left against medical advice (07) ==
LOC: M ED 22:09
DX: Z53.21 Procedure and treatment not carried out due to patient leaving prior to being seen by health care provider (principal)

== ENCOUNTER 2024-12-07 01:09 | Emergency (ER) | payer MEDICARE, MEDICAID ==
[~2024-12-07] VITALS: Ht 175.3 cm; Wt 60.8 kg
[~2024-12-07 01:09] MED LIST changes: -IBUP-1022 PO; +IBUP600T42 PO
[2024-12-07] MEDS: MORPHINE 4 MG/ML 1 ML VIAL IV ONE (01:24)
[2024-12-07] MEDS: ONDANSETRON 4MG 2ML VIAL IV ONE (01:24)
[2024-12-07 01:33] LABS: BASO # 0.1 10^3/uL (0.0-0.2); BASO % 1.1 % (0.0-1.0); EOS # 0.3 10^3/uL (0.0-0.5); EOS % 2.9 % (0.0-3.0); LYMPH # 1.9 10^3/uL (1.5-5.0); LYMPH % 17.8 % (24.0-44.0); MONO # 0.9 10^3/uL (0.0-0.8); MONO % 8.4 % (2.0-8.0); NEUTROPHILS # 7.3 10^3/uL (1.5-8.5); NEUTROPHILS % 69.5 % (36.0-66.0); PLATELET COUNT, AUTOMATED 282 10^3/uL (150-450)
[2024-12-07] MEDS ORDERED: ISOVUE-370 76% 100 ML VIAL As Ordered ONE (02:04)
[2024-12-07 02:08] LABS: ALT/SGPT 16 U/L (7.0-40); AST/SGOT 22 U/L (<34); CALCIUM LEVEL 9.5 MG/DL (8.3-10.6); CARBON DIOXIDE LEVEL 33 MMOL/L (20-31); CHLORIDE LEVEL 99 MMOL/L (98-107); CREATININE FOR GFR 0.59 MG/DL (0.70-1.30); GLOMERULAR FILTRATION RATE > 90.0 (>49); POTASSIUM SERUM 5.2 MMOL/L (3.5-5.1); SODIUM LEVEL 140 MMOL/L (136-145)
[2024-12-07 02:41] LABS: INR 0.86
[2024-12-07] MEDS: LanTUS (INSULIN GLARGINE INJ) 1 UNITS/0.01 ML SC ONE (03:20)
[2024-12-07] MEDS: LIDOCAINE 5% PATCH TD ONE (03:55)
[2024-12-07] MEDS ORDERED: LIDO1ADH93 TD (04:02)
[2024-12-07] MEDS ORDERED: HYDR-4571 PO (04:02)
[2024-12-07 04:57] VITALS: BP 136/67; TEMP 98.1; O2SAT 99
== END 2024-12-07 04:59 | disposition home or self-care (01) ==
LOC: M ED 01:09
DX: S20.212A Contusion of left front wall of thorax, initial encounter (principal); S00.03XA Contusion of scalp, initial encounter; Y92.019 Unspecified place in single-family (private) house as the place of occurrence of the external cause; Y93.9 Activity, unspecified; Y99.9 Unspecified external cause status; W18.2XXA Fall in (into) shower or empty bathtub, initial encounter; Z88.8 Allergy status to other drugs, medicaments and biological substances; Z79.51 Long term (current) use of inhaled steroids; Z79.01 Long term (current) use of anticoagulants; Z79.4 Long term (current) use of insulin; Z79.84 Long term (current) use of oral hypoglycemic drugs; Z79.52 Long term (current) use of systemic steroids; Z79.899 Other long term (current) drug therapy
CPT/HCPCS: 70450; 71045; 71260; 72125; 80047; 80053; 85025; 85610; 85730; 96372; 96374; 99284; J1815; J2405; Q9967

== ENCOUNTER 2024-12-21 23:51 | Emergency (ER) | payer MEDICARE, MEDICAID ==
[~2024-12-21] VITALS: Ht 175.3 cm; Wt 64.4 kg
[~2024-12-21 23:51] MED LIST changes: +HYDR-4571 PO; +LIDO1ADH93 TD
[2024-12-22 00:03] VITALS: TEMP 98.2
[2024-12-22 01:07] LABS: VENOUS PH 7.251 UNITS (7.330-7.430)
[2024-12-22 01:08] LABS: VENOUS BASE EXCESS 4.9 (-2.0-2.0); VENOUS HCO3 34.4 MMOL/L (23.0-27.0); VENOUS O2 SATURATION 45.9 % (60.0-80.0); VENOUS PARTIAL PRESSURE CO2 80.0 mmHg (38.0-50.0); VENOUS PARTIAL PRESSURE O2 26.8 mmHg (30.0-50.0); VENOUS STANDARD HCO3 27.7 MMOL/L; VENOUS TOTAL CO2 36.8 MMOL/L (24.0-28.0)
[2024-12-22 01:17] LABS: BASO # 0.1 10^3/uL (0.0-0.2); BASO % 0.5 % (0.0-1.0); EOS # 0.2 10^3/uL (0.0-0.5); EOS % 1.2 % (0.0-3.0); LYMPH # 1.5 10^3/uL (1.5-5.0); LYMPH % 8.7 % (24.0-44.0); MONO # 1.1 10^3/uL (0.0-0.8); MONO % 6.4 % (2.0-8.0); NEUTROPHILS # 14.1 10^3/uL (1.5-8.5); NEUTROPHILS % 82.8 % (36.0-66.0); PLATELET COUNT, AUTOMATED 259 10^3/uL (150-450)
[2024-12-22 01:37] LABS: CK-MB VALUE MASS 1.9 NG/ML (<3.6)
[2024-12-22 01:40] LABS: ALT/SGPT 10 U/L (7.0-40); AST/SGOT 10 U/L (<34); CALCIUM LEVEL 8.9 MG/DL (8.3-10.6); CARBON DIOXIDE LEVEL 35 MMOL/L (20-31); CHLORIDE LEVEL 101 MMOL/L (98-107); CPK CREATINE PHOSPHOKINASE 66 U/L (46-171); CREATININE FOR GFR 0.58 MG/DL (0.70-1.30); GLOMERULAR FILTRATION RATE > 90.0 (>49); MB/CK RELATIVE INDEX 2.87 (< OR =4); POTASSIUM SERUM 4.3 MMOL/L (3.5-5.1); SODIUM LEVEL 137 MMOL/L (136-145)
[2024-12-22] MEDS ORDERED: ISOVUE-370 76% 100 ML VIAL As Ordered ONE (02:47)
[2024-12-22 04:39] LABS: CK-MB VALUE MASS 2.3 NG/ML (<3.6); CPK CREATINE PHOSPHOKINASE 64.0 U/L (46-171); MB/CK RELATIVE INDEX 3.59 (< OR =4)
[2024-12-22 05:09] LABS: ABG BASE EXCESS 3.0 (-2.0-2.0); ABG HCO3 29.9 MMOL/L (22.0-26.0); ABG O2 SATURATION 98.9 % (95.0-99.0); ABG PARTIAL PRESSURE CO2 56.3 mmHg (35.0-45.0); ABG PARTIAL PRESSURE O2 149.3 mmHg (75.0-100.0); ABG STANDARD HCO3 27.1 MMOL/L. (22.0-26.0); ABG TOTAL CO2 31.6 MMOL/L (23.0-31.0); ABG pH (ARTERIAL) 7.343 UNITS (7.350-7.450)
[2024-12-22 06:30] VITALS: BP 150/76; O2SAT 99
== END 2024-12-22 06:50 | disposition left against medical advice (07) ==
LOC: M ED 23:51
DX: R06.02 Shortness of breath (principal); Z53.9 Procedure and treatment not carried out, unspecified reason; I11.0 Hypertensive heart disease with heart failure; I25.10 Atherosclerotic heart disease of native coronary artery without angina pectoris; E11.9 Type 2 diabetes mellitus without complications; J44.9 Chronic obstructive pulmonary disease, unspecified; E78.5 Hyperlipidemia, unspecified; K21.9 Gastro-esophageal reflux disease without esophagitis; Z86.711 Personal history of pulmonary embolism; N40.0 Benign prostatic hyperplasia without lower urinary tract symptoms; Z79.4 Long term (current) use of insulin; Z79.899 Other long term (current) drug therapy; Z88.8 Allergy status to other drugs, medicaments and biological substances
CPT/HCPCS: 36600; 71045; 71275; 80048; 80076; 82550; 82553; 82803; 83880; 84484; 85025; 87486; 87581; 87633; 87798; 93005; 93041; 94760; 99285; Q9967

== ENCOUNTER 2024-12-29 15:19 | Emergency (ER) | payer OTHER, MEDICAID ==
[~2024-12-29] VITALS: Ht 175.3 cm; Wt 56.8 kg
[2024-12-29 16:10] LABS: BASO # 0.1 10^3/uL (0.0-0.2); BASO % 0.8 % (0.0-1.0); EOS # 0.2 10^3/uL (0.0-0.5); EOS % 1.8 % (0.0-3.0); LYMPH # 1.3 10^3/uL (1.5-5.0); LYMPH % 13.6 % (24.0-44.0); MONO # 0.5 10^3/uL (0.0-0.8); MONO % 5.4 % (2.0-8.0); NEUTROPHILS # 7.4 10^3/uL (1.5-8.5); NEUTROPHILS % 78.0 % (36.0-66.0); PLATELET COUNT, AUTOMATED 379 10^3/uL (150-450)
[2024-12-29 16:22] LABS: INR 0.83
[2024-12-29] MEDS: PERCOCET 5MG/325MG TAB PO ONE (16:23)
[2024-12-29 16:36] LABS: ALT/SGPT 9 U/L (7.0-40); AST/SGOT < 8 U/L (<34); CALCIUM LEVEL 8.3 MG/DL (8.3-10.6); CARBON DIOXIDE LEVEL 31 MMOL/L (20-31); CHLORIDE LEVEL 92 MMOL/L (98-107); CREATININE FOR GFR 0.57 MG/DL (0.70-1.30); GLOMERULAR FILTRATION RATE > 90.0 (>49); POTASSIUM SERUM 4.1 MMOL/L (3.5-5.1); SODIUM LEVEL 147 MMOL/L (136-145)
[2024-12-29 16:38] LABS: THYROXINE (T4) 7.0 UG/DL (4.5-10.9)
[2024-12-29 17:43] VITALS: O2SAT 91
[2024-12-29] MEDS ORDERED: PRED20TA PO (17:51)
[2024-12-29 18:04] VITALS: BP 113/63; TEMP 98.6; O2SAT 97
[2024-12-30] MEDS ORDERED: TOUJ300I2 SC (21:28)
[2024-12-30] MEDS ORDERED: SERT25TA21 PO (21:38)
== END 2024-12-29 18:09 | disposition home or self-care (01) ==
LOC: M ED 15:19 → EDBD 15:19 → M ED 18:09
DX: J44.9 Chronic obstructive pulmonary disease, unspecified (principal); M79.10 Myalgia, unspecified site; I11.0 Hypertensive heart disease with heart failure; E11.9 Type 2 diabetes mellitus without complications; E78.5 Hyperlipidemia, unspecified; Z86.711 Personal history of pulmonary embolism; F17.200 Nicotine dependence, unspecified, uncomplicated; Z79.01 Long term (current) use of anticoagulants; Z79.4 Long term (current) use of insulin; Z79.899 Other long term (current) drug therapy; Z88.8 Allergy status to other drugs, medicaments and biological substances

== ENCOUNTER 2024-12-30 16:19 | Inpatient (IN) | payer OTHER, MEDICAID ==
[~2024-12-30] VITALS: Ht 175.3 cm; Wt 60.5 kg
[2024-12-30 18:22] LABS: VENOUS BASE EXCESS 7.3 (-2.0-2.0); VENOUS HCO3 36.1 MMOL/L (23.0-27.0); VENOUS O2 SATURATION 70.1 % (60.0-80.0); VENOUS PARTIAL PRESSURE CO2 74.1 mmHg (38.0-50.0); VENOUS PARTIAL PRESSURE O2 36.5 mmHg (30.0-50.0); VENOUS PH 7.305 UNITS (7.330-7.430); VENOUS STANDARD HCO3 30.5 MMOL/L; VENOUS TOTAL CO2 38.3 MMOL/L (24.0-28.0)
[2024-12-30 18:27] LABS: BASO # 0.1 10^3/uL (0.0-0.2); BASO % 0.4 % (0.0-1.0); EOS # 0.1 10^3/uL (0.0-0.5); EOS % 0.5 % (0.0-3.0); LYMPH # 0.9 10^3/uL (1.5-5.0); LYMPH % 5.4 % (24.0-44.0); MONO # 1.1 10^3/uL (0.0-0.8); MONO % 6.2 % (2.0-8.0); NEUTROPHILS # 15.0 10^3/uL (1.5-8.5); NEUTROPHILS % 87.1 % (36.0-66.0); PLATELET COUNT, AUTOMATED 343 10^3/uL (150-450)
[2024-12-30 18:41] LABS: KETONE, URINE AUTO RFX NEGATIVE (NEGATIVE); LEUKOCYTE ESTERASE UR AUTO RFX TRACE (NEGATIVE); NITRITE, URINE AUTO RFX NEGATIVE (NEGATIVE); RBC, URINE AUTO RFX 2 /HPF (0-3); SQUAM EPITHELIAL CELL UR AURFX 0 /HPF (0-6); WBC, URINE AUTO RFX 6 /HPF (0-3)
[2024-12-30 18:53] LABS: CPK CREATINE PHOSPHOKINASE 31 U/L (46-171)
[2024-12-30 19:00] LABS: ALT/SGPT 9 U/L (7.0-40); AST/SGOT < 8 U/L (<34); CALCIUM LEVEL 9.0 MG/DL (8.3-10.6); CARBON DIOXIDE LEVEL 38 MMOL/L (20-31); CHLORIDE LEVEL 97 MMOL/L (98-107); CK-MB VALUE MASS < 1.0 NG/ML (<3.6); CREATININE FOR GFR 0.49 MG/DL (0.70-1.30); FREE T4 1.02 NG/DL (0.89-1.76); GLOMERULAR FILTRATION RATE > 90.0 (>49); POTASSIUM SERUM 4.1 MMOL/L (3.5-5.1); SODIUM LEVEL 141 MMOL/L (136-145)
[2024-12-30] MEDS ORDERED: ISOVUE-370 76% 100 ML VIAL As Ordered ONE (19:51)
[2024-12-30] MEDS: IPRATROPIUM 0.5 MG/ALBUTEROL 2.5 MG INH SOL UD 3 ML NEB ONE (20:01)
[2024-12-30] MEDS: CEFEPIME HCL 2 GM in DEXTROSE 5% (D5W) ADV/MINI-BAG 50 ML IV ONE (20:32)
[2024-12-30] MEDS: KETOROLAC 30 MG/ML 1 ML VIAL IV ONE (20:32)
[2024-12-30 20:36] LABS: CK-MB VALUE MASS < 1.0 NG/ML (<3.6); CPK CREATINE PHOSPHOKINASE 42 U/L (46-171)
[2024-12-30] MEDS ORDERED: TOUJ300I2 SC (21:28)
[2024-12-30] MEDS ORDERED: SERT25TA21 PO (21:38)
[2024-12-30] MEDS ORDERED: HOME MED LIST COMPLETE! XX SCH (21:40)
[2024-12-30] MEDS ORDERED: MAALOX 30 ML SUSP *UDC PO PRN (23:45)
[2024-12-30] MEDS ORDERED: MOM 30 ML SUSPENSION UDC PO PRN (23:45)
[2024-12-30] MEDS ORDERED: predniSONE 20 MG TAB PO SCH (23:45)
[2024-12-31] MEDS: LEVALBUTEROL 1.25 MG 0.5ML CONCENTRATE NEB INH SCH (01:00)
[2024-12-31] MEDS: guaiFENesin ER TABLET 600 MG TAB PO SCH (01:22)
[2024-12-31] MEDS: FINASTERIDE 5 MG TAB PO SCH (01:22)
[2024-12-31] MEDS: DOXYCYCLINE HYCLATE 100 MG TABLET PO SCH (01:23)
[2024-12-31] MEDS: SERTRALINE HCL 25 MG TABLET PO SCH (01:23)
[2024-12-31] MEDS: cefTRIAXone SOD 1 GM in DEXTROSE 5% (D5W) ADV/MINI-BAG 50 ML IV SCH (01:24)
[2024-12-31 01:40] VITALS: BP 149/70; TEMP 97.5; O2SAT 96
[2024-12-31 03:44] VITALS: BP 135/61; TEMP 97.7; O2SAT 96
[2024-12-31] MEDS ORDERED: GLUCOSE 4 GM CHEW PO PRN (04:30)
[2024-12-31] MEDS ORDERED: DEXTROSE 50% 50 ML SYRINGE IV PRN (04:30)
[2024-12-31] MEDS ORDERED: GLUCAGON INJ 1 MG VIAL SC PRN (04:30)
[2024-12-31 06:56] LABS: PLATELET COUNT, AUTOMATED 315 10^3/uL (150-450)
[2024-12-31 07:30] VITALS: BP 154/66; TEMP 97.5; O2SAT 98
[2024-12-31] MEDS: SYMBICORT 160/4.5MCG INHALER 6GM INH SCH (07:50)
[2024-12-31 08:21] LABS: ESTIMATED AVERAGE GLUCOSE 309.0 MG/DL (60-110)
[2024-12-31] MEDS: DOCUSATE SODIUM 100 MG CAPSULE PO SCH (09:00)
[2024-12-31] MEDS: INSULIN LISPRO (NovoLOG) PER UNIT SC SCH ×2 (09:04→12:00)
[2024-12-31] MEDS: APIXABAN 5 MG TAB PO SCH (09:06)
[2024-12-31] MEDS: MONTELUKAST 10 MG TAB PO SCH (09:07)
[2024-12-31] MEDS: predniSONE 20 MG TAB PO SCH (09:07)
[2024-12-31] MEDS: TAMSULOSIN 0.4 MG CAP PO SCH (09:07)
[2024-12-31] MEDS: ACETAMINOPHEN 325 MG TAB PO PRN (09:08)
[2024-12-31] MEDS: ATORVASTATIN 20 MG TAB PO SCH (09:09)
[2024-12-31] MEDS: LanTUS (INSULIN GLARGINE INJ) 1 UNITS/0.01 ML SC SCH (10:07)
[2024-12-31 12:00] VITALS: BP 131/61; TEMP 97.2; O2SAT 96
[2024-12-31 14:26] LABS: ALT/SGPT < 9 U/L (7.0-40); AST/SGOT < 8 U/L (<34); CALCIUM LEVEL 8.8 MG/DL (8.3-10.6); CARBON DIOXIDE LEVEL 35 MMOL/L (20-31); CHLORIDE LEVEL 97 MMOL/L (98-107); CREATININE FOR GFR 0.55 MG/DL (0.70-1.30); GLOMERULAR FILTRATION RATE > 90.0 (>49); MAGNESIUM LEVEL 1.8 MG/DL (1.8-2.4); POTASSIUM SERUM 4.2 MMOL/L (3.5-5.1); SODIUM LEVEL 140 MMOL/L (136-145)
[2024-12-31 19:59] VITALS: BP 127/78; TEMP 97.5; O2SAT 96
[2024-12-31] MEDS: FAMOTIDINE 20 MG TAB PO SCH (21:11)
[2025-01-01 03:51] VITALS: BP 141/72; TEMP 97.5; O2SAT 100
[2025-01-01] MEDS: TIOTROPIUM BROM 2.5MCG/ACTUATION 4GM INH INH SCH (08:00)
[2025-01-01 08:54] LABS: BASO # 0.1 10^3/uL (0.0-0.2); BASO % 0.4 % (0.0-1.0); EOS # 0.2 10^3/uL (0.0-0.5); EOS % 1.7 % (0.0-3.0); LYMPH # 1.5 10^3/uL (1.5-5.0); LYMPH % 13.0 % (24.0-44.0); MONO # 0.9 10^3/uL (0.0-0.8); MONO % 7.7 % (2.0-8.0); NEUTROPHILS # 8.8 10^3/uL (1.5-8.5); NEUTROPHILS % 76.9 % (36.0-66.0); PLATELET COUNT, AUTOMATED 297 10^3/uL (150-450)
[2025-01-01 09:28] LABS: CALCIUM LEVEL 9.1 MG/DL (8.3-10.6); CARBON DIOXIDE LEVEL 37 MMOL/L (20-31); CHLORIDE LEVEL 98 MMOL/L (98-107); CREATININE FOR GFR 0.51 MG/DL (0.70-1.30); GLOMERULAR FILTRATION RATE > 90.0 (>49); POTASSIUM SERUM 3.6 MMOL/L (3.5-5.1); SODIUM LEVEL 142 MMOL/L (136-145)
[2025-01-01 11:30] VITALS: BP 125/64; TEMP 97.8; O2SAT 96
[2025-01-01] MEDS: INSULIN LISPRO (NovoLOG) PER UNIT SC SCH (13:25)
[2025-01-01] MEDS: IPRATROPIUM 0.5 MG/ALBUTEROL 2.5 MG INH SOL UD 3 ML NEB SCH (14:00)
[2025-01-01 19:46] VITALS: BP 140/70; TEMP 97.2; O2SAT 95
[2025-01-01] MEDS: LanTUS (INSULIN GLARGINE INJ) 1 UNITS/0.01 ML SC SCH (21:32)
[2025-01-01] MEDS: ALBUTEROL 90 MCG/ACT 8 GM HFA INHALER INH PRN (21:50)
[2025-01-02] MEDS ORDERED: cefTRIAXone SOD 2 GM in DEXTROSE 5% (D5W) ADV/MINI-BAG 50 ML IV SCH
[2025-01-02] MEDS: cefTRIAXone SOD 2 GM in DEXTROSE 5% (D5W) ADV/MINI-BAG 50 ML IV SCH (00:04)
[2025-01-02 03:48] VITALS: BP 157/77; TEMP 97.3; O2SAT 97
[2025-01-02 06:20] LABS: BASO # 0.1 10^3/uL (0.0-0.2); BASO % 0.5 % (0.0-1.0); EOS # 0.1 10^3/uL (0.0-0.5); EOS % 1.1 % (0.0-3.0); LYMPH # 1.6 10^3/uL (1.5-5.0); LYMPH % 13.2 % (24.0-44.0); MONO # 0.9 10^3/uL (0.0-0.8); MONO % 7.4 % (2.0-8.0); NEUTROPHILS # 9.4 10^3/uL (1.5-8.5); NEUTROPHILS % 77.2 % (36.0-66.0); PLATELET COUNT, AUTOMATED 345 10^3/uL (150-450)
[2025-01-02 06:46] LABS: CALCIUM LEVEL 9.0 MG/DL (8.3-10.6); CARBON DIOXIDE LEVEL 35 MMOL/L (20-31); CHLORIDE LEVEL 97 MMOL/L (98-107); CREATININE FOR GFR 0.54 MG/DL (0.70-1.30); GLOMERULAR FILTRATION RATE > 90.0 (>49); POTASSIUM SERUM 4.0 MMOL/L (3.5-5.1); SODIUM LEVEL 140 MMOL/L (136-145)
[2025-01-02] MEDS: LanTUS (INSULIN GLARGINE INJ) 1 UNITS/0.01 ML SC SCH (09:29)
[2025-01-02 12:00] VITALS: BP 135/65; TEMP 97.9; O2SAT 96
[2025-01-02 20:26] VITALS: BP 157/77; TEMP 97.2; O2SAT 97
[2025-01-03 04:20] VITALS: BP 154/77; TEMP 97.3; O2SAT 98
[2025-01-03 11:41] VITALS: BP 140/76; TEMP 97.7; O2SAT 95
[2025-01-03] MEDS ORDERED: MUCI1TAB16 PO (12:20)
[2025-01-03] MEDS ORDERED: DOXY100C3 PO (12:20)
[2025-01-03] MEDS ORDERED: PRED10TA2 PO (12:20)
[2025-01-03] MEDS ORDERED: AMOX875T2 PO (12:20)
[2025-01-03] MEDS ORDERED: TOUJ300I2 SC (12:20)
== END 2025-01-03 15:13 | disposition home or self-care (01) | DRG 193 ==
LOC: M ED 16:19 → M ED INP 16:20 → M MSPAV 12-31 01:33 → OBSVTOIN 12-31 13:32 → EEVIPCON 12-31 13:32
PROVIDERS: ADMIT Student in an Organized Health Care Education/Training Program; ATTEND Internal Medicine
DX: J18.9 Pneumonia, unspecified organism (principal); G93.41 Metabolic encephalopathy; J96.10 Chronic respiratory failure, unspecified whether with hypoxia or hypercapnia; N39.0 Urinary tract infection, site not specified; I50.32 Chronic diastolic (congestive) heart failure; J44.1 Chronic obstructive pulmonary disease with (acute) exacerbation; J44.0 Chronic obstructive pulmonary disease with (acute) lower respiratory infection; E87.3 Alkalosis; I11.0 Hypertensive heart disease with heart failure; E78.5 Hyperlipidemia, unspecified; R13.12 Dysphagia, oropharyngeal phase; D72.0 Genetic anomalies of leukocytes; E87.8 Other disorders of electrolyte and fluid balance, not elsewhere classified; Z99.81 Dependence on supplemental oxygen; E11.9 Type 2 diabetes mellitus without complications; K21.9 Gastro-esophageal reflux disease without esophagitis; Z86.711 Personal history of pulmonary embolism; I25.10 Atherosclerotic heart disease of native coronary artery without angina pectoris; N40.1 Benign prostatic hyperplasia with lower urinary tract symptoms; Z87.891 Personal history of nicotine dependence; Z79.01 Long term (current) use of anticoagulants; Z79.4 Long term (current) use of insulin; Z79.899 Other long term (current) drug therapy; Z88.8 Allergy status to other drugs, medicaments and biological substances; F32.A Depression, unspecified

== ENCOUNTER 2025-01-14 23:07 | Emergency (ER) | payer OTHER, MEDICAID ==
[~2025-01-14] VITALS: Ht 175.3 cm; Wt 54.5 kg
[~2025-01-14 23:07] MED LIST changes: +DOXY100C3 PO; +MUCI1TAB16 PO; +SERT25TA21 PO; +TOUJ300I2 SC
[2025-01-14 23:12] VITALS: TEMP 98.6
[2025-01-15 00:46] LABS: BASO # 0.1 10^3/uL (0.0-0.2); BASO % 0.8 % (0.0-1.0); EOS # 0.2 10^3/uL (0.0-0.5); EOS % 2.0 % (0.0-3.0); LYMPH # 1.4 10^3/uL (1.5-5.0); LYMPH % 11.9 % (24.0-44.0); MONO # 0.7 10^3/uL (0.0-0.8); MONO % 6.5 % (2.0-8.0); NEUTROPHILS # 8.9 10^3/uL (1.5-8.5); NEUTROPHILS % 78.5 % (36.0-66.0); PLATELET COUNT, AUTOMATED 360 10^3/uL (150-450)
[2025-01-15] MEDS: ONDANSETRON 4MG 2ML VIAL IV ONE (00:54)
[2025-01-15] MEDS: MORPHINE 4 MG/ML 1 ML VIAL IV PRN (00:55)
[2025-01-15 01:16] LABS: CALCIUM LEVEL 9.1 MG/DL (8.3-10.6); CARBON DIOXIDE LEVEL 34 MMOL/L (20-31); CHLORIDE LEVEL 98 MMOL/L (98-107); CK-MB VALUE MASS < 1.0 NG/ML (<3.6); CPK CREATINE PHOSPHOKINASE 55 U/L (46-171); CREATININE FOR GFR 0.50 MG/DL (0.70-1.30); GLOMERULAR FILTRATION RATE > 90.0 (>49); POTASSIUM SERUM 5.5 MMOL/L (3.5-5.1); SODIUM LEVEL 139 MMOL/L (136-145)
[2025-01-15 01:30] VITALS: BP 142/74
[2025-01-15] MEDS ORDERED: ISOVUE-370 76% 100 ML VIAL As Ordered ONE (01:40)
[2025-01-15 02:00] LABS: CK-MB VALUE MASS < 1.0 NG/ML (<3.6)
[2025-01-15 02:01] LABS: CPK CREATINE PHOSPHOKINASE 34 U/L (46-171)
[2025-01-15 03:30] VITALS: O2SAT 98
[2025-01-15] MEDS ORDERED: PRED10TA2 PO (03:41)
== END 2025-01-15 04:00 | disposition home or self-care (01) ==
LOC: M ED 23:07
DX: U07.1 COVID-19 (principal); Z76.5 Malingerer [conscious simulation]; R91.8 Other nonspecific abnormal finding of lung field; J18.1 Lobar pneumonia, unspecified organism; E11.9 Type 2 diabetes mellitus without complications; I10 Essential (primary) hypertension; J44.9 Chronic obstructive pulmonary disease, unspecified; Z79.01 Long term (current) use of anticoagulants; Z79.4 Long term (current) use of insulin; Z79.899 Other long term (current) drug therapy; Z88.8 Allergy status to other drugs, medicaments and biological substances

== ENCOUNTER 2025-01-15 22:58 | Inpatient (IN) | payer OTHER, MEDICAID ==
[~2025-01-15] VITALS: Ht 175.3 cm; Wt 61.0 kg
[2025-01-15 23:21] LABS: VENOUS BASE EXCESS 7.0 (-2.0-2.0); VENOUS HCO3 36.1 MMOL/L (23.0-27.0); VENOUS O2 SATURATION 53.5 % (60.0-80.0); VENOUS PARTIAL PRESSURE CO2 75.6 mmHg (38.0-50.0); VENOUS PARTIAL PRESSURE O2 30.0 mmHg (30.0-50.0); VENOUS PH 7.297 UNITS (7.330-7.430); VENOUS STANDARD HCO3 29.8 MMOL/L; VENOUS TOTAL CO2 38.4 MMOL/L (24.0-28.0)
[2025-01-15] MEDS: IPRATROPIUM 0.5 MG/ALBUTEROL 2.5 MG INH SOL UD 3 ML NEB PRN (23:27)
[2025-01-15 23:37] LABS: BASO # 0.1 10^3/uL (0.0-0.2); BASO % 0.9 % (0.0-1.0); EOS # 0.1 10^3/uL (0.0-0.5); EOS % 1.6 % (0.0-3.0); LYMPH # 0.9 10^3/uL (1.5-5.0); LYMPH % 9.6 % (24.0-44.0); MONO # 1.1 10^3/uL (0.0-0.8); MONO % 11.7 % (2.0-8.0); NEUTROPHILS # 6.8 10^3/uL (1.5-8.5); NEUTROPHILS % 76.0 % (36.0-66.0); PLATELET COUNT, AUTOMATED 328 10^3/uL (150-450)
[2025-01-15 23:57] LABS: CK-MB VALUE MASS < 1.0 NG/ML (<3.6)
[2025-01-16 00:01] LABS: THYROXINE (T4) 6.5 UG/DL (4.5-10.9)
[2025-01-16 00:03] LABS: ALT/SGPT 14 U/L (7.0-40); AST/SGOT 24 U/L (<34); CPK CREATINE PHOSPHOKINASE 42 U/L (46-171)
[2025-01-16] MEDS: KETOROLAC 30 MG/ML 1 ML VIAL IV ONE (00:10)
[2025-01-16 00:34] LABS: CALCIUM LEVEL 8.7 MG/DL (8.3-10.6); CARBON DIOXIDE LEVEL 34 MMOL/L (20-31); CHLORIDE LEVEL 97 MMOL/L (98-107); CREATININE FOR GFR 0.58 MG/DL (0.70-1.30); GLOMERULAR FILTRATION RATE > 90.0 (>49); POTASSIUM SERUM 5.5 MMOL/L (3.5-5.1); SODIUM LEVEL 139 MMOL/L (136-145)
[2025-01-16] MEDS: PIPERACILLIN/TAZOBACTAM SOD 4.5 GM in DEXTROSE 5% (D5W) ADV/MINI-BAG 50 ML IV ONE (01:00)
[2025-01-16] MEDS ORDERED: DEXTROSE 50% 50 ML SYRINGE IV PRN (01:45)
[2025-01-16] MEDS ORDERED: GLUCAGON INJ 1 MG VIAL SC PRN (01:45)
[2025-01-16] MEDS ORDERED: GLUCOSE 4 GM CHEW PO PRN (01:45)
[2025-01-16] MEDS ORDERED: HOME MED LIST COMPLETE! XX SCH (08:00)
[2025-01-16] MEDS: INSULIN LISPRO (NovoLOG) PER UNIT SC SCH ×3 (08:49→21:10)
[2025-01-16] MEDS: ATORVASTATIN 20 MG TAB PO SCH (08:50)
[2025-01-16] MEDS: TAMSULOSIN 0.4 MG CAP PO SCH (08:50)
[2025-01-16] MEDS: LanTUS (INSULIN GLARGINE INJ) 1 UNITS/0.01 ML SC SCH (08:56)
[2025-01-16] MEDS: APIXABAN 5 MG TAB PO ONE (08:56)
[2025-01-16 09:04] LABS: VENOUS BASE EXCESS 2.9 (-2.0-2.0); VENOUS HCO3 32.5 MMOL/L (23.0-27.0); VENOUS O2 SATURATION 61.0 % (60.0-80.0); VENOUS PARTIAL PRESSURE CO2 77.6 mmHg (38.0-50.0); VENOUS PARTIAL PRESSURE O2 34.7 mmHg (30.0-50.0); VENOUS PH 7.240 UNITS (7.330-7.430); VENOUS STANDARD HCO3 26.3 MMOL/L; VENOUS TOTAL CO2 34.9 MMOL/L (24.0-28.0)
[2025-01-16 09:11] LABS: BASO # 0.0 10^3/uL (0.0-0.2); BASO % 0.5 % (0.0-1.0); EOS # 0.0 10^3/uL (0.0-0.5); EOS % 0.0 % (0.0-3.0); LYMPH # 0.4 10^3/uL (1.5-5.0); LYMPH % 6.9 % (24.0-44.0); MONO # 0.2 10^3/uL (0.0-0.8); MONO % 2.3 % (2.0-8.0); NEUTROPHILS # 5.8 10^3/uL (1.5-8.5); NEUTROPHILS % 89.8 % (36.0-66.0); PLATELET COUNT, AUTOMATED 272 10^3/uL (150-450)
[2025-01-16] MEDS: SYMBICORT 160/4.5MCG INHALER 6GM INH SCH (09:42)
[2025-01-16] MEDS: ALBUTEROL 90 MCG/ACT 8 GM HFA INHALER INH PRN (09:43)
[2025-01-16 09:45] LABS: ALT/SGPT 13 U/L (7.0-40); AST/SGOT < 8 U/L (<34); CALCIUM LEVEL 9.0 MG/DL (8.3-10.6); CARBON DIOXIDE LEVEL 34 MMOL/L (20-31); CHLORIDE LEVEL 95 MMOL/L (98-107); CREATININE FOR GFR 0.60 MG/DL (0.70-1.30); GLOMERULAR FILTRATION RATE > 90.0 (>49); POTASSIUM SERUM 4.5 MMOL/L (3.5-5.1); SODIUM LEVEL 137 MMOL/L (136-145)
[2025-01-16] MEDS ORDERED: INSULIN LISPRO (NovoLOG) PER UNIT SC ONE (14:00)
[2025-01-16 16:38] VITALS: BP 132/65; TEMP 97.1; O2SAT 100
[2025-01-16] MEDS ORDERED: INSULIN LISPRO (NovoLOG) PER UNIT SC SCH (17:30)
[2025-01-16 18:08] LABS: ABG BASE EXCESS 5.7 (-2.0-2.0); ABG HCO3 31.6 MMOL/L (22.0-26.0); ABG O2 SATURATION 96.0 % (95.0-99.0); ABG PARTIAL PRESSURE CO2 52.3 mmHg (35.0-45.0); ABG PARTIAL PRESSURE O2 82.6 mmHg (75.0-100.0); ABG STANDARD HCO3 29.6 MMOL/L. (22.0-26.0); ABG TOTAL CO2 33.2 MMOL/L (23.0-31.0); ABG pH (ARTERIAL) 7.399 UNITS (7.350-7.450)
[2025-01-16 18:46] VITALS: O2SAT 94
[2025-01-16 19:50] VITALS: BP 109/56; TEMP 98.2; O2SAT 99
[2025-01-16 20:14] VITALS: O2SAT 98
[2025-01-16] MEDS: SERTRALINE HCL 25 MG TABLET PO SCH (21:08)
[2025-01-16] MEDS: FINASTERIDE 5 MG TAB PO SCH (21:08)
[2025-01-16] MEDS: FAMOTIDINE 20 MG TAB PO SCH (21:09)
[2025-01-16] MEDS: APIXABAN 5 MG TAB PO SCH (21:09)
[2025-01-16] MEDS: ACETAMINOPHEN 325 MG TAB PO PRN (23:08)
[2025-01-17] VITALS (8 sets, daily range): BP systolic 99–148; BP diastolic 55–87; TEMP 97–98.3; O2SAT 96–99
[2025-01-17] MEDS: KETOROLAC 30 MG/ML 1 ML VIAL IV ONE (00:27)
[2025-01-17 05:32] LABS: PLATELET COUNT, AUTOMATED 266 10^3/uL (150-450)
[2025-01-17 05:55] LABS: CALCIUM LEVEL 9.0 MG/DL (8.3-10.6); CARBON DIOXIDE LEVEL 33 MMOL/L (20-31); CHLORIDE LEVEL 101 MMOL/L (98-107); CREATININE FOR GFR 0.66 MG/DL (0.70-1.30); GLOMERULAR FILTRATION RATE > 90.0 (>49); POTASSIUM SERUM 3.7 MMOL/L (3.5-5.1); SODIUM LEVEL 144 MMOL/L (136-145)
[2025-01-17] MEDS: TIOTROPIUM BROM 2.5MCG/ACTUATION 4GM INH INH SCH (08:57)
[2025-01-17] MEDS: FLUTICASONE PROPIONATE 0.05% NASAL SPRAY 16 GM NARES SCH (09:03)
[2025-01-17] MEDS: LORATADINE 10 MG TAB PO SCH (09:04)
[2025-01-18] VITALS: BP 165/75; TEMP 98.3; O2SAT 95
[2025-01-18 03:40] VITALS: BP 136/62; TEMP 97.2; O2SAT 97
[2025-01-18 07:30] VITALS: BP 106/58; TEMP 97.4; O2SAT 95
[2025-01-18 16:00] VITALS: BP 117/58; TEMP 97.6; O2SAT 94
[2025-01-18 19:58] VITALS: BP 118/59; TEMP 98.3; O2SAT 96
[2025-01-18 22:35] VITALS: BP 148/68; TEMP 97.5; O2SAT 99
[2025-01-19 05:14] VITALS: BP 138/63; TEMP 97.5; O2SAT 99
[2025-01-19] MEDS: IPRATROPIUM 0.5 MG/ALBUTEROL 2.5 MG INH SOL UD 3 ML NEB SCH (07:18)
[2025-01-19 08:19] LABS: BASO # 0.0 10^3/uL (0.0-0.2); BASO % 0.2 % (0.0-1.0); EOS # 0.0 10^3/uL (0.0-0.5); EOS % 0.1 % (0.0-3.0); LYMPH # 1.7 10^3/uL (1.5-5.0); LYMPH % 21.5 % (24.0-44.0); MONO # 0.9 10^3/uL (0.0-0.8); MONO % 10.6 % (2.0-8.0); NEUTROPHILS # 5.4 10^3/uL (1.5-8.5); NEUTROPHILS % 67.2 % (36.0-66.0); PLATELET COUNT, AUTOMATED 233 10^3/uL (150-450)
[2025-01-19 08:46] LABS: CALCIUM LEVEL 9.0 MG/DL (8.3-10.6); CARBON DIOXIDE LEVEL 33 MMOL/L (20-31); CHLORIDE LEVEL 101 MMOL/L (98-107); CREATININE FOR GFR 0.57 MG/DL (0.70-1.30); GLOMERULAR FILTRATION RATE > 90.0 (>49); POTASSIUM SERUM 3.3 MMOL/L (3.5-5.1); SODIUM LEVEL 144 MMOL/L (136-145)
[2025-01-19] MEDS ORDERED: PRED10TA2 PO (11:40)
[2025-01-19] MEDS: INSULIN LISPRO (NovoLOG) PER UNIT SC SCH (11:46)
[2025-01-19] MEDS: POTASSIUM CHLORIDE 10MEQ SR TABLET PO ONE (12:20)
== END 2025-01-19 16:25 | disposition home or self-care (01) | DRG 177 ==
LOC: M ED 22:58 → M ED INP 01-16 01:43 → M PCU 01-16 16:30 → M MS5PR 01-18 22:35
PROVIDERS: ADMIT Student in an Organized Health Care Education/Training Program; ATTEND Internal Medicine Nephrology
PROC: 3E0333Z Introduction of Anti-inflammatory into Peripheral Vein, Percutaneous Approach (ICD-10-PCS; principal; 2025-01-16)
DX: U07.1 COVID-19 (principal); J12.82 Pneumonia due to coronavirus disease 2019; E43 Unspecified severe protein-calorie malnutrition; J96.11 Chronic respiratory failure with hypoxia; I50.32 Chronic diastolic (congestive) heart failure; Z68.1 Body mass index [BMI] 19.9 or less, adult; J44.0 Chronic obstructive pulmonary disease with (acute) lower respiratory infection; J44.1 Chronic obstructive pulmonary disease with (acute) exacerbation; E11.65 Type 2 diabetes mellitus with hyperglycemia; M54.9 Dorsalgia, unspecified; I11.0 Hypertensive heart disease with heart failure; E78.5 Hyperlipidemia, unspecified; T38.0X5A Adverse effect of glucocorticoids and synthetic analogues, initial encounter; K76.0 Fatty (change of) liver, not elsewhere classified; K21.9 Gastro-esophageal reflux disease without esophagitis; G89.29 Other chronic pain; I25.10 Atherosclerotic heart disease of native coronary artery without angina pectoris; N40.1 Benign prostatic hyperplasia with lower urinary tract symptoms; F41.9 Anxiety disorder, unspecified; F32.A Depression, unspecified; Z79.01 Long term (current) use of anticoagulants; Z79.4 Long term (current) use of insulin; Z79.899 Other long term (current) drug therapy; Z88.0 Allergy status to penicillin; Z99.81 Dependence on supplemental oxygen; Z86.711 Personal history of pulmonary embolism; Z87.891 Personal history of nicotine dependence

== ENCOUNTER 2025-01-23 16:11 | Observation (INO) | payer OTHER, MEDICAID ==
[~2025-01-23] VITALS: Ht 175.3 cm; Wt 57.0 kg
[~2025-01-23 16:11] MED LIST changes: -BUDE10.7 INH
[2025-01-23 16:51] LABS: VENOUS BASE EXCESS 4.9 (-2.0-2.0); VENOUS HCO3 34.5 MMOL/L (23.0-27.0); VENOUS O2 SATURATION 49.6 % (60.0-80.0); VENOUS PARTIAL PRESSURE CO2 81.1 mmHg (38.0-50.0); VENOUS PARTIAL PRESSURE O2 30.4 mmHg (30.0-50.0); VENOUS PH 7.247 UNITS (7.330-7.430); VENOUS STANDARD HCO3 27.8 MMOL/L; VENOUS TOTAL CO2 37.0 MMOL/L (24.0-28.0)
[2025-01-23 16:59] LABS: BASO # 0.0 10^3/uL (0.0-0.2); BASO % 0.2 % (0.0-1.0); EOS # 0.2 10^3/uL (0.0-0.5); EOS % 2.9 % (0.0-3.0); LYMPH # 1.6 10^3/uL (1.5-5.0); LYMPH % 19.5 % (24.0-44.0); MONO # 0.7 10^3/uL (0.0-0.8); MONO % 8.4 % (2.0-8.0); NEUTROPHILS # 5.5 10^3/uL (1.5-8.5); NEUTROPHILS % 68.3 % (36.0-66.0); PLATELET COUNT, AUTOMATED 267 10^3/uL (150-450)
[2025-01-23 17:22] LABS: CK-MB VALUE MASS 1.0 NG/ML (<3.6)
[2025-01-23 17:24] LABS: ALT/SGPT 33 U/L (7.0-40); AST/SGOT 17 U/L (<34); CALCIUM LEVEL 8.7 MG/DL (8.3-10.6); CARBON DIOXIDE LEVEL 35 MMOL/L (20-31); CHLORIDE LEVEL 101 MMOL/L (98-107); CPK CREATINE PHOSPHOKINASE 21 U/L (46-171); CREATININE FOR GFR 0.67 MG/DL (0.70-1.30); GLOMERULAR FILTRATION RATE > 90.0 (>49); MB/CK RELATIVE INDEX 4.76 (< OR =4); POTASSIUM SERUM 4.8 MMOL/L (3.5-5.1); SODIUM LEVEL 142 MMOL/L (136-145)
[2025-01-23 17:26] LABS: THYROXINE (T4) 6.0 UG/DL (4.5-10.9)
[2025-01-23] MEDS: ALBUTEROL SULFATE 2.5 MG/0.5 ML INH CONCENTRATE NEB SOLN NEB ONE (17:29)
[2025-01-23] MEDS ORDERED: ISOVUE-370 76% 100 ML VIAL As Ordered ONE (18:44)
[2025-01-23 19:20] LABS: CK-MB VALUE MASS < 1.0 NG/ML (<3.6)
[2025-01-23 19:22] LABS: CPK CREATINE PHOSPHOKINASE 22 U/L (46-171)
[2025-01-23] MEDS: IPRATROPIUM 0.5 MG/ALBUTEROL 2.5 MG INH SOL UD 3 ML NEB PRN (19:38)
[2025-01-23 20:15] VITALS: O2SAT 98
[2025-01-23] MEDS: PIPERACILLIN/TAZOBACTAM SOD 4.5 GM in DEXTROSE 5% (D5W) ADV/MINI-BAG 50 ML IV ONE (22:13)
[2025-01-23] MEDS ORDERED: BUDE10.7 INH (22:23)
[2025-01-23] MEDS ORDERED: HOME MED LIST COMPLETE! XX SCH (23:00)
[2025-01-23] MEDS: VANCOMYCIN HCL 1,000 MG, VIAL MATE ADAPTER 1 EACH in NS 250 ML IV ONE (23:08)
[2025-01-24] MEDS ORDERED: MAALOX 30 ML SUSP *UDC PO PRN (00:25)
[2025-01-24] MEDS ORDERED: MOM 30 ML SUSPENSION UDC PO PRN (00:25)
[2025-01-24] MEDS ORDERED: ACETAMINOPHEN 325 MG TAB PO PRN (00:25)
[2025-01-24] MEDS: AZITHROMYCIN INJ 500 MG, VIAL MATE ADAPTER 1 EACH in NS 250 ML IV SCH (01:27)
[2025-01-24] MEDS: IPRATROPIUM 0.5 MG/ALBUTEROL 2.5 MG INH SOL UD 3 ML NEB SCH (02:02)
[2025-01-24] MEDS ORDERED: DEXTROSE 50% 50 ML SYRINGE IV PRN (04:00)
[2025-01-24] MEDS ORDERED: GLUCAGON INJ 1 MG VIAL SC PRN (04:00)
[2025-01-24] MEDS ORDERED: GLUCOSE 4 GM CHEW PO PRN (04:00)
[2025-01-24] MEDS: SERTRALINE HCL 25 MG TABLET PO SCH (04:19)
[2025-01-24] MEDS: INSULIN LISPRO (NovoLOG) PER UNIT SC ONE (04:21)
[2025-01-24] MEDS: FINASTERIDE 5 MG TAB PO SCH (04:21)
[2025-01-24 07:24] LABS: PLATELET COUNT, AUTOMATED 309 10^3/uL (150-450)
[2025-01-24 07:50] LABS: CALCIUM LEVEL 9.3 MG/DL (8.3-10.6); CARBON DIOXIDE LEVEL 29 MMOL/L (20-31); CHLORIDE LEVEL 100 MMOL/L (98-107); CREATININE FOR GFR 0.69 MG/DL (0.70-1.30); GLOMERULAR FILTRATION RATE > 90.0 (>49); POTASSIUM SERUM 4.4 MMOL/L (3.5-5.1); SODIUM LEVEL 140 MMOL/L (136-145)
[2025-01-24] MEDS: APIXABAN 5 MG TAB PO SCH (08:25)
[2025-01-24] MEDS: predniSONE 10 MG TAB PO SCH (08:25)
[2025-01-24] MEDS: INSULIN LISPRO (NovoLOG) PER UNIT SC SCH (08:25)
[2025-01-24] MEDS: cefTRIAXone SOD 1 GM in DEXTROSE 5% (D5W) ADV/MINI-BAG 50 ML IV SCH (08:25)
[2025-01-24] MEDS: ATORVASTATIN 20 MG TAB PO SCH (08:25)
[2025-01-24] MEDS: TAMSULOSIN 0.4 MG CAP PO SCH (08:25)
[2025-01-24] MEDS: PANTOPRAZOLE 40MG VIAL IV SCH (08:25)
[2025-01-24] MEDS: DOCUSATE SODIUM 100 MG CAPSULE PO SCH (09:00)
[2025-01-24] MEDS: MAGNESIUM OXIDE 400 MG TAB PO SCH (11:09)
[2025-01-24] MEDS: VITAMIN D 1,000 INTERNATIONAL UNITS TABLET PO SCH (11:09)
[2025-01-24] MEDS: LanTUS (INSULIN GLARGINE INJ) 1 UNITS/0.01 ML SC SCH (11:10)
[2025-01-24] MEDS ORDERED: PRED10TA2 PO (11:34)
[2025-01-24] MEDS ORDERED: INSULIN LISPRO (NovoLOG) PER UNIT SC SCH (12:00)
[2025-01-24] MEDS: TIOTROPIUM BROM 2.5MCG/ACTUATION 4GM INH INH SCH (12:28)
[2025-01-24] MEDS: ADVAIR HFA 115/21 MCG INHALER INH SCH (12:29)
[2025-01-24 15:02] VITALS: BP 158/67; TEMP 96.1; O2SAT 98
[2025-01-24] MEDS ORDERED: FAMOTIDINE 20 MG TAB PO SCH (21:00)
[2025-01-24] MEDS ORDERED: ADVAIR HFA 230/21 MCG INHALER INH SCH (21:00)
[2025-01-24] MEDS ORDERED: ATORVASTATIN 20 MG TAB PO SCH (21:00)
[2025-01-24] MEDS ORDERED: TAMSULOSIN 0.4 MG CAP PO SCH (21:00)
== END 2025-01-24 15:07 | disposition home or self-care (01) ==
LOC: M ED 16:11 → EDBD 16:11 → M ED INP 16:12
PROVIDERS: ADMIT Student in an Organized Health Care Education/Training Program; ATTEND Student in an Organized Health Care Education/Training Program
DX: R07.89 Other chest pain (principal); J98.19 Other pulmonary collapse; Z86.16 Personal history of COVID-19; J44.9 Chronic obstructive pulmonary disease, unspecified; J96.11 Chronic respiratory failure with hypoxia; Z86.711 Personal history of pulmonary embolism; N40.0 Benign prostatic hyperplasia without lower urinary tract symptoms; F39 Unspecified mood [affective] disorder; K21.9 Gastro-esophageal reflux disease without esophagitis; I25.10 Atherosclerotic heart disease of native coronary artery without angina pectoris; E78.5 Hyperlipidemia, unspecified; I50.32 Chronic diastolic (congestive) heart failure; I11.0 Hypertensive heart disease with heart failure; E11.9 Type 2 diabetes mellitus without complications; E55.9 Vitamin D deficiency, unspecified; Z79.01 Long term (current) use of anticoagulants; Z79.4 Long term (current) use of insulin; Z79.899 Other long term (current) drug therapy; Z79.52 Long term (current) use of systemic steroids
CPT/HCPCS: 36415; 71045; 71275; 80048; 80076; 81001; 82550; 82553; 82803; 83605; 83880; 84145; 84436; 84443; 84484; 85025; 85027; 87040; 87077; 87086; 87154; 87186; 87486; 87581; 87633; 87798; 93005; 93041; 94640; 94760; 96365; 96366; 96367; 96368; 96375; 97116; 97161; 99285; G0378; J0456; J0696; J1815; J2470; J2543; J3373; J7512; Q9967

== ENCOUNTER → 2025-01-23 | Outpatient (REF) | payer OTHER, MEDICAID ==
[~2025-01-23] MED LIST changes: +BUDE10.7 INH
[2025-01-23 17:48] LABS: APPEARANCE, URINE CLEAR (CLEAR); BACTERIA, URINE AUTO NEGATIVE (NEGATIVE); BILIRUBIN, URINE AUTO NEGATIVE (NEGATIVE); BLOOD, URINE BLOOD NEGATIVE (NEGATIVE); GLUCOSE, URINE (UA) AUTO 3+ mg/dL (NEGATIVE); KETONE, URINE AUTO NEGATIVE (NEGATIVE); LEUKOCYTE ESTERASE, URINE AUTO NEGATIVE (NEGATIVE); NITRITE, URINE AUTO NEGATIVE (NEGATIVE); PROTEIN, URINE AUTO NEGATIVE (NEGATIVE); RBC, URINE AUTO 0 /HPF (0-3); SPECIFIC GRAVITY URINE AUTO 1.014 (1.002-1.035); SQUAMOUS EPITHELIAL CELL UR AU 0 /HPF (0-6); UROBILINOGEN, URINE AUTO 0.2 mg/dL (0.0-2.0); WBC, URINE AUTO 2 /HPF (0-3)
== END ==
LOC: M SMT 16:51
PROVIDERS: ATTEND Urology
DX: R07.9 Chest pain, unspecified (principal)

== ENCOUNTER → 2025-01-31 | Outpatient (CLI) | payer OTHER, MEDICAID ==
[~2025-01-31] VITALS: Ht 175.3 cm; Wt 62.3 kg
[~2025-01-31] MED LIST changes: +BUDE10.7 INH; +TRAZ-252 PO
[2025-01-31 13:41] VITALS: BP 120/64; O2SAT 97
== END ==
LOC: M PAL 13:28
PROVIDERS: ATTEND Physician Assistant
DX: Z51.5 Encounter for palliative care (principal); Z66 Do not resuscitate; Z99.89 Dependence on other enabling machines and devices; J44.9 Chronic obstructive pulmonary disease, unspecified; R07.89 Other chest pain; Z79.891 Long term (current) use of opiate analgesic; Z88.6 Allergy status to analgesic agent; Z79.02 Long term (current) use of antithrombotics/antiplatelets; Z79.85 Long-term (current) use of injectable non-insulin antidiabetic drugs

== ENCOUNTER 2025-02-12 05:37 | Emergency (ER) | payer OTHER, MEDICAID ==
[~2025-02-12] VITALS: Ht 175.3 cm; Wt 56.8 kg
[~2025-02-12 05:37] MED LIST changes: +SULF-7 PO; -SULF1TAB23 PO
[2025-02-12 06:37] LABS: BASO # 0.1 10^3/uL (0.0-0.2); BASO % 1.0 % (0.0-1.0); EOS # 0.2 10^3/uL (0.0-0.5); EOS % 2.3 % (0.0-3.0); LYMPH # 1.8 10^3/uL (1.5-5.0); LYMPH % 24.3 % (24.0-44.0); MONO # 0.7 10^3/uL (0.0-0.8); MONO % 9.4 % (2.0-8.0); NEUTROPHILS # 4.6 10^3/uL (1.5-8.5); NEUTROPHILS % 62.7 % (36.0-66.0); PLATELET COUNT, AUTOMATED 277 10^3/uL (150-450)
[2025-02-12 06:50] LABS: KETONE, URINE AUTO RFX NEGATIVE (NEGATIVE); LEUKOCYTE ESTERASE UR AUTO RFX NEGATIVE (NEGATIVE); NITRITE, URINE AUTO RFX NEGATIVE (NEGATIVE); RBC, URINE AUTO RFX 3 /HPF (0-3); SQUAM EPITHELIAL CELL UR AURFX 0 /HPF (0-6); WBC, URINE AUTO RFX 1 /HPF (0-3); YEAST LIKE CELL URINE AUTO RFX SMALL
[2025-02-12 06:53] LABS: ALT/SGPT 11 U/L (7.0-40); AST/SGOT < 8 U/L (<34); CALCIUM LEVEL 9.7 MG/DL (8.3-10.6); CARBON DIOXIDE LEVEL 34 MMOL/L (20-31); CHLORIDE LEVEL 99 MMOL/L (98-107); CREATININE FOR GFR 0.66 MG/DL (0.70-1.30); GLOMERULAR FILTRATION RATE > 90.0 (>49); POTASSIUM SERUM 4.0 MMOL/L (3.5-5.1); SODIUM LEVEL 139 MMOL/L (136-145)
[2025-02-12] MEDS ORDERED: ISOVUE-370 76% 100 ML VIAL As Ordered ONE (07:54)
[2025-02-12] MEDS: HumuLIN R (REGULAR) INSULIN (NovoLIN R) **100 U/ML** PER UNIT IV ONE (08:12)
[2025-02-12] MEDS: NS (Normal Saline) 0.9% 1,000 ML IV ONE (08:13)
[2025-02-12] MEDS: MORPHINE 2 MG/ML 1 ML VIAL IV PRN (08:13)
[2025-02-12 08:41] LABS: CK-MB VALUE MASS < 1.0 NG/ML (<3.6)
[2025-02-12 08:42] LABS: CPK CREATINE PHOSPHOKINASE 50 U/L (46-171)
[2025-02-12 08:45] LABS: CK-MB VALUE MASS 1.4 NG/ML (<3.6)
[2025-02-12 08:46] LABS: CPK CREATINE PHOSPHOKINASE 51 U/L (46-171); MB/CK RELATIVE INDEX 2.74 (< OR =4)
[2025-02-12] MEDS ORDERED: MOXI400T11 PO (09:35)
[2025-02-12] MEDS: MOXIFLOXACIN 400 MG TAB PO ONE (09:48)
[2025-02-12 10:08] VITALS: BP 119/57; TEMP 98.4; O2SAT 97
== END 2025-02-12 10:18 | disposition home or self-care (01) ==
LOC: M ED 05:37
DX: R10.11 Right upper quadrant pain (principal); R10.32 Left lower quadrant pain; J18.9 Pneumonia, unspecified organism; E11.9 Type 2 diabetes mellitus without complications; I25.10 Atherosclerotic heart disease of native coronary artery without angina pectoris; I50.9 Heart failure, unspecified; F32.A Depression, unspecified; F41.9 Anxiety disorder, unspecified; K21.9 Gastro-esophageal reflux disease without esophagitis; Z88.8 Allergy status to other drugs, medicaments and biological substances; Z79.899 Other long term (current) drug therapy; F17.200 Nicotine dependence, unspecified, uncomplicated; K76.0 Fatty (change of) liver, not elsewhere classified; R91.1 Solitary pulmonary nodule; Z79.01 Long term (current) use of anticoagulants; Z79.4 Long term (current) use of insulin
CPT/HCPCS: 71045; 71275; 74177; 80048; 80076; 81001; 82550; 82553; 83605; 83690; 84484; 85025; 87507; 93005; 96374; 96375; 99284; J1815; Q9967

== ENCOUNTER 2025-02-17 20:13 | Emergency (ER) | payer OTHER, MEDICAID ==
[~2025-02-17] VITALS: Ht 175.3 cm; Wt 56.8 kg
[~2025-02-17 20:13] MED LIST changes: +MOXI400T11 PO
[2025-02-17 21:04] LABS: VENOUS BASE EXCESS 3.6 (-2.0-2.0); VENOUS HCO3 31.9 MMOL/L (23.0-27.0); VENOUS O2 SATURATION 82.6 % (60.0-80.0); VENOUS PARTIAL PRESSURE CO2 68.3 mmHg (38.0-50.0); VENOUS PARTIAL PRESSURE O2 48.4 mmHg (30.0-50.0); VENOUS PH 7.287 UNITS (7.330-7.430); VENOUS STANDARD HCO3 27.3 MMOL/L; VENOUS TOTAL CO2 34.0 MMOL/L (24.0-28.0)
[2025-02-17 21:19] LABS: BASO # 0.1 10^3/uL (0.0-0.2); BASO % 1.3 % (0.0-1.0); EOS # 0.2 10^3/uL (0.0-0.5); EOS % 3.8 % (0.0-3.0); LYMPH # 1.3 10^3/uL (1.5-5.0); LYMPH % 20.5 % (24.0-44.0); MONO # 0.6 10^3/uL (0.0-0.8); MONO % 8.6 % (2.0-8.0); NEUTROPHILS # 4.2 10^3/uL (1.5-8.5); NEUTROPHILS % 65.6 % (36.0-66.0); PLATELET COUNT, AUTOMATED 264 10^3/uL (150-450)
[2025-02-17 21:34] LABS: ALT/SGPT 17 U/L (7.0-40); AST/SGOT 9 U/L (<34); CALCIUM LEVEL 8.5 MG/DL (8.3-10.6); CARBON DIOXIDE LEVEL 33 MMOL/L (20-31); CHLORIDE LEVEL 105 MMOL/L (98-107); CREATININE FOR GFR 0.60 MG/DL (0.70-1.30); GLOMERULAR FILTRATION RATE > 90.0 (>49); POTASSIUM SERUM 4.1 MMOL/L (3.5-5.1); SODIUM LEVEL 144 MMOL/L (136-145)
[2025-02-17 23:22] LABS: SOFIA COVID ANTIGEN NEGATIVE (NEGATIVE)
[2025-02-18] MEDS: ACETAMINOPHEN *IV* 1,000 MG in IV 1 EA IV ONE (00:32)
[2025-02-18 00:37] VITALS: TEMP 98.2
[2025-02-18 01:00] VITALS: BP 150/77; O2SAT 99
== END 2025-02-18 01:21 | disposition home or self-care (01) ==
LOC: M ED 20:13 → EDBD 20:13 → M ED 02-18 01:21
DX: J44.9 Chronic obstructive pulmonary disease, unspecified (principal); E11.9 Type 2 diabetes mellitus without complications; I50.9 Heart failure, unspecified; I25.10 Atherosclerotic heart disease of native coronary artery without angina pectoris; Z86.16 Personal history of COVID-19; Z99.81 Dependence on supplemental oxygen; Z91.199 Patient's noncompliance with other medical treatment and regimen due to unspecified reason; F17.200 Nicotine dependence, unspecified, uncomplicated; Z79.01 Long term (current) use of anticoagulants; Z79.899 Other long term (current) drug therapy; Z88.8 Allergy status to other drugs, medicaments and biological substances
CPT/HCPCS: 71045; 71250; 80048; 80076; 82803; 83605; 84145; 85025; 87040; 87428; 87486; 87581; 87633; 87798; 93005; 93041; 94760; 96365; 99285; J0134